=== PATIENT | female | born 1965 | race Caucasian/White ===

== ENCOUNTER 2016-07-21 23:57 | Inpatient (IN) | payer OTHER ==
[2016-07-22 00:14] VITALS: BMI 25.6
--- NOTE | 2016-07-22 00:15 | PDOC ---
History of Present Illness - General History Source: Patient, EMS, Old Records, Primary Care Provider (Dr. Brown Jin) Exam Limitations: No Limitations - History of Present Illness Initial Comments: 07/22/16 00:27 The patient is a 51 year old female with significant past medical history of hypertension, multiple episodes of SBO, and multiple abdominal surgeries who presents to the ED BIBA for admission requested by surgeon. Patient was seen here on 07/11 for abdominal pain, nausea, and vomiting, where she was admitted for small bowel obstruction. On 07/14/16 she had a lap converted to open extensive lysis of adhesions, small bowel resection x 2, completion appendectomy , ventral hernia repair. She was treated and discharged. Today, patient was seen at an outside hospital where she was requested to be transferred here by surgeon, Dr. Brown Jin, for admission. As per ems, patient had a low grade fever at the outside hospital and was given tylenol with improvement. Patient has complaints of suprapubic pain upon urination. She denies dysuria, hematuria , urgency, or frequency. She states she has not pass gas over the past week and her last bowel movement was yesterday. She denies nausea, vomiting, or diarrhea. The patient denies chills, cough, diaphoresis, SOB, chest pain, and palpitations. Allergies: NKDA Social History: No alcohol, tobacco, or drug use reported. Past Surgical History: hernia repair, appendectomy, oophorectomy, on 07/14/16 ( lap converted to open extensive lysis of adhesions, small bowel resection x 2, completion appendectomy, ventral hernia repair) PCP: None reported <Halley Ocasio - Last Filed: 07/22/16 00:26> <Damon Greenberg - Last Filed: 07/22/16 01:56> - General Stated Complaint: ABDOMINAL PAIN Time Seen by Provider: 07/22/16 00:07 Past History <Halley Ocasio - Last Filed: 07/22/16 00:26> - Past Medical History GI Disorders: Yes (SBO) HTN: Yes - Surgical History Abdominal Surgery: Yes (HERNIA REPAIR) Appendectomy: Yes - Immunization History Immunization Up to Date: Yes - Psycho/Social/Smoking Cessation Hx Anxiety: No Suicidal Ideation: No Smoking Status: No Smoking History: Never smoked Have you smoked in the past 12 months: No Number of Cigarettes Smoked Daily: 0 Hx Alcohol Use: No Drug/Substance Use Hx: No Substance Use Type: None Hx Substance Use Treatment: No <Damon Greenberg - Last Filed: 07/22/16 01:56> - Past Medical History Allergies/Adverse Reactions: Allergies Allergy/AdvReac Type Severity Reaction Status Date / Time No Known Allergies Allergy Verified 07/22/16 00:33 Home Medications: Ambulatory Orders Aspirin [ASA -] 81 mg PO DAILY 07/27/13 Hydrochlorothiazide [Hctz -] 25 mg PO DAILY 12/14/15 Cholecalciferol (Vitamin D3) [Vitamin D3] 50,000 unit PO SA 07/11/16 Docusate Sodium [Colace -] 100 mg PO BID PRN #14 capsule 07/18/16 Oxycodone HCl/Acetaminophen [Percocet 10-325 mg Tablet] 1 each PO Q6H #20 tablet MDD 4 07/18/16 Review of Systems - Review of Systems Able to Perform ROS?: Yes Comments:: 07/22/16 00:27 +suprapubic pain, low grade fever Absent: chills, cough, diaphoresis, SOB, chest pain, nausea, vomiting, diarrhea , dysuria, hematuria, urgency, or frequency <Halley Ocasio - Last Filed: 07/22/16 00:26> *Physical Exam - Vital Signs Last Vital Signs Temp Pulse Resp BP Pulse Ox 99.3 F 107 H 20 98/59 96 07/22/16 00:12 07/22/16 00:12 07/22/16 00:12 07/22/16 00:12 07/22/16 00:12 <Halley Ocasio - Last Filed: 07/22/16 00:26> - Physical Exam General Appearance: Yes: Nourished, Appropriately Dressed HEENT: positive: Normal ENT Inspection Neck: negative: Tender Respiratory/Chest: positive: Lungs Clear, Normal Breath Sounds. negative: Respiratory Distress Cardiovascular: positive: Regular Rhythm, Regular Rate Gastrointestinal/Abdominal: positive: Normal Bowel Sounds, Other (SURGICAL STAPPLES IN PLACE NO CELLULITIS. ). negative: Tender Musculoskeletal: positive: Normal Inspection. negative: CVA Tenderness Integumentary: positive: Normal Color, Rash Neurologic: positive: Fully Oriented, Alert, Normal Mood/Affect, Normal Response , Motor Strength 5/5 <Damon Greenberg - Last Filed: 07/22/16 01:56> ED Treatment Course - LABORATORY CBC & Chemistry Diagram: 07/22/16 00:45 07/22/16 00:45 <Damon Greenberg - Last Filed: 07/22/16 01:56> Progress Note - Progress Note Progress Note: D/W DR. JIN WILL ADMIT. NPO START ABX (FEBRILE EARLIER) <Damon Greenberg - Last Filed: 07/22/16 01:56> *DC/Admit/Observation/Transfer - Attestations Scribe Attestion: 07/22/16 00:27 Documentation prepared by Halley Ocasio, acting as medical records field technician for Damon Greenberg MD <Halley Ocasio - Last Filed: 07/22/16 00:26> - Discharge Dispostion Admit: Yes <Damon Greenberg - Last Filed: 07/22/16 01:56> Diagnosis at time of Disposition: Abdominal pain Qualifiers: Abdominal location: generalized Qualified Code(s): R10.84 - Generalized abdominal pain
[2016-07-22] MEDS: SODIUM CHLORIDE 1,000 ML IV SCH ×3 (00:33→18:48)
[2016-07-22 00:56] LABS: BASOPHIL 0.3 % (0-2.0); EOSINOPHIL 0.1 % (0-4.5); MCH 26.5 pg (25.7-33.7); MCHC 33.2 g/dl (32.0-36.0); MEAN CELL VOLUME 79.8 fl (80-96); NEUTROPHILS 93.2 % (42.8-82.8); PLATELET COUNT 260 K/MM3 (134-434); WHITE BLOOD COUNT 14.7 K/mm3 (4.0-10.0)
[2016-07-22] MEDS ORDERED: PIPERACILLIN/TAZOB 4.5 GM 100 ML IVPB ONE (00:58)
[2016-07-22] MEDS ORDERED: PIPERACILLIN/TAZOB 4.5 GM/100 ML PRE-DOCKED IVPB ONE (01:04)
[2016-07-22 01:19] LABS: ALBUMIN 2.6 g/dl (3.4-5.0); ANION GAP 12 (8-16); BILIRUBIN,TOTAL 1.1 mg/dL (0.2-1.0); CALCIUM 7.7 mg/dL (8.5-10.1); CO2 27 mmol/L (21-32); CREATININE 0.5 mg/dL (0.55-1.02); GLUCOSE,RANDOM 118 mg/dL (74-106); SGOT/AST 32 U/L (15-37); SGPT/ALT 32 U/L (12-78); TOT PROT 5.3 g/dl (6.4-8.2)
[2016-07-22 01:20] LABS: ALK PHOS 88 U/L (45-117)
[2016-07-22] MEDS ORDERED: morphine CARPU-JECT 2 MG/1 ML DISP.SYRIN IVPUSH ONE (02:11)
[2016-07-22] MEDS ORDERED: morphine CARPU-JECT 2 MG/1 ML DISP.SYRIN ONE (02:11)
--- NOTE | 2016-07-22 02:32 | HP ---
CHIEF COMPLAINT: Abdominal pain, fever, chills PCP: Margaux Jenkins Surgeon: Dr. Jin HISTORY OF PRESENT ILLNESS: This is a 51 year old female with a past medical history of HTN and multiple abdominal surgeries, most recent 07/14/16, presented to [facility] this afternoon s/p episode of shaking chills. She was noted to be febrile, Tmax 102.5, tx with tylenol. CT abdomen/pelvis was done and after discussion with Dr. Jin, decision was made to transfer her here for further treatment. She is s/ p lap converted to open extensive lysis of adhesions, small bowel resection x 2 , completion appendectomy, ventral hernia repair on 07/14/16. Upon exam she complains of abdominal pain which is slowly improving since her surgery. She reports passing small amounts of gas and her last BM was yesterday. She reports no fever or chills prior to today. Denies nausea, vomiting. ER course was notable for: (1) given morphine 2mg for pain (2) given zosyn 4.5g (3) [facility] ED: 2L NS given, morphine 4mg @1710, tylenol 975mg po @ 2019 Recent Travel: pt denies PAST MEDICAL HISTORY: HTN PAST SURGICAL HISTORY: R oopherectomy, (ovarian cyst) salpingectomy, appendectomy 1985 hernia repair 2003 (after which SBOs began) lap converted to open extensive lysis of adhesions, small bowel resection x 2, completion appendectomy, ventral hernia repair 07/14/16 Social History: Smoking: pt denies Alcohol: pt denies Drugs: pt denies Allergies No Known Allergies Allergy (Verified 07/22/16 00:33) HOME MEDICATIONS: 3 Medication Instructions Recorded Aspirin [ASA -] 81 mg PO DAILY 07/27/13 Hydrochlorothiazide [Hctz -] 25 mg PO DAILY 12/14/15 Cholecalciferol (Vitamin D3) 50,000 unit PO SA 07/11/16 [Vitamin D3] Docusate Sodium [Colace -] 100 mg PO BID PRN #14 capsule 07/18/16 Oxycodone HCl/Acetaminophen 1 each PO Q6H #20 tablet MDD 4 07/18/16 [Percocet 10-325 mg Tablet] REVIEW OF SYSTEMS CONSTITUTIONAL: Present: fever, chills Absent: diaphoresis, generalized weakness, malaise, loss of appetite, weight change HEENT: Absent: rhinorrhea, nasal congestion, throat pain, throat swelling, difficulty swallowing, mouth swelling, ear pain, eye pain, visual changes CARDIOVASCULAR: Absent: chest pain, syncope, palpitations, irregular heart rate, lightheadedness , peripheral edema RESPIRATORY: Absent: cough, shortness of breath, dyspnea with exertion, orthopnea, wheezing, stridor, hemoptysis GASTROINTESTINAL: Present: abdominal pain Absent: abdominal distension, nausea, vomiting, diarrhea, constipation, melena, hematochezia GENITOURINARY: Absent: dysuria, frequency, urgency, hesitancy, hematuria, flank pain, genital pain MUSCULOSKELETAL: Absent: myalgia, arthralgia, joint swelling, back pain, neck pain SKIN: Absent: rash, itching, pallor HEMATOLOGIC/IMMUNOLOGIC: Absent: easy bleeding, easy bruising, lymphadenopathy, frequent infections ENDOCRINE: Absent: unexplained weight gain, unexplained weight loss, heat intolerance, cold intolerance NEUROLOGIC: Absent: headache, focal weakness or paresthesias, dizziness, unsteady gait, seizure, mental status changes, bladder or bowel incontinence PSYCHIATRIC: Absent: anxiety, depression, suicidal or homicidal ideation, hallucinations. PHYSICAL EXAMINATION Vital Signs - 24 hr 3 07/22/ 00:12 Temperature 99.3 F Pulse Rate 107 H Respiratory 20 Rate Blood Pressure 98/59 O2 Sat by Pulse 96 Oximetry (%) GENERAL: Awake, alert, and fully oriented, in no acute distress. HEAD: Normal with no signs of trauma. EYES: Pupils equal, round and reactive to light, extraocular movements intact, sclera anicteric, conjunctiva clear. No lid lag. EARS, NOSE, THROAT: Ears normal, nares patent, oropharynx clear without exudates. Moist mucous membranes. NECK: Normal range of motion, supple without lymphadenopathy, JVD, or masses. LUNGS: Breath sounds equal, clear to auscultation bilaterally. No wheezes, and no crackles. No accessory muscle use. HEART: Regular rate and rhythm, normal S1 and S2 without murmur, rub or gallop. ABDOMEN: Soft, not distended, normoactive bowel sounds, no guarding, no rebound , no masses. No hepatomegaly or splenomegaly. generalized tenderness to palpation, gregg LLQ MUSCULOSKELETAL: Normal range of motion at all joints. No bony deformities or tenderness. No CVA tenderness. UPPER EXTREMITIES: 2+ pulses, warm, well-perfused. No cyanosis. No clubbing. No peripheral edema. LOWER EXTREMITIES: 2+ pulses, warm, well-perfused. No calf tenderness. No peripheral edema. NEUROLOGICAL: Cranial nerves II-XII intact. Normal speech. Normal gait. PSYCHIATRIC: Cooperative. Good eye contact. Appropriate mood and affect. SKIN: Warm, dry, normal turgor, no rashes or lesions noted, normal capillary refill. Laboratory Results - last 24 hr 3 07/22/16 07/22/16 00:45 00:45 WBC 14.7 H D RBC 3.53 L Hgb 9.4 L Hct 28.2 L MCV 79.8 L MCHC 33.2 RDW 14.0 Plt Count 260 D MPV 9.0 D Neutrophils % 93.2 H D Lymphocytes % 3.9 L D Monocytes % 2.5 L Eosinophils % 0.1 D Basophils % 0.3 Sodium 140 Potassium 3.5 Chloride 101 Carbon Dioxide 27 Anion Gap 12 BUN 4 L D Creatinine 0.5 L D Creat Clearance w eGFR > 60 Random Glucose 118 H Calcium 7.7 L Total Bilirubin 1.1 H D AST 32 D ALT 32 D Alkaline Phosphatase 88 Total Protein 5.3 L D Albumin 2.6 L D ECG: ([place]) Sinus tachycardia, rate 116, QTC 419, No ST/T wave changes CT abd / pelvis ([place]): Impression: Extensive mesenteric edema with enteritis in the lower abdomen suspicious for anastomotic leak. There is small amount of ascites and free air in the right lower quadrant. There is no definite evidence of contraast extravasation, though only a small amount of contrast reached the site of anastomosis and the colon. Proximal small bowel distention could be reactive or represent partial small bowel obstruction. There is no organized abscess. There is reactive urinary bladder wall thickening. Other findings as above. ASSESSMENT/PLAN: 51yF with PMH HTN, mutiple abdominal surgeries, most recent 07/14, presented to an outside ED with fever and chills. Pt is being admitted for further evaluation and treatment. Fever - s/p laparotomy 07/14/16 - IV acetaminophen PRN - Zosyn given in ED - ID consult - surgical consult, ED discussed case with Dr. Jin, will repeat CT tomorrow. Possible SBO - NPO - surgical consult - NGT if vomiting HTN - hold po med for now. DVT PPX - heparin 5000 units SC TID FEN - NS @ 125cc/hr Dispo: Pt currently requires inpatient care for management of her emergent condition. Visit type - Emergency Visit Emergency Visit: Yes ED Registration Date: 07/22/16 Care time: The patient presented to the Emergency Department on the above date and was hospitalized for further evaluation of their emergent condition. - New Patient This patient is new to me today: Yes Date on this admission: 07/22/16 - Critical Care Critical Care patient: No
[2016-07-22] MEDS ORDERED: ONDANSETRON 4 MG/2 ML VIAL IVPB PRN (02:39)
[2016-07-22] MEDS ORDERED: ACETAMINOPHEN 1000 MG/100 ML VIAL (NON FORMULARY) IVPB ONE (03:29)
[2016-07-22] MEDS ORDERED: ACETAMINOPHEN 1000 MG/100 ML VIAL (NON FORMULARY) IVPB PRN (03:30)
[2016-07-22] MEDS ORDERED: SODIUM CHLORIDE 500 ML IV STA ×2 (04:36→12:50)
[2016-07-22] MEDS ORDERED: IBUPROFEN 800 MG/8 ML IJ IVPB PRN (05:29)
[2016-07-22] MEDS: HEPARIN NA (PORCINE) 5,000 UNITS/ML 1ML VIAL SQ SCH ×3 (06:58→22:14)
[2016-07-22 09:39] LABS: C-REACTIVE PROTEIN 17.3 MG/DL (0.00-0.3)
--- NOTE | 2016-07-22 09:57 | CONSULT ---
Consult Consult Specialty:: surgery Reason for Consultation:: fever/abd pain - History of Present Illness Chief Complaint: fever History of Present Illness: pt is a 51F 1 week s/p exlap and 2 small bowel resections for chronic recurrent small bowel obstruction. she was discharged once she tolerated diet, and had bowel function. at home she developed fever and mental status changes and was brought by ambulance to [place] [facility] where she had leukocytosis, fever. CT abd with oral and IV contrastthere showed mesenteric edema/inflammation, thickening of some small bowel and 4x6 cm RLQ fluid collection. There was no extravasation of oral contrast, not alot of ascites, no air around anastamosis. Currently patient feels better than last night. Tm overnight 103. HR 100-140. SBP 90-100 - History Source History Provided By: Patient, Family Member Limitations to Obtaining History: Language Barrier - Past Medical History ...LMP: 03/08/12 - Past Surgical History Past Surgical History: Yes: Appendectomy - Alcohol/Substance Use Hx Alcohol Use: No - Smoking History Smoking history: Never smoked Have you smoked in the past 12 months: No Aproximately how many cigarettes per day: 0 Home Medications - Allergies Allergies/Adverse Reactions: Allergies Allergy/AdvReac Type Severity Reaction Status Date / Time No Known Allergies Allergy Verified 07/22/16 00:33 - Home Medications Home Medications: Ambulatory Orders Aspirin [ASA -] 81 mg PO DAILY 07/27/13 Hydrochlorothiazide [Hctz -] 25 mg PO DAILY 12/14/15 Cholecalciferol (Vitamin D3) [Vitamin D3] 50,000 unit PO SA 07/11/16 Docusate Sodium [Colace -] 100 mg PO BID PRN #14 capsule 07/18/16 Oxycodone HCl/Acetaminophen [Percocet 10-325 mg Tablet] 1 each PO Q6H #20 tablet MDD 4 07/18/16 Review of Systems - Review of Systems Constitutional: reports: Chills, Fever, Malaise Eyes: denies: Blind Spots, Blurred Vision HENT: denies: Difficult Swallowing, Ear Discharge Neck: denies: Decreased ROM, Lumps Cardiovascular: denies: Chest Pain, Edema Respiratory: denies: Cough, SOB Gastrointestinal: reports: Abdominal Pain, Constipation Genitourinary: denies: Discharge, Incontinence Breasts: denies: Lumps, Pain Musculoskeletal: denies: Back Pain, Crepitus Integumentary: denies: Blister, Bruising Neurological: denies: Change in LOC, Change in Speech Endocrine: denies: Excessive Sweating, Flushing Hematology/Lymphatic: denies: Easily Bruised, Excessive Bleeding Psychiatric: denies: Altered Sleep Pattern, Anxiety Physical Exam Vital Signs: Vital Signs Temperature 99 F 07/22/16 09:00 Pulse Rate 105 H 07/22/16 09:00 Respiratory Rate 18 07/22/16 09:00 Blood Pressure 90/52 07/22/16 09:00 O2 Sat by Pulse Oximetry (%) 98 07/22/16 06:00 Constitutional: Yes: No Distress, Calm Eyes: Yes: Conjunctiva Clear, EOM Intact HENT: Yes: Atraumatic, Normocephalic Neck: Yes: Supple, Trachea Midline Cardiovascular: Yes: Regular Rate and Rhythm Respiratory: Yes: Regular, CTA Bilaterally Gastrointestinal: Yes: Soft, Other (incision c/d/i.). No: Distention, Tenderness ...Rectal Exam: Yes: Deferred Renal/: No: CVA Tenderness - Left, CVA Tenderness - Right Breast(s): No: Mass, Nipple Inversion Extremities: No: Calf Tenderness, Erythema Integumentary: No: Erythema, Rash Wound/Incision: Yes: Clean/Dry, Well Approximated Neurological: Yes: Alert, Oriented Psychiatric: Yes: Alert, Oriented Imaging - Results Cat Scan: Report Reviewed, Image Reviewed Problem List - Problems (1) Abdominal pain Code(s): R10.9 - UNSPECIFIED ABDOMINAL PAIN Qualifiers: Abdominal location: generalized Qualified Code(s): R10.84 - Generalized abdominal pain (2) Leukocytosis Code(s): D72.829 - ELEVATED WHITE BLOOD CELL COUNT, UNSPECIFIED (3) SIRS (systemic inflammatory response syndrome) Assessment/Plan: will transfer patient to ICU for closer monitoring case d/w IR. they will drain RLQ fluid collection cont empiric abx can start clear liquid diet after RLQ fluid is drained. will monitor closely if she cont to deteriorate will need exploratory laparotomy case d/w patient and her daughter at length. Code(s): R65.10 - SIRS OF NON-INFECTIOUS ORIGIN W/O ACUTE ORGAN DYSFUNCTION
[2016-07-22] MEDS ORDERED: LACTATED RINGERS SOLUTION 1,000 ML IV SCH (10:00)
[2016-07-22] MEDS: HYDROCHLOROTHIAZIDE 25 MG TABLET (FP) PO SCH (11:12)
[2016-07-22] MEDS: PIPERACILLIN/TAZOB 4.5 GM 100 ML IVPB SCH ×2 (11:12→17:15)
[2016-07-22] MEDS: METRONIDAZOLE 500 MG PREMIXED 100 ML IVPB SCH ×2 (11:12→17:46)
[2016-07-22] MEDS: DOCUSATE SODIUM 100 MG CAPSULE (FP) PO SCH ×2 (11:13→22:14)
--- NOTE | 2016-07-22 11:46 | CONS ---
INFECTIOUS DISEASE CONSULT DATE OF CONSULTATION: 07/22/2016 HISTORY OF PRESENT ILLNESS: This is a 51-year-old [place] female status post recent laparotomy on July 14 at [facility], discharged July 18. She was apparently seen at [facility] and recommended that she be re-admitted to [facility] for evaluation of suprapubic pain with dysuria. She states she has not passed gas in over a week, and her last bowel movement was yesterday. She denied any nausea, vomiting or diarrhea. The history is significant for surgery on July 14 at [facility]. A laparotomy converted to an open surgery with extensive lysis of adhesions, small bowel resections x 2, appendectomy and repair of a ventral hernia. She apparently did well and was discharged on the July 18. PAST MEDICAL HISTORY: Recent laparotomy with lysis of adhesions and small bowel resection, appendectomy, prior oophorectomy, recent ventral hernia repair. MEDICATIONS: Aspirin, hydrochlorothiazide. ALLERGIES: None known. SOCIAL HISTORY: Never smoked. No history of alcohol use. [place] immigrant, but living in the [place] many years with no recent travel. FAMILY HISTORY: Family history reviewed and noncontributory. REVIEW OF SYSTEMS: Respiratory: No cough or shortness of breath. Cardiac: No chest pain/palpitations. GASTROINTESTINAL: Denies abdominal pain, vomiting, diarrhea. GENITOURINARY: Positive dysuria. No hematuria. PHYSICAL EXAMINATION: Vital signs: The temperature was 103. T-max 103. Pulse 143. Blood pressure 100/56. Respirations 18. General: Alert, in no acute distress. Neck: Supple, no adenopathy. Lungs: Clear to percussion and auscultation. Heart: S1, S2. Regular rhythm, tachycardic. Abdomen: The abdomen with jocelynn and surgical incisions. No cellulitis of the abdominal wall noted. The abdomen was distended, soft with some tenderness noted left lower quadrant. White count of 14.7, hemoglobin 9.4, platelets of 260 with 93% polycytes. INR 1.04. BUN of 4. Creatinine 0.5. Lactic acid 3.9. Urinalysis with trace leukocyte esterase, 5 RBCs, 4 WBCs and many yeast noted. Blood and urine culture pending. I do not see a urine culture currently. Influenza screening performed: Negative. Abdominal CT scan performed July 21: Extensive associated mesenteric edema with enteritis in the lower abdomen suspicious for an anastomotic leak. Small amount of ascites and free air in the right lower quadrant. No definite evidence of contrast extravasation. Proximal small bowel distention ASSESSMENT: A 51-year-old female status post extensive abdominal surgery with small bowel resections, lysis of adhesions July 14, presents now with sepsis with 103 fever, abdominal tenderness and CAT scan suggesting possibility of an anastomotic leak. PLAN: 1. Blood cultures. 2. Urine culture. 3. Empiric therapy with piperacillin, tazobactam and metronidazole. 4. Surgical consultation pending. LEXII LUCAS M.D. [place]/[id number]
[2016-07-22] MEDS: morphine CARPU-JECT 2 MG/1 ML DISP.SYRIN IVPUSH PRN (12:10)
[2016-07-22] MEDS ORDERED: SODIUM CHLORIDE 1,000 ML IV SCH (13:00)
[2016-07-22 13:33] LABS: BASOPHIL 0.4 % (0-2.0); EOSINOPHIL 0.1 % (0-4.5); MCH 26.2 pg (25.7-33.7); MCHC 32.6 g/dl (32.0-36.0); MEAN CELL VOLUME 80.2 fl (80-96); MEAN PLT VOLUME 8.8 fl (7.5-11.1); NEUTROPHILS 93.2 % (42.8-82.8); PLATELET COUNT 211 K/MM3 (134-434); RDW 14.1 % (11.6-15.6); WHITE BLOOD COUNT 13.5 K/mm3 (4.0-10.0)
[2016-07-22 13:58] LABS: ALBUMIN 2.3 g/dl (3.4-5.0); ANION GAP 11 (8-16); BILIRUBIN,TOTAL 1.2 mg/dL (0.2-1.0); CALCIUM 7.3 mg/dL (8.5-10.1); CO2 27 mmol/L (21-32); CREATININE 0.4 mg/dL (0.55-1.02); GLUCOSE,RANDOM 136 mg/dL (74-106); MAGNESIUM 1.5 mg/dL (1.8-2.4); PHOSPHOROUS 2.8 mg/dL (2.5-4.9); SGOT/AST 35 U/L (15-37); SGPT/ALT 36 U/L (12-78); TOT PROT 4.9 g/dl (6.4-8.2)
[2016-07-22 13:59] LABS: ALK PHOS 87 U/L (45-117)
--- NOTE | 2016-07-22 15:37 | CONSULT ---
Consultation: REQUESTING PROVIDER: CONSULT REQUEST: We have been asked to medically evaluate this patient for (ICU) . HISTORY OF PRESENT ILLNESS: 51 year old female with a past medical history of HTN and multiple abdominal surgeries, 1 week s/p exlap and 2 small bowel resections for chronic recurrent small bowel obstruction (07/14/16), discharged home after walked, voided, tolerated diet, +BM on 07/18/16. presented to [facility] this afternoon s/p episode of shaking chills and one episode of melena. patient reports having poor appetite and had two BM at home, first regular second melena s/p taking 3 pills of ibuprofen x 3times for pain control three days ago. two days ago patient started having abdominal pain, riggers, continues burping and bilious vomitus x1. patient reports no having a appetite. patient reports dysurea and urinary frequency. She denies chest pain, shortness of breath, cough. REVIEW OF SYSTEMS: CONSTITUTIONAL: chills, diaphoresis, generalized weakness, malaise, loss of appetite, Absent: fever, weight change HEENT: Absent: rhinorrhea, nasal congestion, throat pain, throat swelling, difficulty swallowing, mouth swelling, ear pain, eye pain, visual changes CARDIOVASCULAR: Absent: chest pain, syncope, palpitations, irregular heart rate, lightheadedness , peripheral edema RESPIRATORY: shortness of breath, dyspnea with exertion, Absent: cough, orthopnea, wheezing, stridor, hemoptysis GASTROINTESTINAL: abdominal pain, melena, Absent:abdominal distension, nausea, vomiting, diarrhea, constipation, hematochezia GENITOURINARY: + dysuria, frequency, genital pain Absent: urgency, hesitancy, hematuria, flank pain, MUSCULOSKELETAL: Absent: myalgia, arthralgia, joint swelling, back pain, neck pain SKIN: Absent: rash, itching, pallor ENDOCRINE: Absent: unexplained weight gain, unexplained weight loss, heat intolerance, cold intolerance NEUROLOGIC: Absent: headache, focal weakness or paresthesias, dizziness, unsteady gait, seizure, mental status changes, bladder or bowel incontinence PSYCHIATRIC: Absent: anxiety, depression, suicidal or homicidal ideation, hallucinations. PHYSICAL EXAMINATION Vital Signs - 24 hr 07/22/16 07/22/16 07/22/16 03:03 06:00 09:00 Temperature 103 F H 99 F Pulse Rate 143 H 105 H Pulse Rate [ 99 H Left Apical] Pulse Rate [ Left Upper Arm] Respiratory 18 18 18 Rate Respiratory Rate [Left Upper Arm] Blood Pressure 101/56 90/52 Blood Pressure 119/58 [Left Arm] Blood Pressure [Left Upper Arm ] O2 Sat by Pulse 98 98 98 Oximetry (%) O2 Sat by Pulse Oximetry (%) [ Left Upper Arm] 07/22/16 07/22/16 07/22/16 11:40 12:00 12:40 Temperature 98.3 F Pulse Rate 83 83 Pulse Rate [ Left Apical] Pulse Rate [ Left Upper Arm] Respiratory 20 20 Rate Respiratory Rate [Left Upper Arm] Blood Pressure 86/65 93/61 Blood Pressure [Left Arm] Blood Pressure [Left Upper Arm ] O2 Sat by Pulse 98 Oximetry (%) O2 Sat by Pulse Oximetry (%) [ Left Upper Arm] 07/22/16 07/22/16 07/22/16 12:45 13:00 13:50 Temperature Pulse Rate 81 86 Pulse Rate [ Left Apical] Pulse Rate [ Left Upper Arm] Respiratory 20 24 Rate Respiratory Rate [Left Upper Arm] Blood Pressure 95/60 104/63 Blood Pressure [Left Arm] Blood Pressure [Left Upper Arm ] O2 Sat by Pulse 98 100 Oximetry (%) O2 Sat by Pulse Oximetry (%) [ Left Upper Arm] 07/22/16 07/22/16 07/22/16 14:05 14:15 14:27 Temperature Pulse Rate 73 Pulse Rate [ Left Apical] Pulse Rate [ 86 73 Left Upper Arm] Respiratory 22 Rate Respiratory 22 22 Rate [Left Upper Arm] Blood Pressure 121/75 Blood Pressure [Left Arm] Blood Pressure 103/68 115/73 [Left Upper Arm ] O2 Sat by Pulse 100 Oximetry (%) O2 Sat by Pulse 100 100 Oximetry (%) [ Left Upper Arm] 07/22/16 14:30 Temperature Pulse Rate 92 H Pulse Rate [ Left Apical] Pulse Rate [ Left Upper Arm] Respiratory 22 Rate Respiratory Rate [Left Upper Arm] Blood Pressure 110/75 Blood Pressure [Left Arm] Blood Pressure [Left Upper Arm ] O2 Sat by Pulse 100 Oximetry (%) O2 Sat by Pulse Oximetry (%) [ Left Upper Arm] GENERAL: Awake, alert, and fully oriented, in mild acute distress. diaphoretic, techppnic, burping, bilious vomitus x2. HEAD: Normal with no signs of trauma. EYES: extraocular movements intact, sclera anicteric, conjunctiva clear. EARS, NOSE, THROAT: Ears normal, nares patent, oropharynx clear without exudates. Moist mucous membranes. NG tube inplace. NECK: Normal range of motion, supple without lymphadenopathy, JVD, or masses. LUNGS: tachypnic, Breath sounds equal, bibaseler crackles, No wheezes, No accessory muscle use. HEART: Regular rate and rhythm, normal S1 and S2 without murmur, rub or gallop. ABDOMEN: Soft, tenderness on lower abdomin R>L and suprapubic, REbound tenderness on LLQ, mild distended, incission intact with jocelynn and o sign of erythema, tenderness on incision or drainage. normoactive bowel sounds, no guarding. MUSCULOSKELETAL: Normal range of motion at all joints. No bony deformities or tenderness. No CVA tenderness. LOWER EXTREMITIES: 2+ pulses, warm, well-perfused. No calf tenderness. No peripheral edema. NEUROLOGICAL: Normal speech. gait not observed. PSYCHIATRIC: Cooperative. Good eye contact. Appropriate mood and affect. SKIN: Warm, dry, normal turgor, no rashes or lesions noted. Laboratory Results - last 24 hr 07/22/16 07/22/16 07/22/16 04:25 07:30 08:55 WBC RBC Hgb Hct MCV MCHC RDW Plt Count MPV Neutrophils % Lymphocytes % Monocytes % Eosinophils % Basophils % Sodium Potassium Chloride Carbon Dioxide Anion Gap BUN Creatinine Creat Clearance w eGFR Random Glucose Lactic Acid 3.972 H* 1.161 Calcium Phosphorus Magnesium Total Bilirubin AST ALT Alkaline Phosphatase C-Reactive Protein Cancelled Total Protein Albumin 07/22/16 07/22/16 07/22/16 13:18 13:18 13:18 WBC 13.5 H RBC 3.19 L Hgb 8.3 L D Hct 25.6 L MCV 80.2 MCHC 32.6 RDW 14.1 Plt Count 211 MPV 8.8 Neutrophils % 93.2 H Lymphocytes % 3.9 L Monocytes % 2.4 L Eosinophils % 0.1 Basophils % 0.4 Sodium 144 Potassium 3.2 L Chloride 106 Carbon Dioxide 27 Anion Gap 11 BUN 8 D Creatinine 0.4 L Creat Clearance w eGFR > 60 Random Glucose 136 H Lactic Acid 1.320 Calcium 7.3 L Phosphorus 2.8 D Magnesium 1.5 L D Total Bilirubin 1.2 H AST 35 ALT 36 Alkaline Phosphatase 87 C-Reactive Protein Total Protein 4.9 L Albumin 2.3 L Active Medications Generic Name Dose Route Start Last Admin Trade Name Keila PRN Reason Stop Dose Admin Acetaminophen 1,000 mg 07/22/16 03:30 Ofirmev Injection - IVPB 07/22/16 21:31 Q6H PRN FEVER OR PAIN Docusate Sodium 100 mg 07/22/16 10:00 07/22/16 11:13 Colace - PO 100 mg BID RIKA Administration Heparin Sodium (Porcine) 5,000 unit 07/22/16 06:00 07/22/16 14:08 Heparin - SQ Not Given TID RIKA Hydrochlorothiazide 25 mg 07/22/16 10:00 07/22/16 11:12 Hctz - PO Not Given DAILY RIKA Piperacillin Sod/Tazobactam Sod 100 mls @ 200 mls/hr 07/22/16 10:00 07/22/16 11 :12 Zosyn 4.5gm Ivpb (Pre-Docked) IVPB 200 mls/hr Q8H-IV RIKA Administration Protocol Metronidazole 100 mls @ 100 mls/hr 07/22/16 10:00 07/22/16 11:12 Flagyl 500mg Premixed Ivpb - IVPB 100 mls/hr Q8H-IV RIKA Administration Lactated Ringer's 1,000 mls @ 150 mls/hr 07/22/16 10:00 07/22/16 11:11 Lactated Ringers Solution IV 150 mls/hr ASDIR RIKA Administration Pantoprazole Sodium 40 mg/ 100 mls @ 200 mls/hr 07/22/16 22:00 Sodium Chloride IVPB BID RIKA Ibuprofen 600 mg 07/22/16 05:29 07/22/16 05:42 Caldolor Injection - IVPB 600 mg Q6H PRN Administration FEVER Morphine Sulfate 2 mg 07/22/16 02:39 07/22/16 12:10 Morphine Injection - IVPUSH 2 mg Q4H PRN Administration PAIN Ondansetron HCl 4 mg 07/22/16 02:39 Zofran Injection IVPB Q6H PRN NAUSEA CT abd with oral and IV contrastthere showed mesenteric edema/inflammation, thickening of some small bowel and 4x6 cm RLQ fluid collection. There was no extravasation of oral contrast, not alot of ascites, no air around anastamosis. Acute sever Sepsis: secondary to Intra-abdominal Abscess 2/2 Recent SBO/ex-lap/ SB resection x 2, s/p IR drainage of intra-abdominal abscess (send fluid for cultures) -CXR No acute pathology -UA negative -IVF -Antibiotics -f/u cultures -Pain control - Id consulted -Surgery consulted -monitor urine output, creatinine -if patient cont to deteriorate will need exploratory laparotomy per surgery attending Acute Nausea and vomiting -NG tube inplace -protonix IV Melena- possible secondary retained old blood post surgery, or upper GI bleed secondary to ibuprofen ingestion. -Ocult blood -monitor CBC Anemia- possible acute blood loss anemia -cross an screen -monitor H/H Acute Lactic acidemia- Trended down -IV fluids Leukocytosis secondary sepsis secondary to abscess -on antibiotics Dysurea -UA negative -on antiobiotics Hypotension; secondary to sepsis: corrected with IVF hypomagnesmia -repleted -bmp am hypokalemia -repleted -bmp am FEN monitor electrolytes and repelt as needed - IV NS 125cc/hr - Incentive spirometry - O2 as needed - Diet clear liquids as tolerated - PO per surgery - DVT prophylaxis - GIprophylaxis IV protonix Dispo: continue ICU, if she cont to deteriorate will need exploratory laparotomy Visit type - Emergency Visit Emergency Visit: Yes ED Registration Date: 07/22/16 Care time: The patient presented to the Emergency Department on the above date and was hospitalized for further evaluation of their emergent condition. - New Patient This patient is new to me today: Yes Date on this admission: 07/22/16 - Critical Care Critical Care patient: Yes Total Critical Care Time (in minutes): 45 Critical Care Statement: The care of this patient involved high complexity decision making to prevent further life threatening deterioration of the patient 's condition and/or to evalute & treat vital organ system(s) failure or risk of failure.
[2016-07-22] MEDS ORDERED: POTASSIUM CHLORIDE 20 MEQ PREMIX IVPB 100 ML IVPB ONE (16:25)
[2016-07-22] MEDS ORDERED: MAGNESIUM SULF 50% (8.12 MEQ/2 ML-1 GM VIAL) IVPB ONE (16:25)
[2016-07-22 16:51] LABS: URINE APPEARANCE CLEAR; URINE BILIRUBIN NEGATIVE (NEGATIVE); URINE BLOOD NEGATIVE (NEGATIVE); URINE GLUCOSE (UA) NEGATIVE (NEGATIVE); URINE KETONE 1+ (NEGATIVE); URINE LEUK ESTERASE NEGATIVE (NEGATIVE); URINE NITRITE NEGATIVE (NEGATIVE); URINE UROBILINOGEN 4.0 E.U/dl E.U./dl (0.2-1.0)
--- NOTE | 2016-07-22 16:51 | PN ---
Teaching Attending Note Name of Resident: Chapito Che ATTENDING PHYSICIAN STATEMENT I saw and evaluated the patient. I reviewed the resident's note and discussed the case with the resident. I agree with the resident's findings and plan as documented. SUBJECTIVE: Briefly, 51yo female with h/o HTN, recent ex-lap on 07/14 for SBO with SB resection x 2 without complications who was admitted with melena and shaking chills. Febrile to 103, CT A/P done at [facility] showing RLQ intra-abdominal fluid collection. Initially admitted to floor but pt hypotensive, febrile, tachycardic with abdominal pain, transferred to ICU for further monitoring. OBJECTIVE: Last Vital Signs Temp Pulse Resp BP Pulse Ox 98.5 F 98 H 20 121/66 100 07/22/16 15:00 07/22/16 16:00 07/22/16 16:00 07/22/16 16:00 07/22/16 16:16 Intake & Output 07/19/16 07/20/16 07/21/16 07/22/16 23:59 23:59 23:59 23:59 Intake Total 1350 Output Total 550 Balance 800 Weight 140 lb Gen: mildly tachypneic at rest Heart: RRR Lung: few basilar rales Abd: soft, mild TTP lower quadrants, +rebound, incision clean Ext: no edema CBC, BMP 07/22/16 13:18 07/22/16 13:18 Active Medications Acetaminophen (Ofirmev Injection -) 1,000 mg IVPB Q6H PRN PRN Reason: FEVER OR PAIN Stop: 07/22/16 21:31 Docusate Sodium (Colace -) 100 mg PO BID [facility] Last Admin: 07/22/16 11:13 Dose: 100 mg Heparin Sodium (Porcine) (Heparin -) 5,000 unit SQ TID RIKA Last Admin: 07/22/16 14:08 Dose: Not Given Hydrochlorothiazide (Hctz -) 25 mg PO DAILY [facility] Last Admin: 07/22/16 11:12 Dose: Not Given Piperacillin Sod/Tazobactam Sod (Zosyn 4.5gm Ivpb (Pre-Docked)) 100 mls @ 200 mls/hr IVPB Q8H-IV RIKA PRN Reason: Protocol Last Admin: 07/22/16 11:12 Dose: 200 mls/hr Metronidazole (Flagyl 500mg Premixed Ivpb -) 100 mls @ 100 mls/hr IVPB Q8H-IV RIKA Last Admin: 07/22/16 11:12 Dose: 100 mls/hr Lactated Ringer's (Lactated Ringers Solution) 1,000 mls @ 150 mls/hr IV ASDIR RIKA Last Admin: 07/22/16 11:11 Dose: 150 mls/hr Pantoprazole Sodium (Protonix 40mg Ivpb (Pre-Docked)) 100 mls @ 200 mls/hr IVPB BID RIKA Ibuprofen (Caldolor Injection -) 600 mg IVPB Q6H PRN PRN Reason: FEVER Last Admin: 07/22/16 05:42 Dose: 600 mg Morphine Sulfate (Morphine Injection -) 2 mg IVPUSH Q4H PRN PRN Reason: PAIN Last Admin: 07/22/16 12:10 Dose: 2 mg Ondansetron HCl (Zofran Injection) 4 mg IVPB Q6H PRN PRN Reason: NAUSEA ASSESSMENT AND PLAN: Recent SBO/ex-lap/SB resection x 2 Intra-abdominal Abscess Sepsis Lactic Acidosis HTN - for IR drainage of intra-abdominal abscess - send fluid for cultures - IVF - monitor urine output, creatinine - antibiotics - f/u cultures - pain control - incentive spirometry - O2 as needed - PO per surgery - DVT prophylaxis
[2016-07-22 16:57] LABS: URINE COLOR YELLOW; URINE PROTEIN 1+ (NEGATIVE)
[2016-07-22 16:59] LABS: URINE MUCUS RARE; URINE RBC 3 /hpf (0-3); URINE WBC 4 /hpf (3-5)
[2016-07-22] MEDS ORDERED: SODIUM CHLORIDE 0.9%/KCL 1,000 ML IV SCH (17:15)
[2016-07-22] MEDS ORDERED: PANTOPRAZOLE SODIUM 40 MG in SODIUM CHLORIDE 100 ML IVPB SCH (22:00)
[2016-07-22] MEDS: PANTOPRAZOLE SODIUM 100 ML IVPB SCH (22:14)
[2016-07-23] MEDS: METRONIDAZOLE 500 MG PREMIXED 100 ML IVPB SCH ×3 (02:00→17:51)
[2016-07-23] MEDS: PIPERACILLIN/TAZOB 4.5 GM 100 ML IVPB SCH ×3 (02:00→19:30)
[2016-07-23 05:58] LABS: BASOPHIL 0.1 % (0-2.0); EOSINOPHIL 0.1 % (0-4.5); MCH 26.7 pg (25.7-33.7); MCHC 33.1 g/dl (32.0-36.0); MEAN CELL VOLUME 80.6 fl (80-96); MEAN PLT VOLUME 9.3 fl (7.5-11.1); NEUTROPHILS 92.5 % (42.8-82.8); PLATELET COUNT 232 K/MM3 (134-434); RDW 14.1 % (11.6-15.6); WHITE BLOOD COUNT 10.7 K/mm3 (4.0-10.0)
[2016-07-23] MEDS: HEPARIN NA (PORCINE) 5,000 UNITS/ML 1ML VIAL SQ SCH ×3 (06:06→21:10)
--- NOTE | 2016-07-23 08:27 | PN ---
Progress Note, Physician Chief Complaint: ID ICU follow up for this 51 year old female seen yesterday for feveer 103 and intrabdominal sepsis. Subsequently brought to ICU for closer monitoring. Presently states she is feeling much better no rigors and minimla abd pain. Since I saw her yesterday a drain has been placed in the right abd by IR. She was given Pip Tazo yesterday along with metronidazole day 1. Report of positive blood cultures Gram negative rods ! - Current Medication List Current Medications: Active Medications Docusate Sodium (Colace -) 100 mg PO BID [facility] Last Admin: 07/22/16 22:14 Dose: Not Given Heparin Sodium (Porcine) (Heparin -) 5,000 unit SQ TID [facility] Last Admin: 07/23/16 06:06 Dose: 5,000 unit Hydrochlorothiazide (Hctz -) 25 mg PO DAILY [facility] Last Admin: 07/22/16 11:12 Dose: Not Given Piperacillin Sod/Tazobactam Sod (Zosyn 4.5gm Ivpb (Pre-Docked)) 100 mls @ 200 mls/hr IVPB Q8H-IV RIKA PRN Reason: Protocol Last Admin: 07/23/16 02:00 Dose: 200 mls/hr Metronidazole (Flagyl 500mg Premixed Ivpb -) 100 mls @ 100 mls/hr IVPB Q8H-IV [facility] Last Admin: 07/23/16 02:00 Dose: 100 mls/hr Pantoprazole Sodium (Protonix 40mg Ivpb (Pre-Docked)) 100 mls @ 200 mls/hr IVPB BID [facility] Last Admin: 07/22/16 22:14 Dose: 200 mls/hr Sodium Chloride (Normal Saline -) 1,000 mls @ 100 mls/hr IV ASDIR [facility] Last Admin: 07/22/16 18:48 Dose: Not Given Morphine Sulfate (Morphine Injection -) 2 mg IVPUSH Q4H PRN PRN Reason: PAIN Last Admin: 07/22/16 12:10 Dose: 2 mg Ondansetron HCl (Zofran Injection) 4 mg IVPB Q6H PRN PRN Reason: NAUSEA - Objective Vital Signs: Vital Signs Temperature 98.8 F 07/23/16 06:00 Pulse Rate 100 H 07/23/16 06:00 Respiratory Rate 20 07/23/16 06:00 Blood Pressure 109/64 07/23/16 06:00 O2 Sat by Pulse Oximetry (%) 100 07/22/16 20:00 Constitutional: Yes: Well Nourished, No Distress Eyes: Yes: WNL, Conjunctiva Clear HENT: Yes: WNL, Atraumatic, Normocephalic Neck: Yes: WNL, Supple, Trachea Midline Cardiovascular: Yes: Regular Rate and Rhythm, Tachycardia, S1, S2. No: Gallop, Murmur Respiratory: Yes: WNL, Regular, CTA Bilaterally. No: Rales, Rhonchi, SOB Gastrointestinal: Yes: Soft, Other (jocelynn drain right side). No: Ascites, Distention, Tenderness, Tenderness, Rebound Extremities: No: Calf Tenderness, Cold, Cool Edema: No Labs: CBC, BMP 07/23/16 05:00 Problem List - Problems (1) Gram-negative bacteremia Code(s): R78.81 - BACTEREMIA (2) Sepsis Code(s): A41.9 - SEPSIS, UNSPECIFIED ORGANISM (3) Intra-abdominal abscess Code(s): K65.1 - PERITONEAL ABSCESS Assessment/Plan Microbiology 07/22/16 05:16 Blood - Peripheral Venous Blood Culture - Preliminary Pending Organism 07/22/16 04:25 Blood - Peripheral Venous Blood Culture - Preliminary Pending Organism Laboratory Tests 07/22/16 07/22/16 07/23/16 13:18 15:00 05:00 WBC 10.7 H Hgb 8.0 L Hct 24.1 L Plt Count 232 BUN 8 D Creatinine 0.4 L Total Bilirubin 1.2 H AST 35 ALT 36 Alkaline Phosphatase 87 Urine RBC 3 Urine WBC 4 Assessment S/P bowel resection lysis of adhesions previously July 14 Sepsis syndrome Gram negative breonna bacteremia Intrabdominal collection now with drainage catheter Plan Overall appears to be doing much better then yesterday Fells better Temp and WBC down Continue current antibiotics as ordered pending C/S Critical care time 35 minutes spent/ Discussed finding with pt and daughter Bharath STEVEN
[2016-07-23 08:56] LABS: CALCIUM 7.3 mg/dL (8.5-10.1); CREATININE 0.3 mg/dL (0.55-1.02); PHOSPHOROUS 1.9 mg/dL (2.5-4.9)
[2016-07-23] MEDS: SODIUM CHLORIDE 1,000 ML IV SCH (09:00)
--- NOTE | 2016-07-23 09:05 | PN ---
Progress Note, Physician Chief Complaint: feels better History of Present Illness: got IR drainage of fluid collection yesterday. no more pelvic pain. on admission was had blood cx + for GNR x 2. NGT put out 400. +large BM. wbc improved. - Current Medication List Current Medications: Active Medications Docusate Sodium (Colace -) 100 mg PO BID [facility] Last Admin: 07/22/16 22:14 Dose: Not Given Heparin Sodium (Porcine) (Heparin -) 5,000 unit SQ TID [facility] Last Admin: 07/23/16 06:06 Dose: 5,000 unit Hydrochlorothiazide (Hctz -) 25 mg PO DAILY [facility] Last Admin: 07/22/16 11:12 Dose: Not Given Piperacillin Sod/Tazobactam Sod (Zosyn 4.5gm Ivpb (Pre-Docked)) 100 mls @ 200 mls/hr IVPB Q8H-IV RIKA PRN Reason: Protocol Last Admin: 07/23/16 02:00 Dose: 200 mls/hr Metronidazole (Flagyl 500mg Premixed Ivpb -) 100 mls @ 100 mls/hr IVPB Q8H-IV [facility] Last Admin: 07/23/16 02:00 Dose: 100 mls/hr Pantoprazole Sodium (Protonix 40mg Ivpb (Pre-Docked)) 100 mls @ 200 mls/hr IVPB BID [facility] Last Admin: 07/22/16 22:14 Dose: 200 mls/hr Sodium Chloride (Normal Saline -) 1,000 mls @ 100 mls/hr IV ASDIR [facility] Last Admin: 07/22/16 18:48 Dose: Not Given Morphine Sulfate (Morphine Injection -) 2 mg IVPUSH Q4H PRN PRN Reason: PAIN Last Admin: 07/22/16 12:10 Dose: 2 mg Ondansetron HCl (Zofran Injection) 4 mg IVPB Q6H PRN PRN Reason: NAUSEA - Objective Vital Signs: Vital Signs Temperature 98.8 F 07/23/16 06:00 Pulse Rate 100 H 07/23/16 06:00 Respiratory Rate 20 07/23/16 06:00 Blood Pressure 109/64 07/23/16 06:00 O2 Sat by Pulse Oximetry (%) 100 07/22/16 20:00 Constitutional: Yes: No Distress, Calm Eyes: Yes: Conjunctiva Clear, EOM Intact HENT: Yes: Atraumatic, Normocephalic Neck: Yes: Supple, Trachea Midline Respiratory: Yes: Regular Gastrointestinal: Yes: Soft, Tenderness (near incision. inc c/d/i). No: Distention ...Rectal Exam: Yes: Deferred Genitourinary: Yes: Shea Present. No: CVA Tenderness - Left, CVA Tenderness - Right Breast(s): No: Gynecomastia, Mass Musculoskeletal: No: Joint Stiffness, Joint Swelling Extremities: No: Calf Tenderness, Erythema Integumentary: No: Erythema, Rash Wound/Incision: Yes: Clean/Dry, Well Approximated Neurological: Yes: Alert, Oriented Psychiatric: Yes: Alert, Oriented Labs: CBC, BMP 07/23/16 05:00 Problem List - Problems (1) Abdominal pain Assessment/Plan: GNR bacteremia. await cx for IR drainage to see if that was source clamp ngt and start clears. if arielle diet can d/c ngt cont IV abx as per ID \cont shea for now Code(s): R10.9 - UNSPECIFIED ABDOMINAL PAIN Qualifiers: Abdominal location: generalized Qualified Code(s): R10.84 - Generalized abdominal pain (2) Leukocytosis Code(s): D72.829 - ELEVATED WHITE BLOOD CELL COUNT, UNSPECIFIED (3) SIRS (systemic inflammatory response syndrome) Code(s): R65.10 - SIRS OF NON-INFECTIOUS ORIGIN W/O ACUTE ORGAN DYSFUNCTION
--- NOTE | 2016-07-23 10:05 | PN ---
Progress Note (short form) - Note Progress Note: PULMONARY/CCM Pt seen and examined in the ICU. s/p IR drainage of intra-abdominal fluid collection. Blood cultures growing gram negative rods. No further fevers. Last Vital Signs Temp Pulse Resp BP Pulse Ox 98.8 F 100 H 20 109/64 100 07/23/16 06:00 07/23/16 06:00 07/23/16 06:00 07/23/16 06:00 07/22/16 20:00 Intake & Output 07/20/16 07/21/16 07/22/16 07/23/16 23:59 23:59 23:59 23:59 Intake Total 1750 1400 Output Total 1080 920 Balance 670 480 Weight 140 lb Gen: more comfortable Heart: RRR Lung: right base rales Abd: soft, nontender, incision clean, +HECTOR with slightly cloudy serosanguinous drainage Ext: no edema CBC, BMP 07/23/16 05:00 07/23/16 05:00 Active Medications Docusate Sodium (Colace -) 100 mg PO BID [facility] Last Admin: 07/22/16 22:14 Dose: Not Given Heparin Sodium (Porcine) (Heparin -) 5,000 unit SQ TID [facility] Last Admin: 07/23/16 06:06 Dose: 5,000 unit Hydrochlorothiazide (Hctz -) 25 mg PO DAILY [facility] Last Admin: 07/22/16 11:12 Dose: Not Given Piperacillin Sod/Tazobactam Sod (Zosyn 4.5gm Ivpb (Pre-Docked)) 100 mls @ 200 mls/hr IVPB Q8H-IV [facility] PRN Reason: Protocol Last Admin: 07/23/16 02:00 Dose: 200 mls/hr Metronidazole (Flagyl 500mg Premixed Ivpb -) 100 mls @ 100 mls/hr IVPB Q8H-IV [facility] Last Admin: 07/23/16 02:00 Dose: 100 mls/hr Pantoprazole Sodium (Protonix 40mg Ivpb (Pre-Docked)) 100 mls @ 200 mls/hr IVPB BID [facility] Last Admin: 07/22/16 22:14 Dose: 200 mls/hr Sodium Chloride (Normal Saline -) 1,000 mls @ 100 mls/hr IV ASDIR [facility] Last Admin: 07/22/16 18:48 Dose: Not Given Morphine Sulfate (Morphine Injection -) 2 mg IVPUSH Q4H PRN PRN Reason: PAIN Last Admin: 07/22/16 12:10 Dose: 2 mg Ondansetron HCl (Zofran Injection) 4 mg IVPB Q6H PRN PRN Reason: NAUSEA A/P Recent SBO/ex-lap/SB resection x 2 Intra-abdominal Abscess s/p IR drainage Gram Negative Bacteremia Sepsis Lactic Acidosis HTN - continue antibiotics - f/u drainage cultures - IVF - replete lytes - monitor urine output, creatinine - pain control - incentive spirometry - O2 as needed - PO per surgery - DVT prophylaxis
[2016-07-23] MEDS: HYDROCHLOROTHIAZIDE 25 MG TABLET (FP) PO SCH (10:07)
[2016-07-23] MEDS: DOCUSATE SODIUM 100 MG CAPSULE (FP) PO SCH ×2 (10:07→21:10)
[2016-07-23] MEDS: KCL 10 MEQ IVPB 100 ML IVPB SCH ×3 (10:35→14:25)
[2016-07-23] MEDS: PANTOPRAZOLE SODIUM 100 ML IVPB SCH ×2 (12:22→21:10)
--- NOTE | 2016-07-23 14:04 | PN ---
Physical Exam: SUBJECTIVE: Patient seen and examined Reports improvement in abdominal pain . Had BM last night OBJECTIVE: Vital Signs Period Temp Pulse Resp BP Sys/Golden Pulse Ox Last 24 Hr 98.5 F-99 F 73-108 18-22 95-121/54-75 98-100 GENERAL: The patient is awake, alert, and fully oriented, in no acute distress. HEAD: Normal with no signs of trauma. EYES: PERRL, extraocular movements intact, sclera anicteric, conjunctiva clear. No ptosis. ENT: Ears normal, nares patent. NG tube in place NECK: Trachea midline, full range of motion, supple. LUNGS: Breath sounds equal, clear to auscultation bilaterally, no wheezes, no crackles, no accessory muscle use. HEART: Regular rate and rhythm, S1, S2 without murmur, rub or gallop. ABDOMEN: DRain is in place, has 2-3 cc of hemorrhagic fluid EXTREMITIES: 2+ pulses, warm, well-perfused, no edema. NEUROLOGICAL: Cranial nerves II through XII grossly intact. Normal speech, gait not observed. PSYCH: Normal mood, normal affect. SKIN: Warm, dry, normal turgor, no rashes or lesions noted Laboratory Results - last 24 hr 07/22/16 07/22/16 07/22/16 13:18 15:00 17:00 WBC RBC Hgb Hct MCV MCHC RDW Plt Count MPV Neutrophils % Lymphocytes % Monocytes % Eosinophils % Basophils % Sodium 144 Potassium 3.2 L Chloride 106 Carbon Dioxide 27 Anion Gap 11 BUN 8 D Creatinine 0.4 L Creat Clearance w eGFR > 60 Random Glucose 136 H Calcium 7.3 L Phosphorus 2.8 D Magnesium 1.5 L D Total Bilirubin 1.2 H AST 35 ALT 36 Alkaline Phosphatase 87 Total Protein 4.9 L Albumin 2.3 L Urine Color Yellow Urine Appearance Clear Urine pH 5.0 D Ur Specific [place] 1.035 Urine Protein 1+ H Urine Glucose (UA) Negative Urine Ketones 1+ H Urine Blood Negative Urine Nitrite Negative Urine Bilirubin Negative Urine Urobilinogen 4.0 e.u/dl H Ur Leukocyte Esterase Negative Urine RBC 3 Urine WBC 4 Ur Epithelial Cells Rare Urine Mucus Rare Blood Type O POSITIVE Antibody Screen Negative 07/23/16 07/23/16 05:00 05:00 WBC 10.7 H RBC 2.99 L Hgb 8.0 L Hct 24.1 L MCV 80.6 MCHC 33.1 RDW 14.1 Plt Count 232 MPV 9.3 Neutrophils % 92.5 H Lymphocytes % 4.7 L D Monocytes % 2.6 L Eosinophils % 0.1 Basophils % 0.1 Sodium 144 Potassium 3.1 L Chloride 111 H Carbon Dioxide 23 Anion Gap 10 BUN 7 Creatinine 0.3 L D Creat Clearance w eGFR Random Glucose 91 D Calcium 7.3 L Phosphorus 1.9 L D Magnesium 2.0 D Total Bilirubin AST ALT Alkaline Phosphatase Total Protein Albumin Urine Color Urine Appearance Urine pH Ur Specific [place] Urine Protein Urine Glucose (UA) Urine Ketones Urine Blood Urine Nitrite Urine Bilirubin Urine Urobilinogen Ur Leukocyte Esterase Urine RBC Urine WBC Ur Epithelial Cells Urine Mucus Blood Type Antibody Screen Active Medications Generic Name Dose Route Start Last Admin Trade Name Freq PRN Reason Stop Dose Admin Docusate Sodium 100 mg 07/22/16 10:00 07/23/16 10:07 Colace - PO Not Given BID RIKA Heparin Sodium (Porcine) 5,000 unit 07/22/16 06:00 07/23/16 06:06 Heparin - SQ 5,000 unit TID RIKA Administration Hydrochlorothiazide 25 mg 07/22/16 10:00 07/23/16 10:07 Hctz - PO Not Given DAILY RIKA Piperacillin Sod/Tazobactam Sod 100 mls @ 200 mls/hr 07/22/16 10:00 07/23/16 11 :14 Zosyn 4.5gm Ivpb (Pre-Docked) IVPB 200 mls/hr Q8H-IV RIKA Administration Protocol Metronidazole 100 mls @ 100 mls/hr 07/22/16 10:00 07/23/16 10:06 Flagyl 500mg Premixed Ivpb - IVPB 100 mls/hr Q8H-IV RIKA Administration Pantoprazole Sodium 100 mls @ 200 mls/hr 07/22/16 22:00 07/23/16 12:22 Protonix 40mg Ivpb (Pre-Docked) IVPB 200 mls/hr BID RIKA Administration Sodium Chloride 1,000 mls @ 100 mls/hr 07/22/16 17:15 07/22/16 18:48 Normal Saline - IV Not Given ASDIR RIKA Morphine Sulfate 2 mg 07/22/16 02:39 07/22/16 12:10 Morphine Injection - IVPUSH 2 mg Q4H PRN Administration PAIN Ondansetron HCl 4 mg 07/22/16 02:39 Zofran Injection IVPB Q6H PRN NAUSEA ASSESSMENT/PLAN: 51 year old female s/p ex lap secondary to chronic recurrent bowel obstruction that presented with increasing abdominal pain secondary to RLQ intraabdominal abscess. 1. RLQ abdominal abscess - s/p IR drainage yesterday - c/w pain control - c/w IV antibiotics ( zosyn /flagyl ) - surgical follow up appreciated - drain mgt per surgery 2. SEpsis 2/2 # 1 , lactic acidosis, Gr - bacteremia - improving after elimination of underlying cause a and treatment with IVAB 3. Anemia - acute blood loss ( with history of melena) - monitor HB - Transfuse if HB less then 8 - occult blood pending 4. Hypokalemia - - supplement and monitor K Visit type - Emergency Visit Emergency Visit: Yes ED Registration Date: 07/22/16 Care time: The patient presented to the Emergency Department on the above date and was hospitalized for further evaluation of their emergent condition. - New Patient This patient is new to me today: Yes Date on this admission: 07/23/16 - Critical Care Critical Care patient: Yes Total Critical Care Time (in minutes): 35 Critical Care Statement: The care of this patient involved high complexity decision making to prevent further life threatening deterioration of the patient 's condition and/or to evalute & treat vital organ system(s) failure or risk of failure. - Discharge Referral Referred to [facility] Med P.C.: No
[2016-07-23] MEDS ORDERED: ACETAMINOPHEN 325 MG TABLET (FP) ONE (16:16)
[2016-07-23] MEDS: ACETAMINOPHEN 325 MG TABLET (FP) PO PRN ×2 (16:27→22:39)
[2016-07-23] MEDS: morphine CARPU-JECT 2 MG/1 ML DISP.SYRIN IVPUSH PRN (21:31)
[2016-07-24] MEDS: METRONIDAZOLE 500 MG PREMIXED 100 ML IVPB SCH ×3 (02:00→18:03)
[2016-07-24] MEDS: PIPERACILLIN/TAZOB 4.5 GM 100 ML IVPB SCH ×2 (02:30→09:34)
[2016-07-24] MEDS: HEPARIN NA (PORCINE) 5,000 UNITS/ML 1ML VIAL SQ SCH ×3 (05:28→22:00)
[2016-07-24 05:46] LABS: BASOPHIL 0.3 % (0-2.0); EOSINOPHIL 0.1 % (0-4.5); MCH 26.5 pg (25.7-33.7); MCHC 33.2 g/dl (32.0-36.0); MEAN CELL VOLUME 79.6 fl (80-96); MEAN PLT VOLUME 9.2 fl (7.5-11.1); NEUTROPHILS 92.7 % (42.8-82.8); PLATELET COUNT 244 K/MM3 (134-434); WHITE BLOOD COUNT 12.9 K/mm3 (4.0-10.0)
[2016-07-24 09:02] LABS: ALBUMIN 2.1 g/dl (3.4-5.0); ANION GAP 10 (8-16); CALCIUM 7.2 mg/dL (8.5-10.1); CO2 26 mmol/L (21-32); GLUCOSE,RANDOM 135 mg/dL (74-106); MAGNESIUM 1.8 mg/dL (1.8-2.4)
[2016-07-24 09:09] LABS: ALK PHOS 67 U/L (45-117); BILIRUBIN,TOTAL 0.4 mg/dL (0.2-1.0); CREATININE 0.4 mg/dL (0.55-1.02); PHOSPHOROUS 1.2 mg/dL (2.5-4.9); SGOT/AST 10 U/L (15-37); SGPT/ALT 18 U/L (12-78); TOT PROT 4.5 g/dl (6.4-8.2)
[2016-07-24] MEDS: HYDROCHLOROTHIAZIDE 25 MG TABLET (FP) PO SCH (09:33)
[2016-07-24] MEDS: DOCUSATE SODIUM 100 MG CAPSULE (FP) PO SCH (09:34)
[2016-07-24] MEDS: PANTOPRAZOLE SODIUM 100 ML IVPB SCH ×2 (09:34→22:00)
[2016-07-24] MEDS ORDERED: POTASSIUM CHLORIDE TABS 20 MEQ TABLET.ER (FP) PO ONE (10:14)
--- NOTE | 2016-07-24 10:14 | PN ---
Progress Note (short form) - Note Progress Note: PULMONARY/CCM Pt seen and examined in the ICU. Febrile last night. Reports steady diarrhea. Abdominal discomfort better. Last Vital Signs Temp Pulse Resp BP Pulse Ox 99.5 F 98 H 18 108/71 98 07/24/16 08:00 07/24/16 08:00 07/24/16 09:00 07/24/16 08:00 07/24/16 09:00 Intake & Output 07/21/16 07/22/16 07/23/16 07/24/16 23:59 23:59 23:59 23:59 Intake Total 1750 3525 750 Output Total 1080 1990 440 Balance 670 1535 310 Weight 140 lb 148 lb 2 oz Gen: more comfortable Heart: RRR Lung: right base rales Abd: soft, nontender, incision clean, +HECTOR with slightly cloudy serosanguinous drainage Ext: no edema CBC, BMP 07/24/16 05:00 07/24/16 05:00 Active Medications Acetaminophen (Tylenol -) 650 mg PO Q6H PRN PRN Reason: FEVER OR PAIN Last Admin: 07/23/16 22:39 Dose: 650 mg Docusate Sodium (Colace -) 100 mg PO BID [facility] Last Admin: 07/24/16 09:34 Dose: Not Given Heparin Sodium (Porcine) (Heparin -) 5,000 unit SQ TID [facility] Last Admin: 07/24/16 05:28 Dose: 5,000 unit Hydrochlorothiazide (Hctz -) 25 mg PO DAILY [facility] Last Admin: 07/24/16 09:33 Dose: 25 mg Piperacillin Sod/Tazobactam Sod (Zosyn 4.5gm Ivpb (Pre-Docked)) 100 mls @ 200 mls/hr IVPB Q8H-IV [facility] PRN Reason: Protocol Last Admin: 07/24/16 09:34 Dose: 200 mls/hr Metronidazole (Flagyl 500mg Premixed Ivpb -) 100 mls @ 100 mls/hr IVPB Q8H-IV [facility] Last Admin: 07/24/16 09:34 Dose: 100 mls/hr Pantoprazole Sodium (Protonix 40mg Ivpb (Pre-Docked)) 100 mls @ 200 mls/hr IVPB BID [facility] Last Admin: 07/24/16 09:34 Dose: 200 mls/hr Sodium Chloride (Normal Saline -) 1,000 mls @ 100 mls/hr IV ASDIR RIKA Last Admin: 07/23/16 09:00 Dose: 100 mls/hr Morphine Sulfate (Morphine Injection -) 2 mg IVPUSH Q4H PRN PRN Reason: PAIN Last Admin: 07/23/16 21:31 Dose: 2 mg Ondansetron HCl (Zofran Injection) 4 mg IVPB Q6H PRN PRN Reason: NAUSEA A/P Recent SBO/ex-lap/SB resection x 2 Intra-abdominal Abscess s/p IR drainage Gram Negative Bacteremia Sepsis Lactic Acidosis HTN - continue antibiotics - discuss with ID as E coli intermediate to zosyn - decrease IVF - replete lytes - monitor urine output, creatinine - pain control - incentive spirometry - O2 as needed - PO per surgery - OOB to chair - DVT prophylaxis - can monitor on surgical floor
[2016-07-24] MEDS ORDERED: SODIUM CHLORIDE 0.45%/POT 1,000 ML IV SCH (10:15)
[2016-07-24] MEDS: NAPH,MB-DB/K PH,MBDB POWDER PACKET PO SCH ×2 (10:27→13:28)
--- NOTE | 2016-07-24 11:08 | PN ---
Progress Note, Physician History of Present Illness: OOB in chair C/O loose BMs No c/o abdominal pain at present Temps down Afebrile WBC mildly elevated - Current Medication List Current Medications: Active Medications Acetaminophen (Tylenol -) 650 mg PO Q6H PRN PRN Reason: FEVER OR PAIN Last Admin: 07/23/16 22:39 Dose: 650 mg Heparin Sodium (Porcine) (Heparin -) 5,000 unit SQ TID [facility] Last Admin: 07/24/16 05:28 Dose: 5,000 unit Hydrochlorothiazide (Hctz -) 25 mg PO DAILY [facility] Last Admin: 07/24/16 09:33 Dose: 25 mg Piperacillin Sod/Tazobactam Sod (Zosyn 4.5gm Ivpb (Pre-Docked)) 100 mls @ 200 mls/hr IVPB Q8H-IV [facility]IKA PRN Reason: Protocol Last Admin: 07/24/16 09:34 Dose: 200 mls/hr Metronidazole (Flagyl 500mg Premixed Ivpb -) 100 mls @ 100 mls/hr IVPB Q8H-IV [facility] Last Admin: 07/24/16 09:34 Dose: 100 mls/hr Pantoprazole Sodium (Protonix 40mg Ivpb (Pre-Docked)) 100 mls @ 200 mls/hr IVPB BID [facility] Last Admin: 07/24/16 09:34 Dose: 200 mls/hr Potassium Chloride/Sodium Chloride (1/2ns+20meq Kcl) 1,000 mls @ 75 mls/hr IV ASDIR [facility] Last Admin: 07/24/16 10:26 Dose: 75 mls/hr Morphine Sulfate (Morphine Injection -) 2 mg IVPUSH Q4H PRN PRN Reason: PAIN Last Admin: 07/23/16 21:31 Dose: 2 mg Ondansetron HCl (Zofran Injection) 4 mg IVPB Q6H PRN PRN Reason: NAUSEA Potassium Phos/Sodium Phos (Phos-Nak Packet -) 1 packet PO TID [facility] Stop: 07/24/16 22:01 Last Admin: 07/24/16 10:27 Dose: 1 packet - Objective Vital Signs: Vital Signs Temperature 99.5 F 07/24/16 08:00 Pulse Rate 98 H 07/24/16 08:00 Respiratory Rate 18 07/24/16 09:00 Blood Pressure 108/71 07/24/16 08:00 O2 Sat by Pulse Oximetry (%) 98 07/24/16 09:00 Constitutional: Yes: No Distress Eyes: Yes: Conjunctiva Clear Cardiovascular: Yes: Regular Rate and Rhythm, Tachycardia, S1, S2 Respiratory: Yes: CTA Bilaterally Gastrointestinal: Yes: Normal Bowel Sounds, Soft, Tenderness, Other (mild diffuse tenderness midline surgical wound with jocelynn in place + serosanguinous fluid in HECTOR drain) Edema: No Labs: CBC, BMP 07/24/16 05:00 07/24/16 05:00 Assessment/Plan S/P drainage intra-abdominal abscess Gram Negative bacteremia/ sepsis Wound c/s + Ecoli S/P SB resection, CARMEN Leukocytosis Substitute ceftriaxone 2gm IVPB q24h Continue flagyl
[2016-07-24] MEDS: CEFTRIAXONE 100 ML IVPB SCH (11:23)
[2016-07-24] MEDS: morphine CARPU-JECT 2 MG/1 ML DISP.SYRIN IVPUSH PRN (13:27)
--- NOTE | 2016-07-24 14:20 | PN ---
Progress Note, Physician Chief Complaint: diarrhea History of Present Illness: pt arielle some clears. not hungry. no fever, alot of diarrhea (9+ times/24 hrs) . doreen-incisional pain. Patient's blood cx grew Ecoli x 2 bottles. RLQ fluid drain no bacteria yet. - Current Medication List Current Medications: Active Medications Acetaminophen (Tylenol -) 650 mg PO Q6H PRN PRN Reason: FEVER OR PAIN Last Admin: 07/23/16 22:39 Dose: 650 mg Heparin Sodium (Porcine) (Heparin -) 5,000 unit SQ TID [facility] Last Admin: 07/24/16 13:28 Dose: 5,000 unit Hydrochlorothiazide (Hctz -) 25 mg PO DAILY [facility] Last Admin: 07/24/16 09:33 Dose: 25 mg Metronidazole (Flagyl 500mg Premixed Ivpb -) 100 mls @ 100 mls/hr IVPB Q8H-IV [facility] Last Admin: 07/24/16 09:34 Dose: 100 mls/hr Pantoprazole Sodium (Protonix 40mg Ivpb (Pre-Docked)) 100 mls @ 200 mls/hr IVPB BID [facility] Last Admin: 07/24/16 09:34 Dose: 200 mls/hr Potassium Chloride/Sodium Chloride (1/2ns+20meq Kcl) 1,000 mls @ 75 mls/hr IV ASDIR [facility] Last Admin: 07/24/16 10:26 Dose: 75 mls/hr Ceftriaxone Sodium (Rocephin 2gm Ivpb (Pre-Docked)) 100 mls @ 200 mls/hr IVPB DAILY [facility] Last Admin: 07/24/16 11:23 Dose: 200 mls/hr Morphine Sulfate (Morphine Injection -) 2 mg IVPUSH Q4H PRN PRN Reason: PAIN Last Admin: 07/24/16 13:27 Dose: 2 mg Ondansetron HCl (Zofran Injection) 4 mg IVPB Q6H PRN PRN Reason: NAUSEA Potassium Phos/Sodium Phos (Phos-Nak Packet -) 1 packet PO TID [facility] Stop: 07/24/16 22:01 Last Admin: 07/24/16 13:28 Dose: 1 packet - Objective Vital Signs: Vital Signs Temperature 99 F 07/24/16 14:00 Pulse Rate 100 H 07/24/16 14:00 Respiratory Rate 18 07/24/16 14:00 Blood Pressure 111/69 07/24/16 14:00 O2 Sat by Pulse Oximetry (%) 98 07/24/16 09:00 Constitutional: Yes: No Distress, Calm Gastrointestinal: Yes: Soft, Other (incision c/d/i). No: Distention, Tenderness Labs: CBC, BMP 07/24/16 05:00 07/24/16 05:00 Problem List - Problems (1) Abdominal pain Assessment/Plan: ecoli bacteremia enteritis on CT diarrhea cont abx as per ID adv to reg diet to see if that helps diarrhea. await Cdiff testing. Code(s): R10.9 - UNSPECIFIED ABDOMINAL PAIN Qualifiers: Abdominal location: generalized Qualified Code(s): R10.84 - Generalized abdominal pain (2) Leukocytosis Code(s): D72.829 - ELEVATED WHITE BLOOD CELL COUNT, UNSPECIFIED (3) SIRS (systemic inflammatory response syndrome) Code(s): R65.10 - SIRS OF NON-INFECTIOUS ORIGIN W/O ACUTE ORGAN DYSFUNCTION
[2016-07-24] MEDS ORDERED: ONDANSETRON 4 MG/2 ML VIAL IVPB PRN (15:13)
[2016-07-24] MEDS: ACETAMINOPHEN 325 MG TABLET (FP) PO PRN ×2 (15:37→22:00)
[2016-07-24] MEDS: SODIUM CHLORIDE 0.45%/POT 1,000 ML IV SCH (15:37)
--- NOTE | 2016-07-24 17:48 | PN ---
Physical Exam: SUBJECTIVE: Patient seen and examined. Copious watery diarrhea. OBJECTIVE: Vital Signs Period Temp Pulse Resp BP Sys/Golden Pulse Ox Last 24 Hr 99 F-101.3 F 93-107 16-22 106-128/67-76 98-98 GENERAL: The patient is awake, alert, and fully oriented, in no acute distress. HEAD: Normal with no signs of trauma. EYES: PERRL, extraocular movements intact, sclera anicteric, conjunctiva clear. No ptosis. LUNGS: Breath sounds equal, clear to auscultation bilaterally, no wheezes, no crackles, no accessory muscle use. HEART: Regular rate and rhythm, S1, S2 without murmur, rub or gallop. ABDOMEN: Vertical incision secured by surgical jocelynn from mid sternal area to below umbilicus; area of mild erythema LLQ inferior to the most distal jocelynn; abdomen is diffusely tender; no drainage EXTREMITIES: 2+ pulses, warm, well-perfused, no edema. NEUROLOGICAL: Cranial nerves II through XII grossly intact. Normal speech, gait not observed. Laboratory Results - last 24 hr 07/24/16 07/24/16 05:00 05:00 WBC 12.9 H RBC 2.95 L Hgb 7.8 L Hct 23.5 L MCV 79.6 L MCHC 33.2 RDW 14.0 Plt Count 244 MPV 9.2 Neutrophils % 92.7 H Lymphocytes % 3.4 L D Monocytes % 3.5 L Eosinophils % 0.1 Basophils % 0.3 Sodium 143 Potassium 3.1 L Chloride 107 Carbon Dioxide 26 Anion Gap 10 BUN 6 L Creatinine 0.4 L D Creat Clearance w eGFR > 60 Random Glucose 135 H D Calcium 7.2 L Phosphorus 1.2 L D Magnesium 1.8 Total Bilirubin 0.4 D AST 10 L D ALT 18 D Alkaline Phosphatase 67 D Total Protein 4.5 L Albumin 2.1 L Active Medications Generic Name Dose Route Start Last Admin Trade Name Freq PRN Reason Stop Dose Admin Acetaminophen 650 mg 07/24/16 15:13 07/24/16 15:37 Tylenol - PO 650 mg Q6H PRN Administration FEVER OR PAIN Heparin Sodium (Porcine) 5,000 unit 07/24/16 22:00 Heparin - SQ TID [facility] Hydrochlorothiazide 25 mg 07/25/16 10:00 Hctz - PO DAILY RIKA Ceftriaxone Sodium 100 mls @ 200 mls/hr 07/24/16 11:15 07/24/16 11:23 Rocephin 2gm Ivpb (Pre-Docked) IVPB 200 mls/hr DAILY RIKA Administration Metronidazole 100 mls @ 100 mls/hr 07/24/16 18:00 Flagyl 500mg Premixed Ivpb - IVPB Q8H-IV RIKA Pantoprazole Sodium 100 mls @ 200 mls/hr 07/24/16 22:00 Protonix 40mg Ivpb (Pre-Docked) IVPB BID RIKA Potassium Chloride/Sodium Chloride 1,000 mls @ 75 mls/hr 07/24/16 15:13 15:37 1/2ns+20meq Kcl IV 75 mls/hr ASDIR RIKA Administration Morphine Sulfate 2 mg 07/24/16 15:13 Morphine Injection - IVPUSH Q4H PRN PAIN Ondansetron HCl 4 mg 07/24/16 15:13 Zofran Injection IVPB Q6H PRN NAUSEA Potassium Phos/Sodium Phos 1 packet 07/24/16 22:00 Phos-Nak Packet - PO 07/24/16 22:01 TID RIKA Imaging 07/22/16 CT[facility] ([facility]): extensive mesenteric edema with enteritis in the lower abdomen suspicious for anastomotic leak; small amount of ascites and free air in RLQ; proximal small bowel distention could be reactive or represent partial small bowel obstruction ASSESSMENT/PLAN: 51 year old female with PMH of HTN, recurrent SBO, s/p abdominal surgery on , admitted for sepsis secondary to intraabdominal abscess Recurrent small bowel obstructions s/p open lysis of adhesions, small bowel resection x 2, completion appendectomy , ventral hernia repair 07/14/16 s/p placement of RLQ abscess drainage catheter 07/22 --~30cc's serosanguinous drainage daily Sepsis secondary to intraabdominal abscess/collection Gram negative bacteremia --febrile to 101.3, leukocytosis --start ceftriaxone, continue metronidazole Diarrhea --c.diff, stool studies ordered DVT prophylaxis: subq heparin Dispo: continues to require inpatient care. Full code. Visit type - Emergency Visit Emergency Visit: Yes ED Registration Date: 07/22/16 Care time: The patient presented to the Emergency Department on the above date and was hospitalized for further evaluation of their emergent condition. - New Patient This patient is new to me today: Yes Date on this admission: 07/27/16 - Critical Care Critical Care patient: No
[2016-07-24] MEDS ORDERED: NAPH,MB-DB/K PH,MBDB POWDER PACKET PO SCH (22:00)
[2016-07-25] MEDS: METRONIDAZOLE 500 MG PREMIXED 100 ML IVPB SCH ×3 (01:38→17:06)
[2016-07-25] MEDS: HEPARIN NA (PORCINE) 5,000 UNITS/ML 1ML VIAL SQ SCH ×3 (05:49→21:57)
[2016-07-25] MEDS: SODIUM CHLORIDE 0.45%/POT 1,000 ML IV SCH (05:53)
[2016-07-25 07:26] LABS: BASOPHIL 0.1 % (0-2.0); EOSINOPHIL 0.3 % (0-4.5); MCH 26.5 pg (25.7-33.7); MCHC 33.5 g/dl (32.0-36.0); MEAN PLT VOLUME 8.9 fl (7.5-11.1); NEUTROPHILS 90.4 % (42.8-82.8); PLATELET COUNT 271 K/MM3 (134-434); RDW 14.3 % (11.6-15.6); WHITE BLOOD COUNT 13.1 K/mm3 (4.0-10.0)
[2016-07-25 07:54] LABS: ALBUMIN 2.1 g/dl (3.4-5.0); ANION GAP 11 (8-16); CALCIUM 7.5 mg/dL (8.5-10.1); CO2 28 mmol/L (21-32); GLUCOSE,RANDOM 105 mg/dL (74-106); MAGNESIUM 1.6 mg/dL (1.8-2.4)
[2016-07-25 08:00] LABS: ALK PHOS 71 U/L (45-117); BILIRUBIN,TOTAL 0.6 mg/dL (0.2-1.0); CREATININE 0.3 mg/dL (0.55-1.02); PHOSPHOROUS 2.2 mg/dL (2.5-4.9); SGOT/AST 12 U/L (15-37); SGPT/ALT 16 U/L (12-78); TOT PROT 4.9 g/dl (6.4-8.2)
[2016-07-25] MEDS: PANTOPRAZOLE SODIUM 100 ML IVPB SCH ×2 (09:59→21:57)
[2016-07-25] MEDS: CEFTRIAXONE 100 ML IVPB SCH (09:59)
[2016-07-25] MEDS ORDERED: HYDROCHLOROTHIAZIDE 25 MG TABLET (FP) PO SCH (10:00)
[2016-07-25] MEDS: morphine CARPU-JECT 2 MG/1 ML DISP.SYRIN IVPUSH PRN ×2 (11:15→15:53)
[2016-07-25] MEDS: D5-1/2NS+20 MEQ KCL - 1,000 ML IV SCH (11:50)
--- NOTE | 2016-07-25 13:05 | PN ---
Progress Note, Physician Chief Complaint: diarrhea History of Present Illness: doreen-incisional pain. wbc about the same at 13.1. no fever. still alot of diarrhea. Cdiff negative. await stool cultures. - Current Medication List Current Medications: Active Medications Acetaminophen (Tylenol -) 650 mg PO Q6H PRN PRN Reason: FEVER OR PAIN Last Admin: 07/24/16 22:00 Dose: 650 mg Heparin Sodium (Porcine) (Heparin -) 5,000 unit SQ TID [facility] Last Admin: 07/25/16 05:49 Dose: 5,000 unit Hydrochlorothiazide (Hctz -) 25 mg PO DAILY [facility] Last Admin: 07/25/16 09:59 Dose: 25 mg Ceftriaxone Sodium (Rocephin 2gm Ivpb (Pre-Docked)) 100 mls @ 200 mls/hr IVPB DAILY [facility] Last Admin: 07/25/16 09:59 Dose: 200 mls/hr Metronidazole (Flagyl 500mg Premixed Ivpb -) 100 mls @ 100 mls/hr IVPB Q8H-IV [facility] Last Admin: 07/25/16 09:59 Dose: 100 mls/hr Pantoprazole Sodium (Protonix 40mg Ivpb (Pre-Docked)) 100 mls @ 200 mls/hr IVPB BID [facility] Last Admin: 07/25/16 09:59 Dose: 200 mls/hr Potassium Chloride/Dextrose/Sod Cl (D5-1/2ns+20 Meq Kcl -) 1,000 mls @ 125 mls/ hr IV ASDIR [facility] Last Admin: 07/25/16 11:50 Dose: 125 mls/hr Morphine Sulfate (Morphine Injection -) 2 mg IVPUSH Q4H PRN PRN Reason: PAIN Last Admin: 07/25/16 11:15 Dose: 2 mg Ondansetron HCl (Zofran Injection) 4 mg IVPB Q6H PRN PRN Reason: NAUSEA Last Admin: 07/25/16 11:39 Dose: 4 mg - Objective Vital Signs: Vital Signs Temperature 98.3 F 07/25/16 05:30 Pulse Rate 97 H 07/25/16 05:30 Respiratory Rate 20 07/24/16 21:56 Blood Pressure 116/69 07/25/16 05:30 O2 Sat by Pulse Oximetry (%) 98 07/24/16 09:00 Constitutional: Yes: No Distress, Calm Eyes: Yes: Conjunctiva Clear, EOM Intact HENT: Yes: Atraumatic, Normocephalic Neck: Yes: Supple, Trachea Midline Cardiovascular: Yes: Regular Rate and Rhythm Respiratory: Yes: Regular Gastrointestinal: Yes: Soft. No: Distention, Tenderness ...Rectal Exam: Yes: Deferred Genitourinary: No: CVA Tenderness - Left, CVA Tenderness - Right Musculoskeletal: No: Joint Stiffness, Joint Swelling Extremities: No: Calf Tenderness, Erythema Integumentary: No: Erythema, Rash Wound/Incision: Yes: Clean/Dry, Well Approximated Neurological: Yes: Alert, Oriented Psychiatric: Yes: Alert, Oriented Labs: CBC, BMP 07/25/16 06:20 07/25/16 06:20 Problem List - Problems (1) Abdominal pain Assessment/Plan: patient with diarrhea from enteritis? cont abx await stool cx Bacteremia from unclear etiology. will cont to monitor if cont to not improve may need re-imaging in a couple of days. last ct was at [facility]. Code(s): R10.9 - UNSPECIFIED ABDOMINAL PAIN Qualifiers: Abdominal location: generalized Qualified Code(s): R10.84 - Generalized abdominal pain (2) Leukocytosis Code(s): D72.829 - ELEVATED WHITE BLOOD CELL COUNT, UNSPECIFIED (3) SIRS (systemic inflammatory response syndrome) Code(s): R65.10 - SIRS OF NON-INFECTIOUS ORIGIN W/O ACUTE ORGAN DYSFUNCTION
--- NOTE | 2016-07-25 14:27 | PN ---
Progress Note, Physician Chief Complaint: ID Ceftriaxone and metronidazole In good spirits - Current Medication List Current Medications: Active Medications Acetaminophen (Tylenol -) 650 mg PO Q6H PRN PRN Reason: FEVER OR PAIN Last Admin: 07/24/16 22:00 Dose: 650 mg Heparin Sodium (Porcine) (Heparin -) 5,000 unit SQ TID [facility] Last Admin: 07/25/16 05:49 Dose: 5,000 unit Ceftriaxone Sodium (Rocephin 2gm Ivpb (Pre-Docked)) 100 mls @ 200 mls/hr IVPB DAILY [facility] Last Admin: 07/25/16 09:59 Dose: 200 mls/hr Metronidazole (Flagyl 500mg Premixed Ivpb -) 100 mls @ 100 mls/hr IVPB Q8H-IV [facility]IK[facility] Last Admin: 07/25/16 09:59 Dose: 100 mls/hr Pantoprazole Sodium (Protonix 40mg Ivpb (Pre-Docked)) 100 mls @ 200 mls/hr IVPB BID [facility] Last Admin: 07/25/16 09:59 Dose: 200 mls/hr Potassium Chloride/Dextrose/Sod Cl (D5-1/2ns+20 Meq Kcl -) 1,000 mls @ 125 mls/ hr IV ASDIR [facility] Last Admin: 07/25/16 11:50 Dose: 125 mls/hr Potassium Chloride (Potassium Chloride 10 Meq Premix Ivpb -) 100 mls @ 100 mls/ hr IVPB Q60M [facility] Stop: 07/25/16 16:44 Lactobacillus Acidophilus (Bacid -) 1 tab PO BID [facility] Morphine Sulfate (Morphine Injection -) 2 mg IVPUSH Q4H PRN PRN Reason: PAIN Last Admin: 07/25/16 11:15 Dose: 2 mg Ondansetron HCl (Zofran Injection) 4 mg IVPB Q6H PRN PRN Reason: NAUSEA Last Admin: 07/25/16 11:39 Dose: 4 mg - Objective Vital Signs: Vital Signs Temperature 98.3 F 07/25/16 05:30 Pulse Rate 97 H 07/25/16 05:30 Respiratory Rate 20 07/24/16 21:56 Blood Pressure 116/69 07/25/16 05:30 O2 Sat by Pulse Oximetry (%) 98 07/24/16 09:00 Constitutional: Yes: Well Nourished, No Distress Neck: Yes: WNL, Supple Cardiovascular: Yes: Regular Rate and Rhythm, S1, S2 Respiratory: Yes: WNL, Regular, CTA Bilaterally Gastrointestinal: Yes: Soft. No: Tenderness, Tenderness, Rebound, Other Edema: No Labs: CBC, BMP 07/25/16 06:20 07/25/16 06:20 Problem List - Problems (1) Gram-negative bacteremia Code(s): R78.81 - BACTEREMIA (2) Sepsis Code(s): A41.9 - SEPSIS, UNSPECIFIED ORGANISM (3) Intra-abdominal abscess Code(s): K65.1 - PERITONEAL ABSCESS Assessment/Plan Microbiology 07/22/16 14:20 Abscess Gram Stain - Final 07/22/16 14:20 Abscess Anaerobic Culture - Final NO GROWTH OF AEROBIC ORGANISMS AFTER 48 HOURS INCUBATION NO ANAEROBES WERE ISOLATED 07/22/16 05:16 Blood - Peripheral Venous Blood Culture - Final Escherichia Coli 07/22/16 04:25 Blood - Peripheral Venous Blood Culture - Final Escherichia Coli Laboratory Tests 07/25/16 07/25/16 06:20 06:20 WBC 13.1 H Hgb 8.3 L Hct 24.8 L Plt Count 271 Creatinine 0.3 L D Creat Clearance w eGFR > 60 Random Glucose 105 D Assessment Sepsis E Coli bacteremia Intraabd collection Plan Agree with continuing current antibiotic as ordered Bharath STEVEN
[2016-07-25] MEDS: KCL 10 MEQ IVPB 100 ML IVPB SCH ×3 (14:48→20:00)
[2016-07-25 15:33] LABS: C-REACTIVE PROTEIN 14.6 MG/DL (0.00-0.3)
[2016-07-25] MEDS: ACETAMINOPHEN 325 MG TABLET (FP) PO PRN (18:25)
[2016-07-25] MEDS ORDERED: KCL 10 MEQ IVPB 100 ML IVPB SCH (20:00)
[2016-07-25] MEDS: LACTOBACILLUS ACIDOPHILUS 1 EACH TAB (FP) PO SCH (21:57)
--- NOTE | 2016-07-25 23:48 | PN ---
Physical Exam: SUBJECTIVE: Patient seen and examined. Diarrhea persists. OBJECTIVE: Vital Signs Period Temp Pulse Resp BP Sys/Golden Pulse Ox Last 24 Hr 98.1 F-100.5 F 95-113 16-20 110-120/67-72 GENERAL: The patient is awake, alert, and fully oriented, in no acute distress. HEAD: Normal with no signs of trauma. EYES: PERRL, extraocular movements intact, sclera anicteric, conjunctiva clear. No ptosis. LUNGS: Breath sounds equal, clear to auscultation bilaterally, no wheezes, no crackles, no accessory muscle use. HEART: Regular rate and rhythm, S1, S2 without murmur, rub or gallop. ABDOMEN: Vertical incision secured by surgical jocelynn from mid sternal area to below umbilicus; area of mild erythema LLQ improved; abdomen is diffusely tender ; no drainage EXTREMITIES: 2+ pulses, warm, well-perfused, no edema. NEUROLOGICAL: Cranial nerves II through XII grossly intact. Normal speech, gait not observed. Laboratory Results - last 24 hr 07/25/16 07/25/16 07/25/16 02:30 06:20 06:20 WBC 13.1 H RBC 3.14 L Hgb 8.3 L Hct 24.8 L MCV 79.0 L MCHC 33.5 RDW 14.3 Plt Count 271 MPV 8.9 Neutrophils % 90.4 H Lymphocytes % 4.5 L D Monocytes % 4.7 Eosinophils % 0.3 D Basophils % 0.1 Sodium 139 Potassium 3.3 L Chloride 100 Carbon Dioxide 28 Anion Gap 11 BUN 5 L Creatinine 0.3 L D Creat Clearance w eGFR > 60 Random Glucose 105 D Calcium 7.5 L Phosphorus 2.2 L D Magnesium 1.6 L Total Bilirubin 0.6 D AST 12 L ALT 16 Alkaline Phosphatase 71 C-Reactive Protein 14.6 H D Total Protein 4.9 L Albumin 2.1 L Stool Occult Blood Trace 07/25/16 14:36 WBC RBC Hgb Hct MCV MCHC RDW Plt Count MPV Neutrophils % Lymphocytes % Monocytes % Eosinophils % Basophils % Sodium Potassium Chloride Carbon Dioxide Anion Gap BUN Creatinine Creat Clearance w eGFR Random Glucose Calcium Phosphorus Magnesium Total Bilirubin AST ALT Alkaline Phosphatase C-Reactive Protein Cancelled Total Protein Albumin Stool Occult Blood Active Medications Generic Name Dose Route Start Last Admin Trade Name Freq PRN Reason Stop Dose Admin Acetaminophen 650 mg 07/24/16 15:13 07/25/16 18:25 Tylenol - PO 650 mg Q6H PRN Administration FEVER OR PAIN Heparin Sodium (Porcine) 5,000 unit 07/24/16 22:00 07/25/16 21:57 Heparin - SQ 5,000 unit TID RIKA Administration Ceftriaxone Sodium 100 mls @ 200 mls/hr 07/24/16 11:15 07/25/16 09:59 Rocephin 2gm Ivpb (Pre-Docked) IVPB 200 mls/hr DAILY RIKA Administration Metronidazole 100 mls @ 100 mls/hr 07/24/16 18:00 07/25/16 17:06 Flagyl 500mg Premixed Ivpb - IVPB 100 mls/hr Q8H-IV RIKA Administration Pantoprazole Sodium 100 mls @ 200 mls/hr 07/24/16 22:00 07/25/16 21:57 Protonix 40mg Ivpb (Pre-Docked) IVPB 200 mls/hr BID RIKA Administration Potassium Chloride/Dextrose/Sod Cl 1,000 mls @ 125 mls/hr 07/25/16 11:15 11:50 D5-1/2ns+20 Meq Kcl - IV 125 mls/hr ASDIR RIKA Administration Lactobacillus Acidophilus 1 tab 07/25/16 22:00 07/25/16 21:57 Bacid - PO 1 tab BID RIKA Administration Morphine Sulfate 2 mg 07/24/16 15:13 07/25/16 15:53 Morphine Injection - IVPUSH 2 mg Q4H PRN Administration PAIN Ondansetron HCl 4 mg 07/24/16 15:13 07/25/16 11:39 Zofran Injection IVPB 4 mg Q6H PRN Administration NAUSEA Imaging 07/22/16 CTAP ([facility]): extensive mesenteric edema with enteritis in the lower abdomen suspicious for anastomotic leak; small amount of ascites and free air in RLQ; proximal small bowel distention could be reactive or represent partial small bowel obstruction 07/25/16 CTAP: 7.5cm focus of air/gas right mid pelvis ventrally, abscess v. surgical site disruption; mesenteric soft tissue straning; two contiguous 2.7cm fluid collection/abscesses between urinary bladder and uterine body; 3cm fluid accumulation root of mesentery; 7 1.4cm fluid collection pelvic cul-de-sac; several proximal jejunal bowel loops dilatated, residual obstruction and/or ileus; small pericardial effusion ASSESSMENT/PLAN: 51 year old female with PMH of HTN, recurrent SBO, s/p abdominal surgery on , admitted for sepsis secondary to intraabdominal abscess Recurrent small bowel obstructions s/p open lysis of adhesions, small bowel resection x 2, completion appendectomy , ventral hernia repair 07/14/16 s/p placement of RLQ abscess drainage catheter 07/22 --~30cc's serosanguinous drainage daily Sepsis secondary to intraabdominal abscess/collection Gram negative bacteremia --febrile to 100.5, leukocytosis --continue ceftriaxone, continue metronidazole Diarrhea --c.diff, stool studies pending DVT prophylaxis: subq heparin Dispo: continues to require inpatient care. Full code. Visit type - Emergency Visit Emergency Visit: Yes ED Registration Date: 07/22/16 Care time: The patient presented to the Emergency Department on the above date and was hospitalized for further evaluation of their emergent condition. - New Patient This patient is new to me today: No - Critical Care Critical Care patient: No
[2016-07-26] MEDS: METRONIDAZOLE 500 MG PREMIXED 100 ML IVPB SCH ×3 (02:41→18:44)
[2016-07-26] MEDS: HEPARIN NA (PORCINE) 5,000 UNITS/ML 1ML VIAL SQ SCH (05:38)
[2016-07-26] MEDS: morphine CARPU-JECT 2 MG/1 ML DISP.SYRIN IVPUSH PRN ×2 (07:24→22:52)
[2016-07-26 08:33] LABS: BASOPHIL 0.5 % (0-2.0); MCH 25.8 pg (25.7-33.7); MCHC 33.1 g/dl (32.0-36.0); MEAN PLT VOLUME 9.3 fl (7.5-11.1); PLATELET COUNT 367 K/MM3 (134-434); RDW 14.2 % (11.6-15.6); WHITE BLOOD COUNT 15.6 K/mm3 (4.0-10.0)
[2016-07-26 08:35] LABS: ALBUMIN 2.2 g/dl (3.4-5.0); ALK PHOS 80 U/L (45-117); ANION GAP 10 (8-16); BILIRUBIN,TOTAL 0.4 mg/dL (0.2-1.0); CALCIUM 7.7 mg/dL (8.5-10.1); CO2 29 mmol/L (21-32); CREATININE 0.4 mg/dL (0.55-1.02); GLUCOSE,RANDOM 128 mg/dL (74-106); MAGNESIUM 1.6 mg/dL (1.8-2.4); PHOSPHOROUS 2.2 mg/dL (2.5-4.9); SGOT/AST 16 U/L (15-37); SGPT/ALT 18 U/L (12-78); TOT PROT 5.2 g/dl (6.4-8.2)
--- NOTE | 2016-07-26 09:34 | PN ---
Physical Exam: SUBJECTIVE: Patient seen and examined. OBJECTIVE: Vital Signs Period Temp Pulse Resp BP Sys/Golden Pulse Ox Last 24 Hr 98.1 F-100.5 F 95-112 16-20 110-115/64-72 GENERAL: The patient is awake, alert, and fully oriented, in no acute distress. HEAD: Normal with no signs of trauma. EYES: PERRL, extraocular movements intact, sclera anicteric, conjunctiva clear. No ptosis. LUNGS: Breath sounds equal, clear to auscultation bilaterally, no wheezes, no crackles, no accessory muscle use. HEART: Regular rate and rhythm, S1, S2 without murmur, rub or gallop. ABDOMEN: Vertical incision secured by surgical jocelynn from mid sternal area to below umbilicus; area of mild erythema LLQ improved; abdomen is diffusely tender ; no drainage EXTREMITIES: 2+ pulses, warm, well-perfused, no edema. NEUROLOGICAL: Cranial nerves II through XII grossly intact. Normal speech, gait not observed. Laboratory Results - last 24 hr 07/25/16 07/25/16 07/26/16 06:20 14:36 06:50 WBC 15.6 H RBC 3.31 L Hgb 8.5 L Hct 25.8 L MCV 78.0 L MCHC 33.1 RDW 14.2 Plt Count 367 D MPV 9.3 Neutrophils % 90.0 H Lymphocytes % 5.6 L D Monocytes % 3.9 Eosinophils % 0.0 D Basophils % 0.5 D Sodium Potassium Chloride Carbon Dioxide Anion Gap BUN Creatinine Creat Clearance w eGFR Random Glucose Lactic Acid Calcium Phosphorus Magnesium Total Bilirubin AST ALT Alkaline Phosphatase C-Reactive Protein 14.6 H D Cancelled Total Protein Albumin 07/26/16 07/26/16 06:50 06:50 WBC RBC Hgb Hct MCV MCHC RDW Plt Count MPV Neutrophils % Lymphocytes % Monocytes % Eosinophils % Basophils % Sodium 138 Potassium 3.5 Chloride 99 Carbon Dioxide 29 Anion Gap 10 BUN 3 L D Creatinine 0.4 L D Creat Clearance w eGFR > 60 Random Glucose 128 H D Lactic Acid 0.966 Calcium 7.7 L Phosphorus 2.2 L Magnesium 1.6 L Total Bilirubin 0.4 D AST 16 D ALT 18 Alkaline Phosphatase 80 C-Reactive Protein Total Protein 5.2 L Albumin 2.2 L Active Medications Generic Name Dose Route Start Last Admin Trade Name Freq PRN Reason Stop Dose Admin Acetaminophen 650 mg 07/24/16 15:13 07/25/16 18:25 Tylenol - PO 650 mg Q6H PRN Administration FEVER OR PAIN Heparin Sodium (Porcine) 5,000 unit 07/24/16 22:00 07/26/16 05:38 Heparin - SQ 5,000 unit TID RIKA Administration Ceftriaxone Sodium 100 mls @ 200 mls/hr 07/24/16 11:15 07/25/16 09:59 Rocephin 2gm Ivpb (Pre-Docked) IVPB 200 mls/hr DAILY RIKA Administration Metronidazole 100 mls @ 100 mls/hr 07/24/16 18:00 07/26/16 02:41 Flagyl 500mg Premixed Ivpb - IVPB 100 mls/hr Q8H-IV RIKA Administration Pantoprazole Sodium 100 mls @ 200 mls/hr 07/24/16 22:00 07/25/16 21:57 Protonix 40mg Ivpb (Pre-Docked) IVPB 200 mls/hr BID RIKA Administration Potassium Chloride/Dextrose/Sod Cl 1,000 mls @ 125 mls/hr 07/25/16 11:15 11:50 D5-1/2ns+20 Meq Kcl - IV 125 mls/hr ASDIR RIKA Administration Lactobacillus Acidophilus 1 tab 07/25/16 22:00 07/25/16 21:57 Bacid - PO 1 tab BID RIKA Administration Morphine Sulfate 2 mg 07/24/16 15:13 07/26/16 07:24 Morphine Injection - IVPUSH 2 mg Q4H PRN Administration PAIN Ondansetron HCl 4 mg 07/24/16 15:13 07/25/16 11:39 Zofran Injection IVPB 4 mg Q6H PRN Administration NAUSEA ASSESSMENT/PLAN: Imaging 07/22/16 CTAP ([facility]): extensive mesenteric edema with enteritis in the lower abdomen suspicious for anastomotic leak; small amount of ascites and free air in RLQ; proximal small bowel distention could be reactive or represent partial small bowel obstruction 07/25/16 CTAP: 7.5cm focus of air/gas right mid pelvis ventrally, abscess v. surgical site disruption; mesenteric soft tissue straning; two contiguous 2.7cm fluid collection/abscesses between urinary bladder and uterine body; 3cm fluid accumulation root of mesentery; 7 1.4cm fluid collection pelvic cul-de-sac; several proximal jejunal bowel loops dilatated, residual obstruction and/or ileus; small pericardial effusion ASSESSMENT/PLAN: 51 year old female with PMH of HTN, recurrent SBO, s/p abdominal surgery on , admitted for sepsis secondary to intraabdominal abscess Recurrent small bowel obstructions s/p open lysis of adhesions, small bowel resection x 2, completion appendectomy , ventral hernia repair 07/14/16 s/p placement of RLQ abscess drainage catheter 07/22 --~30cc's serosanguinous drainage daily Sepsis secondary to intraabdominal abscess/collection E.coli bacteremia --febrile to 100.5, leukocytosis worsening --continue ceftriaxone, continue metronidazole --surgery planned for tomorrow; NPO after midnight Diarrhea --c.diff negative; stool studies pending --diarrhea persists, will send c.diff PCR DVT prophylaxis: subq heparin Dispo: continues to require inpatient care. Full code. Visit type - Emergency Visit Emergency Visit: Yes ED Registration Date: 07/22/16 Care time: The patient presented to the Emergency Department on the above date and was hospitalized for further evaluation of their emergent condition. - New Patient This patient is new to me today: No - Critical Care Critical Care patient: No
--- NOTE | 2016-07-26 09:43 | PN ---
Progress Note, Physician Chief Complaint: pain History of Present Illness: pt with improved diarrhea. says she feels better than yesterday but persistent abd pain. CT results noted. case reviewed with radiologist. overall WBC increasing (yesterday 15). low grade temp to 100.5 CT appears worse as there is now airfluid collection. - Current Medication List Current Medications: Active Medications Acetaminophen (Tylenol -) 650 mg PO Q6H PRN PRN Reason: FEVER OR PAIN Last Admin: 07/25/16 18:25 Dose: 650 mg Heparin Sodium (Porcine) (Heparin -) 5,000 unit SQ TID [facility] Last Admin: 07/26/16 05:38 Dose: 5,000 unit Ceftriaxone Sodium (Rocephin 2gm Ivpb (Pre-Docked)) 100 mls @ 200 mls/hr IVPB DAILY [facility] Last Admin: 07/25/16 09:59 Dose: 200 mls/hr Metronidazole (Flagyl 500mg Premixed Ivpb -) 100 mls @ 100 mls/hr IVPB Q8H-IV RIKA Last Admin: 07/26/16 02:41 Dose: 100 mls/hr Pantoprazole Sodium (Protonix 40mg Ivpb (Pre-Docked)) 100 mls @ 200 mls/hr IVPB BID [facility] Last Admin: 07/25/16 21:57 Dose: 200 mls/hr Potassium Chloride/Dextrose/Sod Cl (D5-1/2ns+20 Meq Kcl -) 1,000 mls @ 125 mls/ hr IV ASDIR [facility] Last Admin: 07/25/16 11:50 Dose: 125 mls/hr Lactobacillus Acidophilus (Bacid -) 1 tab PO BID [facility] Last Admin: 07/25/16 21:57 Dose: 1 tab Morphine Sulfate (Morphine Injection -) 2 mg IVPUSH Q4H PRN PRN Reason: PAIN Last Admin: 07/26/16 07:24 Dose: 2 mg Ondansetron HCl (Zofran Injection) 4 mg IVPB Q6H PRN PRN Reason: NAUSEA Last Admin: 07/25/16 11:39 Dose: 4 mg - Objective Vital Signs: Vital Signs Temperature 99.8 F H 07/26/16 06:00 Pulse Rate 107 H 07/26/16 06:00 Respiratory Rate 20 07/26/16 06:00 Blood Pressure 115/64 07/26/16 06:00 O2 Sat by Pulse Oximetry (%) 98 07/24/16 09:00 Constitutional: Yes: No Distress, Calm Eyes: Yes: Conjunctiva Clear, EOM Intact HENT: Yes: Atraumatic, Normocephalic Neck: Yes: Supple, Trachea Midline Cardiovascular: Yes: Regular Rate and Rhythm Respiratory: Yes: Regular, CTA Bilaterally Gastrointestinal: Yes: Soft, Tenderness (no guarding. near incision). No: Distention ...Rectal Exam: Yes: Deferred Genitourinary: No: CVA Tenderness - Left, CVA Tenderness - Right Breast(s): No: Nipple Inversion, Skin Changes Musculoskeletal: No: Joint Stiffness, Joint Swelling Extremities: No: Calf Tenderness, Erythema Integumentary: No: Erythema, Rash Wound/Incision: Yes: Clean/Dry, Well Approximated Neurological: Yes: Alert, Oriented Psychiatric: Yes: Alert, Oriented Labs: CBC, BMP 07/26/16 06:50 07/26/16 06:50 Problem List - Problems (1) Abdominal pain Code(s): R10.9 - UNSPECIFIED ABDOMINAL PAIN Qualifiers: Abdominal location: generalized Qualified Code(s): R10.84 - Generalized abdominal pain (2) Leukocytosis Assessment/Plan: CT and labs worsening. while patient is clinically improving, given bacteremia history I feel that it would be better to explore patient operatively and r/o leak . not a candidate for IR drainage given collection is really wrapped by intestine. would plan on operating tomorrow reg diet npo after midnight. case d/w pt's daughter Gisele @ length who will convey my concerns to pt and father and they will finalize decision later. Code(s): D72.829 - ELEVATED WHITE BLOOD CELL COUNT, UNSPECIFIED (3) SIRS (systemic inflammatory response syndrome) Code(s): R65.10 - SIRS OF NON-INFECTIOUS ORIGIN W/O ACUTE ORGAN DYSFUNCTION
[2016-07-26] MEDS: PANTOPRAZOLE SODIUM 100 ML IVPB SCH ×2 (10:59→22:38)
[2016-07-26] MEDS: CEFTRIAXONE 100 ML IVPB SCH (11:01)
[2016-07-26] MEDS ORDERED: MAGNESIUM SULF 50% (8.12 MEQ/2 ML-1 GM VIAL) IVPB ONE (11:01)
[2016-07-26] MEDS: LACTOBACILLUS ACIDOPHILUS 1 EACH TAB (FP) PO SCH ×2 (11:33→21:55)
[2016-07-26] MEDS: D5-1/2NS+20 MEQ KCL - 1,000 ML IV SCH ×2 (11:36→21:57)
--- NOTE | 2016-07-26 14:03 | CON.GI ---
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: Alzheimer's, CVA, Dementia, Migraine, Multiple Sclerosis, Peripheral Neuropathy, Parkinson's, Seizure, Syncope, TIA, Vertigo, Other Cardio/Vascular: No: AFIB, Aneurysm, Aortic Insufficiency, Aortic Stenosis, CAD , CHF, Deep Vein Thrombosis, HTN, Hyperlipdemia, PR, Mitral Insufficiency, Mitral Stenosis, Murmur, Pulmonary Hypertension, Other Pulmonary: No: Asthma, Bronchitis, Cancer, COPD, O2 Dependent, Pneumonia, Previously Intubated, Pulmonary Embolus, Pulmonary Fibrosis, Sleep Apnea, Other Gastrointestinal: Yes: Other (SBO, LYSIS OF ADHESION AND SMALL BOWEL RESECTION VENTRAL HERNIA REPAIR, APPENDECTOMY) Hepatobiliary: No: Cirrhosis, Cholelithiasis, Cholecystitis, Choledocholithiasis , Hepatitis A, Hepatitis B, Hepatitis C, Other Renal/: No: Renal Failure, Renal Inusuff, BPH, Cancer, Hematuria, Hemodialysis , Neurogenic Bladder, Renal Calculi, UTI, Other Reproductive: Yes: Other (OVARIAN CYSTS) ...LMP: 03/08/12 Heme/Onc: No: Anemia, B12 Deficiency, Bleeding Disorder, Cancer, Current Chemotherapy, Current Radiation Therapy, Hemochromatosis, Hypercoaguable State, Myeloproliferative Synd, Sickle Cell Disease, Sickle Cell Trait, Thrombocytopenia, Other Psych: No: Addictions, Anxiety, Bipolar, Depression, Panic, Psychosis, Schizophrenia, Other Musculoskeletal: No: Bursitis, Chronic low back pain, Hemiparesis, Hemiplegia, Osteoarthritis, Paraplegia, Other Rheumatology: No: Fibromyalgia, Gout, Lupus, Rheumatoid Arthritis, Sarcoidosis, Vasculitis, Other ENT: No: Allergic Rhinitis, Sinusitis, Other - Past Surgical History Past Surgical History: Yes: Appendectomy - Alcohol/Substance Use Hx Alcohol Use: No - Smoking History Smoking history: Never smoked Have you smoked in the past 12 months: No Aproximately how many cigarettes per day: 0 Home Medications - Allergies Allergies/Adverse Reactions: Allergies Allergy/AdvReac Type Severity Reaction Status Date / Time No Known Allergies Allergy Verified 07/22/16 00:33 - Home Medications Home Medications: Ambulatory Orders Aspirin [ASA -] 81 mg PO DAILY 07/27/13 Hydrochlorothiazide [Hctz -] 25 mg PO DAILY 12/14/15 Cholecalciferol (Vitamin D3) [Vitamin D3] 50,000 unit PO SA 07/11/16 Docusate Sodium [Colace -] 100 mg PO BID PRN #14 capsule 07/18/16 Oxycodone HCl/Acetaminophen [Percocet 10-325 mg Tablet] 1 each PO Q6H #20 tablet MDD 4 07/18/16 Review of Systems - Review of Systems Constitutional: reports: Chills, Loss of Appetite Eyes: reports: No Symptoms HENT: reports: No Symptoms Neck: reports: No Symptoms Cardiovascular: reports: No Symptoms Respiratory: reports: No Symptoms Gastrointestinal: reports: Abdominal Pain, Diarrhea Integumentary: reports: No Symptoms Neurological: reports: No Symptoms Endocrine: reports: No Symptoms Hematology/Lymphatic: reports: No Symptoms Psychiatric: reports: No Symptoms Physical Exam-GI Vital Signs: Vital Signs Temperature 99.8 F H 07/26/16 06:00 Pulse Rate 107 H 07/26/16 06:00 Respiratory Rate 20 07/26/16 06:00 Blood Pressure 115/64 07/26/16 06:00 O2 Sat by Pulse Oximetry (%) 98 07/24/16 09:00 Constitutional: Yes: No Distress Eyes: Yes: Conjunctiva Clear HENT: Yes: Atraumatic Neck: Yes: Supple Cardiovascular: Yes: Regular Rate and Rhythm Respiratory: Yes: Regular Gastrointestinal Inspection: Yes: Distention ...Auscultate: Yes: Normoactive Bowel Sounds ...Palpate: Yes: Tenderness (NO GUARDING OR REBOUND) ...Rectal Exam: Yes: Deferred Musculoskeletal: Yes: WNL Extremities: Yes: WNL Neurological: Yes: WNL Labs: CBC, BMP 07/26/16 06:50 07/26/16 06:50 Laboratory Tests 07/24/16 07/25/16 07/25/16 05:00 02:30 06:20 WBC 12.9 H 13.1 H Sodium Potassium Chloride Carbon Dioxide Anion Gap BUN Creatinine Creat Clearance w eGFR Random Glucose Calcium Phosphorus Magnesium Total Bilirubin AST ALT Alkaline Phosphatase C-Reactive Protein Stool Occult Blood Trace 07/25/16 07/26/16 07/26/16 06:20 06:50 06:50 WBC 15.6 H Sodium 138 Potassium 3.5 Chloride 99 Carbon Dioxide 29 Anion Gap 10 BUN 3 L D Creatinine 0.4 L D Creat Clearance w eGFR > 60 Random Glucose 128 H D Calcium 7.7 L Phosphorus 2.2 L Magnesium 1.6 L Total Bilirubin 0.4 D AST 16 D ALT 18 Alkaline Phosphatase 80 C-Reactive Protein 14.6 H D Stool Occult Blood Imaging - Results Cat Scan: Image Reviewed Problem List - Problems (1) Intra-abdominal abscess Assessment/Plan: WITH WORSENING WBC AND NOW FLUID COLLECTION NOT AMENABLE TO ANOTHER DRAIN, DR CHE HASDECIDED TO REEXPLORE HER ABDOMEN. WILL FOLLOW WITH YOU AFTER THE SURGERY. Code(s): K65.1 - PERITONEAL ABSCESS (2) Abdominal pain Code(s): R10.9 - UNSPECIFIED ABDOMINAL PAIN Qualifiers: Abdominal location: generalized Qualified Code(s): R10.84 - Generalized abdominal pain (3) Gram-negative bacteremia Code(s): R78.81 - BACTEREMIA (4) Leukocytosis Code(s): D72.829 - ELEVATED WHITE BLOOD CELL COUNT, UNSPECIFIED (5) Small bowel obstruction Code(s): K56.69 - OTHER INTESTINAL OBSTRUCTION
--- NOTE | 2016-07-26 16:32 | PN ---
Progress Note, Physician History of Present Illness: No c/o abdominal pain No fever/ chills For repeat laparotomy tomorrow - Current Medication List Current Medications: Active Medications Acetaminophen (Tylenol -) 650 mg PO Q6H PRN PRN Reason: FEVER OR PAIN Last Admin: 07/25/16 18:25 Dose: 650 mg Ceftriaxone Sodium (Rocephin 2gm Ivpb (Pre-Docked)) 100 mls @ 200 mls/hr IVPB DAILY [facility] Last Admin: 07/26/16 11:01 Dose: 200 mls/hr Metronidazole (Flagyl 500mg Premixed Ivpb -) 100 mls @ 100 mls/hr IVPB Q8H-IV RIKA Last Admin: 07/26/16 11:04 Dose: 100 mls/hr Pantoprazole Sodium (Protonix 40mg Ivpb (Pre-Docked)) 100 mls @ 200 mls/hr IVPB BID [facility] Last Admin: 07/26/16 10:59 Dose: 200 mls/hr Potassium Chloride/Dextrose/Sod Cl (D5-1/2ns+20 Meq Kcl -) 1,000 mls @ 125 mls/ hr IV ASDIR [facility] Last Admin: 07/26/16 11:36 Dose: 125 mls/hr Lactobacillus Acidophilus (Bacid -) 1 tab PO BID [facility] Last Admin: 07/26/16 11:33 Dose: 1 tab Morphine Sulfate (Morphine Injection -) 2 mg IVPUSH Q4H PRN PRN Reason: PAIN Last Admin: 07/26/16 07:24 Dose: 2 mg Ondansetron HCl (Zofran Injection) 4 mg IVPB Q6H PRN PRN Reason: NAUSEA Last Admin: 07/25/16 11:39 Dose: 4 mg - Objective Vital Signs: Vital Signs Temperature 98.1 F 07/26/16 14:00 Pulse Rate 109 H 07/26/16 14:00 Respiratory Rate 22 07/26/16 14:00 Blood Pressure 112/66 07/26/16 09:00 O2 Sat by Pulse Oximetry (%) 95 07/26/16 09:00 Constitutional: Yes: No Distress Eyes: Yes: Conjunctiva Clear Cardiovascular: Yes: Regular Rate and Rhythm, S1, S2 Respiratory: Yes: CTA Bilaterally Gastrointestinal: Yes: Normal Bowel Sounds, Soft, Other (surgical jocelynn in place). No: Tenderness Labs: CBC, BMP 07/26/16 06:50 07/26/16 06:50 Assessment/Plan S/P drainage intra-abdominal abscess Gram Negative bacteremia/ sepsis Wound c/s + Ecoli S/P SB resection, CARMEN Leukocytosis Continue ceftriaxone / flagyl
[2016-07-27] MEDS: METRONIDAZOLE 500 MG PREMIXED 100 ML IVPB SCH ×3 (01:01→18:13)
[2016-07-27] MEDS: LACTOBACILLUS ACIDOPHILUS 1 EACH TAB (FP) PO SCH ×2 (09:23→21:11)
[2016-07-27] MEDS: CEFTRIAXONE 100 ML IVPB SCH (09:27)
[2016-07-27] MEDS: PANTOPRAZOLE SODIUM 100 ML IVPB SCH ×2 (10:31→21:45)
[2016-07-27] MEDS ORDERED: MAGNESIUM SULF 50% (8.12 MEQ/2 ML-1 GM VIAL) IVPB ONE (11:39)
[2016-07-27] MEDS: D5-1/2NS+20 MEQ KCL - 1,000 ML IV SCH (11:55)
[2016-07-27] MEDS ORDERED: PROPOFOL 20 ML ONE (12:46)
[2016-07-27] MEDS ORDERED: LIDOCAINE HCL/PF 2% SDV 5ML VIAL ONE (12:46)
[2016-07-27] MEDS ORDERED: ROCURONIUM BROMIDE 50 MG/5 ML VIAL ONE (12:47)
[2016-07-27 12:50] LABS: BASOPHIL 0.6 % (0-2.0); EOSINOPHIL 0.4 % (0-4.5); MCH 25.5 pg (25.7-33.7); MCHC 32.5 g/dl (32.0-36.0); MEAN CELL VOLUME 78.4 fl (80-96); MEAN PLT VOLUME 8.4 fl (7.5-11.1); NEUTROPHILS 83.6 % (42.8-82.8); PLATELET COUNT 380 K/MM3 (134-434); RDW 14.7 % (11.6-15.6); WHITE BLOOD COUNT 16.1 K/mm3 (4.0-10.0)
[2016-07-27] MEDS ORDERED: GLYCOPYRROLATE 0.2 MG/1 ML VIAL ONE (14:34)
[2016-07-27] MEDS ORDERED: NEOSTIGMINE METHYLSULFATE 0.5 MG/ML - 10 ML MDV ONE (14:34)
--- NOTE | 2016-07-27 15:04 | OP ---
Operative Note - Note: Operative Date: 07/27/16 Pre-Operative Diagnosis: intra-abdominal abscess Operation: exploratory laparotomy, drainage of intra-abdominal abscess Findings: frozen abdomen, approx 40cc purulent fluid. no succus enteroccus Post-Operative Diagnosis: Same as Pre-op Surgeon: Brown Jin Flowers Salesperson: Sofia Lubin Anesthesia: General Estimated Blood Loss (mls): 5 Drains & Tubes with Location: size 10 flat drain placed in abscess cavity into pelvis. Operative Report Dictated: Yes
[2016-07-27] MEDS ORDERED: OXYCODONE/APAP 5/325MG COMBO TABLET PO PRN ×2 (15:05→15:06)
[2016-07-27] MEDS ORDERED: HYDROmorphone HCL CARPU-JECT 1 MG/1 ML DISP.SYRIN IVPUSH PRN (15:05)
[2016-07-27] MEDS ORDERED: HYDROmorphone HCL CARPU-JECT 2 MG/1 ML DISP.SYRIN ONE (15:13)
[2016-07-27] MEDS ORDERED: ACETAMINOPHEN 325 MG TABLET (FP) PO PRN ×3 (15:19→15:25)
[2016-07-27] MEDS ORDERED: oxyCODONE HCL 5 MG TABLET PO PRN ×2 (15:19→15:20)
[2016-07-27] MEDS ORDERED: ONDANSETRON 4 MG/2 ML VIAL IVPB PRN (15:25)
[2016-07-27] MEDS: LACTATED RINGERS SOLUTION 1,000 ML IV SCH (17:00)
--- NOTE | 2016-07-27 19:26 | PN ---
Physical Exam: SUBJECTIVE: Patient seen and examined. Surgery scheduled for today. OBJECTIVE: Vital Signs Period Temp Pulse Resp BP Sys/Golden Pulse Ox Last 24 Hr 13 F-100.5 F 82-105 13-94 101-112/60-72 96-98 GENERAL: The patient is awake, alert, and fully oriented, in no acute distress. HEAD: Normal with no signs of trauma. EYES: PERRL, extraocular movements intact, sclera anicteric, conjunctiva clear. No ptosis. LUNGS: Breath sounds equal, clear to auscultation bilaterally, no wheezes, no crackles, no accessory muscle use. HEART: Regular rate and rhythm, S1, S2 without murmur, rub or gallop. ABDOMEN: Vertical incision secured by surgical jocelynn from mid sternal area to below umbilicus; area of mild erythema LLQ improved; abdomen is diffusely tender ; no drainage EXTREMITIES: 2+ pulses, warm, well-perfused, no edema. NEUROLOGICAL: Cranial nerves II through XII grossly intact. Normal speech, gait not observed. Laboratory Results - last 24 hr 07/27/16 07/27/16 11:30 12:40 WBC 16.1 H RBC 3.32 L Hgb 8.5 L Hct 26.0 L MCV 78.4 L MCHC 32.5 RDW 14.7 Plt Count 380 MPV 8.4 Neutrophils % 83.6 H Lymphocytes % 7.1 L D Monocytes % 8.3 D Eosinophils % 0.4 D Basophils % 0.6 Blood Type O POSITIVE Antibody Screen Negative Crossmatch IS Only See Detail Active Medications Generic Name Dose Route Start Last Admin Trade Name Freq PRN Reason Stop Dose Admin Acetaminophen 325 mg 07/27/16 15:19 Tylenol - PO 07/30/16 15:18 Q4H PRN PAIN Acetaminophen 650 mg 07/27/16 15:20 Tylenol - PO 07/30/16 15:19 Q4H PRN PAIN Acetaminophen 650 mg 07/27/16 15:25 Tylenol - PO Q6H PRN FEVER OR PAIN Hydromorphone HCl 1 mg 07/27/16 15:05 07/27/16 15:15 Dilaudid Injection - IVPUSH 07/30/16 15:06 1 mg [id number] PRN Administration PAIN Hydromorphone HCl 1 mg 07/27/16 15:07 Dilaudid Injection - IVPB Q4H PRN PAIN Lactated Ringer's 1,000 mls @ 125 mls/hr 07/27/16 15:15 07/27/16 17:00 Lactated Ringers Solution IV 0 mls ASDIR RIKA Administration Ceftriaxone Sodium 100 mls @ 200 mls/hr 07/28/16 10:00 Rocephin 2gm Ivpb (Pre-Docked) IVPB DAILY RIKA Metronidazole 100 mls @ 100 mls/hr 07/27/16 18:00 07/27/16 18:13 Flagyl 500mg Premixed Ivpb - IVPB 100 mls/hr Q8H-IV RIKA Administration Pantoprazole Sodium 100 mls @ 200 mls/hr 07/27/16 22:00 Protonix 40mg Ivpb (Pre-Docked) IVPB BID RIKA Lactobacillus Acidophilus 1 tab 07/27/16 22:00 Bacid - PO BID RIKA Ondansetron HCl 4 mg 07/27/16 15:25 Zofran Injection IVPB Q6H PRN NAUSEA Oxycodone HCl 5 mg 07/27/16 15:19 Roxicodone - PO Q4H PRN PAIN Oxycodone HCl 10 mg 07/27/16 15:20 Roxicodone - PO Q4H PRN PAIN Imaging 07/22/16 CTAP ([facility]): extensive mesenteric edema with enteritis in the lower abdomen suspicious for anastomotic leak; small amount of ascites and free air in RLQ; proximal small bowel distention could be reactive or represent partial small bowel obstruction 07/25/16 CTAP: 7.5cm focus of air/gas right mid pelvis ventrally, abscess v. surgical site disruption; mesenteric soft tissue straning; two contiguous 2.7cm fluid collection/abscesses between urinary bladder and uterine body; 3cm fluid accumulation root of mesentery; 7 1.4cm fluid collection pelvic cul-de-sac; several proximal jejunal bowel loops dilatated, residual obstruction and/or ileus; small pericardial effusion ASSESSMENT/PLAN: 51 year old female with PMH of HTN, recurrent SBO, s/p abdominal surgery on , admitted for sepsis secondary to intraabdominal abscess Recurrent small bowel obstructions s/p open lysis of adhesions, small bowel resection x 2, completion appendectomy , ventral hernia repair 07/14/16 s/p placement of RLQ abscess drainage catheter 07/22 --~30cc's serosanguinous drainage daily Sepsis secondary to intraabdominal abscess/collection E.coli bacteremia --febrile to 100.5, leukocytosis continues to worsen, WBC 16k --continue ceftriaxone, continue metronidazole per ID --surgery planned for later today Diarrhea --c.diff negative; stool culture negative --diarrhea has subsided; if recurs, send c.diff PCR DVT prophylaxis: subq heparin Dispo: continues to require inpatient care. Full code. Visit type - Emergency Visit Emergency Visit: Yes ED Registration Date: 07/22/16 Care time: The patient presented to the Emergency Department on the above date and was hospitalized for further evaluation of their emergent condition. - New Patient This patient is new to me today: No - Critical Care Critical Care patient: No
[2016-07-27] MEDS: HYDROmorphone HCL CARPU-JECT 1 MG/1 ML DISP.SYRIN IVPB PRN (21:11)
[2016-07-28] MEDS: METRONIDAZOLE 500 MG PREMIXED 100 ML IVPB SCH ×3 (01:13→17:26)
[2016-07-28] MEDS: LACTATED RINGERS SOLUTION 1,000 ML IV SCH (05:00)
[2016-07-28] MEDS: HYDROmorphone HCL CARPU-JECT 1 MG/1 ML DISP.SYRIN IVPB PRN ×3 (05:46→21:07)
[2016-07-28 07:58] LABS: BASOPHIL 0.2 % (0-2.0); EOSINOPHIL 0.5 % (0-4.5); MCH 26.4 pg (25.7-33.7); MCHC 33.2 g/dl (32.0-36.0); MEAN CELL VOLUME 79.4 fl (80-96); MEAN PLT VOLUME 8.9 fl (7.5-11.1); NEUTROPHILS 84.2 % (42.8-82.8); PLATELET COUNT 343 K/MM3 (134-434); RDW 14.7 % (11.6-15.6)
[2016-07-28 08:40] LABS: ALBUMIN 1.9 g/dl (3.4-5.0); ANION GAP 9 (8-16); CALCIUM 7.2 mg/dL (8.5-10.1); CO2 29 mmol/L (21-32); CREATININE 0.3 mg/dL (0.55-1.02); GLUCOSE,RANDOM 88 mg/dL (74-106); PHOSPHOROUS 2.6 mg/dL (2.5-4.9); SGOT/AST 8 U/L (15-37); SGPT/ALT 12 U/L (12-78)
[2016-07-28 08:42] LABS: ALK PHOS 63 U/L (45-117); BILIRUBIN,TOTAL 0.4 mg/dL (0.2-1.0); TOT PROT 4.5 g/dl (6.4-8.2)
--- NOTE | 2016-07-28 08:59 | PN ---
Progress Note (short form) - Note Progress Note: Anesthesia postop note 51y/o F s/p GA for Exploratory laparotomy, drainage of abscess POD#1, vss, aaox3, pain well controlled, feeling better than yesterday No anesthesia complications.
[2016-07-28] MEDS: LACTOBACILLUS ACIDOPHILUS 1 EACH TAB (FP) PO SCH ×2 (09:25→21:08)
[2016-07-28] MEDS: PANTOPRAZOLE SODIUM 100 ML IVPB SCH ×2 (09:25→21:08)
[2016-07-28] MEDS: CEFTRIAXONE 100 ML IVPB SCH (10:07)
--- NOTE | 2016-07-28 10:34 | PN ---
Progress Note (short form) - Note Progress Note: Feels better today. Slight abdominal tenderness, but overall improving. No CP or SOB. No acute events overnight. Intake & Output 07/25/16 07/26/16 07/27/16 07/28/16 23:59 23:59 23:59 23:59 Intake Total 2050 2850 4350 1650 Output Total 4893 40 1840 890 Balance -2843 2810 2510 760 Weight 147 lb 4.8 oz 144 lb 9 oz 146 lb 149 lb 8 oz Last Vital Signs Temp Pulse Resp BP Pulse Ox 99.1 F 96 H 20 116/74 98 07/28/16 07:58 07/28/16 07:58 07/28/16 07:58 07/28/16 07:58 07/27/16 21:00 Active Medications Acetaminophen (Tylenol -) 325 mg PO Q4H PRN PRN Reason: PAIN Stop: 07/30/16 15:18 Acetaminophen (Tylenol -) 650 mg PO Q4H PRN PRN Reason: PAIN Stop: 07/30/16 15:19 Acetaminophen (Tylenol -) 650 mg PO Q6H PRN PRN Reason: FEVER OR PAIN Last Admin: 07/27/16 22:34 Dose: 650 mg Hydromorphone HCl (Dilaudid Injection -) 1 mg IVPUSH [id number] PRN PRN Reason: PAIN Stop: 07/30/16 15:06 Last Admin: 07/27/16 15:15 Dose: 1 mg Hydromorphone HCl (Dilaudid Injection -) 1 mg IVPB Q4H PRN PRN Reason: PAIN Last Admin: 07/28/16 05:46 Dose: 1 mg Lactated Ringer's (Lactated Ringers Solution) 1,000 mls @ 125 mls/hr IV ASDIR RIKA Last Admin: 07/28/16 05:00 Dose: 125 mls/hr Ceftriaxone Sodium (Rocephin 2gm Ivpb (Pre-Docked)) 100 mls @ 200 mls/hr IVPB DAILY RIKA Last Admin: 07/28/16 10:07 Dose: 200 mls/hr Metronidazole (Flagyl 500mg Premixed Ivpb -) 100 mls @ 100 mls/hr IVPB Q8H-IV RIKA Last Admin: 07/28/16 01:13 Dose: 100 mls/hr Pantoprazole Sodium (Protonix 40mg Ivpb (Pre-Docked)) 100 mls @ 200 mls/hr IVPB BID [facility] Last Admin: 07/28/16 09:25 Dose: 200 mls/hr Lactobacillus Acidophilus (Bacid -) 1 tab PO BID [facility] Last Admin: 07/28/16 09:25 Dose: 1 tab Ondansetron HCl (Zofran Injection) 4 mg IVPB Q6H PRN PRN Reason: NAUSEA Oxycodone HCl (Roxicodone -) 5 mg PO Q4H PRN PRN Reason: PAIN Oxycodone HCl (Roxicodone -) 10 mg PO Q4H PRN PRN Reason: PAIN Gen: NAD Heart: RRR Lung: few basilar rhonchi Abd: soft, NT, (+) BS, intact dressing Ext: no edema Laboratory Results - last 24 hr 07/27/16 07/27/16 07/28/16 11:30 12:40 06:00 WBC 16.1 H 13.0 H RBC 3.32 L 3.33 L Hgb 8.5 L 8.8 L Hct 26.0 L 26.4 L MCV 78.4 L 79.4 L MCHC 32.5 33.2 RDW 14.7 14.7 Plt Count 380 343 MPV 8.4 8.9 Neutrophils % 83.6 H 84.2 H Lymphocytes % 7.1 L D 7.5 L Monocytes % 8.3 D 7.6 Eosinophils % 0.4 D 0.5 Basophils % 0.6 0.2 Sodium Potassium Chloride Carbon Dioxide Anion Gap BUN Creatinine Creat Clearance w eGFR Random Glucose Calcium Phosphorus Magnesium Total Bilirubin AST ALT Alkaline Phosphatase Total Protein Albumin Blood Type O POSITIVE Antibody Screen Negative Crossmatch IS Only See Detail 07/28/16 06:00 WBC RBC Hgb Hct MCV MCHC RDW Plt Count MPV Neutrophils % Lymphocytes % Monocytes % Eosinophils % Basophils % Sodium 141 Potassium 3.8 Chloride 103 Carbon Dioxide 29 Anion Gap 9 BUN 3 L Creatinine 0.3 L D Creat Clearance w eGFR > 60 Random Glucose 88 D Calcium 7.2 L Phosphorus 2.6 Magnesium 2.0 D Total Bilirubin 0.4 AST 8 L D ALT 12 D Alkaline Phosphatase 63 D Total Protein 4.5 L Albumin 1.9 L Blood Type Antibody Screen Crossmatch IS Only A/P Recent SBO/ex-lap/SB resection x 2 Intra-abdominal Abscess s/p IR drainage Gram Negative Bacteremia Sepsis Lactic Acidosis HTN - ABX per ID - pain control - incentive spirometry - O2 as needed - PO per surgery - OOB to chair - DVT prophylaxis - D/C TLC if peripheral IV access can be obtained Dr Cruz
--- NOTE | 2016-07-28 11:18 | PN ---
Progress Note, Physician Chief Complaint: feels alot better. History of Present Illness: alot less abd pain. wbc 13 (was 16). cultures pending. drain put out 80cc. Tm was 100.7. +flatus. hungry for food. tolerated clears. no N/V - Current Medication List Current Medications: Active Medications Acetaminophen (Tylenol -) 325 mg PO Q4H PRN PRN Reason: PAIN Stop: 07/30/16 15:18 Acetaminophen (Tylenol -) 650 mg PO Q4H PRN PRN Reason: PAIN Stop: 07/30/16 15:19 Acetaminophen (Tylenol -) 650 mg PO Q6H PRN PRN Reason: FEVER OR PAIN Last Admin: 07/27/16 22:34 Dose: 650 mg Hydromorphone HCl (Dilaudid Injection -) 1 mg IVPUSH [id number] PRN PRN Reason: PAIN Stop: 07/30/16 15:06 Last Admin: 07/27/16 15:15 Dose: 1 mg Hydromorphone HCl (Dilaudid Injection -) 1 mg IVPB Q4H PRN PRN Reason: PAIN Last Admin: 07/28/16 05:46 Dose: 1 mg Ceftriaxone Sodium (Rocephin 2gm Ivpb (Pre-Docked)) 100 mls @ 200 mls/hr IVPB DAILY [facility] Last Admin: 07/28/16 10:07 Dose: 200 mls/hr Metronidazole (Flagyl 500mg Premixed Ivpb -) 100 mls @ 100 mls/hr IVPB Q8H-IV RIKA Last Admin: 07/28/16 10:49 Dose: 100 mls/hr Pantoprazole Sodium (Protonix 40mg Ivpb (Pre-Docked)) 100 mls @ 200 mls/hr IVPB BID [facility] Last Admin: 07/28/16 09:25 Dose: 200 mls/hr Lactobacillus Acidophilus (Bacid -) 1 tab PO BID [facility] Last Admin: 07/28/16 09:25 Dose: 1 tab Ondansetron HCl (Zofran Injection) 4 mg IVPB Q6H PRN PRN Reason: NAUSEA Oxycodone HCl (Roxicodone -) 5 mg PO Q4H PRN PRN Reason: PAIN Oxycodone HCl (Roxicodone -) 10 mg PO Q4H PRN PRN Reason: PAIN - Objective Vital Signs: Vital Signs Temperature 99.1 F 07/28/16 07:58 Pulse Rate 96 H 07/28/16 07:58 Respiratory Rate 20 07/28/16 07:58 Blood Pressure 116/74 07/28/16 07:58 O2 Sat by Pulse Oximetry (%) 98 07/27/16 21:00 Constitutional: Yes: No Distress, Calm Gastrointestinal: Yes: Soft, Tenderness, Other (new drain with red in tube, dark red/black in HECTOR. stripped drain and more red fluid came out.). No: Distention Wound/Incision: Yes: Dressing Removed (dry dressing replaced. lower aspect of wound kept partially open.) Labs: CBC, BMP 07/28/16 06:00 07/28/16 06:00 Problem List - Problems (1) Abdominal pain Assessment/Plan: s/p abbreviated (because of frozen abd) exlap with just drainage of intra- abdominal abscess. cont abx adv to reg diet monitor HECTOR output. i suspect it could be all liquified hematoma but if it becomes suspicious for bile, will consider npo status. Code(s): R10.9 - UNSPECIFIED ABDOMINAL PAIN Qualifiers: Abdominal location: generalized Qualified Code(s): R10.84 - Generalized abdominal pain (2) Leukocytosis Code(s): D72.829 - ELEVATED WHITE BLOOD CELL COUNT, UNSPECIFIED (3) SIRS (systemic inflammatory response syndrome) Code(s): R65.10 - SIRS OF NON-INFECTIOUS ORIGIN W/O ACUTE ORGAN DYSFUNCTION
--- NOTE | 2016-07-28 12:00 | OP ---
DATE OF OPERATION: 07/27/2016 SURGEON: Lexii Jin MD [employer] OPERATOR: JANELLE Baron PREOPERATIVE DIAGNOSIS: Intra-abdominal abscess. POSTOPERATIVE DIAGNOSES: Intra-abdominal abscess with a frozen abdomen. PROCEDURES: Exploratory laparotomy. Drainage of an intra-abdominal abscess. ESTIMATED BLOOD LOSS: Minimal. FINDINGS: Purulent material of 40 to 50 mL. OPERATIVE NOTE: The patient was brought to the operating room, after confirming name, date of , medical record number. She was placed in supine position and had SCDs for DVT prophylaxis. She was then induced and intubated by the anesthesiologist. She received appropriate perioperative antibiotics. A Le catheter was then placed under sterile conditions. She was then prepped and draped in the usual sterile fashion. A timeout was then performed. The jocelynn were then removed. I then used a clamp to spread apart her old incision and then I placed my finger through the wound and fractured the incision open. Once I got down to the fascia, I could visualize the PDS. At this point, I grabbed the PDS near the umbilicus, I cut it with Reis scissors, and then I continued to lift the PDS off through the abdominal wall and out to get into the abdomen. As I came caudad and as this fascia opened, there was a gush of air and immediately there was drainage of a copious amount of foul-smelling drainage. This was purulent material and this was cultured. After it was cultured, it was aspirated and irrigated. Then, I placed my finger inside the abdomen and I could feel the anterior abdominal wall caudad. However, I could not proceed superiorly. It was very limited how far I could proceed and again I tried to finger-fracture the intestine off the anterior abdominal wall. However, I was unable to, given that she was 2 weeks postop and this was what I clinically considered a frozen abdomen at this point. Given that the patient was not septic, was tolerating diet, and the indication for surgery was just worsening white count with low-grade temps, the decision was made not to risk multiple enterotomies. Therefore, the decision was made to just place a drain on this large abscess cavity and not completely explore the patient. At this point, I then reapproximated the fascia with number 1 Vicryl in a [id number] fashion in an interrupted fashion. Once the abdomen was closed, I then reapproximated Baljit fascia with interrupted 2-0 Vicryl sutures. Please note that I placed a size 10 flat drain through the midline of the incision for best access, and then I brought it out on top of the fascia through the skin, so that the drain does go through the fascial incision. At this point, I then secured the drain with a 3-0 silk suture and then the skin was reapproximated toward the upper-half of the incision with skin jocelynn and the lower-half was left open for drainage. All counts were correct. LEXII JIN M.D. RANDAL/[id number]
--- NOTE | 2016-07-28 15:27 | PN ---
Progress Note (short form) - Note Progress Note: day #7 antibiotics feels much better less pain s/p sxp lap 3 with drainage of intraabdominal abscess Vital Signs Period Temp Pulse Resp BP Sys/Golden Pulse Ox Last 24 Hr 13 F-100.7 F 79-102 13-94 95-122/59-74 96-98 cor-rrr lungs clear abd soft, dressing intact drains intact ext no edema CBC, BMP 07/28/16 06:00 07/28/16 06:00 Microbiology 07/24/16 06:30 Stool Salmonella/Shigella Culture - Final NO GROWTH OF SALMONELLA OR SHIGELLA SPECIES OBTAINED 07/24/16 06:30 Stool Campylobacter Culture - Final NO GROWTH OF CAMPYLOBACTER SPECIES OBTAINED 07/24/16 06:30 Stool Yersinia Culture - Final NO GROWTH OF YERSINIA SPECIES OBTAINED 07/24/16 06:30 Stool Vibrio Culture - Final NO GROWTH OF VIBRIO SPECIES OBTAINED 07/24/16 06:30 Stool Escherichia coli 0157 Culture - Final NO GROWTH OF E COLI 0157 OBTAINED 07/25/16 20:30 Stool Gram Stain - Final 07/22/16 04:25 Nasopharyngeal Swab Respiratory Virus Panel - Preliminary 07/22/16 04:25 Blood - Peripheral Venous Blood Culture - Final Escherichia Coli 07/22/16 05:16 Blood - Peripheral Venous Blood Culture - Final Escherichia Coli 07/23/16 17:00 Stool Clostridium difficile Antigen (MILEY) - Final 07/23/16 17:00 Stool Clostridium difficile Toxin Assay - Final 07/22/16 14:20 Abscess Gram Stain - Final 07/22/16 14:20 Abscess Body Fluid Culture - Final NO GROWTH OF AEROBIC ORGANISMS AFTER 48 HOURS INCUBATION 07/22/16 14:20 Abscess Anaerobic Culture - Final NO ANAEROBES WERE ISOLATED 07/22/16 15:00 Urine - Urine Le Urine Culture - Final NO GROWTH OBTAINED 07/22/16 04:25 Nasopharyngeal Swab Influenza Types A,B Antigen (MILEY) - Final 07/22/16 04:25 Nasopharyngeal Swab - Final a/p s/p drainage intraabdominal abscess pod #1 ecoli bacteremia continue rocephin/flagyl operative cultures pending
--- NOTE | 2016-07-28 15:41 | PN ---
Physical Exam: SUBJECTIVE: Patient seen and examined. OBJECTIVE: Vital Signs Period Temp Pulse Resp BP Sys/Golden Pulse Ox Last 24 Hr 13 F-100.7 F 79-102 13-94 95-122/59-74 96-98 GENERAL: The patient is awake, alert, and fully oriented, in no acute distress. HEAD: Normal with no signs of trauma. EYES: PERRL, extraocular movements intact, sclera anicteric, conjunctiva clear. No ptosis. LUNGS: Breath sounds equal, clear to auscultation bilaterally, no wheezes, no crackles, no accessory muscle use. HEART: Regular rate and rhythm, S1, S2 without murmur, rub or gallop. ABDOMEN: Vertical incision secured by surgical jocelynn from mid sternal area to below umbilicus; area of mild erythema LLQ improved; abdomen is diffusely tender ; two drains EXTREMITIES: 2+ pulses, warm, well-perfused, no edema. NEUROLOGICAL: Cranial nerves II through XII grossly intact. Normal speech, gait not observed. Laboratory Results - last 24 hr 07/28/16 07/28/16 06:00 06:00 WBC 13.0 H RBC 3.33 L Hgb 8.8 L Hct 26.4 L MCV 79.4 L MCHC 33.2 RDW 14.7 Plt Count 343 MPV 8.9 Neutrophils % 84.2 H Lymphocytes % 7.5 L Monocytes % 7.6 Eosinophils % 0.5 Basophils % 0.2 Sodium 141 Potassium 3.8 Chloride 103 Carbon Dioxide 29 Anion Gap 9 BUN 3 L Creatinine 0.3 L D Creat Clearance w eGFR > 60 Random Glucose 88 D Calcium 7.2 L Phosphorus 2.6 Magnesium 2.0 D Total Bilirubin 0.4 AST 8 L D ALT 12 D Alkaline Phosphatase 63 D Total Protein 4.5 L Albumin 1.9 L Active Medications Generic Name Dose Route Start Last Admin Trade Name Freq PRN Reason Stop Dose Admin Acetaminophen 325 mg 07/27/16 15:19 Tylenol - PO 07/30/16 15:18 Q4H PRN PAIN Acetaminophen 650 mg 07/27/16 15:20 Tylenol - PO 07/30/16 15:19 Q4H PRN PAIN Acetaminophen 650 mg 07/27/16 15:25 07/27/16 22:34 Tylenol - PO 650 mg Q6H PRN Administration FEVER OR PAIN Hydromorphone HCl 1 mg 03/22/17 15:05 07/27/16 15:15 Dilaudid Injection - IVPUSH 07/30/16 15:06 1 mg [id number] PRN Administration PAIN Hydromorphone HCl 1 mg 07/27/16 15:07 07/28/16 12:44 Dilaudid Injection - IVPB 1 mg Q4H PRN Administration PAIN Ceftriaxone Sodium 100 mls @ 200 mls/hr 07/28/16 10:00 07/28/16 10:07 Rocephin 2gm Ivpb (Pre-Docked) IVPB 200 mls/hr DAILY RIKA Administration Metronidazole 100 mls @ 100 mls/hr 07/27/16 18:00 07/28/16 10:49 Flagyl 500mg Premixed Ivpb - IVPB 100 mls/hr Q8H-IV RIKA Administration Pantoprazole Sodium 100 mls @ 200 mls/hr 07/27/16 22:00 07/28/16 09:25 Protonix 40mg Ivpb (Pre-Docked) IVPB 200 mls/hr BID RIKA Administration Lactobacillus Acidophilus 1 tab 07/27/16 22:00 07/28/16 09:25 Bacid - PO 1 tab BID RIKA Administration Ondansetron HCl 4 mg 07/27/16 15:25 Zofran Injection IVPB Q6H PRN NAUSEA Oxycodone HCl 5 mg 07/27/16 15:19 Roxicodone - PO Q4H PRN PAIN Oxycodone HCl 10 mg 07/27/16 15:20 Roxicodone - PO Q4H PRN PAIN Imaging 07/22/16 CTAP ([facility]): extensive mesenteric edema with enteritis in the lower abdomen suspicious for anastomotic leak; small amount of ascites and free air in RLQ; proximal small bowel distention could be reactive or represent partial small bowel obstruction 07/25/16 CTAP: 7.5cm focus of air/gas right mid pelvis ventrally, abscess v. surgical site disruption; mesenteric soft tissue straning; two contiguous 2.7cm fluid collection/abscesses between urinary bladder and uterine body; 3cm fluid accumulation root of mesentery; 7 1.4cm fluid collection pelvic cul-de-sac; several proximal jejunal bowel loops dilatated, residual obstruction and/or ileus; small pericardial effusion ASSESSMENT/PLAN: 51 year old female with PMH of HTN, recurrent SBO, s/p abdominal surgery on , admitted for sepsis secondary to intraabdominal abscess Recurrent small bowel obstructions s/p open lysis of adhesions, small bowel resection x 2, completion appendectomy , ventral hernia repair 07/14/16 s/p placement of RLQ abscess drainage catheter 07/22 s/p ex lap drainage of intraabdominal abscess --~30cc's serosanguinous drainage HECTOR drain --5-10ccs drainage flat drain Sepsis secondary to intraabdominal abscess/collection E.coli bacteremia --afebrile for 24 hours; WBC trending down 16.1k-->13.0k --continue ceftriaxone and metronidazole per ID Diarrhea --c.diff negative; stool culture negative --diarrhea has subsided; if recurs, send c.diff PCR F/E/N Fluids: PO intake adequate Electrolytes: replete as indicated Nutrition: regular diet DVT prophylaxis: lovenox, oob, ambulation Rehab PT eval Daily PT Dispo: continues to require inpatient care. Full code. Visit type - Emergency Visit Emergency Visit: Yes ED Registration Date: 07/22/16 Care time: The patient presented to the Emergency Department on the above date and was hospitalized for further evaluation of their emergent condition. - New Patient This patient is new to me today: No - Critical Care Critical Care patient: No
[2016-07-28] MEDS: ENOXAPARIN NA (PORCINE) 40 MG/0.4 ML DISP.SYRIN SQ SCH (16:31)
--- NOTE | 2016-07-28 20:24 | PN ---
GI Progress Note Subjective: GASTROENTEROLOGY FEELS MUCH BETTER MUCH LESS PAIN NO FEVER NO DIARRHEA - Objective Vital Signs: Vital Signs Temperature 98.6 F 07/28/16 17:39 Pulse Rate 94 H 07/28/16 17:39 Respiratory Rate 20 07/28/16 19:47 Blood Pressure 102/65 07/28/16 17:39 O2 Sat by Pulse Oximetry (%) 98 07/28/16 19:47 Constitutional: No Distress Eyes: Yes: Conjunctiva Clear Neck: Yes: Supple Cardiovascular: Yes: Regular Rate and Rhythm Respiratory: Yes: Regular Gastrointestinal Inspection: Yes: Distention ...Auscultate: Yes: Hypoactive Bowel Sounds ...Palpate: Yes: Soft, Tenderness (MILD TENDERNESS AND INCISIONS) Extremities: Yes: WNL Labs: CBC, BMP 07/28/16 06:00 07/28/16 06:00 Problem List - Problems (1) Intra-abdominal abscess Assessment/Plan: IMPROVED SINCE REEXPLORATION CONTINUE ABX CONTINUE DRAINAGE POST SURGICAL MANAGEMENT PER DR CHE\OOB TO CHAIR Code(s): K65.1 - PERITONEAL ABSCESS (2) Abdominal pain Code(s): R10.9 - UNSPECIFIED ABDOMINAL PAIN Qualifiers: Abdominal location: generalized Qualified Code(s): R10.84 - Generalized abdominal pain (3) Gram-negative bacteremia Code(s): R78.81 - BACTEREMIA (4) Leukocytosis Code(s): D72.829 - ELEVATED WHITE BLOOD CELL COUNT, UNSPECIFIED (5) Small bowel obstruction Code(s): K56.69 - OTHER INTESTINAL OBSTRUCTION
[2016-07-29] MEDS: METRONIDAZOLE 500 MG PREMIXED 100 ML IVPB SCH ×3 (01:18→18:23)
[2016-07-29 07:43] LABS: MCH 26.4 pg (25.7-33.7); MCHC 33.5 g/dl (32.0-36.0); MEAN CELL VOLUME 78.8 fl (80-96); MEAN PLT VOLUME 8.3 fl (7.5-11.1); PLATELET COUNT 317 K/MM3 (134-434); RDW 14.4 % (11.6-15.6)
[2016-07-29 08:20] LABS: ANION GAP 10 (8-16); BILIRUBIN,TOTAL 0.2 mg/dL (0.2-1.0); CALCIUM 7.5 mg/dL (8.5-10.1); CO2 29 mmol/L (21-32); CREATININE 0.3 mg/dL (0.55-1.02); GLUCOSE,RANDOM 100 mg/dL (74-106); MAGNESIUM 1.8 mg/dL (1.8-2.4); PHOSPHOROUS 2.6 mg/dL (2.5-4.9); SGOT/AST 5 U/L (15-37); SGPT/ALT 10 U/L (12-78); TOT PROT 4.9 g/dl (6.4-8.2)
[2016-07-29 08:21] LABS: ALK PHOS 61 U/L (45-117)
[2016-07-29 10:07] LABS: HYPOCHROMIA FEW; METAMYELOCYTE 1 % (0-2); PLATELET ESTIMATE ADEQUATE (NORMAL); POLYCHROMASIA FEW
[2016-07-29] MEDS: CEFTRIAXONE 100 ML IVPB SCH (10:12)
[2016-07-29] MEDS: PANTOPRAZOLE SODIUM 100 ML IVPB SCH ×2 (10:12→21:03)
[2016-07-29] MEDS: LACTOBACILLUS ACIDOPHILUS 1 EACH TAB (FP) PO SCH ×2 (10:12→21:02)
[2016-07-29] MEDS: ENOXAPARIN NA (PORCINE) 40 MG/0.4 ML DISP.SYRIN SQ SCH (10:12)
--- NOTE | 2016-07-29 10:36 | PN ---
Progress Note, Physician Chief Complaint: some RLQ pain History of Present Illness: wbc 12. eating somewhat. +small BM. some more pain in RLQ. drain putting out reddish brown proteinaceous output. brown in bulb, red in tube. - Current Medication List Current Medications: Active Medications Acetaminophen (Tylenol -) 325 mg PO Q4H PRN PRN Reason: PAIN Stop: 07/30/16 15:18 Acetaminophen (Tylenol -) 650 mg PO Q4H PRN PRN Reason: PAIN Stop: 07/30/16 15:19 Acetaminophen (Tylenol -) 650 mg PO Q6H PRN PRN Reason: FEVER OR PAIN Last Admin: 07/27/16 22:34 Dose: 650 mg Enoxaparin Sodium (Lovenox -) 40 mg SQ DAILY [facility] Last Admin: 07/29/16 10:12 Dose: 40 mg Hydromorphone HCl (Dilaudid Injection -) 1 mg IVPUSH [id number] PRN PRN Reason: PAIN Stop: 07/30/16 15:06 Last Admin: 07/27/16 15:15 Dose: 1 mg Hydromorphone HCl (Dilaudid Injection -) 1 mg IVPB Q4H PRN PRN Reason: PAIN Last Admin: 07/28/16 21:07 Dose: 1 mg Ceftriaxone Sodium (Rocephin 2gm Ivpb (Pre-Docked)) 100 mls @ 200 mls/hr IVPB DAILY [facility] Last Admin: 07/29/16 10:12 Dose: 200 mls/hr Metronidazole (Flagyl 500mg Premixed Ivpb -) 100 mls @ 100 mls/hr IVPB Q8H-IV [facility] Last Admin: 07/29/16 10:12 Dose: 100 mls/hr Pantoprazole Sodium (Protonix 40mg Ivpb (Pre-Docked)) 100 mls @ 200 mls/hr IVPB BID [facility] Last Admin: 07/29/16 10:12 Dose: 200 mls/hr Lactobacillus Acidophilus (Bacid -) 1 tab PO BID [facility] Last Admin: 07/29/16 10:12 Dose: 1 tab Ondansetron HCl (Zofran Injection) 4 mg IVPB Q6H PRN PRN Reason: NAUSEA Oxycodone HCl (Roxicodone -) 5 mg PO Q4H PRN PRN Reason: PAIN Oxycodone HCl (Roxicodone -) 10 mg PO Q4H PRN PRN Reason: PAIN - Objective Vital Signs: Vital Signs Temperature 98.3 F 07/29/16 05:30 Pulse Rate 92 H 07/29/16 05:30 Respiratory Rate 16 07/29/16 05:30 Blood Pressure 116/68 07/29/16 05:30 O2 Sat by Pulse Oximetry (%) 98 07/28/16 19:47 Constitutional: Yes: No Distress, Calm Eyes: Yes: Conjunctiva Clear, EOM Intact HENT: Yes: Atraumatic, Pharyngeal Erythema Neck: Yes: Supple, Trachea Midline Cardiovascular: Yes: Regular Rate and Rhythm Respiratory: Yes: Regular, CTA Bilaterally Gastrointestinal: Yes: Soft, Tenderness (rlq.). No: Distention ...Rectal Exam: Yes: Deferred Genitourinary: No: CVA Tenderness - Left, CVA Tenderness - Right Musculoskeletal: No: Joint Stiffness, Joint Swelling Extremities: No: Calf Tenderness, External Rotation Integumentary: No: Erythema, Rash Wound/Incision: Yes: Draining, Other (wound without erythema. lower aspect draining serous drainage. some seropurulent drainge coming out around HECTOR drain exit site.) Neurological: Yes: Alert, Oriented Psychiatric: Yes: Alert, Oriented Labs: CBC, BMP 07/29/16 06:10 07/29/16 06:10 Problem List - Problems (1) Abdominal pain Assessment/Plan: cont drain cont IV Abx cont reg diet will likely need to be re-scanned early next week. operative intervention really not option any more given frozen abd unless patient septic. Code(s): R10.9 - UNSPECIFIED ABDOMINAL PAIN Qualifiers: Abdominal location: generalized Qualified Code(s): R10.84 - Generalized abdominal pain (2) Leukocytosis Code(s): D72.829 - ELEVATED WHITE BLOOD CELL COUNT, UNSPECIFIED (3) SIRS (systemic inflammatory response syndrome) Code(s): R65.10 - SIRS OF NON-INFECTIOUS ORIGIN W/O ACUTE ORGAN DYSFUNCTION
--- NOTE | 2016-07-29 10:57 | PN ---
Physical Exam: SUBJECTIVE: Patient seen and examined. Pain is improving. OBJECTIVE: WBC 12 today. Had small BM yesterday. Afebrile since 07/27. Vital Signs Period Temp Pulse Resp BP Sys/Golden Pulse Ox Last 24 Hr 98.1 F-99.9 F 92-102 16- 102-119/65-73 98 GENERAL: The patient is awake, alert, and fully oriented, in no acute distress. HEAD: Normal with no signs of trauma. EYES: PERRL, extraocular movements intact, sclera anicteric, conjunctiva clear. No ptosis. ENT: Ears normal, nares patent, oropharynx clear without exudates, moist mucous membranes. NECK: Trachea midline, full range of motion, supple. LUNGS: Breath sounds equal, clear to auscultation bilaterally, no wheezes, no crackles, no accessory muscle use. HEART: Regular rate and rhythm, S1, S2 without murmur, rub or gallop. ABDOMEN: Soft, mild RLQ tenderness. RLQ drain with serous output, HECTOR with dark brown output. rebound, no hepatosplenomegaly, no masses. EXTREMITIES: 2+ pulses, warm, well-perfused, trace edema. No calf tenderness. NEUROLOGICAL: Cranial nerves II through XII grossly intact. Normal speech, gait not observed. PSYCH: Normal mood, normal affect. SKIN: Warm, dry, normal turgor, no rashes or lesions noted Laboratory Results - last 24 hr 07/27/16 07/29/16 07/29/16 11:30 06:10 06:10 WBC 12.0 H RBC 3.46 L Hgb 9.1 L Hct 27.3 L MCV 78.8 L MCHC 33.5 RDW 14.4 Plt Count 317 MPV 8.3 Neutrophils % 75.0 Lymphocytes % 11.0 D Monocytes % 9.0 Eosinophils % 1.0 D Band Neutrophils 2.0 Metamyelocytes 1 Myelocytes 1 Platelet Estimate Adequate Platelet Comment No clumping noted Polychromasia Few Hypochromic-Microcytic Few Sodium 140 Potassium 3.6 Chloride 101 Carbon Dioxide 29 Anion Gap 10 BUN 2 L* D Creatinine 0.3 L Creat Clearance w eGFR > 60 Random Glucose 100 Calcium 7.5 L Phosphorus 2.6 Magnesium 1.8 Total Bilirubin 0.2 D AST 5 L D ALT 10 L Alkaline Phosphatase 61 Total Protein 4.9 L Albumin 2.0 L Blood Type O POSITIVE Antibody Screen Negative Crossmatch IS Only See Detail Active Medications Generic Name Dose Route Start Last Admin Trade Name Freq PRN Reason Stop Dose Admin Acetaminophen 325 mg 07/27/16 15:19 Tylenol - PO 07/30/16 15:18 Q4H PRN PAIN Acetaminophen 650 mg 07/27/16 15:20 Tylenol - PO 07/30/16 15:19 Q4H PRN PAIN Acetaminophen 650 mg 07/27/16 15:25 07/27/16 22:34 Tylenol - PO 650 mg Q6H PRN Administration FEVER OR PAIN Enoxaparin Sodium 40 mg 07/28/16 16:15 07/29/16 10:12 Lovenox - SQ 40 mg DAILY [facility] Administration Hydromorphone HCl 1 mg 07/27/16 15:05 07/27/16 15:15 Dilaudid Injection - IVPUSH 07/30/16 15:06 1 mg [id number] PRN Administration PAIN Hydromorphone HCl 1 mg 07/27/16 15:07 07/28/16 21:07 Dilaudid Injection - IVPB 1 mg Q4H PRN Administration PAIN Ceftriaxone Sodium 100 mls @ 200 mls/hr 07/28/16 10:00 07/29/16 10:12 Rocephin 2gm Ivpb (Pre-Docked) IVPB 200 mls/hr DAILY [facility] Administration Metronidazole 100 mls @ 100 mls/hr 07/27/16 18:00 07/29/16 10:12 Flagyl 500mg Premixed Ivpb - IVPB 100 mls/hr Q8H-IV [facility] Administration Pantoprazole Sodium 100 mls @ 200 mls/hr 07/27/16 22:00 07/29/16 10:12 Protonix 40mg Ivpb (Pre-Docked) IVPB 200 mls/hr BID [facility] Administration Lactobacillus Acidophilus 1 tab 07/27/16 22:00 07/29/16 10:12 Bacid - PO 1 tab BID [facility] Administration Ondansetron HCl 4 mg 07/27/16 15:25 Zofran Injection IVPB Q6H PRN NAUSEA Oxycodone HCl 5 mg 07/27/16 15:19 Roxicodone - PO Q4H PRN PAIN Oxycodone HCl 10 mg 07/27/16 15:20 Roxicodone - PO Q4H PRN PAIN Imaging 07/22/16 CTAP ([facility]): extensive mesenteric edema with enteritis in the lower abdomen suspicious for anastomotic leak; small amount of ascites and free air in RLQ; proximal small bowel distention could be reactive or represent partial small bowel obstruction 07/25/16 CTAP: 7.5cm focus of air/gas right mid pelvis ventrally, abscess v. surgical site disruption; mesenteric soft tissue straning; two contiguous 2.7cm fluid collection/abscesses between urinary bladder and uterine body; 3cm fluid accumulation root of mesentery; 7 1.4cm fluid collection pelvic cul-de-sac; several proximal jejunal bowel loops dilatated, residual obstruction and/or ileus; small pericardial effusion ASSESSMENT/PLAN: 51 year old female with history of HTN, recurrent SBO, s/p abdominal surgery on 07/14/16, admitted for sepsis secondary to multiple intra- abdominal abscesses. 1. Recurrent small bowel obstructions complicated by multiple intra-abdominal abscesses -S/p open lysis of adhesions, small bowel resection x 2, completion appendectomy , ventral hernia repair 07/14/16 -S/p placement of RLQ abscess drainage catheter 07/22 -S/p ex lap drainage of intraabdominal abscess 2. Sepsis secondary to intraabdominal abscess/collection -E.coli bacteremia -Wound culture growing non lactose-fermenting GNB -Afebrile, WBC trending down -Continue ceftriaxone and metronidazole per ID (day #8) 3. Diarrhea -Cdiff neg, stool culture no growth -Diarrhea has subsided; if recurs, send c.diff PCR 4. F/E/N -Fluids: PO intake adequate -Electrolytes: replete as indicated -Nutrition: regular diet 5. Ppx -Lovenox, OOB, ambulation -Daily PT Dispo: Continues to require inpatient care; likely dc to [facility]. FULL CODE. Visit type - Emergency Visit Emergency Visit: Yes ED Registration Date: 07/22/16 Care time: The patient presented to the Emergency Department on the above date and was hospitalized for further evaluation of their emergent condition. - New Patient This patient is new to me today: No - Critical Care Critical Care patient: No
--- NOTE | 2016-07-29 14:07 | PN ---
Progress Note (short form) - Note Progress Note: day #8 antibiotics feels much better less pain s/p sxp lap 07/27 with drainage of intraabdominal abscess Vital Signs Period Temp Pulse Resp BP Sys/Golden Pulse Ox Last 24 Hr 98.1 F-99.9 F 92-98 16-22 102-119/65-74 98-98 cor-rrr lungs decreased bs at bases abd soft, +HECTOR with brown drainage, +HECTOR with clear drainage wound dressing intact ext -edema CBC, BMP 07/29/16 06:10 07/29/16 06:10 Microbiology 07/27/16 15:00 Gram Stain - Final Body Fluid - Other Body Fluid Culture - Preliminary Non Lactose Fermenting Gnb Current Medications Acetaminophen (Tylenol -) 325 mg PO Q4H PRN PRN Reason: PAIN Stop: 07/30/16 15:18 Acetaminophen (Tylenol -) 650 mg PO Q4H PRN PRN Reason: PAIN Stop: 07/30/16 15:19 Acetaminophen (Tylenol -) 650 mg PO Q6H PRN PRN Reason: FEVER OR PAIN Last Admin: 07/27/16 22:34 Dose: 650 mg Enoxaparin Sodium (Lovenox -) 40 mg SQ DAILY [facility] Last Admin: 07/29/16 10:12 Dose: 40 mg Hydromorphone HCl (Dilaudid Injection -) 1 mg IVPUSH [id number] PRN PRN Reason: PAIN Stop: 07/30/16 15:06 Last Admin: 07/27/16 15:15 Dose: 1 mg Hydromorphone HCl (Dilaudid Injection -) 1 mg IVPB Q4H PRN PRN Reason: PAIN Last Admin: 07/28/16 21:07 Dose: 1 mg Ceftriaxone Sodium (Rocephin 2gm Ivpb (Pre-Docked)) 100 mls @ 200 mls/hr IVPB DAILY [facility] Last Admin: 07/29/16 10:12 Dose: 200 mls/hr Metronidazole (Flagyl 500mg Premixed Ivpb -) 100 mls @ 100 mls/hr IVPB Q8H-IV [facility] Last Admin: 07/29/16 10:12 Dose: 100 mls/hr Pantoprazole Sodium (Protonix 40mg Ivpb (Pre-Docked)) 100 mls @ 200 mls/hr IVPB BID [facility] Last Admin: 07/29/16 10:12 Dose: 200 mls/hr Lactobacillus Acidophilus (Bacid -) 1 tab PO BID [facility] Last Admin: 07/29/16 10:12 Dose: 1 tab Ondansetron HCl (Zofran Injection) 4 mg IVPB Q6H PRN PRN Reason: NAUSEA Oxycodone HCl (Roxicodone -) 5 mg PO Q4H PRN PRN Reason: PAIN Oxycodone HCl (Roxicodone -) 10 mg PO Q4H PRN PRN Reason: PAIN a/p s/p drainage intraabdominal abscess pod #2 ecoli bacteremia continue rocephin/flagyl operative cultures NLF ID pending
[2016-07-29] MEDS: HYDROmorphone HCL CARPU-JECT 1 MG/1 ML DISP.SYRIN IVPB PRN (19:07)
[2016-07-30] MEDS: METRONIDAZOLE 500 MG PREMIXED 100 ML IVPB SCH ×2 (01:33→09:28)
[2016-07-30] MEDS: HYDROmorphone HCL CARPU-JECT 1 MG/1 ML DISP.SYRIN IVPB PRN ×3 (02:06→21:11)
[2016-07-30 08:08] LABS: BASOPHIL 0.2 % (0-2.0); EOSINOPHIL 0.5 % (0-4.5); MCH 26.2 pg (25.7-33.7); MCHC 32.9 g/dl (32.0-36.0); MEAN CELL VOLUME 79.8 fl (80-96); MEAN PLT VOLUME 8.4 fl (7.5-11.1); NEUTROPHILS 84.6 % (42.8-82.8); PLATELET COUNT 312 K/MM3 (134-434); RDW 14.5 % (11.6-15.6); WHITE BLOOD COUNT 13.5 K/mm3 (4.0-10.0)
[2016-07-30 08:14] LABS: ALBUMIN 2.1 g/dl (3.4-5.0); ALK PHOS 65 U/L (45-117); ANION GAP 11 (8-16); BILIRUBIN,TOTAL 0.3 mg/dL (0.2-1.0); CALCIUM 7.4 mg/dL (8.5-10.1); CO2 26 mmol/L (21-32); CREATININE 0.3 mg/dL (0.55-1.02); GLUCOSE,RANDOM 95 mg/dL (74-106); SGOT/AST 9 U/L (15-37); SGPT/ALT 10 U/L (12-78); TOT PROT 5.3 g/dl (6.4-8.2)
--- NOTE | 2016-07-30 09:04 | PN ---
Physical Exam: SUBJECTIVE: Patient seen and examined. She is oob to chair. She is pre occupied with last nights drainage, she said it looked like the contents of her dinner. Had BM yesterday, passing gas, pain tolerable. Events: - Tmax 101.3 - WBC 13.5 - Per RN: overnight drainage looked like carrots, surgical site cleaned OBJECTIVE: Vital Signs Period Temp Pulse Resp BP Sys/Golden Pulse Ox Last 24 Hr 98.1 F-101.3 F 92-102 16-18 108-124/70-83 98-98 PE Neuro: alert, awake, cn 2-12intact Pulm: CTAB CV: s1 s2 rrr no mrg Abd: RLQ jameel catheter drain with brown output, lower mid abd open wound with serosanguinous drainage, epigastric incision w/ jocelynn Ext: bilateral +1 LE edema, warm CBCD WBC 13.5 K/mm3 (4.0-10.0) H 07/30/16 06:06 RBC 3.54 M/mm3 (3.60-5.2) L 07/30/16 06:06 Hgb 9.3 GM/dL (10.7-15.3) L 07/30/16 06:06 Hct 28.2 % (32.4-45.2) L 07/30/16 06:06 MCV 79.8 fl (80-96) L 07/30/16 06:06 MCHC 32.9 g/dl (32.0-36.0) 07/30/16 06:06 RDW 14.5 % (11.6-15.6) 07/30/16 06:06 Plt Count 312 K/MM3 (134-434) 07/30/16 06:06 MPV 8.4 fl (7.5-11.1) 07/30/16 06:06 CMP Sodium 141 mmol/L (136-145) 07/30/16 06:06 Potassium 3.5 mmol/L (3.5-5.1) 07/30/16 06:06 Chloride 104 mmol/L (98-107) 07/30/16 06:06 Carbon Dioxide 26 mmol/L (21-32) 07/30/16 06:06 Anion Gap 11 (8-16) 07/30/16 06:06 BUN 2 mg/dL (7-18) L* 07/30/16 06:06 Creatinine 0.3 mg/dL (0.55-1.02) L 07/30/16 06:06 Creat Clearance w eGFR > 60 (>60) 07/30/16 06:06 Calcium 7.4 mg/dL (8.5-10.1) L 07/30/16 06:06 Total Bilirubin 0.3 mg/dL (0.2-1.0) D 07/30/16 06:06 AST 9 U/L (15-37) L D 07/30/16 06:06 ALT 10 U/L (12-78) L 07/30/16 06:06 Alkaline Phosphatase 65 U/L (45-117) 07/30/16 06:06 Total Protein 5.3 g/dl (6.4-8.2) L 07/30/16 06:06 Albumin 2.1 g/dl (3.4-5.0) L 07/30/16 06:06 Active Medications Generic Name Dose Route Start Last Admin Trade Name Freq PRN Reason Stop Dose Admin Acetaminophen 325 mg 07/27/16 15:19 Tylenol - PO 07/30/16 15:18 Q4H PRN PAIN Acetaminophen 650 mg 07/27/16 15:20 07/29/16 22:41 Tylenol - PO 07/30/16 15:19 650 mg Q4H PRN Administration PAIN Acetaminophen 650 mg 07/27/16 15:25 07/27/16 22:34 Tylenol - PO 650 mg Q6H PRN Administration FEVER OR PAIN Enoxaparin Sodium 40 mg 07/28/16 16:15 07/29/16 10:12 Lovenox - SQ 40 mg DAILY [facility] Administration Hydromorphone HCl 1 mg 07/27/16 15:05 07/27/16 15:15 Dilaudid Injection - IVPUSH 07/30/16 15:06 1 mg [id number] PRN Administration PAIN Hydromorphone HCl 1 mg 07/27/16 15:07 07/30/16 02:06 Dilaudid Injection - IVPB 1 mg Q4H PRN Administration PAIN Ceftriaxone Sodium 100 mls @ 200 mls/hr 07/28/16 10:00 07/29/16 10:12 Rocephin 2gm Ivpb (Pre-Docked) IVPB 200 mls/hr DAILY [facility] Administration Metronidazole 100 mls @ 100 mls/hr 07/27/16 18:00 07/30/16 01:33 Flagyl 500mg Premixed Ivpb - IVPB 100 mls/hr Q8H-IV [facility] Administration Pantoprazole Sodium 100 mls @ 200 mls/hr 07/27/16 22:00 07/29/16 21:03 Protonix 40mg Ivpb (Pre-Docked) IVPB 200 mls/hr BID [facility] Administration Lactobacillus Acidophilus 1 tab 07/27/16 22:00 07/29/16 21:02 Bacid - PO 1 tab BID [facility] Administration Ondansetron HCl 4 mg 07/27/16 15:25 Zofran Injection IVPB Q6H PRN NAUSEA Oxycodone HCl 5 mg 07/27/16 15:19 Roxicodone - PO Q4H PRN PAIN Oxycodone HCl 10 mg 07/27/16 15:20 Roxicodone - PO Q4H PRN PAIN Microbiology 07/27/16 15:00 Gram Stain - Final Body Fluid - Other Body Fluid Culture - Preliminary Non Lactose Fermenting Gnb Imaging: - CTAP 07/22/16 ([facility]): extensive mesenteric edema with enteritis in the lower abdomen suspicious for anastomotic leak; small amount of ascites and free air in RLQ; proximal small bowel distention could be reactive or represent partial small bowel obstruction - CTAP 07/25/16: 7.5cm focus of air/gas right mid pelvis ventrally, abscess v. surgical site disruption; mesenteric soft tissue straning; two contiguous 2.7cm fluid collection/abscesses between urinary bladder and uterine body; 3cm fluid accumulation root of mesentery; 7 1.4cm fluid collection pelvic cul-de-sac; several proximal jejunal bowel loops dilatated, residual obstruction and/or ileus; small pericardial effusion Assessment: 51 year old female with history of HTN, recurrent SBO, s/p abdominal surgery on 07/14/16, admitted for sepsis secondary to multiple intra- abdominal abscesses. Plan: 1. Recurrent small bowel obstructions complicated by multiple intra-abdominal abscesses - S/p open lysis of adhesions, small bowel resection x 2, completion appendectomy, ventral hernia repair 07/14/16 - S/p placement of RLQ abscess drainage catheter 07/22 - S/p ex lap drainage of intraabdominal abscess - Surgery following; will need to evaluate today re change in drainage 2. Sepsis secondary to intraabdominal abscess/collection d/t E. Coli - Monitor fever, leukocytosis - Wound culture with NLF GNB - Continue ceftriaxone (day 6), metronidazole (day 8) - ID seeing 3. Diarrhea - Resolved - If recurs, send c.diff PCR 4. PPx -Lovenox, OOB, ambulation -Daily PT Visit type - Emergency Visit Emergency Visit: Yes ED Registration Date: 07/22/16 Care time: The patient presented to the Emergency Department on the above date and was hospitalized for further evaluation of their emergent condition. - New Patient This patient is new to me today: Yes Date on this admission: 07/30/16 - Critical Care Critical Care patient: No
[2016-07-30] MEDS: CEFTRIAXONE 100 ML IVPB SCH (09:28)
[2016-07-30] MEDS: PANTOPRAZOLE SODIUM 100 ML IVPB SCH ×2 (09:28→21:16)
[2016-07-30] MEDS: ENOXAPARIN NA (PORCINE) 40 MG/0.4 ML DISP.SYRIN SQ SCH (09:29)
[2016-07-30] MEDS: LACTOBACILLUS ACIDOPHILUS 1 EACH TAB (FP) PO SCH ×2 (09:31→21:12)
--- NOTE | 2016-07-30 11:33 | PN ---
Progress Note, Physician Chief Complaint: ID Ceftriaxone and metronidazole 101.3 overnight Looks well - Current Medication List Current Medications: Active Medications Acetaminophen (Tylenol -) 325 mg PO Q4H PRN PRN Reason: PAIN Stop: 07/30/16 15:18 Acetaminophen (Tylenol -) 650 mg PO Q4H PRN PRN Reason: PAIN Stop: 07/30/16 15:19 Last Admin: 07/29/16 22:41 Dose: 650 mg Acetaminophen (Tylenol -) 650 mg PO Q6H PRN PRN Reason: FEVER OR PAIN Last Admin: 07/27/16 22:34 Dose: 650 mg Enoxaparin Sodium (Lovenox -) 40 mg SQ DAILY [facility] Last Admin: 07/30/16 09:29 Dose: 40 mg Hydromorphone HCl (Dilaudid Injection -) 1 mg IVPUSH [id number] PRN PRN Reason: PAIN Stop: 07/30/16 15:06 Last Admin: 07/27/16 15:15 Dose: 1 mg Hydromorphone HCl (Dilaudid Injection -) 1 mg IVPB Q4H PRN PRN Reason: PAIN Last Admin: 07/30/16 02:06 Dose: 1 mg Ceftriaxone Sodium (Rocephin 2gm Ivpb (Pre-Docked)) 100 mls @ 200 mls/hr IVPB DAILY [facility] Last Admin: 07/30/16 09:28 Dose: 200 mls/hr Metronidazole (Flagyl 500mg Premixed Ivpb -) 100 mls @ 100 mls/hr IVPB Q8H-IV [facility] Last Admin: 07/30/16 09:28 Dose: 100 mls/hr Pantoprazole Sodium (Protonix 40mg Ivpb (Pre-Docked)) 100 mls @ 200 mls/hr IVPB BID [facility] Last Admin: 07/30/16 09:28 Dose: 200 mls/hr Lactobacillus Acidophilus (Bacid -) 1 tab PO BID [facility] Last Admin: 07/30/16 09:31 Dose: 1 tab Ondansetron HCl (Zofran Injection) 4 mg IVPB Q6H PRN PRN Reason: NAUSEA Oxycodone HCl (Roxicodone -) 5 mg PO Q4H PRN PRN Reason: PAIN Oxycodone HCl (Roxicodone -) 10 mg PO Q4H PRN PRN Reason: PAIN - Objective Vital Signs: Vital Signs Temperature 98 F 07/30/16 09:00 Pulse Rate 103 H 07/30/16 09:00 Respiratory Rate 18 07/30/16 09:00 Blood Pressure 113/72 07/30/16 09:00 O2 Sat by Pulse Oximetry (%) 98 07/30/16 09:00 Constitutional: Yes: Well Nourished, No Distress Neck: Yes: WNL, Supple Cardiovascular: Yes: S1, S2 Respiratory: Yes: WNL, Regular, CTA Bilaterally Gastrointestinal: Yes: Soft, Other (Drain cloudy drainage). No: Tenderness Labs: CBC, BMP 07/30/16 06:06 07/30/16 06:06 Problem List - Problems (1) Gram-negative bacteremia Code(s): R78.81 - BACTEREMIA (2) Sepsis Code(s): A41.9 - SEPSIS, UNSPECIFIED ORGANISM (3) Intra-abdominal abscess Code(s): K65.1 - PERITONEAL ABSCESS Assessment/Plan Microbiology 07/22/16 15:00 Urine - Urine Le Urine Culture - Final NO GROWTH OBTAINED 07/22/16 05:16 Blood - Peripheral Venous Blood Culture - Final Escherichia Coli Laboratory Tests 07/30/16 07/30/16 06:06 06:06 WBC 13.5 H Hgb 9.3 L Hct 28.2 L Plt Count 312 BUN 2 L* Creat Clearance w eGFR > 60 Total Bilirubin 0.3 D AST 9 L D ALT 10 L Alkaline Phosphatase 65 Assessment Intrabd collection Enterobacter Fever on Ceftriaxone metronidazole Need to "switch" Plan Blood culture urine c/s for fever Stop current antibiotic Ertepenem CRP ESR Bharath STEVEN
--- NOTE | 2016-07-30 11:44 | PN ---
Progress Note (short form) - Note Progress Note: Surgery- Dr. Jin/Dr. Saxena Patient seen and examined. Patient feeling well, no pain. Tolerating diet without nausea/vomiting. Had BM. Has been OOB. Denies fever, chills. Last Vital Signs Temp Pulse Resp BP Pulse Ox 98 F 103 H 18 113/72 98 07/30/16 09:00 07/30/16 09:00 07/30/16 09:00 07/30/16 09:00 07/30/16 09:00 CBC, BMP 07/30/16 06:06 07/30/16 06:06 Drain output: 20 and 25 ml overnight Exam: Gen: NAD Abd: soft, minimal tenderness, midline incision draining serosanguineous fluid, drains x2, thick light brown drainage Problem List - Problems (1) Intra-abdominal abscess Assessment/Plan: s/p exploratory laparotomy, drainage of intra-abdominal abscess 07/27, s/p exlap CARMEN sbrx2 07/[address] Saxena, continue drains, monitor output COntinue reg diet COntinue abx per Id POsisble repeat CT mon/tues Code(s): K65.1 - PERITONEAL ABSCESS
[2016-07-30] MEDS: ERTAPENEM SODIUM 1 GM in SODIUM CHLORIDE 50 ML IVPB SCH (13:56)
[2016-07-30] MEDS ORDERED: oxyCODONE HCL 5 MG TABLET PO PRN (16:38)
--- NOTE | 2016-07-31 05:20 | HOSP ---
Subjective - Review of Symptoms Subjective: asked to see pt for abnormal drainage from abd wound Per RN, concerned stool may be coming from wound. She reports patient had fecal appearing material coming out of wound Pt alert in nad. Denies any discomfort. Reports passing gas and had a BM. Denies N/V RN spoke to Surgery who recommended irrigation and wet to dry dressing changes Physical General- in nad alert Gi- Kevin drain w small amount of brownish drainage, midline abdominal dressing w/ mild yellowish saturation. mild erythema to abdomen surgical area. BS normoactive, TTP over surgical site. Resp- no cyanosis, no accessory muscle use, lungs ctab, no wheeze Neuro- alert, oriented x 3, speech clear, no seizures a/p-51 year old female with history of HTN, recurrent SBO, s/p abdominal surgery on 07/14/16, admitted for sepsis secondary to multiple intra-abdominal abscesses 1.s/p abdominal surgery on 07/14/16, drainage of intra-abdominal abscess 07/27 Continue wound care, FU with surgery Physical Examination Vital Signs: Vital Signs Temperature 98.2 F 07/31/16 02:00 Pulse Rate 91 H 07/31/16 02:00 Respiratory Rate 20 07/30/16 22:00 Blood Pressure 120/80 07/30/16 22:00 O2 Sat by Pulse Oximetry (%) 98 07/30/16 21:00 Labs: CBC, BMP 07/30/16 06:06 07/30/16 06:06
[2016-07-31 08:16] LABS: BASOPHIL 0.4 % (0-2.0); EOSINOPHIL 1.4 % (0-4.5); MCH 26.9 pg (25.7-33.7); MCHC 33.8 g/dl (32.0-36.0); MEAN CELL VOLUME 79.5 fl (80-96); MEAN PLT VOLUME 8.2 fl (7.5-11.1); NEUTROPHILS 77.8 % (42.8-82.8); PLATELET COUNT 351 K/MM3 (134-434); RDW 14.6 % (11.6-15.6); WHITE BLOOD COUNT 9.4 K/mm3 (4.0-10.0)
[2016-07-31 08:38] LABS: ALBUMIN 2.3 g/dl (3.4-5.0); ANION GAP 10 (8-16); BILIRUBIN,TOTAL 0.3 mg/dL (0.2-1.0); CALCIUM 7.6 mg/dL (8.5-10.1); CO2 29 mmol/L (21-32); CREATININE 0.3 mg/dL (0.55-1.02); GLUCOSE,RANDOM 99 mg/dL (74-106); MAGNESIUM 1.9 mg/dL (1.8-2.4); PHOSPHOROUS 3.3 mg/dL (2.5-4.9); SGOT/AST 11 U/L (15-37); SGPT/ALT 11 U/L (12-78)
[2016-07-31 08:40] LABS: ALK PHOS 62 U/L (45-117); TOT PROT 5.7 g/dl (6.4-8.2)
[2016-07-31] MEDS ORDERED: PT OWN MED DRAWER 7, Y5N ONE (09:39)
[2016-07-31] MEDS: LACTOBACILLUS ACIDOPHILUS 1 EACH TAB (FP) PO SCH ×2 (09:41→21:40)
[2016-07-31] MEDS: ENOXAPARIN NA (PORCINE) 40 MG/0.4 ML DISP.SYRIN SQ SCH (09:41)
[2016-07-31] MEDS: PANTOPRAZOLE SODIUM 100 ML IVPB SCH ×2 (09:41→21:40)
[2016-07-31] MEDS: ERTAPENEM SODIUM 1 GM in SODIUM CHLORIDE 50 ML IVPB SCH (10:15)
[2016-07-31] MEDS: HYDROmorphone HCL CARPU-JECT 1 MG/1 ML DISP.SYRIN IVPB PRN ×2 (10:24→21:49)
--- NOTE | 2016-07-31 11:44 | PN ---
Progress Note (short form) - Note Progress Note: Surgery-Dr. Jin/Dr. Saxena Patient seen and examined. Patient states she is feeling better, tolerating diet, OOB, urinating without issue, passing flatus and having BMs. HOwever, patient has increased drainage from midline wound. Denies fever, chills, nausea , vomiting. Last Vital Signs Temp Pulse Resp BP Pulse Ox 98.3 F 88 20 110/74 98 07/31/16 06:00 07/31/16 06:00 07/31/16 06:00 07/31/16 06:00 07/30/16 21:00 CBC, BMP 07/31/16 06:00 07/31/16 06:00 Exam: Gen: NAD, alert, oriented, pleasant and cooperative Abd: soft, tender to palp around wound, drains with minimal drainage (light brown), superior aspect midline incision with jocelynn intact, inferioir aspect, midline wound leaking bilious liquid stool, skin with some surrounding erythema Problem List - Problems (1) Intra-abdominal abscess Assessment/Plan: s/p exploratory laparotomy, drainage of intra-abdominal abscess 07/27, s/p exlap CARMEN [id number] 07/14 now with bilious stool from midline wound wafer, flange, colostomy bag placed around wound to control wound output Patient discussed with Dr. Saxena, Dr. Saxena to speak to Dr. 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
--- NOTE | 2016-07-31 15:17 | PN ---
Physical Exam: SUBJECTIVE: Patient seen and examined. She has fecal matter coming from open abd wound site. She is passing gas and having bowel movements. No fevers today. She is still having BM's. OBJECTIVE: Vital Signs Period Temp Pulse Resp BP Sys/Golden Pulse Ox Last 24 Hr 98 F-98.9 F 69-97 20-20 110-120/70-80 97-98 PE Neuro: alert, awake, cn 2-12intact Pulm: CTAB CV: s1 s2 rrr no mrg Abd: RLQ jameel catheter drain with milky green output, lower mid abd open with make shift colostomy, + fecal material output (light brown) Ext: bilateral +1 LE edema, warm Laboratory Results - last 24 hr 07/31/16 07/31/16 07/31/16 06:00 06:00 06:45 WBC 9.4 D RBC 3.67 Hgb 9.9 L Hct 29.2 L MCV 79.5 L MCHC 33.8 RDW 14.6 Plt Count 351 MPV 8.2 Neutrophils % 77.8 Lymphocytes % 13.1 D Monocytes % 7.3 Eosinophils % 1.4 D Basophils % 0.4 ESR 58 H Sodium 141 Potassium 4.0 Chloride 102 Carbon Dioxide 29 Anion Gap 10 BUN 3 L D Creatinine 0.3 L Creat Clearance w eGFR > 60 Random Glucose 99 Calcium 7.6 L Phosphorus 3.3 D Magnesium 1.9 Total Bilirubin 0.3 AST 11 L D ALT 11 L Alkaline Phosphatase 62 Total Protein 5.7 L Albumin 2.3 L Active Medications Generic Name Dose Route Start Last Admin Trade Name Freq PRN Reason Stop Dose Admin Acetaminophen 650 mg 07/27/16 15:25 07/27/16 22:34 Tylenol - PO 650 mg Q6H PRN Administration FEVER OR PAIN Enoxaparin Sodium 40 mg 07/28/16 16:15 07/31/16 09:41 Lovenox - SQ 40 mg DAILY RIKA Administration Hydromorphone HCl 1 mg 07/30/16 16:38 07/31/16 10:24 Dilaudid Injection - IVPB 1 mg Q4H PRN Administration PAIN Pantoprazole Sodium 100 mls @ 200 mls/hr 07/27/16 22:00 07/31/16 09:41 Protonix 40mg Ivpb (Pre-Docked) IVPB 200 mls/hr BID RIKA Administration Ertapenem 1 gm/ Sodium 50 mls @ 100 mls/hr 07/30/16 12:00 07/31/16 10:15 Chloride IVPB 100 mls/hr DAILY RIKA Administration Protocol Lactobacillus Acidophilus 1 tab 07/27/16 22:00 07/31/16 09:41 Bacid - PO 1 tab BID RIKA Administration Ondansetron HCl 4 mg 07/27/16 15:25 Zofran Injection IVPB Q6H PRN NAUSEA Oxycodone HCl 5 mg 07/30/16 16:38 Roxicodone - PO Q4H PRN PAIN Microbiology 07/27/16 15:00 Gram Stain - Final Body Fluid - Other Body Fluid Culture - Final Enterobacter Cloacae Anaerobic Culture - Final NO ANAEROBES WERE ISOLATED Abx: - Ceftriaxone 6 days - Flagyl 8 days Imaging: - CTAP 07/22/16 ([facility]): extensive mesenteric edema with enteritis in the lower abdomen suspicious for anastomotic leak; small amount of ascites and free air in RLQ; proximal small bowel distention could be reactive or represent partial small bowel obstruction - CTAP 07/25/16: 7.5cm focus of air/gas right mid pelvis ventrally, abscess v. surgical site disruption; mesenteric soft tissue straning; two contiguous 2.7cm fluid collection/abscesses between urinary bladder and uterine body; 3cm fluid accumulation root of mesentery; 7 1.4cm fluid collection pelvic cul-de-sac; several proximal jejunal bowel loops dilatated, residual obstruction and/or ileus; small pericardial effusion Assessment: 51 year old female with history of HTN, recurrent SBO, s/p abdominal surgery on 07/14/16, admitted for sepsis secondary to multiple intra- abdominal abscesses. Plan: 1. Recurrent small bowel obstructions complicated by multiple intra-abdominal abscesses - S/p open lysis of adhesions, small bowel resection x 2, completion appendectomy, ventral hernia repair 07/14/16 - S/p placement of RLQ abscess drainage catheter 07/22 - S/p ex lap drainage of intraabdominal abscess 07/27 2. 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 Sepsis secondary to intraabdominal abscess/collection d/t Enterobacter Cloacae - WBC wnl - Continue Ertapenem (day 2) - ID following 4. Diarrhea - Resolved - If recurs, send c.diff PCR 5. PPx -Lovenox, OOB, ambulation -Daily PT Visit type - Emergency Visit Emergency Visit: Yes ED Registration Date: 07/22/16 Care time: The patient presented to the Emergency Department on the above date and was hospitalized for further evaluation of their emergent condition. - New Patient This patient is new to me today: No - Critical Care Critical Care patient: No
[2016-07-31] MEDS: DEXTROSE 5%-0.45% SALINE 1,000 ML IV SCH (16:21)
[2016-08-01 08:27] LABS: CREATININE 0.3 mg/dL (0.55-1.02)
[2016-08-01 08:35] LABS: BASOPHIL 0.5 % (0-2.0); EOSINOPHIL 2.4 % (0-4.5); MCH 26.3 pg (25.7-33.7); MEAN CELL VOLUME 79.5 fl (80-96); MEAN PLT VOLUME 8.1 fl (7.5-11.1); NEUTROPHILS 74.2 % (42.8-82.8); PLATELET COUNT 349 K/MM3 (134-434); RDW 15.2 % (11.6-15.6); WHITE BLOOD COUNT 7.1 K/mm3 (4.0-10.0)
[2016-08-01] MEDS: ERTAPENEM SODIUM 1 GM in SODIUM CHLORIDE 50 ML IVPB SCH (09:12)
[2016-08-01] MEDS: PANTOPRAZOLE SODIUM 100 ML IVPB SCH ×2 (09:12→21:38)
[2016-08-01] MEDS: LACTOBACILLUS ACIDOPHILUS 1 EACH TAB (FP) PO SCH ×2 (09:12→21:38)
--- NOTE | 2016-08-01 09:12 | PN ---
Physical Exam: SUBJECTIVE: Patient seen and examined, she has itching near the drain site. Denies fever, chills. OBJECTIVE: Colostomy output decreased, light brown Vital Signs Period Temp Pulse Resp BP Sys/Golden Pulse Ox Last 24 Hr 97.8 F-98.2 F 88-91 18-20 118-123/72-78 97 PE Neuro: alert, awake, cn 2-12intact Pulm: CTAB CV: s1 s2 rrr no mrg Abd: RLQ jameel catheter drain with milky dawson output, insertion site w/ erythema, sutures lower mid abd colostomy in place, + output, Ext: no le edema, warm Laboratory Results - last 24 hr 07/31/16 08/01/16 06:45 06:00 ESR 58 H Sodium 141 Potassium 3.9 Chloride 103 Carbon Dioxide 29 Anion Gap 9 BUN 2 L* D Creatinine 0.3 L Random Glucose 96 Calcium 8.0 L Active Medications Generic Name Dose Route Start Last Admin Trade Name Freq PRN Reason Stop Dose Admin Acetaminophen 650 mg 07/27/16 15:25 07/27/16 22:34 Tylenol - PO 650 mg Q6H PRN Administration FEVER OR PAIN Enoxaparin Sodium 40 mg 07/28/16 16:15 07/31/16 09:41 Lovenox - SQ 40 mg DAILY RIKA Administration Hydromorphone HCl 1 mg 07/30/16 16:38 07/31/16 21:49 Dilaudid Injection - IVPB 1 mg Q4H PRN Administration PAIN IV Flush 8 ml 07/31/16 16:39 Picc Line Flush IVPUSH PRN PRN Protocol Pantoprazole Sodium 100 mls @ 200 mls/hr 07/27/16 22:00 07/31/16 21:40 Protonix 40mg Ivpb (Pre-Docked) IVPB 200 mls/hr BID RIKA Administration Ertapenem 1 gm/ Sodium 50 mls @ 100 mls/hr 07/30/16 12:00 07/31/16 10:15 Chloride IVPB 100 mls/hr DAILY RIKA Administration Protocol Dextrose/Sodium Chloride 1,000 mls @ 50 mls/hr 07/31/16 15:30 07/31/16 16:21 D5-1/2ns - IV 50 mls/hr ASDIR RIKA Administration Lactobacillus Acidophilus 1 tab 07/27/16 22:00 07/31/16 21:40 Bacid - PO 1 tab BID RIKA Administration Ondansetron HCl 4 mg 07/27/16 15:25 Zofran Injection IVPB Q6H PRN NAUSEA Oxycodone HCl 5 mg 07/30/16 16:38 Roxicodone - PO Q4H PRN PAIN Assessment: 51 year old female with history of HTN, recurrent SBO, s/p abdominal surgery on 07/14/16, admitted for sepsis secondary to multiple intra- abdominal abscesses. Plan: 1. 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 Recurrent small bowel obstructions complicated by multiple intra-abdominal abscesses - S/p open lysis of adhesions, small bowel resection x 2, completion appendectomy, ventral hernia repair 07/14/16 - S/p placement of RLQ abscess drainage catheter 07/22 - S/p ex lap drainage of intraabdominal abscess 07/27 3. Sepsis secondary to intraabdominal abscess/collection d/t Enterobacter Cloacae - Resolving - Continue Ertapenem (day 3) - ID following 4. Diarrhea - Resolved - If recurs, send c.diff PCR 5. PPx - Lovenox, OOB, ambulation - Daily PT Visit type - Emergency Visit Emergency Visit: Yes ED Registration Date: 07/22/16 Care time: The patient presented to the Emergency Department on the above date and was hospitalized for further evaluation of their emergent condition. - New Patient This patient is new to me today: No - Critical Care Critical Care patient: No
--- NOTE | 2016-08-01 10:30 | PN ---
Progress Note, Physician Chief Complaint: some abd pain History of Present Illness: pt with rlq and midline pain. no fever. patient is npo. midline wound with liquid brown output. over weekend supposedly had undigested food come out of incision. patient now npo. wound grew enterobacter (she came in with ecoli bacteremia.). she is currently on invanz. she is about to go down for PICC - Current Medication List Current Medications: Active Medications Acetaminophen (Tylenol -) 650 mg PO Q6H PRN PRN Reason: FEVER OR PAIN Last Admin: 07/27/16 22:34 Dose: 650 mg Enoxaparin Sodium (Lovenox -) 40 mg SQ DAILY [facility] Last Admin: 07/31/16 09:41 Dose: 40 mg Hydromorphone HCl (Dilaudid Injection -) 1 mg IVPB Q4H PRN PRN Reason: PAIN Last Admin: 07/31/16 21:49 Dose: 1 mg IV Flush (Picc Line Flush) 8 ml IVPUSH PRN PRN PRN Reason: Protocol Pantoprazole Sodium (Protonix 40mg Ivpb (Pre-Docked)) 100 mls @ 200 mls/hr IVPB BID [facility] Last Admin: 08/01/16 09:12 Dose: 200 mls/hr Ertapenem 1 gm/ Sodium (Chloride) 50 mls @ 100 mls/hr IVPB DAILY RIKA PRN Reason: Protocol Last Admin: 08/01/16 09:12 Dose: 100 mls/hr Dextrose/Sodium Chloride (D5-1/2ns -) 1,000 mls @ 50 mls/hr IV ASDIR [facility] Last Admin: 07/31/16 16:21 Dose: 50 mls/hr Lactobacillus Acidophilus (Bacid -) 1 tab PO BID [facility] Last Admin: 08/01/16 09:12 Dose: 1 tab Ondansetron HCl (Zofran Injection) 4 mg IVPB Q6H PRN PRN Reason: NAUSEA Oxycodone HCl (Roxicodone -) 5 mg PO Q4H PRN PRN Reason: PAIN - Objective Vital Signs: Vital Signs Temperature 98.2 F 08/01/16 07:42 Pulse Rate 88 08/01/16 07:42 Respiratory Rate 18 08/01/16 07:42 Blood Pressure 119/78 08/01/16 07:42 O2 Sat by Pulse Oximetry (%) 97 07/31/16 21:00 Constitutional: Yes: No Distress, Calm Eyes: Yes: Conjunctiva Clear, EOM Intact HENT: Yes: Atraumatic, Normocephalic Neck: Yes: Supple, Trachea Midline Cardiovascular: Yes: Regular Rate and Rhythm Respiratory: Yes: Regular Gastrointestinal: Yes: Soft, Tenderness (in rlq and midline incision. lower part of incision is open and draining light brown material. some erythema of RLQ and tenderness there as well.). No: Distention Genitourinary: No: CVA Tenderness - Left, CVA Tenderness - Right Musculoskeletal: No: Joint Stiffness, Joint Swelling Extremities: No: Calf Tenderness, Erythema Integumentary: No: Erythema, Rash Neurological: Yes: Alert, Oriented Psychiatric: Yes: Alert, Oriented Labs: CBC, BMP 08/01/16 06:00 08/01/16 06:00 Problem List - Problems (1) Abdominal pain Code(s): R10.9 - UNSPECIFIED ABDOMINAL PAIN Qualifiers: Abdominal location: generalized Qualified Code(s): R10.84 - Generalized abdominal pain (2) Leukocytosis Code(s): D72.829 - ELEVATED WHITE BLOOD CELL COUNT, UNSPECIFIED (3) SIRS (systemic inflammatory response syndrome) Code(s): R65.10 - SIRS OF NON-INFECTIOUS ORIGIN W/O ACUTE ORGAN DYSFUNCTION (4) Enterocutaneous fistula Assessment/Plan: cont npo ct scan to r/o undrained infection cont IV abx cont to pouch fistula will need parenteral nutrition for now plan discussed with daughter at length. Code(s): K63.2 - FISTULA OF INTESTINE
--- NOTE | 2016-08-01 11:53 | PN ---
Progress Note, Physician Chief Complaint: ID Ertepenem Afebrile Surgical note reviewed - Current Medication List Current Medications: Active Medications Acetaminophen (Tylenol -) 650 mg PO Q6H PRN PRN Reason: FEVER OR PAIN Last Admin: 07/27/16 22:34 Dose: 650 mg Enoxaparin Sodium (Lovenox -) 40 mg SQ DAILY [facility] Last Admin: 07/31/16 09:41 Dose: 40 mg Hydromorphone HCl (Dilaudid Injection -) 1 mg IVPB Q4H PRN PRN Reason: PAIN Last Admin: 07/31/16 21:49 Dose: 1 mg IV Flush (Picc Line Flush) 8 ml IVPUSH PRN PRN PRN Reason: Protocol Pantoprazole Sodium (Protonix 40mg Ivpb (Pre-Docked)) 100 mls @ 200 mls/hr IVPB BID [facility] Last Admin: 08/01/16 09:12 Dose: 200 mls/hr Ertapenem 1 gm/ Sodium (Chloride) 50 mls @ 100 mls/hr IVPB DAILY RIKA PRN Reason: Protocol Last Admin: 08/01/16 09:12 Dose: 100 mls/hr Dextrose/Sodium Chloride (D5-1/2ns -) 1,000 mls @ 50 mls/hr IV ASDIR [facility] Last Admin: 07/31/16 16:21 Dose: 50 mls/hr Lactobacillus Acidophilus (Bacid -) 1 tab PO BID [facility] Last Admin: 08/01/16 09:12 Dose: 1 tab Ondansetron HCl (Zofran Injection) 4 mg IVPB Q6H PRN PRN Reason: NAUSEA Oxycodone HCl (Roxicodone -) 5 mg PO Q4H PRN PRN Reason: PAIN - Objective Vital Signs: Vital Signs Temperature 98.2 F 08/01/16 07:42 Pulse Rate 88 08/01/16 07:42 Respiratory Rate 18 08/01/16 07:42 Blood Pressure 119/78 08/01/16 07:42 O2 Sat by Pulse Oximetry (%) 98 08/01/16 09:00 Gastrointestinal: Yes: Soft, Other (drainage incision tenderness/ erythema noted ) Labs: CBC, BMP 08/01/16 06:00 08/01/16 06:00 Problem List - Problems (1) Gram-negative bacteremia Code(s): R78.81 - BACTEREMIA (2) Sepsis Code(s): A41.9 - SEPSIS, UNSPECIFIED ORGANISM (3) Intra-abdominal abscess Code(s): K65.1 - PERITONEAL ABSCESS Assessment/Plan Laboratory Tests 07/31/16 08/01/16 08/01/16 06:45 06:00 06:00 WBC 7.1 Hgb 9.6 L Hct 29.0 L Plt Count 349 ESR 58 H BUN 2 L* D Creatinine 0.3 L Assessment Exploratory lap 07/27 intrabdominal abscess enterobacter Now with undigensted food through incision ? fistula Afebrile normal WBC count Plan NPO Continue current antibiotic Bharath STEVEN
[2016-08-01] MEDS: DEXTROSE 5%-0.45% SALINE 1,000 ML IV SCH (13:29)
[2016-08-01] MEDS: ENOXAPARIN NA (PORCINE) 40 MG/0.4 ML DISP.SYRIN SQ SCH (13:30)
--- NOTE | 2016-08-01 16:28 | CONSULT ---
Consult Consult Specialty:: Nephrology Reason for Consultation:: TPN - History of Present Illness Chief Complaint: chills and rigors History of Present Illness: Pt is a 51 year old female with pmhx of HTN and SBO who was admitted with SBO and abdominal abscess. It was drained in IR. She went back to the OR for subsequent drainage. She now has a fistula between her intestine and her skin. She is NPO and I was called for TPN. She denies shortness of breath. She says that she is hungry and has appetite. - History Source History Provided By: Patient, Medical Record - Past Medical History Cardio/Vascular: Yes: HTN Gastrointestinal: Yes: Other (SBO, LYSIS OF ADHESION AND SMALL BOWEL RESECTION VENTRAL HERNIA REPAIR, APPENDECTOMY) ...LMP: 03/08/12 - Past Surgical History Past Surgical History: Yes: Appendectomy - Alcohol/Substance Use Hx Alcohol Use: No - Smoking History Smoking history: Never smoked Have you smoked in the past 12 months: No Aproximately how many cigarettes per day: 0 Home Medications - Allergies Allergies/Adverse Reactions: Allergies Allergy/AdvReac Type Severity Reaction Status Date / Time No Known Allergies Allergy Verified 07/22/16 00:33 - Home Medications Home Medications: Ambulatory Orders Aspirin [ASA -] 81 mg PO DAILY 07/27/13 Hydrochlorothiazide [Hctz -] 25 mg PO DAILY 12/14/15 Cholecalciferol (Vitamin D3) [Vitamin D3] 50,000 unit PO SA 07/11/16 Docusate Sodium [Colace -] 100 mg PO BID PRN #14 capsule 07/18/16 Oxycodone HCl/Acetaminophen [Percocet 10-325 mg Tablet] 1 each PO Q6H #20 tablet MDD 4 07/18/16 Family Disease History - Family Disease History Family History: Denies Review of Systems - Review of Systems Constitutional: reports: No Symptoms Eyes: reports: No Symptoms HENT: reports: No Symptoms Neck: reports: No Symptoms Cardiovascular: reports: No Symptoms Respiratory: reports: No Symptoms Gastrointestinal: reports: Abdominal Pain Genitourinary: reports: No Symptoms Musculoskeletal: reports: No Symptoms Neurological: reports: No Symptoms Endocrine: reports: No Symptoms Physical Exam Vital Signs: Vital Signs Temperature 97.9 F 08/01/16 13:53 Pulse Rate 82 08/01/16 13:53 Respiratory Rate 18 08/01/16 12:47 Blood Pressure 128/79 08/01/16 13:53 O2 Sat by Pulse Oximetry (%) 98 08/01/16 09:00 Constitutional: Yes: Calm Eyes: Yes: Conjunctiva Clear HENT: Yes: Atraumatic Cardiovascular: Yes: S1, S2 Respiratory: Yes: CTA Bilaterally Gastrointestinal: Yes: Other (surgical wounds, abdominal drain, abdominal wall fistula) Musculoskeletal: Yes: WNL Edema: No Wound/Incision: Yes: Sutures Intact, Ronna Intact, Reddened Neurological: Yes: Oriented Psychiatric: Yes: Oriented Labs: CBC, BMP 08/01/16 06:00 08/01/16 06:00 Laboratory Tests 07/29/16 07/30/16 07/30/16 06:10 06:06 06:06 WBC 12.0 H 13.5 H Hgb 9.3 L Sodium Potassium Chloride Carbon Dioxide Anion Gap BUN 2 L* Creatinine 0.3 L Calcium Total Bilirubin AST ALT C-Reactive Protein Total Protein Albumin 07/30/16 07/31/16 07/31/16 12:00 06:00 06:00 WBC Hgb 9.9 L Sodium Potassium Chloride Carbon Dioxide Anion Gap BUN 3 L D Creatinine 0.3 L Calcium Total Bilirubin 0.3 AST 11 L D ALT 11 L C-Reactive Protein 4.8 H D Total Protein 5.7 L Albumin 2.3 L 08/01/16 08/01/16 06:00 06:00 WBC 7.1 Hgb 9.6 L Sodium 141 Potassium 3.9 Chloride 103 Carbon Dioxide 29 Anion Gap 9 BUN 2 L* D Creatinine 0.3 L Calcium 8.0 L Total Bilirubin AST ALT C-Reactive Protein Total Protein Albumin Imaging - Results Chest X-ray: Report Reviewed Problem List - Problems (1) Abdominal pain Code(s): R10.9 - UNSPECIFIED ABDOMINAL PAIN Qualifiers: Abdominal location: generalized Qualified Code(s): R10.84 - Generalized abdominal pain (2) Small bowel obstruction Code(s): K56.69 - OTHER INTESTINAL OBSTRUCTION (3) Hypertension Code(s): I10 - ESSENTIAL (PRIMARY) HYPERTENSION Assessment/Plan Current Medications Generic Name Dose Route Start Last Admin Trade Name Freq PRN Reason Stop Dose Admin Acetaminophen 650 mg 07/27/16 15:25 07/27/16 22:34 Tylenol - PO 650 mg Q6H PRN Administration FEVER OR PAIN Enoxaparin Sodium 40 mg 07/28/16 16:15 08/01/16 13:30 Lovenox - SQ 40 mg DAILY RIKA Administration Hydromorphone HCl 1 mg 07/30/16 16:38 07/31/16 21:49 Dilaudid Injection - IVPB 1 mg Q4H PRN Administration PAIN IV Flush 8 ml 07/31/16 16:39 Picc Line Flush IVPUSH PRN PRN Protocol Pantoprazole Sodium 100 mls @ 200 mls/hr 07/27/16 22:00 08/01/16 09:12 Protonix 40mg Ivpb (Pre-Docked) IVPB 200 mls/hr BID RIKA Administration Ertapenem 1 gm/ Sodium 50 mls @ 100 mls/hr 07/30/16 12:00 08/01/16 09:12 Chloride IVPB 100 mls/hr DAILY RIKA Administration Protocol Dextrose/Sodium Chloride 1,000 mls @ 50 mls/hr 07/31/16 15:30 08/01/16 13:29 D5-1/2ns - IV 50 mls/hr ASDIR RIKA Administration Lactobacillus Acidophilus 1 tab 07/27/16 22:00 08/01/16 09:12 Bacid - PO 1 tab BID RIKA Administration Ondansetron HCl 4 mg 07/27/16 15:25 Zofran Injection IVPB Q6H PRN NAUSEA Oxycodone HCl 5 mg 07/30/16 16:38 Roxicodone - PO Q4H PRN PAIN Impression 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 HTN 3. SBO - recurrent 4. adhesions 5. abdominal abscess Plan - change fluids to clinimix for now - nutrition eval - will likely start TPN tomorrow - will discuss with surgery - case discussed with medical team - check cmp, mag, phos, lipid panel for tomorrow Dr Hauser
[2016-08-01] MEDS ORDERED: AMINO ACIDS 4.25%/D5W 1,000 ML IV SCH (16:45)
--- NOTE | 2016-08-01 18:04 | PN ---
GI Progress Note Subjective: GASTROENTEROLOGY PATIENT NOW NPO EVENTS OF WEEKEND: POSSIBLE UNDIGESTED FOOD FROM MIDLINE INCISION AND NOW WITH BROWN LIQUID DISCHARGE - Objective Vital Signs: Vital Signs Temperature 97.9 F 08/01/16 13:53 Pulse Rate 82 08/01/16 13:53 Respiratory Rate 18 08/01/16 12:47 Blood Pressure 128/79 08/01/16 13:53 O2 Sat by Pulse Oximetry (%) 98 08/01/16 09:00 Constitutional: No Distress Eyes: Yes: Conjunctiva Clear HENT: Yes: Normocephalic Cardiovascular: Yes: Regular Rate and Rhythm Respiratory: Yes: Regular Gastrointestinal Inspection: Yes: Distention ...Auscultate: Yes: Normoactive Bowel Sounds ...Palpate: Yes: Tenderness, Other (MIDLINE INCISION WITH ERYTHEMA AND LIGHT BROWN FLUID) Extremities: Yes: WNL Labs: CBC, BMP 08/01/16 06:00 08/01/16 06:00 Laboratory Tests 07/26/16 07/27/16 07/28/16 06:50 12:40 06:00 WBC 15.6 H 16.1 H 13.0 H RBC 3.33 L Hgb 8.8 L Hct 26.4 L MCV 79.4 L MCHC 33.2 RDW 14.7 Plt Count 343 MPV Neutrophils % Lymphocytes % Monocytes % Eosinophils % Basophils % ESR Sodium Potassium Chloride Carbon Dioxide Anion Gap BUN Creatinine 07/28/16 07/31/16 08/01/16 06:00 06:45 06:00 WBC 7.1 RBC 3.65 Hgb 9.6 L Hct 29.0 L MCV 79.5 L MCHC 33.0 RDW 15.2 Plt Count 349 MPV 8.1 Neutrophils % 74.2 Lymphocytes % 15.4 Monocytes % 7.5 Eosinophils % 2.4 Basophils % 0.5 ESR 58 H Sodium 141 Potassium 3.8 Chloride 103 Carbon Dioxide 29 Anion Gap 9 BUN 3 L Creatinine 0.3 L D 08/01/16 06:00 WBC RBC Hgb Hct MCV MCHC RDW Plt Count MPV Neutrophils % Lymphocytes % Monocytes % Eosinophils % Basophils % ESR Sodium 141 Potassium 3.9 Chloride 103 Carbon Dioxide 29 Anion Gap 9 BUN 2 L* D Creatinine 0.3 L Problem List - Problems (1) Enterocutaneous fistula Assessment/Plan: TPN CT SCAN PLAN PER SURGERY NPO FOR NOW, LOOK AT CT SCAN ?FURTHER UNDRAINED INFECTION Code(s): K63.2 - FISTULA OF INTESTINE (2) Intra-abdominal abscess Code(s): K65.1 - PERITONEAL ABSCESS (3) Abdominal pain Code(s): R10.9 - UNSPECIFIED ABDOMINAL PAIN Qualifiers: Abdominal location: generalized Qualified Code(s): R10.84 - Generalized abdominal pain (4) Gram-negative bacteremia Code(s): R78.81 - BACTEREMIA (5) Leukocytosis Code(s): D72.829 - ELEVATED WHITE BLOOD CELL COUNT, UNSPECIFIED (6) Small bowel obstruction Code(s): K56.69 - OTHER INTESTINAL OBSTRUCTION
[2016-08-01] MEDS: HYDROmorphone HCL CARPU-JECT 1 MG/1 ML DISP.SYRIN IVPB PRN (18:32)
[2016-08-02 07:51] LABS: BASOPHIL 0.7 % (0-2.0); EOSINOPHIL 1.9 % (0-4.5); MCH 26.1 pg (25.7-33.7); MCHC 32.4 g/dl (32.0-36.0); MEAN CELL VOLUME 80.4 fl (80-96); MEAN PLT VOLUME 8.2 fl (7.5-11.1); NEUTROPHILS 76.1 % (42.8-82.8); PLATELET COUNT 406 K/MM3 (134-434); RDW 15.1 % (11.6-15.6); WHITE BLOOD COUNT 7.2 K/mm3 (4.0-10.0)
[2016-08-02 08:36] LABS: ALBUMIN 2.7 g/dl (3.4-5.0); ANION GAP 10 (8-16); BILIRUBIN,TOTAL 0.4 mg/dL (0.2-1.0); CALCIUM 8.4 mg/dL (8.5-10.1); CO2 29 mmol/L (21-32); GLUCOSE,RANDOM 112 mg/dL (74-106); MAGNESIUM 2.1 mg/dL (1.8-2.4); PHOSPHOROUS 3.8 mg/dL (2.5-4.9); SGOT/AST 14 U/L (15-37); SGPT/ALT 15 U/L (12-78)
[2016-08-02 08:39] LABS: ALK PHOS 66 U/L (45-117); CREATININE 0.4 mg/dL (0.55-1.02); TOT PROT 6.5 g/dl (6.4-8.2)
[2016-08-02 09:51] LABS: CHOLESTEROL 132 mg/dL (50-200); LDL CHOLESTEROL (ONLY SJRH) 74 mg/dL (5-100)
--- NOTE | 2016-08-02 10:26 | PN ---
Progress Note, Physician Chief Complaint: some pain History of Present Illness: drained out 70cc? CT results noted. still inflammation in RLQ. no extravasation of contrast. tubular abscess collection anterior abd wall. patient hungry. - Current Medication List Current Medications: Active Medications Acetaminophen (Tylenol -) 650 mg PO Q6H PRN PRN Reason: FEVER OR PAIN Last Admin: 07/27/16 22:34 Dose: 650 mg Enoxaparin Sodium (Lovenox -) 40 mg SQ DAILY [facility] Last Admin: 08/01/16 13:30 Dose: 40 mg Hydromorphone HCl (Dilaudid Injection -) 1 mg IVPB Q4H PRN PRN Reason: PAIN Last Admin: 08/01/16 18:32 Dose: 1 mg IV Flush (Picc Line Flush) 8 ml IVPUSH PRN PRN PRN Reason: Protocol Pantoprazole Sodium (Protonix 40mg Ivpb (Pre-Docked)) 100 mls @ 200 mls/hr IVPB BID [facility] Last Admin: 08/01/16 21:38 Dose: 200 mls/hr Ertapenem 1 gm/ Sodium (Chloride) 50 mls @ 100 mls/hr IVPB DAILY RIKA PRN Reason: Protocol Last Admin: 08/01/16 09:12 Dose: 100 mls/hr Amino Acids (Clinimix -) 1,000 mls @ 42 mls/hr IV Q24H [facility] Last Admin: 08/01/16 17:24 Dose: 42 mls/hr Lactobacillus Acidophilus (Bacid -) 1 tab PO BID [facility] Last Admin: 08/01/16 21:38 Dose: 1 tab Ondansetron HCl (Zofran Injection) 4 mg IVPB Q6H PRN PRN Reason: NAUSEA - Objective Vital Signs: Vital Signs Temperature 98 F 08/02/16 06:54 Pulse Rate 94 H 08/02/16 06:54 Respiratory Rate 18 08/02/16 06:54 Blood Pressure 123/78 08/02/16 06:54 O2 Sat by Pulse Oximetry (%) 97 08/01/16 21:00 Constitutional: Yes: No Distress, Calm Gastrointestinal: Yes: Soft, Tenderness (rlq and lower midline), Other (drain x 2 removed. opened up scarpas stitches in lower abd and packed wound lightly.). No: Distention Labs: CBC, BMP 08/02/16 06:10 08/02/16 06:10 Problem List - Problems (1) Abdominal pain Code(s): R10.9 - UNSPECIFIED ABDOMINAL PAIN Qualifiers: Abdominal location: generalized Qualified Code(s): R10.84 - Generalized abdominal pain (2) Leukocytosis Code(s): D72.829 - ELEVATED WHITE BLOOD CELL COUNT, UNSPECIFIED (3) SIRS (systemic inflammatory response syndrome) Code(s): R65.10 - SIRS OF NON-INFECTIOUS ORIGIN W/O ACUTE ORGAN DYSFUNCTION (4) Enterocutaneous fistula Assessment/Plan: will try clear liquid diet to see if wound output increases removed drain because it won't hold suction anymore now that I have opened up wound. if wound drain output is overwhelming will pouch again please cont TPN for nutritional support as we try to determine whether or not this is truly fistula. if it is a fistula may be low output? cotn IV abx Code(s): K63.2 - FISTULA OF INTESTINE
[2016-08-02] MEDS: LACTOBACILLUS ACIDOPHILUS 1 EACH TAB (FP) PO SCH ×2 (11:15→21:11)
[2016-08-02] MEDS: ENOXAPARIN NA (PORCINE) 40 MG/0.4 ML DISP.SYRIN SQ SCH (11:16)
[2016-08-02] MEDS ORDERED: PT OWN MED DRAWER 7, Y5N ONE (11:23)
[2016-08-02] MEDS: PANTOPRAZOLE SODIUM 100 ML IVPB SCH ×2 (11:48→21:11)
[2016-08-02] MEDS: ERTAPENEM SODIUM 1 GM in SODIUM CHLORIDE 50 ML IVPB SCH (11:49)
--- NOTE | 2016-08-02 12:56 | PN ---
Progress Note, Physician History of Present Illness: Pt seen and examined at bedside. She is on a trial of clears. The fistula in her abdomen is still producing fluid. - Current Medication List Current Medications: Active Medications Acetaminophen (Tylenol -) 650 mg PO Q6H PRN PRN Reason: FEVER OR PAIN Last Admin: 07/27/16 22:34 Dose: 650 mg Enoxaparin Sodium (Lovenox -) 40 mg SQ DAILY [facility] Last Admin: 08/02/16 11:16 Dose: 40 mg Hydromorphone HCl (Dilaudid Injection -) 1 mg IVPB Q4H PRN PRN Reason: PAIN Last Admin: 08/01/16 18:32 Dose: 1 mg IV Flush (Picc Line Flush) 8 ml IVPUSH PRN PRN PRN Reason: Protocol Pantoprazole Sodium (Protonix 40mg Ivpb (Pre-Docked)) 100 mls @ 200 mls/hr IVPB BID [facility] Last Admin: 08/02/16 11:48 Dose: 200 mls/hr Ertapenem 1 gm/ Sodium (Chloride) 50 mls @ 100 mls/hr IVPB DAILY [facility] PRN Reason: Protocol Last Admin: 08/02/16 11:49 Dose: 100 mls/hr Amino Acids (Clinimix -) 1,000 mls @ 42 mls/hr IV Q24H [facility]A Last Admin: 08/01/16 17:24 Dose: 42 mls/hr Lactobacillus Acidophilus (Bacid -) 1 tab PO BID [facility] Last Admin: 08/02/16 11:15 Dose: 1 tab Ondansetron HCl (Zofran Injection) 4 mg IVPB Q6H PRN PRN Reason: NAUSEA - Objective Vital Signs: Vital Signs Temperature 98 F 08/02/16 06:54 Pulse Rate 94 H 08/02/16 06:54 Respiratory Rate 18 08/02/16 06:54 Blood Pressure 123/78 08/02/16 06:54 O2 Sat by Pulse Oximetry (%) 97 08/01/16 21:00 Constitutional: Yes: Calm Eyes: Yes: Conjunctiva Clear HENT: Yes: Atraumatic Cardiovascular: Yes: S1, S2 Respiratory: Yes: CTA Bilaterally Gastrointestinal: Yes: Soft, Other (jocelynn in palce, fistula) Genitourinary: Yes: WNL Musculoskeletal: Yes: WNL Edema: No Wound/Incision: Yes: [place] Intact Neurological: Yes: Oriented Psychiatric: Yes: Oriented Labs: CBC, BMP 08/02/16 06:10 08/02/16 06:10 Problem List - Problems (1) Abdominal pain Code(s): R10.9 - UNSPECIFIED ABDOMINAL PAIN Qualifiers: Abdominal location: generalized Qualified Code(s): R10.84 - Generalized abdominal pain (2) Small bowel obstruction Code(s): K56.69 - OTHER INTESTINAL OBSTRUCTION (3) Hypertension Code(s): I10 - ESSENTIAL (PRIMARY) HYPERTENSION Assessment/Plan Current Medications Generic Name Dose Route Start Last Admin Trade Name Freq PRN Reason Stop Dose Admin Acetaminophen 650 mg 07/27/16 15:25 07/27/16 22:34 Tylenol - PO 650 mg Q6H PRN Administration FEVER OR PAIN Enoxaparin Sodium 40 mg 07/28/16 16:15 08/02/16 11:16 Lovenox - SQ 40 mg DAILY RIKA Administration Hydromorphone HCl 1 mg 07/30/16 16:38 08/01/16 18:32 Dilaudid Injection - IVPB 1 mg Q4H PRN Administration PAIN IV Flush 8 ml 07/31/16 16:39 Picc Line Flush IVPUSH PRN PRN Protocol Pantoprazole Sodium 100 mls @ 200 mls/hr 07/27/16 22:00 08/02/16 11:48 Protonix 40mg Ivpb (Pre-Docked) IVPB 200 mls/hr BID RIKA Administration Ertapenem 1 gm/ Sodium 50 mls @ 100 mls/hr 07/30/16 12:00 08/02/16 11:49 Chloride IVPB 100 mls/hr DAILY [facility]IKA Administration Protocol Amino Acids 1,000 mls @ 42 mls/hr 08/01/16 16:45 08/01/16 17:24 Clinimix - IV 42 mls/hr Q24H RIKA Administration Lactobacillus Acidophilus 1 tab 07/27/16 22:00 08/02/16 11:15 Bacid - PO 1 tab BID RIKA Administration Ondansetron HCl 4 mg 07/27/16 15:25 Zofran Injection IVPB Q6H PRN NAUSEA Impression 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 HTN 3. SBO - recurrent 4. adhesions 5. abdominal abscess Plan - called and discussed plan with surgery, they want TPN for pt as she is not able to take in sufficient calories - will start tpn today - will stop clinimix - discussed dosing with dietary - monitor labs - will re-asses tomorrow - case discussed with medical team - check cmp, mag, phos, lipid panel for tomorrow Dr Hauser
--- NOTE | 2016-08-02 13:05 | PN ---
Physical Exam: SUBJECTIVE: Patient seen and examined. She denies fever, chills. She feels well. She is eating clears and tolerating. Events: - Drain pulled, pouch removed, still w/ drainage, d/w RN will replace pouch to avoid further skin irritation OBJECTIVE: Vital Signs Period Temp Pulse Resp BP Sys/Golden Pulse Ox Last 24 Hr 97.9 F-98.5 F 82-94 18-20 119-128/76-80 97 PE Neuro: alert, awake, cn 2-12 intact HEENT: R triple lumen Pulm: CTAB CV: s1 s2 rrr no mrg Abd: Lower abd brown output on dressing, jocelynn in tact, no tenderness Ext: RUE PICC, no le edema Laboratory Results - last 24 hr 08/02/16 08/02/16 08/02/16 06:10 06:10 06:10 WBC 7.2 RBC 4.17 Hgb 10.9 D Hct 33.5 D MCV 80.4 MCHC 32.4 RDW 15.1 Plt Count 406 MPV 8.2 Neutrophils % 76.1 Lymphocytes % 15.1 Monocytes % 6.2 Eosinophils % 1.9 Basophils % 0.7 Sodium 140 Potassium 4.1 Chloride 101 Carbon Dioxide 29 Anion Gap 10 BUN 5 L D Creatinine 0.4 L D Creat Clearance w eGFR > 60 Random Glucose 112 H Calcium 8.4 L Phosphorus 3.8 Magnesium 2.1 Total Bilirubin 0.4 D AST 14 L D ALT 15 D Alkaline Phosphatase 66 Total Protein 6.5 Albumin 2.7 L Triglycerides 165 H Cancelled Cholesterol 132 Cancelled Total LDL Cholesterol 74 Cancelled HDL Cholesterol 47 Cancelled Active Medications Generic Name Dose Route Start Last Admin Trade Name Freq PRN Reason Stop Dose Admin Acetaminophen 650 mg 07/27/16 15:25 07/27/16 22:34 Tylenol - PO 650 mg Q6H PRN Administration FEVER OR PAIN Enoxaparin Sodium 40 mg 07/28/16 16:15 08/02/16 11:16 Lovenox - SQ 40 mg DAILY RIKA Administration Hydromorphone HCl 1 mg 07/30/16 16:38 08/01/16 18:32 Dilaudid Injection - IVPB 1 mg Q4H PRN Administration PAIN IV Flush 8 ml 07/31/16 16:39 Picc Line Flush IVPUSH PRN PRN Protocol Pantoprazole Sodium 100 mls @ 200 mls/hr 07/27/16 22:00 08/02/16 11:48 Protonix 40mg Ivpb (Pre-Docked) IVPB 200 mls/hr BID RIKA Administration Ertapenem 1 gm/ Sodium 50 mls @ 100 mls/hr 07/30/16 12:00 08/02/16 11:49 Chloride IVPB 100 mls/hr DAILY RIKA Administration Protocol Amino Acids 1,000 mls @ 42 mls/hr 08/01/16 16:45 08/01/16 17:24 Clinimix - IV 42 mls/hr Q24H RIKA Administration Lactobacillus Acidophilus 1 tab 07/27/16 22:00 08/02/16 11:15 Bacid - PO 1 tab BID RIKA Administration Ondansetron HCl 4 mg 07/27/16 15:25 Zofran Injection IVPB Q6H PRN NAUSEA Assessment: 51 year old female with history of HTN, recurrent SBO, s/p abdominal surgery on 07/14/16, admitted for sepsis secondary to multiple intra- abdominal abscesses. Plan: 1. 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 Recurrent small bowel obstructions complicated by multiple intra-abdominal abscesses - S/p open lysis of adhesions, small bowel resection x 2, completion appendectomy, ventral hernia repair 07/14/16 - S/p placement of RLQ abscess drainage catheter 07/22 - S/p ex lap drainage of intraabdominal abscess 07/27 3. Sepsis secondary to intraabdominal abscess/collection d/t Enterobacter Cloacae - Continue Ertapenem (day 4) - ID following 4. PPx - Lovenox, OOB, ambulation - Daily PT Visit type - Emergency Visit Emergency Visit: Yes ED Registration Date: 07/22/16 Care time: The patient presented to the Emergency Department on the above date and was hospitalized for further evaluation of their emergent condition. - New Patient This patient is new to me today: No - Critical Care Critical Care patient: No
[2016-08-02] MEDS ORDERED: WATER FOR INJ STERILE IV SCH (16:00)
[2016-08-02] MEDS ORDERED: MULTIVIT IV SCH (16:00)
[2016-08-02] MEDS ORDERED: [UNRECOGNIZED DRUG - OTHER] IV SCH (16:00)
--- NOTE | 2016-08-02 16:22 | PN ---
Progress Note (short form) - Note Progress Note: day #12 antibiotics day #4 ertapenem feels much better no pain, now on tpn s/p exp lap 07/27 with drainage of intraabdominal abscess Vital Signs Period Temp Pulse Resp BP Sys/Golden Pulse Ox Last 24 Hr 97.9 F-98.5 F 88-106 18-20 107-123/67-80 97-97 cor-rrr lungs clear abd soft,nt +wound open on lower aspect with ostomy ext no edema +picc CBC, BMP 08/02/16 06:10 08/02/16 06:10 Microbiology 07/22/16 04:25 Respiratory Virus Panel - Final Nasopharyngeal Swab a/p enterocutaneous fistula s/p drainage intraabdominal abscess ecoli bacteremia continue ertapenem most recent ct still with collection and inflammation
[2016-08-02] MEDS ORDERED: FAT EMULSIONS 250 ML IV SCH (22:00)
[2016-08-02] MEDS: PICC LINE 8 ML FLUSH PROTOCOL IVPUSH PRN (22:34)
[2016-08-03 07:28] LABS: BASOPHIL 1.9 % (0-2.0); EOSINOPHIL 2.5 % (0-4.5); MCH 28.3 pg (25.7-33.7); MCHC 34.2 g/dl (32.0-36.0); MEAN CELL VOLUME 82.8 fl (80-96); MEAN PLT VOLUME 8.5 fl (7.5-11.1); NEUTROPHILS 73.5 % (42.8-82.8); PLATELET COUNT 357 K/MM3 (134-434); RDW 15.2 % (11.6-15.6); WHITE BLOOD COUNT 6.8 K/mm3 (4.0-10.0)
[2016-08-03 08:30] LABS: ALBUMIN 2.3 g/dl (3.4-5.0); ALK PHOS 56 U/L (45-117); ANION GAP 12 (8-16); BILIRUBIN,TOTAL 0.3 mg/dL (0.2-1.0); CALCIUM 7.3 mg/dL (8.5-10.1); CO2 25 mmol/L (21-32); CREATININE 0.6 mg/dL (0.55-1.02); MAGNESIUM 1.9 mg/dL (1.8-2.4); PHOSPHOROUS 2.8 mg/dL (2.5-4.9); SGOT/AST 23 U/L (15-37); SGPT/ALT 22 U/L (12-78)
[2016-08-03 08:47] LABS: BILIRUBIN,DIRECT < 0.1 mg/dL (0.0-0.2)
[2016-08-03 08:53] LABS: GLUCOSE,RANDOM 582 mg/dL (74-106)
--- NOTE | 2016-08-03 10:20 | PN ---
Progress Note, Physician History of Present Illness: Pt seen and examined at bedside. She is awake and alert. She denies abdominal pain. - Current Medication List Current Medications: Active Medications Acetaminophen (Tylenol -) 650 mg PO Q6H PRN PRN Reason: FEVER OR PAIN Last Admin: 07/27/16 22:34 Dose: 650 mg Enoxaparin Sodium (Lovenox -) 40 mg SQ DAILY [facility] Last Admin: 08/02/16 11:16 Dose: 40 mg Hydromorphone HCl (Dilaudid Injection -) 1 mg IVPB Q4H PRN PRN Reason: PAIN Last Admin: 08/01/16 18:32 Dose: 1 mg IV Flush (Picc Line Flush) 8 ml IVPUSH PRN PRN PRN Reason: Protocol Last Admin: 08/02/16 22:34 Dose: 8 ml Pantoprazole Sodium (Protonix 40mg Ivpb (Pre-Docked)) 100 mls @ 200 mls/hr IVPB BID [facility] Last Admin: 08/02/16 21:11 Dose: 200 mls/hr Ertapenem 1 gm/ Sodium (Chloride) 50 mls @ 100 mls/hr IVPB DAILY RIKA PRN Reason: Protocol Last Admin: 08/02/16 11:49 Dose: 100 mls/hr Multivitamins/Minerals 10 ml/Sterile Water/ Amino Acids/Dextrose 1,000 mls @ 41.667 mls/hr IV DAILY@1600 [facility] Last Admin: 08/02/16 17:19 Dose: 41.667 mls/hr Fat Emulsion Intravenous (Intralipid -) 250 mls @ 20.833 mls/hr IV DAILY@2200 [facility] Last Admin: 08/02/16 21:11 Dose: 20.833 mls/hr Lactobacillus Acidophilus (Bacid -) 1 tab PO BID [facility] Last Admin: 08/02/16 21:11 Dose: 1 tab Ondansetron HCl (Zofran Injection) 4 mg IVPB Q6H PRN PRN Reason: NAUSEA - Objective Vital Signs: Vital Signs Temperature 98.0 F 08/03/16 06:00 Pulse Rate 88 08/03/16 06:00 Respiratory Rate 16 08/03/16 06:00 Blood Pressure 124/67 08/03/16 06:00 O2 Sat by Pulse Oximetry (%) 97 08/02/16 21:00 Constitutional: Yes: Calm Eyes: Yes: Conjunctiva Clear HENT: Yes: Atraumatic Neck: Yes: Supple Cardiovascular: Yes: S1, S2 Respiratory: Yes: CTA Bilaterally Gastrointestinal: Yes: Soft, Other (fistula is leaking) Genitourinary: Yes: WNL Musculoskeletal: Yes: WNL Extremities: Yes: WNL Edema: No Wound/Incision: Yes: [place] Intact Neurological: Yes: Oriented Psychiatric: Yes: Oriented Labs: CBC, BMP 08/03/16 06:00 08/03/16 06:35 Problem List - Problems (1) Abdominal pain Code(s): R10.9 - UNSPECIFIED ABDOMINAL PAIN Qualifiers: Abdominal location: generalized Qualified Code(s): R10.84 - Generalized abdominal pain (2) Small bowel obstruction Code(s): K56.69 - OTHER INTESTINAL OBSTRUCTION (3) Hypertension Code(s): I10 - ESSENTIAL (PRIMARY) HYPERTENSION Assessment/Plan Current Medications Generic Name Dose Route Start Last Admin Trade Name Freq PRN Reason Stop Dose Admin Acetaminophen 650 mg 07/27/16 15:25 07/27/16 22:34 Tylenol - PO 650 mg Q6H PRN Administration FEVER OR PAIN Enoxaparin Sodium 40 mg 07/28/16 16:15 08/02/16 11:16 Lovenox - SQ 40 mg DAILY RIKA Administration Hydromorphone HCl 1 mg 07/30/16 16:38 08/01/16 18:32 Dilaudid Injection - IVPB 1 mg Q4H PRN Administration PAIN IV Flush 8 ml 07/31/16 16:39 08/02/16 22:34 Picc Line Flush IVPUSH 8 ml PRN PRN Administration Protocol Pantoprazole Sodium 100 mls @ 200 mls/hr 07/27/16 22:00 08/02/16 21:11 Protonix 40mg Ivpb (Pre-Docked) IVPB 200 mls/hr BID RIKA Administration Ertapenem 1 gm/ Sodium 50 mls @ 100 mls/hr 07/30/16 12:00 08/02/16 11:49 Chloride IVPB 100 mls/hr DAILY RIKA Administration Protocol Multivitamins/Minerals 10 ml/ 1,000 mls @ 41.667 mls/hr 08/02/16 16:00 17:19 Sterile Water/ Amino Acids/ IV 41.667 mls/hr Dextrose DAILY@1600 [facility] Administration Fat Emulsion Intravenous 250 mls @ 20.833 mls/hr 08/02/16 22:00 08/02/16 21:11 Intralipid - IV 20.833 mls/hr DAILY@2200 [facility] Administration Lactobacillus Acidophilus 1 tab 07/27/16 22:00 08/02/16 21:11 Bacid - PO 1 tab BID RIKA Administration Ondansetron HCl 4 mg 07/27/16 15:25 Zofran Injection IVPB Q6H PRN NAUSEA Impression 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 HTN 3. SBO - recurrent 4. adhesions 5. abdominal abscess Plan - labs were drawn for pic line, repeat bloodwork - will cont TPN - hold lipids today - will increase volume - surgery follow up - discussed with medical team - wound care - check cmp, mag, phos, lipid panel for tomorrow Dr Hauser
[2016-08-03] MEDS: LACTOBACILLUS ACIDOPHILUS 1 EACH TAB (FP) PO SCH ×2 (10:40→21:49)
[2016-08-03] MEDS: ENOXAPARIN NA (PORCINE) 40 MG/0.4 ML DISP.SYRIN SQ SCH (10:41)
[2016-08-03] MEDS: ERTAPENEM SODIUM 1 GM in SODIUM CHLORIDE 50 ML IVPB SCH (10:41)
[2016-08-03] MEDS: PANTOPRAZOLE SODIUM 100 ML IVPB SCH ×2 (10:41→21:50)
[2016-08-03 11:47] LABS: ALBUMIN 2.5 g/dl (3.4-5.0); ALK PHOS 60 U/L (45-117); ANION GAP 10 (8-16); BILIRUBIN,TOTAL 0.2 mg/dL (0.2-1.0); CO2 28 mmol/L (21-32); CREATININE 0.5 mg/dL (0.55-1.02); GLUCOSE,RANDOM 161 mg/dL (74-106); SGOT/AST 17 U/L (15-37); SGPT/ALT 18 U/L (12-78); TOT PROT 6.2 g/dl (6.4-8.2)
[2016-08-03 12:28] LABS: CHOLESTEROL 118 mg/dL (50-200); LDL CHOLESTEROL (ONLY SJRH) 61 mg/dL (5-100)
--- NOTE | 2016-08-03 14:06 | PN ---
Progress Note, Physician Chief Complaint: feels better History of Present Illness: patient got ostomy pouch because of increased output. appears to be light thin brown fluid. ascites mixed with liquified hematoma vs ascites mixed with bilious fluid. - Current Medication List Current Medications: Active Medications Acetaminophen (Tylenol -) 650 mg PO Q6H PRN PRN Reason: FEVER OR PAIN Last Admin: 07/27/16 22:34 Dose: 650 mg Enoxaparin Sodium (Lovenox -) 40 mg SQ DAILY [facility] Last Admin: 08/03/16 10:41 Dose: 40 mg Hydromorphone HCl (Dilaudid Injection -) 1 mg IVPB Q4H PRN PRN Reason: PAIN Last Admin: 08/01/16 18:32 Dose: 1 mg IV Flush (Picc Line Flush) 8 ml IVPUSH PRN PRN PRN Reason: Protocol Last Admin: 08/02/16 22:34 Dose: 8 ml Pantoprazole Sodium (Protonix 40mg Ivpb (Pre-Docked)) 100 mls @ 200 mls/hr IVPB BID [facility] Last Admin: 08/03/16 10:41 Dose: 200 mls/hr Ertapenem 1 gm/ Sodium (Chloride) 50 mls @ 100 mls/hr IVPB DAILY [facility]IKA PRN Reason: Protocol Last Admin: 08/03/16 10:41 Dose: 100 mls/hr Multivitamins/Minerals 10 ml/Sterile Water/ Amino Acids/Dextrose 1,000 mls @ 41.667 mls/hr IV DAILY@1600 [facility] Last Admin: 08/02/16 17:19 Dose: 41.667 mls/hr Fat Emulsion Intravenous (Intralipid -) 250 mls @ 20.833 mls/hr IV DAILY@2200 [facility] Last Admin: 08/02/16 21:11 Dose: 20.833 mls/hr Lactobacillus Acidophilus (Bacid -) 1 tab PO BID [facility] Last Admin: 08/03/16 10:40 Dose: 1 tab Ondansetron HCl (Zofran Injection) 4 mg IVPB Q6H PRN PRN Reason: NAUSEA - Objective Vital Signs: Vital Signs Temperature 97.4 F L 08/03/16 13:56 Pulse Rate 100 H 08/03/16 13:56 Respiratory Rate 18 08/03/16 10:15 Blood Pressure 109/69 08/03/16 13:56 O2 Sat by Pulse Oximetry (%) 97 08/02/16 21:00 Constitutional: Yes: No Distress, Calm Eyes: Yes: Conjunctiva Clear, EOM Intact HENT: Yes: Atraumatic, Normocephalic Neck: Yes: Supple, Trachea Midline Cardiovascular: Yes: Regular Rate and Rhythm Respiratory: Yes: Regular Gastrointestinal: Yes: Soft, Other (low midline draining thin brown liquid in ostomy bag. approx 50cc.). No: Distention, Tenderness (no more RLQ tender.) ...Rectal Exam: Yes: Deferred Genitourinary: No: CVA Tenderness - Left, CVA Tenderness - Right Musculoskeletal: No: Joint Stiffness, Joint Swelling Extremities: No: Calf Tenderness, Erythema Integumentary: No: Erythema, Rash Neurological: Yes: Alert, Oriented Psychiatric: Yes: Alert, Oriented Labs: CBC, BMP 08/03/16 06:00 08/03/16 10:45 Problem List - Problems (1) Abdominal pain Code(s): R10.9 - UNSPECIFIED ABDOMINAL PAIN Qualifiers: Abdominal location: generalized Qualified Code(s): R10.84 - Generalized abdominal pain (2) Leukocytosis Code(s): D72.829 - ELEVATED WHITE BLOOD CELL COUNT, UNSPECIFIED (3) SIRS (systemic inflammatory response syndrome) Code(s): R65.10 - SIRS OF NON-INFECTIOUS ORIGIN W/O ACUTE ORGAN DYSFUNCTION (4) Enterocutaneous fistula Assessment/Plan: adv to regular diet if output remains low and patient meets oral caloric needs can stop/wean off TPN cont abx cont pouch for now to protect skin Code(s): K63.2 - FISTULA OF INTESTINE
--- NOTE | 2016-08-03 15:01 | PN ---
Physical Exam: SUBJECTIVE: Patient seen and examined. She is tolerating clear liquids, she denies n/v, fever chills. Do not draw blood from PICC line arm. OBJECTIVE: Vital Signs Period Temp Pulse Resp BP Sys/Golden Pulse Ox Last 24 Hr 97.4 F-98.6 F 86-100 16-20 99-124/62-79 97 PE Neuro: alert, awake, cn 2-12 intact HEENT: RIJ triple lumen Pulm: CTAB CV: s1 s2 rrr no mrg Abd: Lower abd brown output, pouch in place, membranes pink moist, jocelynn in tact, no tenderness Ext: RUE PICC, no le edema CBCD WBC 6.8 K/mm3 (4.0-10.0) 08/03/16 06:00 RBC 3.72 M/mm3 (3.60-5.2) 08/03/16 06:00 Hgb 10.5 GM/dL (10.7-15.3) L 08/03/16 06:00 Hct 30.8 % (32.4-45.2) L 08/03/16 06:00 MCV 82.8 fl (80-96) 08/03/16 06:00 MCHC 34.2 g/dl (32.0-36.0) 08/03/16 06:00 RDW 15.2 % (11.6-15.6) 08/03/16 06:00 Plt Count 357 K/MM3 (134-434) 08/03/16 06:00 MPV 8.5 fl (7.5-11.1) 08/03/16 06:00 CMP Sodium 142 mmol/L (136-145) 08/03/16 10:45 Potassium 3.5 mmol/L (3.5-5.1) 08/03/16 10:45 Chloride 104 mmol/L (98-107) D 08/03/16 10:45 Carbon Dioxide 28 mmol/L (21-32) 08/03/16 10:45 Anion Gap 10 (8-16) 08/03/16 10:45 BUN 8 mg/dL (7-18) D 08/03/16 10:45 Creatinine 0.5 mg/dL (0.55-1.02) L 08/03/16 10:45 Creat Clearance w eGFR > 60 (>60) 08/03/16 10:45 Calcium 8.0 mg/dL (8.5-10.1) L 08/03/16 10:45 Total Bilirubin 0.2 mg/dL (0.2-1.0) D 08/03/16 10:45 AST 17 U/L (15-37) D 08/03/16 10:45 ALT 18 U/L (12-78) 08/03/16 10:45 Alkaline Phosphatase 60 U/L (45-117) 08/03/16 10:45 Total Protein 6.2 g/dl (6.4-8.2) L 08/03/16 10:45 Albumin 2.5 g/dl (3.4-5.0) L 08/03/16 10:45 08/03/16 08/03/16 06:35 10:45 Phosphorus 2.8 D Magnesium 1.9 Total Protein 6.2 L Albumin 2.5 L Triglycerides 118 D Cholesterol 118 Total LDL Cholesterol 61 HDL Cholesterol 46 Active Medications Generic Name Dose Route Start Last Admin Trade Name Freq PRN Reason Stop Dose Admin Acetaminophen 650 mg 07/27/16 15:25 07/27/16 22:34 Tylenol - PO 650 mg Q6H PRN Administration FEVER OR PAIN Enoxaparin Sodium 40 mg 07/28/16 16:15 08/03/16 10:41 Lovenox - SQ 40 mg DAILY [facility]IKA Administration Hydromorphone HCl 1 mg 07/30/16 16:38 08/01/16 18:32 Dilaudid Injection - IVPB 1 mg Q4H PRN Administration PAIN IV Flush 8 ml 07/31/16 16:39 08/02/16 22:34 Picc Line Flush IVPUSH 8 ml PRN PRN Administration Protocol Pantoprazole Sodium 100 mls @ 200 mls/hr 07/27/16 22:00 08/03/16 10:41 Protonix 40mg Ivpb (Pre-Docked) IVPB 200 mls/hr BID RIKA Administration Ertapenem 1 gm/ Sodium 50 mls @ 100 mls/hr 07/30/16 12:00 08/03/16 10:41 Chloride IVPB 100 mls/hr DAILY RIKA Administration Protocol Multivitamins/Minerals 10 ml/ 1,000 mls @ 41.667 mls/hr 08/02/16 16:00 17:19 Sterile Water/ Amino Acids/ IV 08/03/16 15:59 41.667 mls/hr Dextrose DAILY@1600 [facility]IKA Administration Multivitamins/Minerals 10 ml/ 1,200 mls @ 50 mls/hr 08/03/16 16:00 Potassium Chloride 20 meq/ IV Sterile Water/ Amino Acids/ DAILY@1600 RIKA Dextrose Lactobacillus Acidophilus 1 tab 07/27/16 22:00 08/03/16 10:40 Bacid - PO 1 tab BID RIKA Administration Ondansetron HCl 4 mg 07/27/16 15:25 Zofran Injection IVPB Q6H PRN NAUSEA Assessment: 51 year old female with history of HTN, recurrent SBO, s/p abdominal surgery on 07/14/16, admitted for sepsis secondary to multiple intra- abdominal abscesses. Plan: 1. 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 Recurrent small bowel obstructions complicated by multiple intra-abdominal abscesses - S/p open lysis of adhesions, small bowel resection x 2, completion appendectomy, ventral hernia repair 07/14/16 - S/p placement of RLQ abscess drainage catheter 07/22 - S/p ex lap drainage of intraabdominal abscess 07/27 3. Sepsis secondary to intraabdominal abscess/collection d/t Enterobacter Cloacae - Continue Ertapenem (day 5) - ID following 4. PPx - Lovenox, OOB, ambulation - Daily PT Visit type - Emergency Visit Emergency Visit: Yes ED Registration Date: 07/22/16 Care time: The patient presented to the Emergency Department on the above date and was hospitalized for further evaluation of their emergent condition. - New Patient This patient is new to me today: No - Critical Care Critical Care patient: No
[2016-08-03] MEDS: MULTIVIT IV SCH (16:26)
[2016-08-03] MEDS: POTASSIUM CHLORIDE IV SCH (16:26)
[2016-08-03] MEDS: [UNRECOGNIZED DRUG - OTHER] IV SCH (16:26)
--- NOTE | 2016-08-03 18:37 | PN ---
GI Progress Note Subjective: GASTROENTEROLOGY TOLERATES CLEAR NO INCREASED OUTPUT FROM SURGICAL SITE , STILL YELLOWISH BROWN FLUID. NO PAIN NO FEVER - Objective Vital Signs: Vital Signs Temperature 97.4 F L 08/03/16 13:56 Pulse Rate 100 H 08/03/16 13:56 Respiratory Rate 18 08/03/16 10:15 Blood Pressure 109/69 08/03/16 13:56 O2 Sat by Pulse Oximetry (%) 97 08/02/16 21:00 Eyes: Yes: Conjunctiva Clear HENT: Yes: Normocephalic Cardiovascular: Yes: WNL Respiratory: Yes: WNL Gastrointestinal Inspection: Yes: WNL ...Auscultate: Yes: Normoactive Bowel Sounds ...Palpate: Yes: Soft, Other (WOUND WITH ERYTHEMA AND DRAINAGE DESCRIBED ABOVE) Extremities: Yes: WNL Labs: CBC, BMP 08/03/16 06:00 08/03/16 10:45 Laboratory Tests 07/31/16 08/03/16 08/03/16 06:45 06:00 10:45 WBC 6.8 RBC 3.72 Hgb 10.5 L Hct 30.8 L MCV 82.8 MCHC 34.2 RDW 15.2 Plt Count 357 MPV 8.5 Neutrophils % 73.5 Lymphocytes % 15.6 Monocytes % 6.5 Eosinophils % 2.5 Basophils % 1.9 ESR 58 H Sodium 142 Potassium 3.5 Chloride 104 D Carbon Dioxide 28 Anion Gap 10 BUN 8 D Creatinine 0.5 L Creat Clearance w eGFR > 60 Random Glucose 161 H D Calcium 8.0 L Total Bilirubin 0.2 D AST 17 D ALT 18 Alkaline Phosphatase 60 Total Protein 6.2 L Albumin 2.5 L Triglycerides 118 D Cholesterol 118 Total LDL Cholesterol 61 HDL Cholesterol 46 Problem List - Problems (1) Enterocutaneous fistula Assessment/Plan: CONTINUE TPN AND LIQUIDS MONITOR FISTULA OUTPUT CONTINUE ABX Code(s): K63.2 - FISTULA OF INTESTINE (2) Intra-abdominal abscess Code(s): K65.1 - PERITONEAL ABSCESS (3) Abdominal pain Code(s): R10.9 - UNSPECIFIED ABDOMINAL PAIN Qualifiers: Abdominal location: generalized Qualified Code(s): R10.84 - Generalized abdominal pain (4) Gram-negative bacteremia Code(s): R78.81 - BACTEREMIA (5) Leukocytosis Code(s): D72.829 - ELEVATED WHITE BLOOD CELL COUNT, UNSPECIFIED (6) Small bowel obstruction Code(s): K56.69 - OTHER INTESTINAL OBSTRUCTION
[2016-08-04 08:10] LABS: ALBUMIN 2.6 g/dl (3.4-5.0); ANION GAP 9 (8-16); CALCIUM 8.1 mg/dL (8.5-10.1); CO2 28 mmol/L (21-32); CREATININE 0.3 mg/dL (0.55-1.02); GLUCOSE,RANDOM 116 mg/dL (74-106); MAGNESIUM 1.9 mg/dL (1.8-2.4); SGOT/AST 43 U/L (15-37); SGPT/ALT 34 U/L (12-78)
[2016-08-04 08:14] LABS: ALK PHOS 66 U/L (45-117); BILIRUBIN,TOTAL 0.2 mg/dL (0.2-1.0); CHOLESTEROL 124 mg/dL (50-200); LDL CHOLESTEROL (ONLY SJRH) 62 mg/dL (5-100); PHOSPHOROUS 2.5 mg/dL (2.5-4.9); TOT PROT 6.3 g/dl (6.4-8.2)
[2016-08-04] MEDS ORDERED: PT OWN MED DRAWER 7, Y5N ONE (09:24)
[2016-08-04] MEDS: PANTOPRAZOLE SODIUM 100 ML IVPB SCH ×2 (09:29→23:17)
[2016-08-04] MEDS: LACTOBACILLUS ACIDOPHILUS 1 EACH TAB (FP) PO SCH ×2 (09:30→23:16)
[2016-08-04] MEDS: ENOXAPARIN NA (PORCINE) 40 MG/0.4 ML DISP.SYRIN SQ SCH (09:30)
[2016-08-04] MEDS: ERTAPENEM SODIUM 1 GM in SODIUM CHLORIDE 50 ML IVPB SCH (10:37)
--- NOTE | 2016-08-04 11:42 | PN ---
Progress Note, Physician Chief Complaint: none History of Present Illness: ostomy pouch/wound drainage not measured. since 7am appears to be approx 30cc in pouch. no pain. tolerated reg diet. no wbc. no fever. pt feels okay. both ecoli and enterobacter sens to levaquin - Current Medication List Current Medications: Active Medications Acetaminophen (Tylenol -) 650 mg PO Q6H PRN PRN Reason: FEVER OR PAIN Last Admin: 07/27/16 22:34 Dose: 650 mg Enoxaparin Sodium (Lovenox -) 40 mg SQ DAILY [facility] Last Admin: 08/04/16 09:30 Dose: 40 mg Hydromorphone HCl (Dilaudid Injection -) 1 mg IVPB Q4H PRN PRN Reason: PAIN Last Admin: 08/01/16 18:32 Dose: 1 mg IV Flush (Picc Line Flush) 8 ml IVPUSH PRN PRN PRN Reason: Protocol Last Admin: 08/02/16 22:34 Dose: 8 ml Pantoprazole Sodium (Protonix 40mg Ivpb (Pre-Docked)) 100 mls @ 200 mls/hr IVPB BID [facility] Last Admin: 08/04/16 09:29 Dose: 200 mls/hr Ertapenem 1 gm/ Sodium (Chloride) 50 mls @ 100 mls/hr IVPB DAILY [facility] PRN Reason: Protocol Last Admin: 08/04/16 10:37 Dose: 100 mls/hr Multivitamins/Minerals 10 ml/Potassium Chloride 20 meq/Sterile Water/ Amino Acids/Dextrose 1,200 mls @ 50 mls/hr IV DAILY@1600 [facility] Last Admin: 08/03/16 16:26 Dose: 50 mls/hr Insulin Aspart (Novolog Vial Sliding Scale -) 1 vial SQ ACHS [facility] PRN Reason: Protocol Lactobacillus Acidophilus (Bacid -) 1 tab PO BID [facility] Last Admin: 08/04/16 09:30 Dose: 1 tab Ondansetron HCl (Zofran Injection) 4 mg IVPB Q6H PRN PRN Reason: NAUSEA - Objective Vital Signs: Vital Signs Temperature 98.5 F 08/04/16 02:00 Pulse Rate 95 H 08/04/16 02:00 Respiratory Rate 19 08/04/16 02:00 Blood Pressure 108/72 08/04/16 02:00 O2 Sat by Pulse Oximetry (%) 97 08/03/16 22:00 Constitutional: Yes: No Distress, Calm Eyes: Yes: Conjunctiva Clear, EOM Intact HENT: Yes: Atraumatic, Normocephalic Neck: Yes: Supple, Trachea Midline Cardiovascular: Yes: Regular Rate and Rhythm Respiratory: Yes: Regular, CTA Bilaterally Gastrointestinal: Yes: Soft. No: Distention, Tenderness ...Rectal Exam: Yes: Deferred Genitourinary: No: CVA Tenderness - Left, CVA Tenderness - Right Musculoskeletal: No: Joint Stiffness, Joint Swelling Extremities: No: Calf Tenderness, Erythema Integumentary: No: Erythema, Rash Wound/Incision: Yes: Other (lower part of wound open and draining thicker light brown fluid. more enteric in appearance today.) Neurological: Yes: Alert, Oriented Psychiatric: Yes: Alert, Oriented Labs: CBC, BMP 08/03/16 06:00 08/04/16 06:00 Problem List - Problems (1) Abdominal pain Code(s): R10.9 - UNSPECIFIED ABDOMINAL PAIN Qualifiers: Abdominal location: generalized Qualified Code(s): R10.84 - Generalized abdominal pain (2) Leukocytosis Code(s): D72.829 - ELEVATED WHITE BLOOD CELL COUNT, UNSPECIFIED (3) SIRS (systemic inflammatory response syndrome) Code(s): R65.10 - SIRS OF NON-INFECTIOUS ORIGIN W/O ACUTE ORGAN DYSFUNCTION (4) Enterocutaneous fistula Assessment/Plan: low output ECF vs draining intra-abd abscess no sepsis frozen abd tolerating reg diet without marked increase in ostomy pouch output given improvement I feel we can stop TPN and pull PICC/CVC and consider D/C home tomorrow she will need VNS to help patient at home. patient needs ostomy pouch over lower part of incision and it should be treated like an ostomy. patient can eat any kind of diet and will likely need 7 more days abx unless ID feels otherwise plan communicated to daughter [phone] to anticipate DC tomorrow Code(s): K63.2 - FISTULA OF INTESTINE
--- NOTE | 2016-08-04 15:28 | PN ---
Progress Note (short form) - Note Progress Note: day #14 antibiotics day #6 ertapenem feels much better no pain, now on tpn s/p exp lap 07/27 with drainage of intraabdominal abscess Vital Signs Period Temp Pulse Resp BP Sys/Golden Pulse Ox Last 24 Hr 97.7 F-99.0 F 95-97 17-19 102-108/63-72 97 cor-rrr lungs clear abd soft, +pouch lower aspect of incision, has some induration at the left side of the pouch, tender to touch ext no edema CBC, BMP 08/03/16 06:00 08/04/16 06:00 a/p enterocutaneous fistula s/p drainage intraabdominal abscess ecoli bacteremia continue ertapenem day #[address] still with collection and inflammation will d/w surgery repeat esr/crp
--- NOTE | 2016-08-04 15:59 | PN ---
Physical Exam: SUBJECTIVE: Patient seen and examined. She denies pain or abdominal discomfort. She is concerned over going home and getting worse after presenting with a 102F. Wants to assure she is better before being discharged. OBJECTIVE: Appears well, in no acute distress Abdomen slightly distended, colostomy pouch mid abdomen with brown purulent drainage Vital Signs Period Temp Pulse Resp BP Sys/Golden Pulse Ox Last 24 Hr 97.7 F-99.0 F 95-97 17-19 102-108/63-72 97 GENERAL: The patient is awake, alert, and fully oriented, in no acute distress. HEAD: Normal with no signs of trauma. EYES: PERRL, extraocular movements intact, sclera anicteric, conjunctiva clear. No ptosis. ENT: Ears normal, nares patent, oropharynx clear without exudates, moist mucous membranes. NECK: Trachea midline, full range of motion, supple. LUNGS: Breath sounds equal, clear to auscultation bilaterally, no wheezes, no crackles, no accessory muscle use. HEART: Regular rate and rhythm ABDOMEN: slightly distended abdomen, with colostomy pouch draining brown purulent drainage. EXTREMITIES: 2+ pulses, warm, well-perfused, no edema. NEUROLOGICAL: Normal speech, gait not observed. PSYCH: Normal mood, normal affect. Laboratory Results - last 24 hr 08/04/16 08/04/16 06:00 07:29 Sodium 141 Potassium 4.1 Chloride 104 Carbon Dioxide 28 Anion Gap 9 BUN 11 D Creatinine 0.3 L D Creat Clearance w eGFR > 60 POC Glucometer 124 Random Glucose 116 H D Calcium 8.1 L Phosphorus 2.5 Magnesium 1.9 Total Bilirubin 0.2 AST 43 H D ALT 34 D Alkaline Phosphatase 66 Total Protein 6.3 L Albumin 2.6 L Triglycerides 151 D Cholesterol 124 Total LDL Cholesterol 62 HDL Cholesterol 46 Active Medications Generic Name Dose Route Start Last Admin Trade Name Freq PRN Reason Stop Dose Admin Acetaminophen 650 mg 07/27/16 15:25 07/27/16 22:34 Tylenol - PO 650 mg Q6H PRN Administration FEVER OR PAIN Enoxaparin Sodium 40 mg 07/28/16 16:15 08/04/16 09:30 Lovenox - SQ 40 mg DAILY [facility] Administration Hydromorphone HCl 1 mg 07/30/16 16:38 08/01/16 18:32 Dilaudid Injection - IVPB 1 mg Q4H PRN Administration PAIN IV Flush 8 ml 07/31/16 16:39 08/02/16 22:34 Picc Line Flush IVPUSH 8 ml PRN PRN Administration Protocol Pantoprazole Sodium 100 mls @ 200 mls/hr 07/27/16 22:00 08/04/16 09:29 Protonix 40mg Ivpb (Pre-Docked) IVPB 200 mls/hr BID [facility] Administration Ertapenem 1 gm/ Sodium 50 mls @ 100 mls/hr 07/30/16 12:00 08/04/16 10:37 Chloride IVPB 100 mls/hr DAILY [facility] Administration Protocol Multivitamins/Minerals 10 ml/ 1,200 mls @ 50 mls/hr 08/03/16 16:00 08/03/16 16: 26 Potassium Chloride 20 meq/ IV 50 mls/hr Sterile Water/ Amino Acids/ DAILY@1600 [facility] Administration Dextrose Insulin Aspart 1 vial 08/04/16 16:30 Novolog Vial Sliding Scale - SQ ACHS [facility] Protocol Lactobacillus Acidophilus 1 tab 07/27/16 22:00 08/04/16 09:30 Bacid - PO 1 tab BID [facility] Administration Ondansetron HCl 4 mg 07/27/16 15:25 Zofran Injection IVPB Q6H PRN NAUSEA ASSESSMENT/PLAN: his is a 51 year old female with a past medical history of hypertension and multiple abdominal surgeries with the most recent one done on 07/14/16. She had shaking chills at home and family called EMS and patient was brought into [facility]. At [facility] she had a fever of 102.5F. Since she is a patient of Dr. Jin, she was transferred from [facility] to [facility] on 07/22/2016 for further treatment under Dr. Jin. She has a significant pat medical history of extensive lysis of adhesions , small bowel resection x 2, appendectomy, hernia repair on 07/14/2016. On 07/27/2016 she had an exploratory lap with Dr. Jin with drainage of intra abdominal abscess. Apx 400 cc of purulent fluid was obtained from abdomen. GI: Entercutaneous fistula/intra abd wound secondary multiple intra abdominal abscesses Recurrent small bowel obstructions Assessment/Plan: S/p lap on 07/27/2016 for intra abdominal abscess and multiple abdominal surgeries On TPN currently through PICC line TPN as per renal/RD, as per surgery, can advance diet as tolerated If tolerates, can d/c TPN Follow chemistry while on TPN ID: Sepsis secondary to intra abdominal abscess Assessment/Plan: + enterobacter cloacae On Ertapenem 1 gm started on 07/30/2016 ID following F.E.N. Fluids: tpn as per renal Electrolytes: within normal limits Nutrition: advance as per surgery Prophylaxis: DVT: on Lovenox, ambulates GI: Protonix Visit type - Emergency Visit Emergency Visit: Yes ED Registration Date: 07/22/16 Care time: The patient presented to the Emergency Department on the above date and was hospitalized for further evaluation of their emergent condition. - New Patient This patient is new to me today: Yes Date on this admission: 08/04/16 - Critical Care Critical Care patient: No - Discharge Referral Referred to [facility] Med P.C.: No
--- NOTE | 2016-08-04 16:09 | PN ---
Progress Note, Physician History of Present Illness: Pt seen and examined at bedside. She is awake and alert. She says she is tolerating diet. - Current Medication List Current Medications: Active Medications Acetaminophen (Tylenol -) 650 mg PO Q6H PRN PRN Reason: FEVER OR PAIN Last Admin: 07/27/16 22:34 Dose: 650 mg Enoxaparin Sodium (Lovenox -) 40 mg SQ DAILY [facility] Last Admin: 08/04/16 09:30 Dose: 40 mg Hydromorphone HCl (Dilaudid Injection -) 1 mg IVPB Q4H PRN PRN Reason: PAIN Last Admin: 08/01/16 18:32 Dose: 1 mg IV Flush (Picc Line Flush) 8 ml IVPUSH PRN PRN PRN Reason: Protocol Last Admin: 08/02/16 22:34 Dose: 8 ml Pantoprazole Sodium (Protonix 40mg Ivpb (Pre-Docked)) 100 mls @ 200 mls/hr IVPB BID [facility] Last Admin: 08/04/16 09:29 Dose: 200 mls/hr Ertapenem 1 gm/ Sodium (Chloride) 50 mls @ 100 mls/hr IVPB DAILY [facility] PRN Reason: Protocol Last Admin: 08/04/16 10:37 Dose: 100 mls/hr Multivitamins/Minerals 10 ml/Potassium Chloride 20 meq/Sterile Water/ Amino Acids/Dextrose 1,200 mls @ 50 mls/hr IV DAILY@1600 [facility] Last Admin: 08/03/16 16:26 Dose: 50 mls/hr Insulin Aspart (Novolog Vial Sliding Scale -) 1 vial SQ ACHS [facility] PRN Reason: Protocol Lactobacillus Acidophilus (Bacid -) 1 tab PO BID [facility] Last Admin: 08/04/16 09:30 Dose: 1 tab Ondansetron HCl (Zofran Injection) 4 mg IVPB Q6H PRN PRN Reason: NAUSEA - Objective Vital Signs: Vital Signs Temperature 99.0 F 08/04/16 14:00 Pulse Rate 97 H 08/04/16 14:00 Respiratory Rate 19 08/04/16 02:00 Blood Pressure 102/69 08/04/16 14:00 O2 Sat by Pulse Oximetry (%) 97 08/03/16 22:00 Constitutional: Yes: Calm Eyes: Yes: Conjunctiva Clear HENT: Yes: Atraumatic Neck: Yes: Supple Cardiovascular: Yes: S1, S2 Respiratory: Yes: CTA Bilaterally Gastrointestinal: Yes: Soft, Other (dressing in place) Musculoskeletal: Yes: WNL Edema: No Neurological: Yes: Oriented Psychiatric: Yes: Oriented Labs: CBC, BMP 08/03/16 06:00 08/04/16 06:00 Problem List - Problems (1) Abdominal pain Code(s): R10.9 - UNSPECIFIED ABDOMINAL PAIN Qualifiers: Abdominal location: generalized Qualified Code(s): R10.84 - Generalized abdominal pain (2) Small bowel obstruction Code(s): K56.69 - OTHER INTESTINAL OBSTRUCTION (3) Hypertension Code(s): I10 - ESSENTIAL (PRIMARY) HYPERTENSION Assessment/Plan Current Medications Generic Name Dose Route Start Last Admin Trade Name Freq PRN Reason Stop Dose Admin Acetaminophen 650 mg 07/27/16 15:25 07/27/16 22:34 Tylenol - PO 650 mg Q6H PRN Administration FEVER OR PAIN Enoxaparin Sodium 40 mg 07/28/16 16:15 08/04/16 09:30 Lovenox - SQ 40 mg DAILY [facility] Administration Hydromorphone HCl 1 mg 07/30/16 16:38 08/01/16 18:32 Dilaudid Injection - IVPB 1 mg Q4H PRN Administration PAIN IV Flush 8 ml 07/31/16 16:39 08/02/16 22:34 Picc Line Flush IVPUSH 8 ml PRN PRN Administration Protocol Pantoprazole Sodium 100 mls @ 200 mls/hr 07/27/16 22:00 08/04/16 09:29 Protonix 40mg Ivpb (Pre-Docked) IVPB 200 mls/hr BID [facility] Administration Ertapenem 1 gm/ Sodium 50 mls @ 100 mls/hr 07/30/16 12:00 08/04/16 10:37 Chloride IVPB 100 mls/hr DAILY [facility] Administration Protocol Multivitamins/Minerals 10 ml/ 1,200 mls @ 50 mls/hr 08/03/16 16:00 08/03/16 16: 26 Potassium Chloride 20 meq/ IV 50 mls/hr Sterile Water/ Amino Acids/ DAILY@1600 [facility] Administration Dextrose Insulin Aspart 1 vial 08/04/16 16:30 Novolog Vial Sliding Scale - SQ ACHS [facility] Protocol Lactobacillus Acidophilus 1 tab 07/27/16 22:00 03/30/17 09:30 Bacid - PO 1 tab BID [facility] Administration Ondansetron HCl 4 mg 07/27/16 15:25 Zofran Injection IVPB Q6H PRN NAUSEA Impression 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 HTN 3. SBO - recurrent 4. adhesions 5. abdominal abscess Plan - surgery input appreciated - will stop TPN - pt is tolerating diet - discussed with nursing staff - surgery follow up - discussed with medical team - wound care Dr Hauser
[2016-08-04] MEDS: INSULIN SLIDING SCALE (NOVOLOG) 1 VIAL SQ SCH ×2 (17:34→23:23)
[2016-08-04] MEDS: POTASSIUM CHLORIDE IV SCH (19:35)
[2016-08-04] MEDS: [UNRECOGNIZED DRUG - OTHER] IV SCH (19:35)
[2016-08-04] MEDS: MULTIVIT IV SCH (19:35)
[2016-08-04] MEDS ORDERED: INSULIN (NOVOLOG) ASPART 100 UNITS/ML 10ML VIAL ONE (22:50)
[2016-08-05] MEDS: INSULIN SLIDING SCALE (NOVOLOG) 1 VIAL SQ SCH ×5 (06:52→21:53)
[2016-08-05 08:20] LABS: BASOPHIL 0.5 % (0-2.0); EOSINOPHIL 2.1 % (0-4.5); MCH 26.6 pg (25.7-33.7); MCHC 32.9 g/dl (32.0-36.0); MEAN CELL VOLUME 80.8 fl (80-96); MEAN PLT VOLUME 8.2 fl (7.5-11.1); NEUTROPHILS 74.4 % (42.8-82.8); PLATELET COUNT 322 K/MM3 (134-434); RDW 15.5 % (11.6-15.6); WHITE BLOOD COUNT 7.8 K/mm3 (4.0-10.0)
[2016-08-05 08:34] LABS: ALBUMIN 2.8 g/dl (3.4-5.0); ALK PHOS 78 U/L (45-117); ANION GAP 7 (8-16); BILIRUBIN,TOTAL 0.4 mg/dL (0.2-1.0); C-REACTIVE PROTEIN 0.6 MG/DL (0.00-0.3); CALCIUM 8.6 mg/dL (8.5-10.1); CO2 31 mmol/L (21-32); CREATININE 0.4 mg/dL (0.55-1.02); GLUCOSE,RANDOM 93 mg/dL (74-106); SGOT/AST 25 U/L (15-37); SGPT/ALT 36 U/L (12-78); TOT PROT 6.5 g/dl (6.4-8.2)
[2016-08-05] MEDS ORDERED: PT OWN MED DRAWER 7, Y5N ONE (10:29)
[2016-08-05] MEDS: ERTAPENEM SODIUM 1 GM in SODIUM CHLORIDE 50 ML IVPB SCH (10:31)
[2016-08-05] MEDS: PANTOPRAZOLE SODIUM 100 ML IVPB SCH ×2 (10:31→21:09)
[2016-08-05] MEDS: LACTOBACILLUS ACIDOPHILUS 1 EACH TAB (FP) PO SCH ×2 (10:31→21:09)
--- NOTE | 2016-08-05 10:32 | PN ---
Progress Note, Physician Chief Complaint: none History of Present Illness: pt doing well. output 130cc. some pain near incision. - Current Medication List Current Medications: Active Medications Acetaminophen (Tylenol -) 650 mg PO Q6H PRN PRN Reason: FEVER OR PAIN Last Admin: 07/27/16 22:34 Dose: 650 mg IV Flush (Picc Line Flush) 8 ml IVPUSH PRN PRN PRN Reason: Protocol Last Admin: 08/02/16 22:34 Dose: 8 ml Pantoprazole Sodium (Protonix 40mg Ivpb (Pre-Docked)) 100 mls @ 200 mls/hr IVPB BID [facility] Last Admin: 08/04/16 23:17 Dose: 200 mls/hr Ertapenem 1 gm/ Sodium (Chloride) 50 mls @ 100 mls/hr IVPB DAILY [facility] PRN Reason: Protocol Last Admin: 08/04/16 10:37 Dose: 100 mls/hr Insulin Aspart (Novolog Vial Sliding Scale -) 1 vial SQ ACHS [facility] PRN Reason: Protocol Last Admin: 08/05/16 06:52 Dose: Not Given Lactobacillus Acidophilus (Bacid -) 1 tab PO BID [facility] Last Admin: 08/04/16 23:16 Dose: 1 tab Ondansetron HCl (Zofran Injection) 4 mg IVPB Q6H PRN PRN Reason: NAUSEA - Objective Vital Signs: Vital Signs Temperature 97.7 F 08/05/16 06:00 Pulse Rate 89 08/05/16 06:00 Respiratory Rate 16 08/05/16 06:00 Blood Pressure 96/67 08/05/16 06:00 O2 Sat by Pulse Oximetry (%) 97 08/04/16 21:00 Constitutional: Yes: No Distress, Calm Eyes: Yes: Conjunctiva Clear, EOM Intact HENT: Yes: Atraumatic, Normocephalic Neck: Yes: Supple, Trachea Midline Cardiovascular: Yes: Regular Rate and Rhythm Respiratory: Yes: Regular Gastrointestinal: Yes: Soft, Tenderness, Other (min induration at upper aspect of open wound. when I push there is more drainage from incision. it is thicken brown liquid most likely enteric. ?? colonic?? nonetheless I removed 1 staple and probed wound to try to open it more. pt did not tolerate well.). No: Distention Genitourinary: No: CVA Tenderness - Left, CVA Tenderness - Right Breast(s): No: Dimpling, Skin Changes Musculoskeletal: No: Joint Stiffness, Joint Swelling Extremities: No: Calf Tenderness, Erythema Integumentary: No: Erythema, Rash Wound/Incision: Yes: Other (see above) Neurological: Yes: Alert, Oriented Psychiatric: Yes: Alert, Oriented Labs: CBC, BMP 08/05/16 06:50 08/05/16 06:50 Problem List - Problems (1) Abdominal pain Code(s): R10.9 - UNSPECIFIED ABDOMINAL PAIN Qualifiers: Abdominal location: generalized Qualified Code(s): R10.84 - Generalized abdominal pain (2) Leukocytosis Code(s): D72.829 - ELEVATED WHITE BLOOD CELL COUNT, UNSPECIFIED (3) SIRS (systemic inflammatory response syndrome) Code(s): R65.10 - SIRS OF NON-INFECTIOUS ORIGIN W/O ACUTE ORGAN DYSFUNCTION (4) Enterocutaneous fistula Assessment/Plan: cont reg diet monitor wound it appears area above open wound is indurated but it is draining easily. if induration or pain worsen will consider local exploration under sedation in operating room on monday. cont abx re-eval discharge on monday or monday. Code(s): K63.2 - FISTULA OF INTESTINE
[2016-08-05] MEDS ORDERED: oxyCODONE HCL 5 MG TABLET PO PRN ×2 (10:37→10:47)
[2016-08-05] MEDS ORDERED: ACETAMINOPHEN 325 MG TABLET (FP) PO PRN (10:47)
--- NOTE | 2016-08-05 11:47 | PN ---
Progress Note (short form) - Note Progress Note: day #15 antibiotics day #7 ertapenem some pain- wound explored at bedsider earlier by surgeon s/p exp lap 07/27 with drainage of intraabdominal abscess Vital Signs Period Temp Pulse Resp BP Sys/Golden Pulse Ox Last 24 Hr 97.7 F-99.0 F 89-97 16-20 96-104/67-69 97 cor-rrr lungs clear abd soft, no distention, +pouch with drainage ext no edema +Central line CBC, BMP 08/05/16 06:50 08/05/16 06:50 Laboratory Tests 08/05/16 08/05/16 06:50 06:50 ESR 76 H C-Reactive Protein 0.6 H D a/p enterocutaneous fistula s/p drainage intraabdominal abscess ecoli bacteremia continue ertapenem day #[address] still with collection and inflammation surgical note reviewed, upper aspect of open wound explored at bedside with more drainage to continue antibiotics over the weekend
[2016-08-05] MEDS: morphine CARPU-JECT 2 MG/1 ML DISP.SYRIN IVPUSH PRN (11:48)
[2016-08-05] MEDS ORDERED: INSULIN (NOVOLOG) ASPART 100 UNITS/ML 10ML VIAL ONE (12:28)
--- NOTE | 2016-08-05 15:26 | PN ---
Physical Exam: SUBJECTIVE: Patient seen and examined. She was sitting up in the chair, states she had a small formed BM this morning. Denies any discomfort, states current pain med regimen relieves her abdominal discomfort. OBJECTIVE: Abdomen slightly distended, jocelynn intact, colostomy pouch mid abdomen with brown purulent drainage dehiscence of abdominal wound on site of ostomy pouch as per surgery, may have local exploration under sedation in OR on Monday Vital Signs Period Temp Pulse Resp BP Sys/Golden Pulse Ox Last 24 Hr 97.7 F-98.2 F 89-102 16-20 96-104/65-70 97-97 GENERAL: The patient is awake, alert, and fully oriented, in no acute distress. HEAD: Normal with no signs of trauma. EYES: PERRL, extraocular movements intact, sclera anicteric, conjunctiva clear. No ptosis. ENT: Ears normal, nares patent, oropharynx clear without exudates, moist mucous membranes. NECK: Trachea midline, full range of motion, supple. LUNGS: Breath sounds equal, clear to auscultation bilaterally, no wheezes, no crackles, no accessory muscle use. HEART: Regular rate and rhythm ABDOMEN: abdomen with multiple jocelynn of wound, lower portion of abdomen with dehiscense of wound, pt reports pain/discomfort above abdominal wound EXTREMITIES: no edema. NEUROLOGICAL: Normal speech, gait not observed. PSYCH: Normal mood, normal affect. SKIN: Warm, dry, normal turgor, no rashes or lesions noted Laboratory Results - last 24 hr 08/04/16 08/05/16 08/05/16 23:22 06:50 06:50 WBC RBC Hgb Hct MCV MCHC RDW Plt Count MPV Neutrophils % Lymphocytes % Monocytes % Eosinophils % Basophils % ESR 76 H Sodium 142 Potassium 4.0 Chloride 104 Carbon Dioxide 31 Anion Gap 7 L BUN 10 Creatinine 0.4 L D Creat Clearance w eGFR > 60 POC Glucometer 115 Random Glucose 93 Calcium 8.6 Total Bilirubin 0.4 D AST 25 D ALT 36 Alkaline Phosphatase 78 C-Reactive Protein 0.6 H D Total Protein 6.5 Albumin 2.8 L 08/05/16 08/05/16 06:50 06:51 WBC 7.8 RBC 4.15 Hgb 11.0 Hct 33.5 MCV 80.8 MCHC 32.9 RDW 15.5 Plt Count 322 MPV 8.2 Neutrophils % 74.4 Lymphocytes % 16.8 Monocytes % 6.2 Eosinophils % 2.1 Basophils % 0.5 ESR Sodium Potassium Chloride Carbon Dioxide Anion Gap BUN Creatinine Creat Clearance w eGFR POC Glucometer 102 Random Glucose Calcium Total Bilirubin AST ALT Alkaline Phosphatase C-Reactive Protein Total Protein Albumin Active Medications Generic Name Dose Route Start Last Admin Trade Name Freq PRN Reason Stop Dose Admin Acetaminophen 650 mg 07/27/16 15:25 07/27/16 22:34 Tylenol - PO 650 mg Q6H PRN Administration FEVER OR PAIN Acetaminophen 325 mg 08/05/16 10:47 Tylenol - PO Q4H PRN PAIN LEVEL 1-5 IV Flush 8 ml 07/31/16 16:39 08/02/16 22:34 Picc Line Flush IVPUSH 8 ml PRN PRN Administration Protocol Pantoprazole Sodium 100 mls @ 200 mls/hr 07/27/16 22:00 08/05/16 10:31 Protonix 40mg Ivpb (Pre-Docked) IVPB 200 mls/hr BID [facility] Administration Ertapenem 1 gm/ Sodium 50 mls @ 100 mls/hr 07/30/16 12:00 08/05/16 10:31 Chloride IVPB 100 mls/hr DAILY [facility] Administration Protocol Insulin Aspart 1 vial 08/04/16 16:30 08/05/16 13:45 Novolog Vial Sliding Scale - SQ Not Given ACHS [facility] Protocol Lactobacillus Acidophilus 1 tab 07/27/16 22:00 08/05/16 10:31 Bacid - PO 1 tab BID [facility] Administration Morphine Sulfate 2 mg 08/05/16 10:37 08/05/16 11:48 Morphine Injection - IVPUSH 2 mg Q3H PRN Administration PAIN LEVEL 6-10 Ondansetron HCl 4 mg 07/27/16 15:25 Zofran Injection IVPB Q6H PRN NAUSEA Oxycodone HCl 5 mg 08/05/16 10:47 Roxicodone - PO Q4H PRN PAIN LEVEL 1-5 ASSESSMENT/PLAN: This is a 51 year old female with a past medical history of hypertension and multiple abdominal surgeries with the most recent one done on 07/14/16. She had shaking chills at home and family called EMS and patient was brought into [facility]. At [facility] she had a fever of 102.5F. Since she is a patient of Dr. Jin, she was transferred from [facility] to [facility] on 07/22/2016 for further treatment under Dr. Jin. She has a significant pat medical history of extensive lysis of adhesions, small bowel resection x 2, appendectomy, and hernia repair on 07/14/2016. On 07/27/2016 she had an exploratory lap with Dr. Jin with drainage of intra abdominal abscess. Apx 400 cc of purulent fluid was obtained from abdomen. She now has an ostomy bag with drainage of brown purulent drainage. She will likely have local exploration under sedation in the OR on Monday with Dr. Jin. Imaging: Abd CT/Pelvis 08/01/2016: edema in right lower abd pelvis with thickening of the adj small bowel loops - tubular shaped collection present in lower ant abdomen/ pelvis wall. GI: Entercutaneous fistula/intra abd wound secondary multiple intra abdominal abscesses with recurrent SBO Assessment/Plan: S/p lap on 07/27/2016 for intra abdominal abscess and multiple abdominal surgeries ostomy bag with brown purulent dressing, s/p TPN which was stopped yesterday, tolerating regular diet local exploration under sedation in the OR on Monday with Dr. Jin. Strict intake and output of ostomy pouch drainage Monitor vitals surgical note reviewed, upper aspect of open wound with more drainage On Enterpenem since 07/30/2016 per ID to continue antibiotics over the weekend NPO @ monday midnight for exp. lap ID: Sepsis secondary to intra abdominal abscess - improving Assessment/Plan: + enterobacter cloacae of abd. fluids On Ertapenem 1 gm started on 07/30/2016 hemodynamically stable monitor F.E.N. Fluids: no IVF, tolerating PO Electrolytes: within normal limits Nutrition: regular Prophylaxis: DVT: on Lovenox 40mg daily, ambulates GI: Protonix 40mg BID Disposition: Requires inpatient hospitalization. Full Code. Visit type - Emergency Visit Emergency Visit: Yes ED Registration Date: 07/22/16 Care time: The patient presented to the Emergency Department on the above date and was hospitalized for further evaluation of their emergent condition. - New Patient This patient is new to me today: No - Critical Care Critical Care patient: No - Discharge Referral Referred to [facility] Med P.C.: No
--- NOTE | 2016-08-05 16:38 | PN ---
Progress Note, Physician History of Present Illness: Pt seen and examined at bedside. She is awake and alert. She is tolerating diet so far. She denies shortness of breath. - Current Medication List Current Medications: Active Medications Acetaminophen (Tylenol -) 650 mg PO Q6H PRN PRN Reason: FEVER OR PAIN Last Admin: 07/27/16 22:34 Dose: 650 mg Acetaminophen (Tylenol -) 325 mg PO Q4H PRN PRN Reason: PAIN LEVEL 1-5 Enoxaparin Sodium (Lovenox -) 40 mg SQ DAILY [facility] IV Flush (Picc Line Flush) 8 ml IVPUSH PRN PRN PRN Reason: Protocol Last Admin: 08/02/16 22:34 Dose: 8 ml Pantoprazole Sodium (Protonix 40mg Ivpb (Pre-Docked)) 100 mls @ 200 mls/hr IVPB BID [facility] Last Admin: 08/05/16 10:31 Dose: 200 mls/hr Ertapenem 1 gm/ Sodium (Chloride) 50 mls @ 100 mls/hr IVPB DAILY RIKA PRN Reason: Protocol Last Admin: 08/05/16 10:31 Dose: 100 mls/hr Insulin Aspart (Novolog Vial Sliding Scale -) 1 vial SQ ACHS RIKA PRN Reason: Protocol Last Admin: 08/05/16 13:45 Dose: Not Given Lactobacillus Acidophilus (Bacid -) 1 tab PO BID [facility] Last Admin: 08/05/16 10:31 Dose: 1 tab Morphine Sulfate (Morphine Injection -) 2 mg IVPUSH Q3H PRN PRN Reason: PAIN LEVEL 6-10 Last Admin: 08/05/16 11:48 Dose: 2 mg Ondansetron HCl (Zofran Injection) 4 mg IVPB Q6H PRN PRN Reason: NAUSEA Oxycodone HCl (Roxicodone -) 5 mg PO Q4H PRN PRN Reason: PAIN LEVEL 1-5 - Objective Vital Signs: Vital Signs Temperature 97.9 F 08/05/16 14:51 Pulse Rate 102 H 08/05/16 14:51 Respiratory Rate 18 08/05/16 09:00 Blood Pressure 96/70 08/05/16 14:51 O2 Sat by Pulse Oximetry (%) 97 08/05/16 09:00 Constitutional: Yes: Calm Eyes: Yes: Conjunctiva Clear HENT: Yes: Atraumatic Neck: Yes: Supple Cardiovascular: Yes: S1, S2 Respiratory: Yes: CTA Bilaterally Gastrointestinal: Yes: Other (dressing in place) Edema: No Neurological: Yes: Oriented Psychiatric: Yes: Oriented Labs: CBC, BMP 08/05/16 06:50 08/05/16 06:50 Problem List - Problems (1) Abdominal pain Code(s): R10.9 - UNSPECIFIED ABDOMINAL PAIN Qualifiers: Abdominal location: generalized Qualified Code(s): R10.84 - Generalized abdominal pain (2) Small bowel obstruction Code(s): K56.69 - OTHER INTESTINAL OBSTRUCTION (3) Hypertension Code(s): I10 - ESSENTIAL (PRIMARY) HYPERTENSION Assessment/Plan Current Medications Generic Name Dose Route Start Last Admin Trade Name Freq PRN Reason Stop Dose Admin Acetaminophen 650 mg 07/27/16 15:25 07/27/16 22:34 Tylenol - PO 650 mg Q6H PRN Administration FEVER OR PAIN Acetaminophen 325 mg 08/05/16 10:47 Tylenol - PO Q4H PRN PAIN LEVEL 1-5 Enoxaparin Sodium 40 mg 08/05/16 16:00 Lovenox - SQ DAILY RIKA IV Flush 8 ml 07/31/16 16:39 08/02/16 22:34 Picc Line Flush IVPUSH 8 ml PRN PRN Administration Protocol Pantoprazole Sodium 100 mls @ 200 mls/hr 07/27/16 22:00 08/05/16 10:31 Protonix 40mg Ivpb (Pre-Docked) IVPB 200 mls/hr BID RIKA Administration Ertapenem 1 gm/ Sodium 50 mls @ 100 mls/hr 07/30/16 12:00 08/05/16 10:31 Chloride IVPB 100 mls/hr DAILY RIKA Administration Protocol Insulin Aspart 1 vial 08/04/16 16:30 08/05/16 13:45 Novolog Vial Sliding Scale - SQ Not Given ACHS RIKA Protocol Lactobacillus Acidophilus 1 tab 07/27/16 22:00 08/05/16 10:31 Bacid - PO 1 tab BID RIKA Administration Morphine Sulfate 2 mg 08/05/16 10:37 08/05/16 11:48 Morphine Injection - IVPUSH 2 mg Q3H PRN Administration PAIN LEVEL 6-10 Ondansetron HCl 4 mg 07/27/16 15:25 Zofran Injection IVPB Q6H PRN NAUSEA Oxycodone HCl 5 mg 08/05/16 10:47 Roxicodone - PO Q4H PRN PAIN LEVEL 1-5 Impression 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 HTN 3. SBO - recurrent 4. adhesions 5. abdominal abscess Plan - pt is tolerating diet - she has been off or TPN since yesterday afternoon - labs reviewed - surgery follow up - will sign off please recall as needed Dr Hauser
[2016-08-05] MEDS: ENOXAPARIN NA (PORCINE) 40 MG/0.4 ML DISP.SYRIN SQ SCH (17:47)
[2016-08-06] MEDS: INSULIN SLIDING SCALE (NOVOLOG) 1 VIAL SQ SCH ×4 (06:08→22:12)
[2016-08-06 08:24] LABS: BASOPHIL 0.6 % (0-2.0); EOSINOPHIL 2.7 % (0-4.5); MCH 26.5 pg (25.7-33.7); MCHC 32.8 g/dl (32.0-36.0); MEAN CELL VOLUME 80.9 fl (80-96); MEAN PLT VOLUME 8.3 fl (7.5-11.1); NEUTROPHILS 67.4 % (42.8-82.8); PLATELET COUNT 292 K/MM3 (134-434); RDW 15.6 % (11.6-15.6); WHITE BLOOD COUNT 6.6 K/mm3 (4.0-10.0)
[2016-08-06 09:08] LABS: ALBUMIN 2.8 g/dl (3.4-5.0); ANION GAP 9 (8-16); CALCIUM 8.6 mg/dL (8.5-10.1); CO2 30 mmol/L (21-32); GLUCOSE,RANDOM 90 mg/dL (74-106)
[2016-08-06] MEDS ORDERED: PT OWN MED DRAWER 7, Y5N ONE (09:23)
[2016-08-06 09:24] LABS: ALK PHOS 79 U/L (45-117); BILIRUBIN,TOTAL 0.2 mg/dL (0.2-1.0); CREATININE 0.4 mg/dL (0.55-1.02); SGOT/AST 19 U/L (15-37); SGPT/ALT 32 U/L (12-78); TOT PROT 6.3 g/dl (6.4-8.2)
[2016-08-06] MEDS: ENOXAPARIN NA (PORCINE) 40 MG/0.4 ML DISP.SYRIN SQ SCH (09:26)
[2016-08-06] MEDS: LACTOBACILLUS ACIDOPHILUS 1 EACH TAB (FP) PO SCH ×2 (09:27→22:12)
[2016-08-06] MEDS: PANTOPRAZOLE SODIUM 100 ML IVPB SCH ×2 (09:28→22:12)
[2016-08-06] MEDS: ERTAPENEM SODIUM 1 GM in SODIUM CHLORIDE 50 ML IVPB SCH (10:16)
[2016-08-06] MEDS: morphine CARPU-JECT 2 MG/1 ML DISP.SYRIN IVPUSH PRN ×2 (10:40→20:45)
--- NOTE | 2016-08-06 10:55 | PN ---
Progress Note (short form) - Note Progress Note: Pt without complaints, tolerating a regular diet. She is having soft bowel movments. Vital Signs Period Temp Pulse Resp BP Sys/Golden Pulse Ox Last 24 Hr 97.9 F-99.0 F 91-102 19-20 96-107/68-76 97 abd wound drainage: 100 overnight and an additional 30 today PE: ABD: soft, non-distended, non-tender. Midline jocelynn line cleaned and two jocelynn removed inferiorly so ostomy adheres better. Wafer changed today and wound cleaned. Outpt remains light brown into osotomy collection. LE: no calf tenderness or swelling noted b/l CBC, BMP 08/06/16 06:00 A/P: 51 yo female s/p exp lap with CARMEN/SB resection and exp lap with drainage of intra-abd collection. Now with fistula. Wound appears clean and ostomy to collect enteric fluids. Continue regular diet and monitor outpt closely, order placed for strict outpt recordings of ostomy. D/w Dr. Jin
--- NOTE | 2016-08-06 11:45 | PN ---
Progress Note (short form) - Note Progress Note: Subjective: The patient was seen and examined at the bedside eating breakfast. She has no complaints at this time. Current Medications Generic Name Dose Route Start Last Admin Trade Name Freq PRN Reason Stop Dose Admin Acetaminophen 650 mg 07/27/16 15:25 07/27/16 22:34 Tylenol - PO 650 mg Q6H PRN Administration FEVER OR PAIN Acetaminophen 325 mg 08/05/16 10:47 Tylenol - PO Q4H PRN PAIN LEVEL 1-5 Enoxaparin Sodium 40 mg 08/05/16 16:00 08/06/16 09:26 Lovenox - SQ 40 mg DAILY RIKA Administration IV Flush 8 ml 07/31/16 16:39 08/02/16 22:34 Picc Line Flush IVPUSH 8 ml PRN PRN Administration Protocol Pantoprazole Sodium 100 mls @ 200 mls/hr 07/27/16 22:00 08/06/16 09:28 Protonix 40mg Ivpb (Pre-Docked) IVPB 200 mls/hr BID RIKA Administration Ertapenem 1 gm/ Sodium 50 mls @ 100 mls/hr 07/30/16 12:00 08/06/16 10:16 Chloride IVPB 100 mls/hr DAILY RIKA Administration Protocol Insulin Aspart 1 vial 08/04/16 16:30 08/06/16 06:08 Novolog Vial Sliding Scale - SQ Not Given ACHS RIKA Protocol Lactobacillus Acidophilus 1 tab 07/27/16 22:00 08/06/16 09:27 Bacid - PO 1 tab BID RIKA Administration Morphine Sulfate 2 mg 08/05/16 10:37 08/06/16 10:40 Morphine Injection - IVPUSH 2 mg Q3H PRN Administration PAIN LEVEL 6-10 Ondansetron HCl 4 mg 07/27/16 15:25 Zofran Injection IVPB Q6H PRN NAUSEA Oxycodone HCl 5 mg 08/05/16 10:47 Roxicodone - PO Q4H PRN PAIN LEVEL 1-5 Objective: Vital Signs Period Temp Pulse Resp BP Sys/Golden Pulse Ox Last 24 Hr 97.9 F-99.0 F 91-102 19-20 96-107/68-76 97 Physical Exam: General: NAD, A&Ox3 Lungs: CTA bilaterally Heart: RRR, S1S2 Abd: Midline abdominal incision with jocelynn with mild erythema. Midline lower abdominal fistula bag in place, light brown output. Mildly tender, non- distended. Normoactive bowel sounds Ext: Warm, well-perfused. 2+ DP/PT bilaterally Neuro: CN 2-12 intact CBCD WBC 6.6 K/mm3 (4.0-10.0) 08/06/16 06:00 RBC 4.00 M/mm3 (3.60-5.2) 08/06/16 06:00 Hgb 10.6 GM/dL (10.7-15.3) L 08/06/16 06:00 Hct 32.4 % (32.4-45.2) 08/06/16 06:00 MCV 80.9 fl (80-96) 08/06/16 06:00 MCHC 32.8 g/dl (32.0-36.0) 08/06/16 06:00 RDW 15.6 % (11.6-15.6) 08/06/16 06:00 Plt Count 292 K/MM3 (134-434) 08/06/16 06:00 MPV 8.3 fl (7.5-11.1) 08/06/16 06:00 CMP Sodium 140 mmol/L (136-145) 08/06/16 06:00 Potassium 4.1 mmol/L (3.5-5.1) 08/06/16 06:00 Chloride 101 mmol/L (98-107) 08/06/16 06:00 Carbon Dioxide 30 mmol/L (21-32) 08/06/16 06:00 Anion Gap 9 (8-16) 08/06/16 06:00 BUN 10 mg/dL (7-18) 08/06/16 06:00 Creatinine 0.4 mg/dL (0.55-1.02) L 08/06/16 06:00 Creat Clearance w eGFR > 60 (>60) 08/06/16 06:00 Random Glucose 90 mg/dL (74-106) 08/06/16 06:00 Calcium 8.6 mg/dL (8.5-10.1) 08/06/16 06:00 Total Bilirubin 0.2 mg/dL (0.2-1.0) D 08/06/16 06:00 AST 19 U/L (15-37) D 08/06/16 06:00 ALT 32 U/L (12-78) 08/06/16 06:00 Alkaline Phosphatase 79 U/L (45-117) 08/06/16 06:00 Total Protein 6.3 g/dl (6.4-8.2) L 08/06/16 06:00 Albumin 2.8 g/dl (3.4-5.0) L 08/06/16 06:00 Microbiology 07/22/16 04:25 Nasopharyngeal Swab Respiratory Virus Panel - Final 07/27/16 15:00 Body Fluid - Other Gram Stain - Final 07/27/16 15:00 Body Fluid - Other Body Fluid Culture - Final Enterobacter Cloacae 07/27/16 15:00 Body Fluid - Other Anaerobic Culture - Final NO ANAEROBES WERE ISOLATED 07/24/16 06:30 Stool Salmonella/Shigella Culture - Final NO GROWTH OF SALMONELLA OR SHIGELLA SPECIES OBTAINED 07/24/16 06:30 Stool Campylobacter Culture - Final NO GROWTH OF CAMPYLOBACTER SPECIES OBTAINED 07/24/16 06:30 Stool Yersinia Culture - Final NO GROWTH OF YERSINIA SPECIES OBTAINED 07/24/16 06:30 Stool Vibrio Culture - Final NO GROWTH OF VIBRIO SPECIES OBTAINED 07/24/16 06:30 Stool Escherichia coli 0157 Culture - Final NO GROWTH OF E COLI 0157 OBTAINED 07/25/16 20:30 Stool Gram Stain - Final 07/22/16 04:25 Blood - Peripheral Venous Blood Culture - Final Escherichia Coli 07/22/16 05:16 Blood - Peripheral Venous Blood Culture - Final Escherichia Coli 07/23/16 17:00 Stool Clostridium difficile Antigen (MILEY) - Final 07/23/16 17:00 Stool Clostridium difficile Toxin Assay - Final 07/22/16 14:20 Abscess Gram Stain - Final 07/22/16 14:20 Abscess Body Fluid Culture - Final NO GROWTH OF AEROBIC ORGANISMS AFTER 48 HOURS INCUBATION 07/22/16 14:20 Abscess Anaerobic Culture - Final NO ANAEROBES WERE ISOLATED 07/22/16 15:00 Urine - Urine Le Urine Culture - Final NO GROWTH OBTAINED 07/22/16 04:25 Nasopharyngeal Swab Influenza Types A,B Antigen (MILEY) - Final 07/22/16 04:25 Nasopharyngeal Swab - Final Assessment: This is a 51 year old female with PMHx of HTN, recurrent SBO (s/p abdominal surgery on 07/14/16), who presented to the ED with sepsis 2/2 multiple intraabdominal abscesses/ Plan: 1) ID: Sepsis 2/2 multiple enterobacter colacae abdominal abscesses, e.coli bacteremia - Continue Ertapenem (Day 8) - CT 08/01 still with collection - Per surgery, if induation on wound worsens, consider local exploration in OR on Monday - Appreciate ID consult 2) GI: 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 - As above - Tolerating diet - Off TPN - Ostomy pouch for fistula Recurrent small bowel obstructions complicated by multiple intra-abdominal abscesses - S/p open lysis of adhesions, small bowel resection x 2, completion appendectomy, ventral hernia repair 07/14/16 - S/p placement of RLQ abscess drainage catheter 07/22 - S/p ex lap drainage of intraabdominal abscess 07/27 3) F/E/N: - Monitor electrolytes - Regular diet 4) Prophylaxis: - OOB ambulating - Lovenox 40mg sq daily 5) Dispo: - Requires continued inpatient care CODE STATUS: FULL CODE Visit type - Emergency Visit Emergency Visit: Yes ED Registration Date: 07/22/16 Care time: The patient presented to the Emergency Department on the above date and was hospitalized for further evaluation of their emergent condition. - New Patient This patient is new to me today: Yes Date on this admission: 08/22/16 - Critical Care Critical Care patient: No
--- NOTE | 2016-08-06 12:33 | PN ---
Progress Note (short form) - Note Progress Note: Overall feels better today. Tolerating PO intake. No CP or SOB. No acute events overnight. Intake & Output 08/03/16 08/04/16 08/05/16 08/06/16 23:59 23:59 23:59 23:59 Intake Total 2674 2250 1100 750 Output Total 132 130 Balance 2674 2118 1100 620 Weight 128 lb 8 oz 128 lb 4.8 oz 130 lb 1 oz Last Vital Signs Temp Pulse Resp BP Pulse Ox 98.2 F 96 H 18 96/68 97 08/06/16 10:00 08/06/16 10:00 08/06/16 10:00 08/06/16 10:00 08/05/16 21:00 Active Medications Acetaminophen (Tylenol -) 650 mg PO Q6H PRN PRN Reason: FEVER OR PAIN Last Admin: 07/27/16 22:34 Dose: 650 mg Acetaminophen (Tylenol -) 325 mg PO Q4H PRN PRN Reason: PAIN LEVEL 1-5 Enoxaparin Sodium (Lovenox -) 40 mg SQ DAILY [facility] Last Admin: 08/06/16 09:26 Dose: 40 mg IV Flush (Picc Line Flush) 8 ml IVPUSH PRN PRN PRN Reason: Protocol Last Admin: 08/02/16 22:34 Dose: 8 ml Pantoprazole Sodium (Protonix 40mg Ivpb (Pre-Docked)) 100 mls @ 200 mls/hr IVPB BID [facility] Last Admin: 08/06/16 09:28 Dose: 200 mls/hr Ertapenem 1 gm/ Sodium (Chloride) 50 mls @ 100 mls/hr IVPB DAILY [facility] PRN Reason: Protocol Last Admin: 08/06/16 10:16 Dose: 100 mls/hr Insulin Aspart (Novolog Vial Sliding Scale -) 1 vial SQ ACHS RIKA PRN Reason: Protocol Last Admin: 08/06/16 11:31 Dose: Not Given Lactobacillus Acidophilus (Bacid -) 1 tab PO BID [facility] Last Admin: 08/06/16 09:27 Dose: 1 tab Morphine Sulfate (Morphine Injection -) 2 mg IVPUSH Q3H PRN PRN Reason: PAIN LEVEL 6-10 Last Admin: 08/06/16 10:40 Dose: 2 mg Ondansetron HCl (Zofran Injection) 4 mg IVPB Q6H PRN PRN Reason: NAUSEA Oxycodone HCl (Roxicodone -) 5 mg PO Q4H PRN PRN Reason: PAIN LEVEL 1-5 Gen: NAD Heart: RRR Lung: few basilar rhonchi Abd: soft, NT, (+) BS, Ostomy intact Ext: no edema Laboratory Results - last 24 hr 08/05/16 08/06/16 08/06/16 21:14 05:36 06:00 WBC 6.6 RBC 4.00 Hgb 10.6 L Hct 32.4 MCV 80.9 MCHC 32.8 RDW 15.6 Plt Count 292 MPV 8.3 Neutrophils % 67.4 Lymphocytes % 22.7 D Monocytes % 6.6 Eosinophils % 2.7 Basophils % 0.6 Sodium Potassium Chloride Carbon Dioxide Anion Gap BUN Creatinine Creat Clearance w eGFR POC Glucometer 164 99 Random Glucose Calcium Total Bilirubin AST ALT Alkaline Phosphatase Total Protein Albumin 08/06/16 08/06/16 06:00 11:29 WBC RBC Hgb Hct MCV MCHC RDW Plt Count MPV Neutrophils % Lymphocytes % Monocytes % Eosinophils % Basophils % Sodium 140 Potassium 4.1 Chloride 101 Carbon Dioxide 30 Anion Gap 9 BUN 10 Creatinine 0.4 L Creat Clearance w eGFR > 60 POC Glucometer 116 Random Glucose 90 Calcium 8.6 Total Bilirubin 0.2 D AST 19 D ALT 32 Alkaline Phosphatase 79 Total Protein 6.3 L Albumin 2.8 L A/P Recent SBO/ex-lap/SB resection x 2 Intra-abdominal Abscess s/p IR drainage Gram Negative Bacteremia Sepsis Lactic Acidosis HTN - ABX per ID - pain control - incentive spirometry - O2 as needed - PO as tolerated - OOB to chair / Ambulate - DVT prophylaxis Dr Cruz
[2016-08-07] MEDS: INSULIN SLIDING SCALE (NOVOLOG) 1 VIAL SQ SCH ×4 (06:13→21:20)
[2016-08-07 08:38] LABS: MCH 26.3 pg (25.7-33.7); MCHC 32.8 g/dl (32.0-36.0); MEAN CELL VOLUME 80.4 fl (80-96); MEAN PLT VOLUME 8.3 fl (7.5-11.1); PLATELET COUNT 306 K/MM3 (134-434); RDW 15.5 % (11.6-15.6); WHITE BLOOD COUNT 11.3 K/mm3 (4.0-10.0)
[2016-08-07 09:29] LABS: ALK PHOS 83 U/L (45-117); ANION GAP 12 (8-16); BILIRUBIN,TOTAL 0.5 mg/dL (0.2-1.0); CALCIUM 8.7 mg/dL (8.5-10.1); CO2 26 mmol/L (21-32); CREATININE 0.4 mg/dL (0.55-1.02); GLUCOSE,RANDOM 92 mg/dL (74-106); SGOT/AST 21 U/L (15-37); SGPT/ALT 34 U/L (12-78); TOT PROT 6.8 g/dl (6.4-8.2)
[2016-08-07] MEDS ORDERED: PT OWN MED DRAWER 7, Y5N ONE (09:46)
[2016-08-07] MEDS: ERTAPENEM SODIUM 1 GM in SODIUM CHLORIDE 50 ML IVPB SCH (09:51)
[2016-08-07] MEDS: LACTOBACILLUS ACIDOPHILUS 1 EACH TAB (FP) PO SCH ×2 (09:51→21:18)
[2016-08-07] MEDS: PANTOPRAZOLE SODIUM 100 ML IVPB SCH ×2 (09:51→21:18)
[2016-08-07] MEDS: ENOXAPARIN NA (PORCINE) 40 MG/0.4 ML DISP.SYRIN SQ SCH (09:52)
--- NOTE | 2016-08-07 11:11 | PN ---
Progress Note (short form) - Note Progress Note: Overall feels better. Tolerating PO intake. No CP or SOB. No acute events overnight. Intake & Output 08/04/16 08/05/16 08/06/16 08/07/16 23:59 23:59 23:59 23:59 Intake Total 2250 1100 1800 1000 Output Total 132 330 75 Balance 2118 1100 1470 925 Weight 128 lb 4.8 oz 130 lb 1 oz 128 lb Last Vital Signs Temp Pulse Resp BP Pulse Ox 98.4 F 97 H 18 106/64 97 08/07/16 09:50 08/07/16 09:50 08/07/16 09:50 08/07/16 09:50 08/05/16 21:00 Active Medications Acetaminophen (Tylenol -) 650 mg PO Q6H PRN PRN Reason: FEVER OR PAIN Last Admin: 07/27/16 22:34 Dose: 650 mg Acetaminophen (Tylenol -) 325 mg PO Q4H PRN PRN Reason: PAIN LEVEL 1-5 Enoxaparin Sodium (Lovenox -) 40 mg SQ DAILY [facility] Last Admin: 08/07/16 09:52 Dose: 40 mg IV Flush (Picc Line Flush) 8 ml IVPUSH PRN PRN PRN Reason: Protocol Last Admin: 08/02/16 22:34 Dose: 8 ml Pantoprazole Sodium (Protonix 40mg Ivpb (Pre-Docked)) 100 mls @ 200 mls/hr IVPB BID [facility] Last Admin: 08/07/16 09:51 Dose: 200 mls/hr Ertapenem 1 gm/ Sodium (Chloride) 50 mls @ 100 mls/hr IVPB DAILY [facility] PRN Reason: Protocol Last Admin: 08/07/16 09:51 Dose: 100 mls/hr Insulin Aspart (Novolog Vial Sliding Scale -) 1 vial SQ ACHS RIKA PRN Reason: Protocol Last Admin: 08/07/16 06:13 Dose: Not Given Lactobacillus Acidophilus (Bacid -) 1 tab PO BID [facility] Last Admin: 08/07/16 09:51 Dose: 1 tab Morphine Sulfate (Morphine Injection -) 2 mg IVPUSH Q3H PRN PRN Reason: PAIN LEVEL 6-10 Last Admin: 08/06/16 20:45 Dose: 2 mg Ondansetron HCl (Zofran Injection) 4 mg IVPB Q6H PRN PRN Reason: NAUSEA Oxycodone HCl (Roxicodone -) 5 mg PO Q4H PRN PRN Reason: PAIN LEVEL 1-5 Gen: NAD Heart: RRR Lung: few basilar rhonchi Abd: soft, NT, (+) BS, Ostomy intact Ext: no edema Laboratory Results - last 24 hr 08/06/16 08/06/16 08/07/16 11:29 16:54 06:00 WBC 11.3 H D RBC 4.14 Hgb 10.9 Hct 33.3 MCV 80.4 MCHC 32.8 RDW 15.5 Plt Count 306 MPV 8.3 Sodium Potassium Chloride Carbon Dioxide Anion Gap BUN Creatinine Creat Clearance w eGFR POC Glucometer 116 116 Random Glucose Calcium Total Bilirubin AST ALT Alkaline Phosphatase Total Protein Albumin 08/07/16 08/07/16 06:00 06:11 WBC RBC Hgb Hct MCV MCHC RDW Plt Count MPV Sodium 142 Potassium 4.2 Chloride 104 Carbon Dioxide 26 Anion Gap 12 BUN 8 Creatinine 0.4 L Creat Clearance w eGFR > 60 POC Glucometer 96 Random Glucose 92 Calcium 8.7 Total Bilirubin 0.5 D AST 21 ALT 34 Alkaline Phosphatase 83 Total Protein 6.8 Albumin 3.0 L A/P Recent SBO/ex-lap/SB resection x 2 Intra-abdominal Abscess s/p IR drainage Gram Negative Bacteremia Sepsis Lactic Acidosis HTN - ABX per ID - pain control - incentive spirometry - O2 as needed - PO as tolerated - OOB to chair / Ambulate - DVT prophylaxis Dr Cruz
[2016-08-07] MEDS: PICC LINE 8 ML FLUSH PROTOCOL IVPUSH PRN (11:13)
--- NOTE | 2016-08-07 11:43 | PN ---
Progress Note (short form) - Note Progress Note: Pt tolerating a diet and she continue to have normal bowel movements. Vital Signs Period Temp Pulse Resp BP Sys/Golden Pulse Ox Last 24 Hr 98.2 F-99.2 F 88-97 18-20 100-118/60-66 abd drainage: 275 light brown liquid PE: ABD: soft, non-distended, non-tender. Small amount of stool seepage under superior aspect of ostomy wafer onto suture line. No erythema noted to incision line. The wafer was removed, the incision was cleaned with NS. A new appliance was cut and the superior aspect was built up with Karya paste to even out the skin contact with the wafer. An additional two jocelynn were removed to provide for better contact between the skin/ostomy wafer. Her skin incision and edges are healed well. CBC, BMP 08/07/16 06:00 08/07/16 06:00 A/P: 51 yo female s/p exp lap with CARMEN/SB resection and exp lap with drainage of intra-abd collection. Now with fistula. local wound care with osotomy to help monitor/control the fistula outpt outpt 275 from 130ml the previous day Continue to monitor the outpt strictly
[2016-08-07] MEDS: morphine CARPU-JECT 2 MG/1 ML DISP.SYRIN IVPUSH PRN (11:45)
--- NOTE | 2016-08-07 13:41 | PN ---
Progress Note (short form) - Note Progress Note: Subjective: The patient was seen and examined at the bedside. She reports feeling good today. Denies any pain Current Medications Generic Name Dose Route Start Last Admin Trade Name Freq PRN Reason Stop Dose Admin Acetaminophen 650 mg 07/27/16 15:25 07/27/16 22:34 Tylenol - PO 650 mg Q6H PRN Administration FEVER OR PAIN Acetaminophen 325 mg 08/05/16 10:47 Tylenol - PO Q4H PRN PAIN LEVEL 1-5 Enoxaparin Sodium 40 mg 08/05/16 16:00 08/07/16 09:52 Lovenox - SQ 40 mg DAILY RIKA Administration IV Flush 8 ml 07/31/16 16:39 08/07/16 11:13 Picc Line Flush IVPUSH 8 ml PRN PRN Administration Protocol Pantoprazole Sodium 100 mls @ 200 mls/hr 07/27/16 22:00 08/07/16 09:51 Protonix 40mg Ivpb (Pre-Docked) IVPB 200 mls/hr BID RIKA Administration Ertapenem 1 gm/ Sodium 50 mls @ 100 mls/hr 07/30/16 12:00 08/07/16 09:51 Chloride IVPB 100 mls/hr DAILY RIKA Administration Protocol Insulin Aspart 1 vial 08/04/16 16:30 08/07/16 11:15 Novolog Vial Sliding Scale - SQ Not Given ACHS RIKA Protocol Lactobacillus Acidophilus 1 tab 07/27/16 22:00 08/07/16 09:51 Bacid - PO 1 tab BID RIKA Administration Morphine Sulfate 2 mg 08/05/16 10:37 08/07/16 11:45 Morphine Injection - IVPUSH 2 mg Q3H PRN Administration PAIN LEVEL 6-10 Ondansetron HCl 4 mg 07/27/16 15:25 Zofran Injection IVPB Q6H PRN NAUSEA Oxycodone HCl 5 mg 08/05/16 10:47 Roxicodone - PO Q4H PRN PAIN LEVEL 1-5 Objective: Vital Signs Period Temp Pulse Resp BP Sys/Golden Pulse Ox Last 24 Hr 98.2 F-99.2 F 88-97 18-20 100-118/60-66 96 Physical Exam: General: NAD, A&Ox3 Lungs: CTA bilaterally Heart: RRR, S1S2 Abd: Midline abdominal incision with jocelynn with dressing, c/d/i. Midline lower abdominal ostomy in place, light brown output. Mildly tender, non- distended. Normoactive bowel sounds Ext: Warm, well-perfused. 2+ DP/PT bilaterally Neuro: CN 2-12 intact CBCD WBC 11.3 K/mm3 (4.0-10.0) H D 08/07/16 06:00 RBC 4.14 M/mm3 (3.60-5.2) 08/07/16 06:00 Hgb 10.9 GM/dL (10.7-15.3) 08/07/16 06:00 Hct 33.3 % (32.4-45.2) 08/07/16 06:00 MCV 80.4 fl (80-96) 08/07/16 06:00 MCHC 32.8 g/dl (32.0-36.0) 08/07/16 06:00 RDW 15.5 % (11.6-15.6) 08/07/16 06:00 Plt Count 306 K/MM3 (134-434) 08/07/16 06:00 MPV 8.3 fl (7.5-11.1) 08/07/16 06:00 CMP Sodium 142 mmol/L (136-145) 08/07/16 06:00 Potassium 4.2 mmol/L (3.5-5.1) 08/07/16 06:00 Chloride 104 mmol/L (98-107) 08/07/16 06:00 Carbon Dioxide 26 mmol/L (21-32) 08/07/16 06:00 Anion Gap 12 (8-16) 08/07/16 06:00 BUN 8 mg/dL (7-18) 08/07/16 06:00 Creatinine 0.4 mg/dL (0.55-1.02) L 08/07/16 06:00 Creat Clearance w eGFR > 60 (>60) 08/07/16 06:00 Random Glucose 92 mg/dL (74-106) 08/07/16 06:00 Calcium 8.7 mg/dL (8.5-10.1) 08/07/16 06:00 Total Bilirubin 0.5 mg/dL (0.2-1.0) D 08/07/16 06:00 AST 21 U/L (15-37) 08/07/16 06:00 ALT 34 U/L (12-78) 08/07/16 06:00 Alkaline Phosphatase 83 U/L (45-117) 08/07/16 06:00 Total Protein 6.8 g/dl (6.4-8.2) 08/07/16 06:00 Albumin 3.0 g/dl (3.4-5.0) L 08/07/16 06:00 Microbiology 07/22/16 04:25 Nasopharyngeal Swab Respiratory Virus Panel - Final 07/27/16 15:00 Body Fluid - Other Gram Stain - Final 07/27/16 15:00 Body Fluid - Other Body Fluid Culture - Final Enterobacter Cloacae 07/27/16 15:00 Body Fluid - Other Anaerobic Culture - Final NO ANAEROBES WERE ISOLATED 07/24/16 06:30 Stool Salmonella/Shigella Culture - Final NO GROWTH OF SALMONELLA OR SHIGELLA SPECIES OBTAINED 07/24/16 06:30 Stool Campylobacter Culture - Final NO GROWTH OF CAMPYLOBACTER SPECIES OBTAINED 07/24/16 06:30 Stool Yersinia Culture - Final NO GROWTH OF YERSINIA SPECIES OBTAINED 07/24/16 06:30 Stool Vibrio Culture - Final NO GROWTH OF VIBRIO SPECIES OBTAINED 07/24/16 06:30 Stool Escherichia coli 0157 Culture - Final NO GROWTH OF E COLI 0157 OBTAINED 07/25/16 20:30 Stool Gram Stain - Final 07/22/16 04:25 Blood - Peripheral Venous Blood Culture - Final Escherichia Coli 07/22/16 05:16 Blood - Peripheral Venous Blood Culture - Final Escherichia Coli 07/23/16 17:00 Stool Clostridium difficile Antigen (MILEY) - Final 07/23/16 17:00 Stool Clostridium difficile Toxin Assay - Final 07/22/16 14:20 Abscess Gram Stain - Final 07/22/16 14:20 Abscess Body Fluid Culture - Final NO GROWTH OF AEROBIC ORGANISMS AFTER 48 HOURS INCUBATION 07/22/16 14:20 Abscess Anaerobic Culture - Final NO ANAEROBES WERE ISOLATED 07/22/16 15:00 Urine - Urine Le Urine Culture - Final NO GROWTH OBTAINED 07/22/16 04:25 Nasopharyngeal Swab Influenza Types A,B Antigen (MILEY) - Final 07/22/16 04:25 Nasopharyngeal Swab - Final Assessment: This is a 51 year old female with PMHx of HTN, recurrent SBO (s/p abdominal surgery on 07/14/16), who presented to the ED with sepsis 2/2 multiple intraabdominal abscesses/ Plan: 1) ID: Sepsis 2/2 multiple enterobacter colacae abdominal abscesses, e.coli bacteremia - Continue Ertapenem (Day 9) - CT 08/01 still with collection - Per surgery, if induation on wound worsens, consider local exploration in OR on Monday - Appreciate ID consult - Appreciate surgery consult 2) GI: 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 - As above - Tolerating diet - Off TPN Recurrent small bowel obstructions complicated by multiple intra-abdominal abscesses - S/p open lysis of adhesions, small bowel resection x 2, completion appendectomy, ventral hernia repair 07/14/16 - S/p placement of RLQ abscess drainage catheter 07/22 - S/p ex lap drainage of intraabdominal abscess 07/27 3) F/E/N: - Monitor electrolytes - Regular diet 4) Prophylaxis: - OOB ambulating - Lovenox 40mg sq daily (hold AM dose tomorrow for possible OR 5) Dispo: - Requires continued inpatient care CODE STATUS: FULL CODE Visit type - Emergency Visit Emergency Visit: Yes ED Registration Date: 07/22/16 Care time: The patient presented to the Emergency Department on the above date and was hospitalized for further evaluation of their emergent condition. - New Patient This patient is new to me today: No - Critical Care Critical Care patient: No
[2016-08-07] MEDS ORDERED: INSULIN (NOVOLOG) ASPART 100 UNITS/ML 10ML VIAL ONE (21:00)
[2016-08-08] MEDS: INSULIN SLIDING SCALE (NOVOLOG) 1 VIAL SQ SCH ×3 (06:29→16:59)
[2016-08-08 07:30] LABS: BASOPHIL 0.9 % (0-2.0); EOSINOPHIL 2.2 % (0-4.5); MCH 26.7 pg (25.7-33.7); MEAN CELL VOLUME 80.9 fl (80-96); MEAN PLT VOLUME 8.9 fl (7.5-11.1); NEUTROPHILS 73.1 % (42.8-82.8); PLATELET COUNT 271 K/MM3 (134-434); RDW 15.7 % (11.6-15.6); WHITE BLOOD COUNT 7.4 K/mm3 (4.0-10.0)
[2016-08-08] MEDS: PANTOPRAZOLE SODIUM 100 ML IVPB SCH (09:03)
[2016-08-08] MEDS: LACTOBACILLUS ACIDOPHILUS 1 EACH TAB (FP) PO SCH (09:25)
[2016-08-08] MEDS: ERTAPENEM SODIUM 1 GM in SODIUM CHLORIDE 50 ML IVPB SCH (09:54)
--- NOTE | 2016-08-08 09:57 | PN ---
Progress Note, Physician Chief Complaint: some pain History of Present Illness: some pain in abd. tolerating diet. having BM with diet. output 200cc/24 hrs. - Current Medication List Current Medications: Active Medications Acetaminophen (Tylenol -) 650 mg PO Q6H PRN PRN Reason: FEVER OR PAIN Last Admin: 07/27/16 22:34 Dose: 650 mg Acetaminophen (Tylenol -) 325 mg PO Q4H PRN PRN Reason: PAIN LEVEL 1-5 Enoxaparin Sodium (Lovenox -) 40 mg SQ DAILY [facility] Last Admin: 08/07/16 09:52 Dose: 40 mg IV Flush (Picc Line Flush) 8 ml IVPUSH PRN PRN PRN Reason: Protocol Last Admin: 08/07/16 11:13 Dose: 8 ml Pantoprazole Sodium (Protonix 40mg Ivpb (Pre-Docked)) 100 mls @ 200 mls/hr IVPB BID [facility] Last Admin: 08/08/16 09:03 Dose: 200 mls/hr Ertapenem 1 gm/ Sodium (Chloride) 50 mls @ 100 mls/hr IVPB DAILY [facility] PRN Reason: Protocol Last Admin: 08/07/16 09:51 Dose: 100 mls/hr Insulin Aspart (Novolog Vial Sliding Scale -) 1 vial SQ ACHS RIKA PRN Reason: Protocol Last Admin: 08/08/16 06:29 Dose: Not Given Lactobacillus Acidophilus (Bacid -) 1 tab PO BID [facility] Last Admin: 08/08/16 09:25 Dose: Not Given Morphine Sulfate (Morphine Injection -) 2 mg IVPUSH Q3H PRN PRN Reason: PAIN LEVEL 6-10 Last Admin: 08/07/16 11:45 Dose: 2 mg Ondansetron HCl (Zofran Injection) 4 mg IVPB Q6H PRN PRN Reason: NAUSEA Oxycodone HCl (Roxicodone -) 5 mg PO Q4H PRN PRN Reason: PAIN LEVEL 1-5 - Objective Vital Signs: Vital Signs Temperature 98.2 F 08/08/16 09:50 Pulse Rate 89 08/08/16 09:50 Respiratory Rate 18 08/08/16 09:50 Blood Pressure 103/62 08/08/16 09:50 O2 Sat by Pulse Oximetry (%) 96 08/07/16 21:00 Constitutional: Yes: No Distress, Calm Gastrointestinal: Yes: Soft, Tenderness (over upper aspect of where ostomy appliance is but wound draining easily.). No: Distention Labs: CBC, BMP 08/08/16 06:00 08/07/16 06:00 Problem List - Problems (1) Abdominal pain Code(s): R10.9 - UNSPECIFIED ABDOMINAL PAIN Qualifiers: Abdominal location: generalized Qualified Code(s): R10.84 - Generalized abdominal pain (2) Leukocytosis Code(s): D72.829 - ELEVATED WHITE BLOOD CELL COUNT, UNSPECIFIED (3) SIRS (systemic inflammatory response syndrome) Code(s): R65.10 - SIRS OF NON-INFECTIOUS ORIGIN W/O ACUTE ORGAN DYSFUNCTION (4) Enterocutaneous fistula Assessment/Plan: patient with controlled fistula d/c home on 2 weeks levaquin needs VNS to help patient with ostomy pouch f/u with me in 1 week [phone] Code(s): K63.2 - FISTULA OF INTESTINE
--- NOTE | 2016-08-08 11:23 | DS ---
[id number] Rate 18 08/08/16 09:50 Blood Pressure 103/62 08/08/16 09:50 O2 Sat by Pulse Oximetry (%) 96 08/07/16 21:00 Findings/Remarks: Physical Exam: General: NAD, A&Ox3 Lungs: CTA bilaterally Heart: RRR, S1S2 Abd: Midline abdominal incision with jocelynn with dressing, c/d/i. Midline lower abdominal fistula bag in place, light brown output. Mildly tender, non- distended. Normoactive bowel sounds Ext: Warm, well-perfused. 2+ DP/PT bilaterally Neuro: CN 2-12 intact Labs: CBC, BMP 08/08/16 06:00 08/07/16 06:00 Discharge Summary Reason For Visit: ABDOMINAL PAIN Current Active Problems Abdominal pain (Acute) Enterocutaneous fistula (Acute) Gram-negative bacteremia (Acute) Intra-abdominal abscess (Acute) Sepsis (Acute) Hospital Course: This is a 51 year old female with PMHx of HTN, recurrent SBO (s/p abdominal surgery on 07/14/16), who presented to the ED with sepsis 2/2 multiple intraabdominal abscesses/ Plan: 1) ID: Sepsis 2/2 multiple enterobacter colacae abdominal abscesses, e.coli bacteremia - Continue Ertapenem (Day 9) - CT 08/01 still with collection - Per surgery, if induation on wound worsens, consider local exploration in OR on Monday - Appreciate ID consult - Appreciate surgery consult 2) GI: 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 - As above - Tolerating diet - Off TPN Recurrent small bowel obstructions complicated by multiple intra-abdominal abscesses - S/p open lysis of adhesions, small bowel resection x 2, completion appendectomy, ventral hernia repair 07/14/16 - S/p placement of RLQ abscess drainage catheter 07/22 - S/p ex lap drainage of intraabdominal abscess 07/[address] Yarbrough, will add Flagyl to Levaquin (recommended by Dr. Jin) to cover intra abdominal. Condition: Improved - Instructions Diet, Activity, Other Instructions: Please return to the ED with new, persistent, or worsening symptoms. Please follow-up with your providers as indicated. Do not take Aspirin until cleared by Dr. Jin to restart it. You have a follow-up appointment with Dr. Jin on 08/17/16 at 11:45am Referrals: Margaux Mandel MD [Primary Care Provider] - (Please follow-up with your pcp within 1 week. ) Brown Jin MD [Staff Physician] - (Please follow-up with Dr. Jin on August 17, 2016 at 11:45am. Location: [place] [address]) Disposition: VNS/HOME HEALTH CARE - Home Medications Comprehensive Discharge Medication List: Ambulatory Orders Cholecalciferol (Vitamin D3) [Vitamin D3] 50,000 unit PO SA 07/11/16 Oxycodone HCl/Acetaminophen [Percocet 10-325 mg Tablet] 1 each PO Q6H #20 tablet MDD 4 07/18/16 Lactobacillus Acidophilus [Bacid -] 1 tab PO BID #60 tab 08/08/16 Levofloxacin [Levaquin] 500 mg PO DAILY #14 tablet 08/08/16 Metronidazole [Flagyl -] 500 mg PO Q8H #42 tablet 08/08/16 Oxycodone HCl [Roxicodone -] 5 mg PO Q4H PRN #20 tablet MDD 6 tabs 08/08/16 This patient is new to me today: No Emergency Visit: Yes ED Registration Date: 07/22/16 Care time: The patient presented to the Emergency Department on the above date and was hospitalized for further evaluation of their emergent condition. Critical Care patient: No - Discharge Referral Referred to [facility] No
--- NOTE | 2016-08-08 12:53 | PN ---
Progress Note (short form) - Note Progress Note: Overall feels better. Tolerating PO intake. No CP or SOB. No acute events overnight. Dressing removed from right neck. Intake & Output 08/05/16 08/06/16 08/07/16 08/08/16 23:59 23:59 23:59 23:59 Intake Total 1100 1800 1850 100 Output Total 330 215 Balance 1100 1470 1635 100 Weight 128 lb 4.8 oz 130 lb 1 oz 128 lb 126 lb 8 oz Last Vital Signs Temp Pulse Resp BP Pulse Ox 98.2 F 89 18 103/62 96 08/08/16 09:50 08/08/16 09:50 08/08/16 09:50 08/08/16 09:50 08/07/16 21:00 Active Medications Acetaminophen (Tylenol -) 650 mg PO Q6H PRN PRN Reason: FEVER OR PAIN Last Admin: 07/27/16 22:34 Dose: 650 mg Acetaminophen (Tylenol -) 325 mg PO Q4H PRN PRN Reason: PAIN LEVEL 1-5 Enoxaparin Sodium (Lovenox -) 40 mg SQ DAILY [facility] Last Admin: 08/07/16 09:52 Dose: 40 mg IV Flush (Picc Line Flush) 8 ml IVPUSH PRN PRN PRN Reason: Protocol Last Admin: 08/07/16 11:13 Dose: 8 ml Pantoprazole Sodium (Protonix 40mg Ivpb (Pre-Docked)) 100 mls @ 200 mls/hr IVPB BID [facility] Last Admin: 08/08/16 09:03 Dose: 200 mls/hr Ertapenem 1 gm/ Sodium (Chloride) 50 mls @ 100 mls/hr IVPB DAILY [facility] PRN Reason: Protocol Last Admin: 08/08/16 09:54 Dose: 100 mls/hr Insulin Aspart (Novolog Vial Sliding Scale -) 1 vial SQ ACHS RIKA PRN Reason: Protocol Last Admin: 08/08/16 11:54 Dose: Not Given Lactobacillus Acidophilus (Bacid -) 1 tab PO BID [facility] Last Admin: 08/08/16 09:25 Dose: Not Given Ondansetron HCl (Zofran Injection) 4 mg IVPB Q6H PRN PRN Reason: NAUSEA Gen: NAD Heart: RRR Lung: few basilar rhonchi Abd: soft, NT, (+) BS, Ostomy intact Ext: no edema Laboratory Results - last 24 hr 08/07/16 08/07/16 08/08/16 16:55 20:58 05:55 WBC RBC Hgb Hct MCV MCHC RDW Plt Count MPV Neutrophils % Lymphocytes % Monocytes % Eosinophils % Basophils % POC Glucometer 84 174 100 08/08/16 08/08/16 06:00 11:43 WBC 7.4 D RBC 3.95 Hgb 10.5 L Hct 32.0 L MCV 80.9 MCHC 33.0 RDW 15.7 H Plt Count 271 MPV 8.9 Neutrophils % 73.1 Lymphocytes % 16.6 D Monocytes % 7.2 Eosinophils % 2.2 Basophils % 0.9 POC Glucometer 89 A/P Recent SBO/ex-lap/SB resection x 2 Intra-abdominal Abscess s/p IR drainage Gram Negative Bacteremia Sepsis Lactic Acidosis HTN - ABX per ID - pain control - incentive spirometry - O2 as needed - PO as tolerated - OOB to chair / Ambulate - DVT prophylaxis - D/C planning Dr Cruz
[2016-08-08 18:05] VITALS: BP 100/75; PULSE 90; TEMP 97.4
== END 2016-08-08 19:15 | disposition home health service (06) | DRG 710 ==
LOC: JER 23:57 → JERBED 07-22 01:56 → UNDOADMIN 07-22 02:00 → J7W 07-22 03:10 → JICU 07-22 12:03 → J6S 07-24 15:12
PROVIDERS: ADMIT Surgery; ATTEND Registered Nurse
PROC: 0W9G30Z Drainage of Peritoneal Cavity with Drainage Device, Percutaneous Approach (ICD-10-PCS; 2016-07-25)
PROC: 3E0436Z Introduction of Nutritional Substance into Central Vein, Percutaneous Approach (ICD-10-PCS; 2016-07-27)
PROC: 30233N1 Transfusion of Nonautologous Red Blood Cells into Peripheral Vein, Percutaneous Approach (ICD-10-PCS; 2016-07-27)
PROC: 0W9G0ZX Drainage of Peritoneal Cavity, Open Approach, Diagnostic (ICD-10-PCS; principal; 2016-07-27 14:30)
PROC: 02HV33Z Insertion of Infusion Device into Superior Vena Cava, Percutaneous Approach (ICD-10-PCS; 2016-08-01)
PROC: B518YZA Fluoroscopy of Superior Vena Cava using Other Contrast, Guidance (ICD-10-PCS; 2016-08-01)
DX: A41.51 Sepsis due to Escherichia coli [E. coli] (principal); K65.1 Peritoneal abscess; E87.2 Acidosis; K63.2 Fistula of intestine; D62 Acute posthemorrhagic anemia; R65.20 Severe sepsis without septic shock; I10 Essential (primary) hypertension; E83.42 Hypomagnesemia; E87.6 Hypokalemia; R19.7 Diarrhea, unspecified
CPT/HCPCS: 36415; 36430; 36569; 49406; 71010-TC; 74177-TC; 74178-TC; 76098-TC; 77001-TC; 80048; 80053; 80061; 80076; 81003; 81015; 82272; 83605; 83721; 83735; 84100; 84478; 85025; 85027; 85651; 86140; 86850; 86900; 86901; 86922; 87040; 87045; 87046; 87070; 87075; 87086; 87186; 87205; 87254; 87324; 87449; 87804; 87899; 94760; 97116-GP; 97161-GP; 99283-25; C1729; C1751; C1769; J1644; J3480; P9038; P9058

== ENCOUNTER 2016-08-20 19:36 | Inpatient (IN) | payer OTHER ==
--- NOTE | 2016-08-20 20:25 | PDOC ---
History of Present Illness - General Chief Complaint: Pain, Acute Stated Complaint: POST OP PAIN Time Seen by Provider: 08/20/16 19:57 History Source: Patient Exam Limitations: No Limitations - History of Present Illness Initial Comments: 08/20/16 21:05 07/11/2016: Admitted for SBO Surgeon: Dr. Jin [phone] Patient was seen at [facility] ER for abdominal pain, nausea/ vomiting. CAT scan showed a small bowel obstruction anterior mid abdomen. 07/14/2016: Surgery: Laparoscopic converted to open exploratory laparoscopy for extensive lysis of adhesions, partial omentectomy, partial appendectomy. 07/22/2016: Readmission for SBO CT scan of the abdomen and pelvis: Mesenteric edema/inflammation, thickening SBO , 4X6 right lower quadrant fluid collection 07/24/2016: Surgery: Exploratory laparoscopy for drainage of intra-abdominal abscess. 08/08/2016: Discharge on Flagyl and Levaquin Today: 51-year-old female with history of multiple small bowel obstructions, hypertension and multiple abdominal surgery and has lower mid line colostomy presents to the emergency department for lower abd tenderness with increase skin redness/tenderness around colostomy since yesterday with intermitting chills but denies fever, n/v/d, chest pain, shortness of breath, flank pains, urinary symptoms. Patient says she noticed a small area of redness along side the right side of her colostomy bag yesterday and was confirmed by the visiting nurse that she needs to be seen in the hospital. Spoke to Dr. Diamond Saxena/covering for Dr. Jin. Dr. Saxena requested patient be admitted to hospitalists with ID consultation/Dr. Myrick Spoke to Dr. Myrick, he will consult with the patient but is requesting vancomycin 1 g. Will decide on dosage of Zosyn depending on creatinine level. 08/21/16 02:42 Timing/Duration: 24 hours Associated Symptoms: reports: denies symptoms Past History - Past Medical History Allergies/Adverse Reactions: Allergies Allergy/AdvReac Type Severity Reaction Status Date / Time No Known Allergies Allergy Verified 08/20/16 19:43 Home Medications: Ambulatory Orders Lactobacillus Acidophilus [Bacid -] 1 tab PO BID #60 tab 08/08/16 Levofloxacin [Levaquin] 500 mg PO DAILY #14 tablet 08/08/16 Metronidazole [Flagyl -] 500 mg PO Q8H #42 tablet 08/08/16 GI Disorders: Yes (SBO) HTN: Yes - Surgical History Abdominal Surgery: Yes (HERNIA REPAIR) Appendectomy: Yes - Immunization History Immunization Up to Date: Yes - Psycho/Social/Smoking Cessation Hx Anxiety: No Suicidal Ideation: No Smoking Status: No Smoking History: Never smoked Have you smoked in the past 12 months: No Number of Cigarettes Smoked Daily: 0 Hx Alcohol Use: No Drug/Substance Use Hx: No Substance Use Type: None Hx Substance Use Treatment: No Review of Systems - Review of Systems Able to Perform ROS?: Yes Comments:: 08/20/16 22:29 CONSTITUTIONAL: Absent: fever, chills, diaphoresis, generalized weakness, malaise, loss of appetite HEENT: Absent: rhinorrhea, nasal congestion, throat pain, throat swelling, difficulty swallowing, mouth swelling, ear pain, eye pain, visual Changes CARDIOVASCULAR: Absent: chest pain, loss of consciousness, palpitations, irregular heart rate, peripheral edema RESPIRATORY: Absent: cough, shortness of breath, dyspnea with exertion, orthopnea, wheezing, stridor, hemoptysis GASTROINTESTINAL: lower abd pain Absent: abdominal distension, nausea, vomiting, diarrhea, constipation, melena, hematochezia GENITOURINARY: Absent: dysuria, frequency, urgency, hesitancy, hematuria, flank pain, genital pain MUSCULOSKELETAL: Absent: myalgia, arthralgia, joint swelling SKIN: +redness along right side of colostomy Absent: rash, itching, pallor HEMATOLOGIC/IMMUNOLOGIC: Absent: easy bleeding, easy bruising, lymphadenopathy, frequent infections ENDOCRINE: Absent: unexplained weight gain, unexplained weight loss, heat intolerance, cold intolerance NEUROLOGIC: Absent: headache, focal weakness or paresthesias, dizziness, unsteady gait, seizure, mental status changes, bladder or bowel incontinence PSYCHIATRIC: Absent: anxiety, depression, suicidal or homicidal ideation, hallucinations. 08/20/16 22:30 Is the patient limited Arabic proficient: No *Physical Exam - Vital Signs Last Vital Signs Temp Pulse Resp BP Pulse Ox 98.1 F 107 H 18 126/77 99 08/20/16 19:43 08/20/16 19:43 08/20/16 19:43 08/20/16 19:43 08/20/16 19:43 - Physical Exam Comments: 08/20/16 22:30 GENERAL: Well developed, well nourished. Awake and alert. No acute distress. HEENT: Normocephalic, atraumatic. PERRLA, EOMI. No conjunctival pallor. Sclera are non- icteric. Moist mucous membranes. Oropharynx is clear. NECK: Supple. Full ROM. No JVD. Carotid pulses 2+ and symmetric, without bruits. No thyromegaly. No lymphadenopathy. CARDIOVASCULAR: Regular rate and rhythm. No murmurs, rubs, or gallops. Distal pulses are 2+ and symmetric. PULMONARY: No evidence of respiratory distress. Lungs clear to auscultation bilaterally. No wheezing, rales or rhonchi. ABDOMINAL: +redness to lower abd (pen line drawn around redness) Soft. Non-distended. No rebound or guarding. No organomegaly. Normoactive bowel sounds. MUSCULOSKELETAL Normal range of motion at all joints. No bony deformities or tenderness. No CVA tenderness. EXTREMITIES: No cyanosis. No clubbing. No edema. No calf tenderness. SKIN: Warm and dry. Normal capillary refill. No rashes. No jaundice. NEUROLOGICAL: Alert, awake, appropriate. Cranial nerves 2-12 intact. No deficits to light touch and temperature in face, upper extremities and lower extremities. No motor deficits in the in face, upper extremities and lower extremities. Normoreflexic in the upper and lower extremities. Normal speech. Toes are down- going bilaterally. Gait is normal without ataxia. PSYCHIATRIC: Cooperative. Good eye contact. Appropriate mood and affect. Heart Score/ECG Review - History History: Slightly suspicious - Electrocardiogram EKG: Normal - Age Age: >/= 65 - Risk Factors Based on the list above the patient has:: No risk factors known - Troponin Troponin: </= normal limit - Score Heart Score - Total: 2 ED Treatment Course - LABORATORY CBC & Chemistry Diagram: 08/20/16 21:50 08/20/16 20:47 *DC/Admit/Observation/Transfer Diagnosis at time of Disposition: Intra-abdominal abscess Cellulitis Qualifiers: Site of cellulitis: other site Qualified Code(s): L03.818 - Cellulitis of other sites - Discharge Dispostion Admit: Yes - Referrals Progress Note - Progress Note Progress Note: 0302hrs: Spoke to DR. Levine/Hospitalist/ admit to med/surg
[2016-08-20] MEDS ORDERED: VANCOMYCIN 1,000 MG in DEXTROSE 5%-WATER - 250 ML IVPB ONE (20:55)
[2016-08-20 21:17] LABS: ALBUMIN 3.2 g/dl (3.4-5.0); ANION GAP 11 (8-16); BILIRUBIN,TOTAL 0.3 mg/dL (0.2-1.0); CALCIUM 8.2 mg/dL (8.5-10.1); CO2 28 mmol/L (21-32); COCKROFT - GAULT 97.8265; CREATININE 0.6 mg/dL (0.55-1.02); GLUCOSE,RANDOM 145 mg/dL (74-106); SGOT/AST 16 U/L (15-37); SGPT/ALT 18 U/L (12-78); TOT PROT 6.6 g/dl (6.4-8.2)
[2016-08-20 21:18] LABS: ALK PHOS 89 U/L (45-117)
[2016-08-20] MEDS ORDERED: VANCOMYCIN 1 GRAM (PRE-DOCKED) 250 ML IVPB ONE (21:57)
[2016-08-20 22:01] LABS: BASOPHIL 0.4 % (0-2.0); EOSINOPHIL 0.9 % (0-4.5); MCH 26.1 pg (25.7-33.7); MCHC 32.5 g/dl (32.0-36.0); MEAN CELL VOLUME 80.3 fl (80-96); MEAN PLT VOLUME 8.9 fl (7.5-11.1); NEUTROPHILS 76.2 % (42.8-82.8); PLATELET COUNT 279 K/MM3 (134-434); RDW 15.8 % (11.6-15.6); WHITE BLOOD COUNT 9.3 K/mm3 (4.0-10.0)
[2016-08-20] MEDS ORDERED: PIPERACILLIN/TAZOB 3.375 GM 3.375 GM in DEXTROSE 5%-WATER - 50 ML IVPB ONE (22:08)
[2016-08-20] MEDS: SODIUM CHLORIDE 1,000 ML IV SCH (22:15)
[2016-08-21] MEDS ORDERED: PIPERACILLIN/TAZOB 3.375 GM 50 ML IVPB ONE ×2 (00:45→03:30)
[2016-08-21 01:42] LABS: URINE APPEARANCE CLEAR; URINE BILIRUBIN NEGATIVE (NEGATIVE); URINE BLOOD NEGATIVE (NEGATIVE); URINE COLOR COLORLESS; URINE GLUCOSE (UA) NEGATIVE (NEGATIVE); URINE KETONE NEGATIVE (NEGATIVE); URINE LEUK ESTERASE NEGATIVE (NEGATIVE); URINE NITRITE NEGATIVE (NEGATIVE); URINE PROTEIN NEGATIVE (NEGATIVE); URINE UROBILINOGEN NEGATIVE E.U./dl (0.2-1.0)
--- NOTE | 2016-08-21 03:27 | HP ---
[id number] OF PRESENT ILLNESS: This is a 51 y/o female with a significant past medical history of multiple SBOs , multiple abdominal sx, HTN (no meds), Borderline DM (diet controlled). Who presents to the emergency department with mid abdominal pain, redness, induration, and chills since last . Patient is Occitan speaking, her daughter translated per patient's request. Patient reports having her jocelynn/ sutures removed on Monday, still taking Flagyl and Levaquin as directed. Patient then reports noting some redness around her abdomen/colostomy site. She reports on Monday the redness had increased, the visiting nurse saw her abdomen and recommended she be evaluated. Patient denies fever,cough, SOB, CP, N/V/D, constipation, drainage from surgical site. Patient denies recent sick contacts. 07/11/2016: Admitted for SBO Surgeon: Dr. Jin [phone] Patient was seen at [facility] ER for abdominal pain, nausea/ vomiting. CAT scan showed a small bowel obstruction anterior mid abdomen. 07/14/2016: Surgery: Laparoscopic converted to open exploratory laparoscopy for extensive lysis of adhesions, partial omentectomy, partial appendectomy. 07/22/2016: Readmission for SBO CT scan of the abdomen and pelvis: Mesenteric edema/inflammation, thickening SBO , 4X6 right lower quadrant fluid collection 07/24/2016: Surgery: Exploratory laparoscopy for drainage of intra-abdominal abscess. 08/08/2016: Discharge on Flagyl and Levaquin ER course was notable for: (1) CTAP- report pending (2) P 107 (3) No WBC, Afebrile (4) Glucose 145 Recent Travel: None PAST MEDICAL HISTORY: HTN Borderline DM PAST SURGICAL HISTORY: Multiple SBOs Colostomy Hernia Repair Appendectomy 1985 Ovarian Cyst removal Social History: Smoking: Never Alcohol: None Drugs: None Lives with Family- homemaker Family History: Non-contributory Allergies No Known Allergies Allergy (Verified 08/20/16 19:43) HOME MEDICATIONS: Home Medications Medication Instructions Recorded Lactobacillus Acidophilus [Bacid -] 1 tab PO BID #60 tab 08/08/16 Levofloxacin [Levaquin] 500 mg PO DAILY #14 tablet 08/08/16 Metronidazole [Flagyl -] 500 mg PO Q8H #42 tablet 08/08/16 REVIEW OF SYSTEMS CONSTITUTIONAL: chills Absent: fever, diaphoresis, generalized weakness, malaise, loss of appetite, weight change HEENT: Absent: rhinorrhea, nasal congestion, throat pain, throat swelling, difficulty swallowing, mouth swelling, ear pain, eye pain, visual changes CARDIOVASCULAR: Absent: chest pain, syncope, palpitations, irregular heart rate, lightheadedness , peripheral edema RESPIRATORY: Absent: cough, shortness of breath, dyspnea with exertion, orthopnea, wheezing, stridor, hemoptysis GASTROINTESTINAL: abdominal pain Absent: abdominal distension, nausea, vomiting, diarrhea, constipation, melena, hematochezia GENITOURINARY: Absent: dysuria, frequency, urgency, hesitancy, hematuria, flank pain, genital pain MUSCULOSKELETAL: Absent: myalgia, arthralgia, joint swelling, back pain, neck pain SKIN: erythema Absent: rash, itching, pallor HEMATOLOGIC/IMMUNOLOGIC: Absent: easy bleeding, easy bruising, lymphadenopathy, frequent infections ENDOCRINE: Absent: unexplained weight gain, unexplained weight loss, heat intolerance, cold intolerance NEUROLOGIC: Absent: headache, focal weakness or paresthesias, dizziness, unsteady gait, seizure, mental status changes, bladder or bowel incontinence PSYCHIATRIC: Absent: anxiety, depression, suicidal or homicidal ideation, hallucinations. PHYSICAL EXAMINATION Vital Signs - 24 hr 08/20/16 19:43 Temperature 98.1 F Pulse Rate 107 H Respiratory 18 Rate Blood Pressure 126/77 O2 Sat by Pulse 99 Oximetry (%) GENERAL: Awake, alert, and fully oriented, in no acute distress. HEAD: Normal with no signs of trauma. EYES: Pupils equal, round and reactive to light, extraocular movements intact, sclera anicteric, conjunctiva clear. No lid lag. EARS, NOSE, THROAT: Ears normal, nares patent, oropharynx clear without exudates. Moist mucous membranes. NECK: Normal range of motion, supple without lymphadenopathy, JVD, or masses. LUNGS: Breath sounds equal, clear to auscultation bilaterally. No wheezes, and no crackles. No accessory muscle use. HEART: Regular rate and rhythm, normal S1 and S2 without murmur, rub or gallop. ABDOMEN: Mid-abdominal tenderness, induration, erythema, colostomy, no drainage to surgical site. Soft, not distended, normoactive bowel sounds, no guarding, no rebound, no masses. No hepatomegaly or splenomegaly. MUSCULOSKELETAL: Normal range of motion at all joints. No bony deformities or tenderness. No CVA tenderness. UPPER EXTREMITIES: 2+ pulses, warm, well-perfused. No cyanosis. No clubbing. No peripheral edema. LOWER EXTREMITIES: 2+ pulses, warm, well-perfused. No calf tenderness. No peripheral edema. NEUROLOGICAL: Cranial nerves II-XII intact. Normal speech. Normal gait. PSYCHIATRIC: Cooperative. Good eye contact. Appropriate mood and affect. SKIN: Erythema, induration to abdomen, surgical site no drainage noted. Warm, dry, normal turgor, no rashes. normal capillary refill. Laboratory Results - last 24 hr 3 08/20/16 08/20/16 08/21/16 20:47 21:50 01:34 WBC 9.3 RBC 4.70 Hgb 12.3 D Hct 37.7 D MCV 80.3 MCHC 32.5 RDW 15.8 H Plt Count 279 MPV 8.9 Neutrophils % 76.2 Lymphocytes % 14.9 Monocytes % 7.6 Eosinophils % 0.9 Basophils % 0.4 Sodium 142 Potassium 3.7 Chloride 103 Carbon Dioxide 28 Anion Gap 11 BUN 8 Creatinine 0.6 D Creat Clearance w eGFR > 60 Random Glucose 145 H D Calcium 8.2 L Total Bilirubin 0.3 D AST 16 D ALT 18 D Alkaline Phosphatase 89 Total Protein 6.6 Albumin 3.2 L Urine Color Colorless Urine Appearance Clear Urine pH 7.0 D Ur Specific [place] 1.034 Urine Protein Negative Urine Glucose (UA) Negative Urine Ketones Negative Urine Blood Negative Urine Nitrite Negative Urine Bilirubin Negative Urine Urobilinogen Negative Ur Leukocyte Esterase Negative ASSESSMENT/PLAN: This is a 51 y/o female with a PMHx of: multiple SBOs, multiple abdominal sx, HTN, borderline DM (diet controlled only), s/p Colostomy. Admitted for Abdominal Cellulitis, Abdominal Pain for further evaluation of their emergent condition. 1. ID: Cellulitis of Abdomen - Failed Outpatient Therapy - Blood Cultures- pending - No leukocytosis, afebrile - Appreciate ID Consult - Appreciate Surgical Consult - Vanco/Zosyn given in ED - Per ID continue Zosyn - Monitor CBC - Monitor Vitals 2. Card: HTN - Monitor BP - Will treat with interventions accordingly 3. Endo: DM - BGMs - ISS - HgBA1C in am 4. Colostomy - Wound Care 5. FEN - NS@100cc/hr - Replete lytes prn - NPO 6. DVT Prophylaxis - OOB - SCDs - Heparin SQ Code Status: Full Code Dispo: Will require Inpatient Care Problem List - Problem (1) Cellulitis Code(s): L03.90 - CELLULITIS, UNSPECIFIED Qualifiers: Site of cellulitis: other site Qualified Code(s): L03.818 - Cellulitis of other sites (2) Abdominal pain Code(s): R10.9 - UNSPECIFIED ABDOMINAL PAIN Qualifiers: (3) Enterocutaneous fistula Code(s): K63.2 - FISTULA OF INTESTINE (4) Gram-negative bacteremia Code(s): R78.81 - BACTEREMIA (5) Intra-abdominal abscess Code(s): K65.1 - PERITONEAL ABSCESS (6) Hypertension Code(s): I10 - ESSENTIAL (PRIMARY) HYPERTENSION (7) DVT prophylaxis Code(s): DYM7010 - Visit type - Emergency Visit Emergency Visit: Yes ED Registration Date: 08/21/16 Care time: The patient presented to the Emergency Department on the above date and was hospitalized for further evaluation of their emergent condition. - New Patient This patient is new to me today: Yes Date on this admission: 08/21/16 - Critical Care Critical Care patient: No
[2016-08-21] MEDS: PIPERACILLIN/TAZOB 3.375 GM 50 ML IVPB SCH ×3 (03:42→17:42)
[2016-08-21] MEDS ORDERED: morphine CARPU-JECT 2 MG/1 ML DISP.SYRIN IVPUSH ONE (03:44)
[2016-08-21] MEDS ORDERED: morphine CARPU-JECT 2 MG/1 ML DISP.SYRIN ONE (03:57)
[2016-08-21] MEDS ORDERED: morphine CARPU-JECT 4 MG/1 ML DISP.SYRIN IVPUSH PRN (05:42)
[2016-08-21] MEDS ORDERED: ONDANSETRON 4 MG/2 ML VIAL IVPUSH PRN (05:43)
[2016-08-21] MEDS ORDERED: ACETAMINOPHEN 325 MG TABLET (FP) PO PRN (05:50)
[2016-08-21 06:35] LABS: BASOPHIL 0.8 % (0-2.0); EOSINOPHIL 0.2 % (0-4.5); MCH 26.4 pg (25.7-33.7); MEAN CELL VOLUME 79.8 fl (80-96); NEUTROPHILS 80.4 % (42.8-82.8); PLATELET COUNT 299 K/MM3 (134-434); RDW 15.3 % (11.6-15.6); WHITE BLOOD COUNT 11.1 K/mm3 (4.0-10.0)
[2016-08-21 06:52] LABS: CALCIUM 8.4 mg/dL (8.5-10.1); COCKROFT - GAULT 117.3935; CREATININE 0.5 mg/dL (0.55-1.02)
[2016-08-21] MEDS: HEPARIN NA (PORCINE) 5,000 UNITS/ML 1ML VIAL SQ SCH ×2 (10:47→21:13)
[2016-08-21 12:25] VITALS: BMI 23.1
--- NOTE | 2016-08-21 14:16 | EKG ---
Test Reason : Blood Pressure : / mmHG Vent. Rate : 106 BPM Atrial Rate : 106 BPM P-R Int : 124 ms QRS Dur : 080 ms QT Int : 330 ms P-R-T Axes : 021 -02 029 degrees QTc Int : 438 ms SINUS TACHYCARDIA POOR R WAVE PROGRESSION ABNORMAL ECG WHEN COMPARED WITH ECG OF 11-JUL-2016 07:43, VENT. RATE HAS INCREASED BY 39 BPM CLINICAL CORRELATION IS RECOMMENDED Confirmed by NOE STEVEN, ИВАН ([id number]) on 08/21/2016 2:16:27 PM Referred By: Confirmed By:ИВАН LIU MD
--- NOTE | 2016-08-21 14:43 | CONSULT ---
Consult Consult Specialty:: infectious diseases Reason for Consultation:: abd cellulitis - History of Present Illness Chief Complaint: abd pain and redness History of Present Illness: 51 y/o female with a significant past medical history of multiple SBOs, multiple abdominal sx, HTN (no meds), Borderline DM (diet controlled). Who presents to the emergency department with mid abdominal pain, redness, induration, and chills since last . Patient is Setswana speaking, her daughter translated per patient's request. Patient reports having her jocelynn/ sutures removed on Monday, still taking Flagyl and Levaquin as directed. Patient then reports noting some redness around her abdomen/colostomy site. She reports on Monday the redness had increased, the visiting nurse saw her abdomen and recommended she be evaluated. Patient denies fever,cough, SOB, CP, N/V/D, constipation, drainage from surgical site. Patient denies recent sick contacts. patient was evaluated by surgery and admitted to the hospital surgery planning to take to the or for drainage patient has been admitted before currently she is c/o of pain and tenderness over the lower part of the abd specially the rt side patient was given a dose of vanco and i had added zosyn to the regimen - History Source History Provided By: Family Member Limitations to Obtaining History: Language Barrier - Past Medical History Cardio/Vascular: Yes: HTN Gastrointestinal: Yes: Other (SBO, LYSIS OF ADHESION AND SMALL BOWEL RESECTION VENTRAL HERNIA REPAIR, APPENDECTOMY) ...LMP: 03/08/12 - Past Surgical History Past Surgical History: Yes: Appendectomy - Alcohol/Substance Use Hx Alcohol Use: No - Smoking History Smoking history: Never smoked Have you smoked in the past 12 months: No Aproximately how many cigarettes per day: 0 Home Medications - Allergies Allergies/Adverse Reactions: Allergies Allergy/AdvReac Type Severity Reaction Status Date / Time No Known Allergies Allergy Verified 08/20/16 19:43 - Home Medications Home Medications: Ambulatory Orders Lactobacillus Acidophilus [Bacid -] 1 tab PO BID #60 tab 08/08/16 Levofloxacin [Levaquin] 500 mg PO DAILY #14 tablet 08/08/16 Metronidazole [Flagyl -] 500 mg PO Q8H #42 tablet 08/08/16 Review of Systems - Review of Systems Constitutional: reports: No Symptoms Eyes: reports: No Symptoms HENT: reports: No Symptoms Neck: reports: No Symptoms Cardiovascular: reports: No Symptoms Respiratory: reports: No Symptoms Gastrointestinal: reports: Abdominal Pain, Other (cellulitits of the abd around the inscision site) Genitourinary: reports: No Symptoms Musculoskeletal: reports: No Symptoms Integumentary: reports: Erythema Neurological: reports: No Symptoms Endocrine: reports: No Symptoms Hematology/Lymphatic: reports: No Symptoms Psychiatric: reports: No Symptoms Physical Exam Vital Signs: Vital Signs Temperature 98.8 F 08/21/16 08:18 Pulse Rate 103 H 08/21/16 08:18 Respiratory Rate 20 08/21/16 08:18 Blood Pressure 106/66 08/21/16 08:18 O2 Sat by Pulse Oximetry (%) 97 08/21/16 08:18 Constitutional: Yes: Well Nourished Eyes: Yes: Conjunctiva Clear HENT: Yes: Atraumatic Neck: Yes: Supple, Trachea Midline Cardiovascular: Yes: Regular Rate and Rhythm Respiratory: Yes: Regular, CTA Bilaterally Gastrointestinal: Yes: Normal Bowel Sounds, Soft, Other (cellulitits of the abd wall lower side inscision site redness colostomy present) Musculoskeletal: Yes: WNL Extremities: Yes: WNL Wound/Incision: Yes: Other Neurological: Yes: Alert, Oriented Psychiatric: Yes: Alert, Oriented Labs: CBC, BMP 08/21/16 06:00 08/21/16 06:00 Imaging - Results Chest X-ray: Report Reviewed, Image Reviewed Cat Scan: Report Reviewed, Image Reviewed Assessment/Plan Problem List - Problems (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
--- NOTE | 2016-08-21 17:27 | PN ---
Physical Exam: SUBJECTIVE: Patient seen and examined. She says pain is better today. OBJECTIVE: Vital Signs Period Temp Pulse Resp BP Sys/Golden Pulse Ox Last 24 Hr 98.8 F-100 F 98-106 18-20 103-106/60-67 96-97 GENERAL: The patient is awake, alert, and fully oriented, in no acute distress. LUNGS: Breath sounds equal, clear to auscultation bilaterally, no wheezes, no crackles, no accessory muscle use. HEART: Regular rate and rhythm, S1, S2 without murmur, rub or gallop. ABDOMEN: Soft, nontender, nondistended, normoactive bowel sounds, no guarding, no rebound, no hepatosplenomegaly, no masses. Erythema and induration of lower abdomen. EXTREMITIES: 2+ pulses, warm, well-perfused, no edema. Laboratory Results - last 24 hr 08/21/16 08/21/16 08/21/16 06:00 06:00 06:00 WBC 11.1 H RBC 4.05 Hgb 10.7 D Hct 32.3 L MCV 79.8 L MCHC 33.0 RDW 15.3 Plt Count 299 MPV 9.0 Neutrophils % 80.4 Lymphocytes % 11.5 D Monocytes % 7.1 Eosinophils % 0.2 Basophils % 0.8 Sodium 143 Potassium 4.0 Chloride 107 Carbon Dioxide 27 Anion Gap 9 BUN 4 L D Creatinine 0.5 L Random Glucose 112 H D Lactic Acid 2.551 H* Calcium 8.4 L Total Amylase 21 L D Lipase 115 Active Medications Generic Name Dose Route Start Last Admin Trade Name Freq PRN Reason Stop Dose Admin Acetaminophen 650 mg 08/21/16 05:50 Tylenol - PO Q6H PRN FEVER OR PAIN Heparin Sodium (Porcine) 5,000 unit 08/21/16 10:00 08/21/16 10:47 Heparin - SQ 5,000 unit BID RIKA Administration Sodium Chloride 1,000 mls @ 150 mls/hr 08/20/16 20:45 08/20/16 22:15 Normal Saline - IV 150 mls/hr ASDIR RIKA Administration Piperacillin Sod/Tazobactam Sod 50 mls @ 100 mls/hr 08/21/16 02:00 08/21/16 10: 47 Zosyn 3.375gm Ivpb (Pre-Docked) IVPB 100 mls/hr Q8H-IV RIKA Administration Protocol Morphine Sulfate 2 mg 08/21/16 05:42 Morphine Injection - IVPUSH Q4H PRN PAIN Ondansetron HCl 4 mg 08/21/16 05:43 Zofran Injection IVPUSH Q6H PRN NAUSEA AND/OR VOMITING ASSESSMENT/PLAN: This is a 51-year-old woman with a history of multiple SBOs, multiple abdominal surgeries, colostomy, HTN, diet-controlled DM who was admitted for abdominal wall cellulitis. 1. Abdominal wall cellulitis and possible abscess - Failed outpatient treatment with Levaquin and Flagyl - Had temp 100.0 this AM - Continue Zosyn - Blood cultures pending - Surgery consult 2. Hypertension - BP ok on no medication 3. Type 2 diabetes mellitus, diet-controlled 4. 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
[2016-08-21] MEDS: SODIUM CHLORIDE 1,000 ML IV SCH (23:35)
[2016-08-22] MEDS: PIPERACILLIN/TAZOB 3.375 GM 50 ML IVPB SCH ×3 (02:39→17:01)
[2016-08-22] MEDS: SODIUM CHLORIDE 1,000 ML IV SCH (06:22)
--- NOTE | 2016-08-22 07:55 | PN ---
Physical Exam: SUBJECTIVE: Patient seen and examined at bed side this morning. Minimal lower abdominal pain. No other complaints. Denies chest pain, sob, cough, palpitations , chills, rigors or sweating. Bowel/Bladder habit normal. Sleep/ Appetite normal. OBJECTIVE: Vital Signs Period Temp Pulse Resp BP Sys/Golden Pulse Ox Last 24 Hr 98.8 F-100.4 F 90-103 20-20 103-114/66-76 97-97 GENERAL: The patient is awake, alert, and fully oriented, in no acute distress. HEAD: Normal with no signs of trauma. EYES: EOM intact, no pallor or icterus. ENT: Ears normal, nares patent, oropharynx clear without exudates, moist mucous membranes. NECK: Supple. LUNGS: Breath sounds equal, clear to auscultation bilaterally, no wheezes, no crackles, no accessory muscle use. HEART: Regular rate and rhythm, S1, S2 without murmur, rub or gallop. ABDOMEN: Erythema in the lower abdomen approximately 15 x 14 cm irregular area, Induration +, Soft, tenderness in supra pubic area, colostomy bag in place, no drainage from the surgical site, nondistended, normoactive bowel sounds, no guarding, no rebound, hepatosplenomegaly couldn't be appreciated, no masses. EXTREMITIES: 2+ pulses, warm, well-perfused, no edema. NEUROLOGICAL: Cranial nerves II through XII grossly intact. Normal speech, gait not observed. PSYCH: Normal mood, normal affect. SKIN: Warm, dry, normal turgor, no rashes or lesions noted Active Medications Generic Name Dose Route Start Last Admin Trade Name Eronq PRN Reason Stop Dose Admin Acetaminophen 650 mg 08/21/16 05:50 Tylenol - PO Q6H PRN FEVER OR PAIN Heparin Sodium (Porcine) 5,000 unit 08/21/16 10:00 08/21/16 21:13 Heparin - SQ 5,000 unit BID RIKA Administration Sodium Chloride 1,000 mls @ 150 mls/hr 08/20/16 20:45 08/22/16 06:22 Normal Saline - IV 150 mls/hr ASDIR RIKA Administration Piperacillin Sod/Tazobactam Sod 50 mls @ 100 mls/hr 08/21/16 02:00 08/22/16 02: 39 Zosyn 3.375gm Ivpb (Pre-Docked) IVPB 100 mls/hr Q8H-IV RIKA Administration Protocol Morphine Sulfate 2 mg 08/21/16 05:42 08/21/16 20:15 Morphine Injection - IVPUSH 2 mg Q4H PRN Administration PAIN Ondansetron HCl 4 mg 08/21/16 05:43 Zofran Injection IVPUSH Q6H PRN NAUSEA AND/OR VOMITING ASSESSMENT/PLAN: Patient is a 51 year old female with a PMHx of: multiple SBOs, multiple abdominal sx, HTN, borderline DM (diet controlled only), s/p Colostomy. Admitted for Abdominal Cellulitis, Abdominal Pain for further evaluation of their emergent condition. # Cellulitis of Abdomen Patient presented with redness in the lower abdomen around colostomy site, jocelynn/sutures removed on Monday, still taking Flagyl and Levaquin as directed. - Failed Outpatient Therapy On arrival, No leukocytosis, afebrile In the ED, Vanco/Zosyn given Admitted in Med-Surg - Blood Cultures- pending - Appreciate ID Consult - Per ID continue Zosyn Appreciate Surgical Consult - Monitor CBC - Monitor Vitals # Abdominal wall abscess s/p drainage- POD- 0 CT abdomen pelvis: 2 x 1.8 vm complex collection that could represent an abscess Surgery performed by Dr. Jin today Drained about 50 cc of pus. Large jameel in place continue antibiotics as per ID # Colostomy - Wound Care # Hypertension - Monitor BP # Diabetes Mellitus - BGMs - Insulin sliding scale # FEN - IV NS @100cc/hr - Electrolytes to be repeated tomorrow - NPO # DVT Prophylaxis - OOB - SCDs - Heparin SQ For GI: Not indicated # Code Status: Full Code # Dispo: Admitted in Med-Surg. Duration of stay unknown. Illness, Investigation and plan of care explained to the patient. She verbalized understanding. Case discussed with Dr. Payton. Visit type - Emergency Visit Emergency Visit: Yes ED Registration Date: 08/21/16 Care time: The patient presented to the Emergency Department on the above date and was hospitalized for further evaluation of their emergent condition. - New Patient This patient is new to me today: Yes Date on this admission: 08/22/16 - Critical Care Critical Care patient: No
[2016-08-22 08:27] LABS: BASOPHIL 0.5 % (0-2.0); EOSINOPHIL 0.5 % (0-4.5); MCH 26.1 pg (25.7-33.7); MCHC 32.3 g/dl (32.0-36.0); MEAN CELL VOLUME 80.7 fl (80-96); MEAN PLT VOLUME 8.8 fl (7.5-11.1); NEUTROPHILS 76.7 % (42.8-82.8); PLATELET COUNT 258 K/MM3 (134-434); RDW 15.2 % (11.6-15.6); WHITE BLOOD COUNT 9.1 K/mm3 (4.0-10.0)
[2016-08-22 09:05] LABS: CALCIUM 8.3 mg/dL (8.5-10.1); COCKROFT - GAULT 146.982; CREATININE 0.4 mg/dL (0.55-1.02)
[2016-08-22] MEDS: HEPARIN NA (PORCINE) 5,000 UNITS/ML 1ML VIAL SQ SCH ×2 (10:05→21:08)
--- NOTE | 2016-08-22 10:47 | CONSULT ---
Consult Consult Specialty:: surgery Reason for Consultation:: abd wall abscess - History of Present Illness Chief Complaint: increasing abd pain History of Present Illness: pt is a 51F s/p exlap extensive CARMEN with 2 SBR complicated by postop ECF and frozen abd. She had RLQ pain in office last monday and came to ER because of worsening pain and redness/induration. Patient pain is not cripping. very hungry. no fever. - History Source History Provided By: Family Member, Medical Record Limitations to Obtaining History: Language Barrier (spoke to daughter jenny) - Past Medical History Cardio/Vascular: Yes: HTN Gastrointestinal: Yes: Other (SBO, LYSIS OF ADHESION AND SMALL BOWEL RESECTION VENTRAL HERNIA REPAIR, APPENDECTOMY) ...LMP: 03/08/12 - Past Surgical History Past Surgical History: Yes: Appendectomy - Alcohol/Substance Use Hx Alcohol Use: No - Smoking History Smoking history: Never smoked Have you smoked in the past 12 months: No Aproximately how many cigarettes per day: 0 Home Medications - Allergies Allergies/Adverse Reactions: Allergies Allergy/AdvReac Type Severity Reaction Status Date / Time No Known Allergies Allergy Verified 08/20/16 19:43 - Home Medications Home Medications: Ambulatory Orders Lactobacillus Acidophilus [Bacid -] 1 tab PO BID #60 tab 08/08/16 Levofloxacin [Levaquin] 500 mg PO DAILY #14 tablet 08/08/16 Metronidazole [Flagyl -] 500 mg PO Q8H #42 tablet 08/08/16 Review of Systems - Review of Systems Constitutional: denies: Chills, Fever Eyes: denies: Blind Spots, Blurred Vision HENT: denies: Difficult Swallowing, Ear Discharge Neck: denies: Decreased ROM, Lumps Cardiovascular: denies: Chest Pain, Edema Respiratory: denies: Cough, Exercise Intolerance Gastrointestinal: reports: Abdominal Pain Genitourinary: denies: Burning, Discharge Breasts: denies: Lumps, Pain Musculoskeletal: denies: Back Pain, Crepitus Integumentary: denies: Blister, Bruising Neurological: denies: Change in LOC, Change in Speech Endocrine: denies: Excessive Sweating, Flushing Hematology/Lymphatic: denies: Easily Bruised, Excessive Bleeding Psychiatric: denies: Altered Sleep Pattern, Anxiety Physical Exam Vital Signs: Vital Signs Temperature 99.4 F 08/22/16 05:37 Pulse Rate 98 H 08/22/16 05:37 Respiratory Rate 20 08/22/16 05:37 Blood Pressure 114/68 08/22/16 05:37 O2 Sat by Pulse Oximetry (%) 97 08/21/16 21:00 Constitutional: Yes: No Distress, Calm Eyes: Yes: Conjunctiva Clear, EOM Intact HENT: Yes: Atraumatic, Normocephalic Neck: Yes: Supple, Trachea Midline Cardiovascular: Yes: Regular Rate and Rhythm Respiratory: Yes: Regular Gastrointestinal: Yes: Soft, Tenderness (induration of abd wall with some erythema. fistula open/). No: Distention ...Rectal Exam: Yes: Deferred Renal/: No: CVA Tenderness - Left, CVA Tenderness - Right Breast(s): No: Mass, Nipple Inversion Musculoskeletal: No: Joint Stiffness, Joint Swelling Extremities: No: Calf Tenderness, Erythema Integumentary: Yes: Erythema Wound/Incision: Yes: Draining Neurological: Yes: Alert, Oriented Psychiatric: Yes: Alert, Oriented Labs: CBC, BMP 08/22/16 07:50 08/22/16 07:50 Imaging - Results Cat Scan: Report Reviewed, Image Reviewed Problem List - Problems (1) Enterocutaneous fistula Assessment/Plan: for I&D under sedation. can likely can go home tomorrow am. Code(s): K63.2 - FISTULA OF INTESTINE
[2016-08-22] MEDS ORDERED: ONDANSETRON 4 MG/2 ML VIAL IVPUSH PRN ×3 (10:52→12:22)
[2016-08-22] MEDS ORDERED: PROMETHAZINE HCL 25 MG/1 ML VIAL IVPUSH PRN ×2 (10:52→12:22)
[2016-08-22] MEDS ORDERED: LACTATED RINGERS SOLUTION 1,000 ML IV SCH (11:00)
[2016-08-22] MEDS ORDERED: PROPOFOL 20 ML ONE (11:26)
[2016-08-22] MEDS ORDERED: MIDAZOLAM HCL 2 MG/2 ML SINGLE DOSE VIAL ONE (11:26)
[2016-08-22] MEDS ORDERED: LIDOCAINE HCL/PF 2% SDV 5ML VIAL ONE (11:31)
[2016-08-22] MEDS ORDERED: KETOROLAC TROMETHAMINE 30 MG/1 ML VIAL ONE (11:38)
[2016-08-22] MEDS ORDERED: DEXAMETHASONE SOD PHOSPHATE 4 MG/1 ML VIAL ONE (11:38)
[2016-08-22] MEDS ORDERED: LIDOCAINE HCL 1%, 10 MG/ML (20ML VIAL) IJ ONE (11:50)
--- NOTE | 2016-08-22 12:08 | OP ---
Operative Note - Note: Operative Date: 08/22/16 Pre-Operative Diagnosis: abdominal wall abscess Operation: drainage of abdominal wall abscess Findings: 50 cc pus Implants: large jameel Surgeon: Brown Jin Anesthesia: MAC Estimated Blood Loss (mls): 5 Operative Report Dictated: Yes
--- NOTE | 2016-08-22 12:14 | CONSULT ---
Consult - text type - Consultation Consultation Note: I&D done in OR. jameel placed. can likely go home tomorrow with VNS on oral abx. can f/u with me in 1 week.
[2016-08-22] MEDS ORDERED: ACETAMINOPHEN 325 MG TABLET (FP) PO PRN (12:22)
[2016-08-22] MEDS: morphine CARPU-JECT 4 MG/1 ML DISP.SYRIN IVPUSH PRN ×2 (15:21→21:12)
--- NOTE | 2016-08-22 17:53 | PN ---
Teaching Attending Note Name of Resident: Roberta Levy ATTENDING PHYSICIAN STATEMENT I saw and evaluated the patient. I reviewed the resident's note and discussed the case with the resident. I agree with the resident's findings and plan as documented. SUBJECTIVE: Patient underwent abscess drainage today. No complaints. OBJECTIVE: Vital Signs Period Temp Pulse Resp BP Sys/Golden Pulse Ox Last 24 Hr 98.3 F-100.4 F 72-99 16-20 102-115/60-76 97-99 GENERAL: The patient is awake, alert, and fully oriented, in no acute distress. LUNGS: Breath sounds equal, clear to auscultation bilaterally, no wheezes, no crackles, no accessory muscle use. HEART: Regular rate and rhythm, S1, S2 without murmur, rub or gallop. ABDOMEN: Soft, nontender, nondistended, normoactive bowel sounds, no guarding, no rebound, no hepatosplenomegaly, no masses. Erythema and induration of lower abdomen. EXTREMITIES: 2+ pulses, warm, well-perfused, no edema. ASSESSMENT AND PLAN: This is a 51-year-old woman with a history of multiple SBOs, multiple abdominal surgeries, colostomy, HTN, diet-controlled DM who was admitted for abdominal wall cellulitis. 1. Abdominal wall abscess and cellulitis - Failed outpatient treatment with Levaquin and Flagyl - Had temp 100.4 last night - Continue Zosyn - Blood cultures negative after 24 hours - s/p I&D of abscess today 2. Hypertension - BP ok on no medication 3. Type 2 diabetes mellitus, diet-controlled 4. 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
--- NOTE | 2016-08-22 18:02 | PN ---
Progress Note, Physician History of Present Illness: patients abd feeling much better no issues surgery drained collection - Current Medication List Current Medications: Active Medications Acetaminophen (Tylenol -) 650 mg PO Q6H PRN PRN Reason: FEVER OR PAIN Fentanyl (Sublimaze Injection -) 50 mcg IVPUSH [id number] PRN PRN Reason: PAIN Stop: 08/25/16 10:53 Heparin Sodium (Porcine) (Heparin -) 5,000 unit SQ BID RIKA Piperacillin Sod/Tazobactam Sod (Zosyn 3.375gm Ivpb (Pre-Docked)) 50 mls @ 100 mls/hr IVPB Q8H-IV RIKA PRN Reason: Protocol Last Admin: 08/22/16 17:01 Dose: 100 mls/hr Morphine Sulfate (Morphine Injection -) 2 mg IVPUSH Q4H PRN PRN Reason: PAIN Last Admin: 08/22/16 15:21 Dose: 2 mg Ondansetron HCl (Zofran Injection) 4 mg IVPUSH Q6H PRN PRN Reason: NAUSEA AND/OR VOMITING - Objective Vital Signs: Vital Signs Temperature 98.3 F 08/22/16 15:00 Pulse Rate 80 08/22/16 15:00 Respiratory Rate 20 08/22/16 15:00 Blood Pressure 104/68 08/22/16 15:00 O2 Sat by Pulse Oximetry (%) 97 08/22/16 15:00 Constitutional: Yes: No Distress, Calm Neck: Yes: Supple, Trachea Midline Cardiovascular: Yes: Regular Rate and Rhythm Respiratory: Yes: Regular, CTA Bilaterally Gastrointestinal: Yes: Normal Bowel Sounds, Soft, Other (colostomy site looks good erythema improving) Musculoskeletal: Yes: WNL Extremities: Yes: WNL Neurological: Yes: Alert, Oriented Psychiatric: Yes: Alert Labs: CBC, BMP 08/22/16 07:50 08/22/16 07:50 Assessment/Plan Problem List - Problems (1) Enterocutaneous fistula Code(s): K63.2 - FISTULA OF INTESTINE abd wall cellulites abd wall collection plan patient for surgery doing well erythema looks much better no complaints daughter in room discussed in detail
--- NOTE | 2016-08-22 21:00 | OP ---
DATE OF OPERATION: 08/22/2016 PREOPERATIVE DIAGNOSIS: Abdominal wall abscess. POSTOPERATIVE DIAGNOSIS: Abdominal wall abscess. PROCEDURE: Incision and drainage of abdominal wall abscess. ANESTHESIA: Local and sedation. SURGEON: Brown Jin M.D. FINDINGS: Patient had about a 50 mL abscess. OPERATIVE NOTE: Patient was brought to the operating room after confirming name, date of , and medical record number. She was placed in supine position. SCDs for DVT prophylaxis. She received appropriate perioperative antibiotics. She was then given sedation and then the was then removed, and she was prepped and draped in the usual sterile fashion. A timeout was then performed. There was a small sinus that when you applied pressure around it, yellow thick pus would be coming out, and therefore I could not fit my finger in, and I put a Gisela clamp through this wound and then got into the abscess cavity and gently spread the abdominal wall thus allowing more pus to come out. Once the hole was bigger, I was able to place my finger inside, place inside and suction out all the pus, which was approximately 50 mL. Once I placed my finger inside, I could not tell if I was intraabdominal or below the fascia. Nonetheless, given her history of a frozen abdomen, my suspicion that this was all above the fascia but because the hole was approximately the diameter of my finger and much larger underneath, the decision was made to place a large [place] in the wound, it goes cephalad, and I sutured it with 0 silk suture in 2 places to help secure it. I then irrigated and aspirated out the wound, and there was just sanguinous drainage, and then I placed another ostomy appliance on it. All counts were correct. I injected approximately 10 mL of 1% lidocaine around the wound for analgesia. BROWN JIN M.D. 1 RANDAL/[id number]
[2016-08-23] MEDS: PIPERACILLIN/TAZOB 3.375 GM 50 ML IVPB SCH ×3 (01:00→17:58)
[2016-08-23] MEDS: morphine CARPU-JECT 4 MG/1 ML DISP.SYRIN IVPUSH PRN (10:29)
[2016-08-23] MEDS: HEPARIN NA (PORCINE) 5,000 UNITS/ML 1ML VIAL SQ SCH (10:30)
--- NOTE | 2016-08-23 11:31 | PN ---
Progress Note, Physician Chief Complaint: Pt. pain controlled, no anesthesia complaints. - Current Medication List Current Medications: Active Medications Acetaminophen (Tylenol -) 650 mg PO Q6H PRN PRN Reason: FEVER OR PAIN Fentanyl (Sublimaze Injection -) 50 mcg IVPUSH [id number] PRN PRN Reason: PAIN Stop: 08/25/16 10:53 Heparin Sodium (Porcine) (Heparin -) 5,000 unit SQ BID RIKA Last Admin: 08/23/16 10:30 Dose: 5,000 unit Piperacillin Sod/Tazobactam Sod (Zosyn 3.375gm Ivpb (Pre-Docked)) 50 mls @ 100 mls/hr IVPB Q8H-IV RIKA PRN Reason: Protocol Last Admin: 08/23/16 10:28 Dose: 100 mls/hr Morphine Sulfate (Morphine Injection -) 2 mg IVPUSH Q4H PRN PRN Reason: PAIN Last Admin: 08/23/16 10:29 Dose: 2 mg Ondansetron HCl (Zofran Injection) 4 mg IVPUSH Q6H PRN PRN Reason: NAUSEA AND/OR VOMITING - Objective Vital Signs: Vital Signs Temperature 98.2 F 08/23/16 10:00 Pulse Rate 80 08/23/16 10:00 Respiratory Rate 18 08/23/16 10:00 Blood Pressure 117/60 08/23/16 10:00 O2 Sat by Pulse Oximetry (%) 98 08/22/16 21:00 Constitutional: Yes: Well Nourished, No Distress, Calm Musculoskeletal: Yes: WNL Neurological: Yes: WNL, Alert, Oriented ...Motor Strength: WNL Labs: CBC, BMP 08/22/16 07:50 08/22/16 07:50 Assessment/Plan POD#1 s/p I&D of enterocutaneous fistula under TIVA. Doing well. D/C from anesthesia care.
[2016-08-23] MEDS ORDERED: OXYCODONE/APAP 5/325MG COMBO TABLET PO PRN (14:15)
--- NOTE | 2016-08-23 14:15 | PN ---
Teaching Attending Note Name of Resident: Sandy Roman ATTENDING PHYSICIAN STATEMENT I saw and evaluated the patient. I reviewed the resident's note and discussed the case with the resident. I agree with the resident's findings and plan as documented. SUBJECTIVE:continues to have some abdominal pain which is resolved with pain medications. denies Cp, SOB, fever, chills, N/V/C/D OBJECTIVE: Last Vital Signs Temp Pulse Resp BP Pulse Ox 98.2 F 80 18 117/60 98 08/23/16 10:00 08/23/16 10:08/23/16 10:08/23/16 10:08/22/16 21:00 General NAD CV S1 S2 RRR no murmur/rub/gallop Lungs CTA B/L no wheezing/rales/rhonchi Abdomen slight induration on R side of colostomy bag. no erythema or tenderness around colostomy site. dark fluid drainagage into colostomy bag. ASSESSMENT AND PLAN: 51yo F with PMH SBO with enterocutaneous fistula s/p resection and colostomy, HTN and DM presented to the ER and was admitted for further evaluation of their emergent condition 1. Abdominal wall abscess with surrounding cellulitis- s/p I&D on 08/22. clinically improved. lactic acidosis resolved. on Levaquin/Flagyl. will wait on Cx from wound cx. Cx NGTD. cont pain control 2. HTN- not on medications at home. controlled here 3. DM- diet controlled but on regular diet here? check A1c. not on BGM or ISS at this time. random glucose has been controlled. 4. DVT ppx- hep sq 5. d/c planning once Wcx reported
[2016-08-23] MEDS ORDERED: ACETAMINOPHEN 325 MG TABLET (FP) PO PRN (14:17)
[2016-08-23] MEDS ORDERED: oxyCODONE HCL 5 MG TABLET PO PRN (14:17)
--- NOTE | 2016-08-23 15:07 | PN ---
Progress Note, Physician Chief Complaint: patient with less pain History of Present Illness: arielle diet. less pain. wants to go home. - Current Medication List Current Medications: Active Medications Acetaminophen (Tylenol -) 650 mg PO Q6H PRN PRN Reason: FEVER OR PAIN Acetaminophen (Tylenol -) 325 mg PO Q4H PRN PRN Reason: PAIN LEVEL 6-10 Stop: 08/26/16 14:16 Fentanyl (Sublimaze Injection -) 50 mcg IVPUSH [id number] PRN PRN Reason: PAIN Stop: 08/25/16 10:53 Heparin Sodium (Porcine) (Heparin -) 5,000 unit SQ BID RIKA Last Admin: 08/23/16 10:30 Dose: 5,000 unit Piperacillin Sod/Tazobactam Sod (Zosyn 3.375gm Ivpb (Pre-Docked)) 50 mls @ 100 mls/hr IVPB Q8H-IV RIKA PRN Reason: Protocol Last Admin: 08/23/16 10:28 Dose: 100 mls/hr Ondansetron HCl (Zofran Injection) 4 mg IVPUSH Q6H PRN PRN Reason: NAUSEA AND/OR VOMITING Oxycodone HCl (Roxicodone -) 5 mg PO Q4H PRN PRN Reason: PAIN LEVEL 6-10 - Objective Vital Signs: Vital Signs Temperature 97.9 F 08/23/16 14:23 Pulse Rate 79 08/23/16 14:23 Respiratory Rate 18 08/23/16 10:00 Blood Pressure 100/59 08/23/16 14:23 O2 Sat by Pulse Oximetry (%) 98 08/22/16 21:00 Constitutional: Yes: No Distress, Calm Gastrointestinal: Yes: Soft, Other (drainage is serosanguinous but darker. jameel in place.). No: Distention, Tenderness ...Rectal Exam: Yes: Deferred Labs: CBC, BMP 08/22/16 07:50 08/22/16 07:50 Problem List - Problems (1) Enterocutaneous fistula Assessment/Plan: s/p drainage abd wall abscess -clear for d/c home on oral abx and some percocet -can f/u with me nxt monday case d/w daughter Code(s): K63.2 - FISTULA OF INTESTINE
--- NOTE | 2016-08-23 16:09 | PN ---
Physical Exam: SUBJECTIVE: Patient seen and examined, feeling better, pain well controlled. Afebrile. wbc wnl. Colostomy draining serosangiunous fluid. OBJECTIVE: Vital Signs Period Temp Pulse Resp BP Sys/Golden Pulse Ox Last 24 Hr 97.9 F-98.7 F 74-90 18-18 100-120/59-69 98 GENERAL: The patient is awake, alert, and fully oriented, in no acute distress. HEAD: Normal with no signs of trauma. EYES: PERRL, extraocular movements intact, sclera anicteric, conjunctiva clear. No ptosis. ENT: Ears normal, nares patent, oropharynx clear without exudates, moist mucous membranes. NECK: Trachea midline, full range of motion, supple. LUNGS: Breath sounds equal, clear to auscultation bilaterally, no wheezes, no crackles, no accessory muscle use. HEART: Regular rate and rhythm, S1, S2 without murmur, rub or gallop. ABDOMEN:Soft, nontender, nondistended, normoactive bowel sounds, no guarding, less erythema, induration appreciated on right side around colostomy site colostomy in place, no leakage or drainage. serosanguinious fluid in bag. incision clean dry in tact EXTREMITIES: 2+ pulses, warm, well-perfused, no edema. NEUROLOGICAL: Cranial nerves II through XII grossly intact. Normal speech, gait not observed. PSYCH: Normal mood, normal affect. SKIN: Warm, dry, normal turgor, no rashes or lesions noted Active Medications Generic Name Dose Route Start Last Admin Trade Name Freq PRN Reason Stop Dose Admin Acetaminophen 650 mg 08/22/16 12:22 Tylenol - PO Q6H PRN FEVER OR PAIN Acetaminophen 325 mg 08/23/16 14:17 Tylenol - PO 08/26/16 14:16 Q4H PRN PAIN LEVEL 6-10 Fentanyl 50 mcg 08/22/16 12:22 Sublimaze Injection - IVPUSH 08/25/16 10:53 [id number] PRN PAIN Heparin Sodium (Porcine) 5,000 unit 08/22/16 22:00 08/23/16 10:30 Heparin - SQ 5,000 unit BID RIKA Administration Piperacillin Sod/Tazobactam Sod 50 mls @ 100 mls/hr 08/22/16 18:00 08/23/16 10: 28 Zosyn 3.375gm Ivpb (Pre-Docked) IVPB 100 mls/hr Q8H-IV RIKA Administration Protocol Ondansetron HCl 4 mg 08/22/16 12:22 Zofran Injection IVPUSH Q6H PRN NAUSEA AND/OR VOMITING Oxycodone HCl 5 mg 08/23/16 14:17 Roxicodone - PO Q4H PRN PAIN LEVEL 6-10 CT abdomen pelvis: 2 x 1.8 vm complex collection that could represent an abscess ASSESSMENT/PLAN: Patient is a 51 year old female with a PMHx of: multiple SBOs, multiple abdominal sx, HTN, borderline DM (diet controlled only), s/p Colostomy. Admitted for Abdominal Cellulitis, Abdominal Pain for further evaluation of their emergent condition. # Cellulitis of Abdomen s/p colostomy -s/p drainage 08/22;Drained about 50 cc of pus. -wbc wnl. afebril -Zosyn day #2 -pain controlled -antibiotics as per ID -f/u with Dr. Jin on # Hypertension - Monitor BP # Diabetes Mellitus - BGMs - Insulin sliding scale # FEN - IV NS @100cc/hr - Electrolytes to be repeated tomorrow - regular diet VTE prophylaxis: heparin sq Visit type - Emergency Visit Emergency Visit: Yes ED Registration Date: 08/21/16 Care time: The patient presented to the Emergency Department on the above date and was hospitalized for further evaluation of their emergent condition. - New Patient This patient is new to me today: Yes Date on this admission: 08/23/16 - Critical Care Critical Care patient: No
--- NOTE | 2016-08-23 16:40 | PN ---
Progress Note, Physician History of Present Illness: patient doing well c/o of constipation abd wall looks good - Current Medication List Current Medications: Active Medications Acetaminophen (Tylenol -) 650 mg PO Q6H PRN PRN Reason: FEVER OR PAIN Acetaminophen (Tylenol -) 325 mg PO Q4H PRN PRN Reason: PAIN LEVEL 6-10 Stop: 08/26/16 14:16 Fentanyl (Sublimaze Injection -) 50 mcg IVPUSH [id number] PRN PRN Reason: PAIN Stop: 08/25/16 10:53 Heparin Sodium (Porcine) (Heparin -) 5,000 unit SQ BID RIKA Last Admin: 08/23/16 10:30 Dose: 5,000 unit Piperacillin Sod/Tazobactam Sod (Zosyn 3.375gm Ivpb (Pre-Docked)) 50 mls @ 100 mls/hr IVPB Q8H-IV RIKA PRN Reason: Protocol Last Admin: 08/23/16 10:28 Dose: 100 mls/hr Ondansetron HCl (Zofran Injection) 4 mg IVPUSH Q6H PRN PRN Reason: NAUSEA AND/OR VOMITING Oxycodone HCl (Roxicodone -) 5 mg PO Q4H PRN PRN Reason: PAIN LEVEL 6-10 - Objective Vital Signs: Vital Signs Temperature 97.9 F 08/23/16 14:23 Pulse Rate 79 08/23/16 14:23 Respiratory Rate 18 08/23/16 10:00 Blood Pressure 100/59 08/23/16 14:23 O2 Sat by Pulse Oximetry (%) 98 08/22/16 21:00 Constitutional: Yes: No Distress, Calm Cardiovascular: Yes: Regular Rate and Rhythm Respiratory: Yes: Regular, CTA Bilaterally Gastrointestinal: Yes: Normal Bowel Sounds, Soft, Other (colostomy present erythema nearly resolved) Musculoskeletal: Yes: WNL Extremities: Yes: WNL Integumentary: Yes: Erythema (nearly resolved) Wound/Incision: Yes: Other Neurological: Yes: Alert, Oriented Psychiatric: Yes: Alert, Oriented Labs: CBC, BMP 08/22/16 07:50 08/22/16 07:50 Assessment/Plan Problem List - Problems (1) Enterocutaneous fistula Code(s): K63.2 - FISTULA OF INTESTINE abd wall cellulites abd wall collection plan doing well can switch to oral augmentin for 7 more days 875 mg twice a day
[2016-08-23 18:58] VITALS: BP 101/63; PULSE 76; TEMP 98.4
--- NOTE | 2016-08-23 19:07 | DS ---
Physical Exam: SUBJECTIVE: Patient seen and examined pain controlled, afebrile, white count wnl. Admits to decreased swelling and erythema. OBJECTIVE: Vital Signs Period Temp Pulse Resp BP Sys/Golden Pulse Ox Last 24 Hr 97.9 F-98.7 F 74-90 18-20 100-120/59-66 98 PHYSICAL EXAM GENERAL: The patient is awake, alert, and fully oriented, in no acute distress. HEAD: Normal with no signs of trauma. EYES: PERRL, extraocular movements intact, sclera anicteric, conjunctiva clear. ENT: Ears normal, nares patent, oropharynx clear without exudates, moist mucous membranes. NECK: Trachea midline, full range of motion, supple. LUNGS: Breath sounds equal, clear to auscultation bilaterally, no wheezes, no crackles, no accessory muscle use. HEART: Regular rate and rhythm, S1, S2 without murmur, rub or gallop. ABDOMEN: Soft, nontender, nondistended, normoactive bowel sounds, no guarding, no rebound, no hepatosplenomegaly, no masses. colostomy bag, good seal; draining serosanguinous fluid, skin around colostomy less indurated, still some induration on the right side of bag; no erythema, mild tenderness to palpation EXTREMITIES: 2+ pulses, warm, well-perfused, no edema. NEUROLOGICAL: Cranial nerves II through XII grossly intact. Normal speech, gait not observed. PSYCH: Normal mood, normal affect. SKIN: Warm, dry, normal turgor, no rashes or lesions noted. LABS HOSPITAL COURSE: Date of Admission:08/21/16 Date of Discharge: 08/23/16 Patient is a 51 year old female with a PMHx of: multiple SBOs, multiple abdominal sx, HTN, borderline DM, s/p Colostomy. Admitted for Abdominal Cellulitis, Abdominal Pain for further evaluation of their emergent condition. PMHx: 07/14/16 Patient had laproscopic converted to open exploratory laparoscopy for extensive lysis of adhesions, partial omentectomy, partial appendectomy on , after being admitted for small bowel obstruction. 07/22/2016: Readmission for SBO CT scan of the abdomen and pelvis: Mesenteric edema/inflammation, thickening SBO , 4X6 right lower quadrant fluid collection 07/24/2016: Surgery: Exploratory laparoscopy for drainage of intra-abdominal abscess. 08/08/2016: Discharge on Flagyl and Levaquin # Cellulitis of Abdomen s/p colostomy -s/p drainage 08/22;Drained about 50 cc of pus. -wbc wnl. afebril -antibiotics in hospital IV Zosyn day -pain controlled -sent home on augmentin 875mg po bid x 7days -f/u with Dr. Jin on Minutes to complete discharge: 35 Discharge Summary Reason For Visit: CELLULITIS, INTRA-ABDOMINAL ABSCESS Current Active Problems DVT prophylaxis (Acute) Gram-negative bacteremia (Acute) Intra-abdominal abscess (Acute) Condition: Improved - Instructions Diet, Activity, Other Instructions: Ms Vijay Neves, you have treated for an abdominal wound infection. We would like you to continue to take oral antibiotics as directed, Augmentin 875mg twice a day for 7 days. Please follow up with Dr. Jin on Monday. If you experience any worsening of symptoms, including fever chills, abdominal pain, please return to the emergency room. Referrals: Brown Jin MD [Staff Physician] - Margaux Mandel MD [Primary Care Provider] - Disposition: HOME - Home Medications Comprehensive Discharge Medication List: Ambulatory Orders Lactobacillus Acidophilus [Bacid -] 1 tab PO BID #60 tab 08/08/16 Acetaminophen [Tylenol .Regular Strength -] 325 mg PO Q4H PRN #0 tablet Amoxicillin/Potassium Clav [Augmentin 875-125 Tablet] 1 each PO BID #14 tablet 08/23/16 Oxycodone HCl [Roxicodone -] 5 mg PO Q4H PRN #30 tablet MDD 6 08/23/16 This patient is new to me today: Yes Date on this admission: 08/23/16 Emergency Visit: Yes ED Registration Date: 08/21/16 Care time: The patient presented to the Emergency Department on the above date and was hospitalized for further evaluation of their emergent condition. Critical Care patient: No - Discharge Referral Referred to [facility] Med P.C.: No
== END 2016-08-23 20:29 | disposition home or self-care (01) | DRG 711 ==
LOC: JER 19:36 → JERBED 08-21 03:35 → J6S 08-21 09:36
PROVIDERS: ADMIT Internal Medicine; ATTEND Internal Medicine
PROC: 0W9F0ZZ Drainage of Abdominal Wall, Open Approach (ICD-10-PCS; principal; 2016-08-22 11:00)
DX: T81.4XXA Infection following a procedure, initial encounter (principal); Y83.9 Surgical procedure, unspecified as the cause of abnormal reaction of the patient, or of later complication, without mention of misadventure at the time of the procedure; L03.311 Cellulitis of abdominal wall; K63.2 Fistula of intestine; I10 Essential (primary) hypertension; E11.9 Type 2 diabetes mellitus without complications
CPT/HCPCS: 36415; 71010-TC; 74176-TC; 74177-TC; 80048; 80053; 81003; 82150; 83605; 83690; 85025; 87040; 93005; 93010; 94760; 99284-25; J1644

== ENCOUNTER 2016-10-02 22:57 | Inpatient (IN) | payer OTHER ==
--- NOTE | 2016-10-02 23:28 | PDOC ---
History of Present Illness <StanislavSarahlonnie Rene - Last Filed: 10/02/16 23:49> - General History Source: Patient Exam Limitations: No Limitations - History of Present Illness Initial Comments: 10/03/16 02:05 The patient is a 53-year-old female, with a significant past medical history of cellulitis of abdomen s/p colectomy, who presents to the ED with chills and abdominal pain. Upon examination, slight induration and erythema were noted around her colostomy bag. The patient denies any fever, nausea, vomiting, or diarrhea. The patient denies any shortness of breath or chest pain. <Shanika Holt - Last Filed: 10/03/16 02:05> <Loretta Nguyen - Last Filed: 10/06/16 22:14> - General Chief Complaint: Pain Stated Complaint: ABDOMINAL PAIN Time Seen by Provider: 10/02/16 23:28 Past History - Past Medical History GI Disorders: Yes (SBO) HTN: Yes - Surgical History Abdominal Surgery: Yes (HERNIA REPAIR) Appendectomy: Yes - Immunization History Immunization Up to Date: Yes - Psycho/Social/Smoking Cessation Hx Anxiety: No Suicidal Ideation: No Smoking Status: No Smoking History: Never smoked Have you smoked in the past 12 months: No Number of Cigarettes Smoked Daily: 0 Information on smoking cessation initiated: No Hx Alcohol Use: No Drug/Substance Use Hx: No Substance Use Type: None Hx Substance Use Treatment: No <Sarah Colorado - Last Filed: 10/02/16 23:49> <Shanika Holt - Last Filed: 10/03/16 02:05> <Loretta Nguyen - Last Filed: 10/06/16 22:14> - Past Medical History Allergies/Adverse Reactions: Allergies Allergy/AdvReac Type Severity Reaction Status Date / Time No Known Allergies Allergy Verified 10/02/16 23:12 Home Medications: Ambulatory Orders Ibuprofen [Motrin -] 600 mg PO TID PRN 10/02/16 Review of Systems - Review of Systems Able to Perform ROS?: Yes Comments:: 10/03/16 02:06 Adult Comprehensive CONSTITUTIONAL: Present: chills Absent: fever, no fatigue EYES: Absent: visual changes ENT: Absent: ear pain, no sore throat CARDIOVASCULAR: Absent: chest pain, no palpitations RESPIRATORY: Absent: cough, no SOB GI: Present: abdominal pain Absent: no nausea, no vomiting, no constipation, no diarrhea GENITOURINARY: Absent: dysuria, no frequency, no hematuria MUSKULOSKELETAL: Absent: back pain, no arthralgia, no myalgia SKIN: Absent: rash NEURO: Absent: headache <JonathonShanika - Last Filed: 10/03/16 02:05> *Physical Exam - Vital Signs Last Vital Signs Temp Pulse Resp BP Pulse Ox 99.7 F H 112 H 18 139/93 97 10/02/16 23:04 10/02/16 23:04 10/02/16 23:04 10/02/16 23:04 10/02/16 23:04 <Sarah Colorado - Last Filed: 10/02/16 23:49> - Vital Signs Last Vital Signs Temp Pulse Resp BP Pulse Ox 99.7 F H 112 H 18 139/93 99 10/02/16 23:04 10/02/16 23:04 10/02/16 23:04 10/02/16 23:04 10/02/16 23:29 - Physical Exam Comments: 10/03/16 02:07 GENERAL: Well-appearing, well-nourished. No apparent distress. HEENT: Normocephalic, atraumatic. PERRL, EOM intact. CARDIOVASCULAR: Normal S1, S2. Regular rate and rhythm. PULMONARY: Clear to auscultation bilaterally. ABDOMEN: Soft, non-distended, non-tender. (+)Colostomy bag present with a ring of erythema around it. Tenderness to palpation. EXTREMITIES: Normal ROM in all four extremities. No gross deformities. No pitting edema in lower extremities. SKIN: Warm, dry. No rash NEUROLOGICAL: No focal neurological. <Shanika Holt - Last Filed: 10/03/16 02:05> - Vital Signs Last Vital Signs Temp Pulse Resp BP Pulse Ox 99.7 F H 112 H 18 139/93 99 10/02/16 23:04 10/02/16 23:04 10/02/16 23:04 10/02/16 23:04 10/02/16 23:29 <Loretta Nguyen - Last Filed: 10/06/16 22:14> ED Treatment Course - LABORATORY CBC & Chemistry Diagram: 10/03/16 00:47 10/03/16 00:47 - ADDITIONAL ORDERS Additional order review: Laboratory Results 10/03/16 00:47 Sodium 141 Potassium 4.2 Chloride 105 Carbon Dioxide 27 Anion Gap 9 BUN 10 D Creatinine 0.5 L D Creat Clearance w eGFR > 60 Random Glucose 105 D Calcium 8.7 Total Bilirubin 0.3 AST 17 ALT 24 D Alkaline Phosphatase 103 Total Protein 7.1 Albumin 3.8 10/03/16 00:47 RBC 4.59 MCV 77.5 L MCHC 32.4 RDW 15.0 MPV 9.0 Neutrophils % 74.3 Lymphocytes % 17.5 Monocytes % 6.9 Eosinophils % 0.5 Basophils % 0.8 - Medications Given in the ED: ED Medications Discontinued Medications Generic Name Dose Route Start Last Admin Trade Name Keila PRN Reason Stop Dose Admin Acetaminophen 650 mg 10/02/16 23:37 10/03/16 00:05 Tylenol - PO 10/02/16 23:38 650 mg ONCE ONE Administration Sodium Chloride 1,000 mls @ 1,000 mls/hr 10/02/16 23:29 10/03/16 00:05 Normal Saline - IV 10/03/16 00:28 1,000 mls/hr ASDIR STA Administration Piperacillin Sod/Tazobactam 50 mls @ 100 mls/hr 10/02/16 23:38 10/03/16 00:05 Sod 3.375 gm/ Dextrose IVPB 10/03/16 00:07 100 mls/hr ONCE ONE Administration Protocol <Shanika Holt - Last Filed: 10/03/16 02:05> - LABORATORY CBC & Chemistry Diagram: 10/06/16 06:30 10/06/16 06:30 - ADDITIONAL ORDERS Additional order review: Laboratory Results 10/03/16 10/03/16 01:54 00:47 Sodium 141 Potassium 4.2 Chloride 105 Carbon Dioxide 27 Anion Gap 9 BUN 10 D Creatinine 0.5 L D Creat Clearance w eGFR > 60 Random Glucose 105 D Calcium 8.7 Total Bilirubin 0.3 AST 17 ALT 24 D Alkaline Phosphatase 103 Total Protein 7.1 Albumin 3.8 Urine Color Colorless Urine Appearance Clear Urine pH 7.0 Urine Protein Negative Urine Glucose (UA) Negative Urine Ketones Negative Urine Blood Negative Urine Nitrite Negative Urine Bilirubin Negative Urine Urobilinogen Negative Ur Leukocyte Esterase Trace H Urine RBC <1 Urine WBC 1 10/03/16 00:47 RBC 4.59 MCV 77.5 L MCHC 32.4 RDW 15.0 MPV 9.0 Neutrophils % 74.3 Lymphocytes % 17.5 Monocytes % 6.9 Eosinophils % 0.5 Basophils % 0.8 - Medications Given in the ED: ED Medications Discontinued Medications Generic Name Dose Route Start Last Admin Trade Name Keila PRN Reason Stop Dose Admin Acetaminophen 650 mg 10/02/16 23:37 10/03/16 00:05 Tylenol - PO 10/02/16 23:38 650 mg ONCE ONE Administration Sodium Chloride 1,000 mls @ 1,000 mls/hr 10/02/16 23:29 10/03/16 00:05 Normal Saline - IV 10/03/16 00:28 1,000 mls/hr ASDIR STA Administration Piperacillin Sod/Tazobactam 50 mls @ 100 mls/hr 10/02/16 23:38 10/03/16 00:05 Sod 3.375 gm/ Dextrose IVPB 10/03/16 00:07 100 mls/hr ONCE ONE Administration Protocol <Loretta Nguyen - Last Filed: 10/06/16 22:14> Medical Decision Making - Medical Decision Making 10/02/16 23:49 51-year-old female presents with abdominal pain, complaints of chills today. She has noted some mild induration and erythema surrounding her colostomy bag. PMH:She past medical history of cellulitis in her abdomen, status post colectomy. Dr. Brown Jin and Dr. Saxena are her surgeons. She had a exploratory laparoscopy was converted to normal open exploratory laparoscopy for extensive lysis of adhesions, partial omentectomy, partial appendectomy after being admitted for small bowel obstruction on 07/14/2016. She was readmitted on July 22 of this year for small bowel obstruction. CAT scan of abdomen and pelvis at that time showed a mesenteric edema, inflammation and thickened small bowel obstruction with a 4x 6 cm right lower quadrant fluid collection July 24. She had exploratory laparoscopy for drainage of intra-abdominal abscess and she was discharged on 08/08/2016 on Flagyl and Levaquin. <Sarah Colorado - Last Filed: 10/02/16 23:49> - Medical Decision Making 10/03/16 03:07 Patient Name: Keyla Linares bandar Leach THIS IS A PRELIMINARY REPORT FROM [facility] IMAGES: 486 EXAM DATE AND TIME: 2016-10-03 01:59:53.0 EXAM: CT ABDOMEN AND PELVIS WITH CONTRAST 4.1 cm periumbilical abscess, decreased in size since 08/21/16. Enhancing soft tissue leads from abscess to right lower quadrant small bowel near anastomotic suture line (best seen on coronal images) , suspicious for a sinus tract. This could be further evaluated with fluoroscopy. No evidence of ventral hernia. No bowel obstruction, colitis, free fluid or free air. Appendix not seen. Pericecal surgical changes. Unremarkable pancreas and gallbladder. Subcentimeter cortical hypodensity left kidney. Duplicated IVC. Leiomyomatous uterus. THIS DOCUMENT HAS BEEN ELECTRONICALLY SIGNED 10/06/16 22:13 Pt admitted for intraabdominal infection <Loretta Nguyen - Last Filed: 10/06/16 22:14> *DC/Admit/Observation/Transfer <Sarah Colorado - Last Filed: 10/02/16 23:49> - Attestations Scribe Attestion: 10/03/16 02:08 Documentation prepared by Shanika Holt, acting as biomedical engineering professor for Sarah Colorado MD. <Shanika Holt - Last Filed: 10/03/16 02:05> - Discharge Dispostion Admit: Yes <Loretta Nguyen - Last Filed: 10/06/16 22:14> Diagnosis at time of Disposition: Intra-abdominal abscess, Abdominal wall cellulitis - Referrals
[2016-10-02] MEDS ORDERED: SODIUM CHLORIDE 1,000 ML IV STA (23:29)
[2016-10-02] MEDS ORDERED: ACETAMINOPHEN 325 MG TABLET (FP) PO ONE (23:37)
[2016-10-02] MEDS ORDERED: PIPERACILLIN/TAZOB 3.375 GM 3.375 GM in DEXTROSE 5%-WATER - 50 ML IVPB ONE (23:38)
[2016-10-03] MEDS ORDERED: ACETAMINOPHEN 325 MG TABLET (FP) ONE ×2 (00:23→10:52)
[2016-10-03] MEDS ORDERED: PIPERACILLIN/TAZOB 3.375 GM 50 ML IVPB ONE (00:23)
[2016-10-03 00:55] LABS: BASOPHIL 0.8 % (0-2.0); EOSINOPHIL 0.5 % (0-4.5); MCH 25.2 pg (25.7-33.7); MCHC 32.4 g/dl (32.0-36.0); MEAN CELL VOLUME 77.5 fl (80-96); NEUTROPHILS 74.3 % (42.8-82.8); PLATELET COUNT 249 K/MM3 (134-434); WHITE BLOOD COUNT 10.7 K/mm3 (4.0-10.0)
[2016-10-03 01:17] LABS: ALBUMIN 3.8 g/dl (3.4-5.0); ALK PHOS 103 U/L (45-117); ANION GAP 9 (8-16); BILIRUBIN,TOTAL 0.3 mg/dL (0.2-1.0); CALCIUM 8.7 mg/dL (8.5-10.1); CO2 27 mmol/L (21-32); CREATININE 0.5 mg/dL (0.55-1.02); GLUCOSE,RANDOM 105 mg/dL (74-106); SGOT/AST 17 U/L (15-37); SGPT/ALT 24 U/L (12-78); TOT PROT 7.1 g/dl (6.4-8.2)
[2016-10-03 02:01] LABS: URINE APPEARANCE CLEAR; URINE BILIRUBIN NEGATIVE (NEGATIVE); URINE BLOOD NEGATIVE (NEGATIVE); URINE COLOR COLORLESS; URINE GLUCOSE (UA) NEGATIVE (NEGATIVE); URINE KETONE NEGATIVE (NEGATIVE); URINE LEUK ESTERASE TRACE (NEGATIVE); URINE NITRITE NEGATIVE (NEGATIVE); URINE PROTEIN NEGATIVE (NEGATIVE); URINE UROBILINOGEN NEGATIVE E.U./dl (0.2-1.0)
[2016-10-03 02:10] LABS: URINE RBC <1 /hpf (0-3); URINE WBC 1 /hpf (3-5)
--- NOTE | 2016-10-03 03:25 | PN ---
<Bhavani Sloan - Last Filed: 10/03/16 03:25> Teaching Attending Note Name of Resident: Roman Kim ATTENDING PHYSICIAN STATEMENT I saw and evaluated the patient. I reviewed the resident's note and discussed the case with the resident. I agree with the resident's findings and plan as documented. SUBJECTIVE: OBJECTIVE: ASSESSMENT AND PLAN: <Enedelia Nichole - Last Filed: 10/03/16 04:47> Teaching Attending Note ATTENDING PHYSICIAN STATEMENT I saw and evaluated the patient. I reviewed the resident's note and discussed the case with the resident. I agree with the resident's findings and plan as documented. SUBJECTIVE: The patient is a 53 year old female with a significant past abdominal cellulitis s/p colectomy with recent discharge 08/23 for abdominal cellulitis. Patient had abdominal abscess drained 08/22 and was sent home on abx. Patient developed redness, swelling and pain and change in drainage from yellow to brown around the wound on that has progressively worsened since. She reports chills and subjective fever at home. OBJECTIVE: VS: Last Vital Signs Temp Pulse Resp BP Pulse Ox 99.7 F H 112 H 18 139/93 99 10/02/16 23:04 10/02/16 23:04 10/02/16 23:04 10/02/16 23:04 10/02/16 23:29 Physical Exam: GEN: NAD resting in bed HEENT: NCAT, PERRL CARD: RRR, S1 S2 RESP: CTAB ABD: Soft, BWS x4, open wound below umbilicus with serosanguinous fluid and pus with surrounding erythema and warmth EXT: - CCE Labs: CBCD WBC 10.7 K/mm3 (4.0-10.0) H 10/03/16 00:47 RBC 4.59 M/mm3 (3.60-5.2) 10/03/16 00:47 Hgb 11.6 GM/dL (10.7-15.3) 10/03/16 00:47 Hct 35.6 % (32.4-45.2) 10/03/16 00:47 MCV 77.5 fl (80-96) L 10/03/16 00:47 MCHC 32.4 g/dl (32.0-36.0) 10/03/16 00:47 RDW 15.0 % (11.6-15.6) 10/03/16 00:47 Plt Count 249 K/MM3 (134-434) 10/03/16 00:47 MPV 9.0 fl (7.5-11.1) 10/03/16 00:47 CMP Sodium 141 mmol/L (136-145) 10/03/16 00:47 Potassium 4.2 mmol/L (3.5-5.1) 10/03/16 00:47 Chloride 105 mmol/L (98-107) 10/03/16 00:47 Carbon Dioxide 27 mmol/L (21-32) 10/03/16 00:47 Anion Gap 9 (8-16) 10/03/16 00:47 BUN 10 mg/dL (7-18) D 10/03/16 00:47 Creatinine 0.5 mg/dL (0.55-1.02) L D 10/03/16 00:47 Creat Clearance w eGFR > 60 (>60) 10/03/16 00:47 Calcium 8.7 mg/dL (8.5-10.1) 10/03/16 00:47 Total Bilirubin 0.3 mg/dL (0.2-1.0) 10/03/16 00:47 AST 17 U/L (15-37) 10/03/16 00:47 ALT 24 U/L (12-78) D 10/03/16 00:47 Alkaline Phosphatase 103 U/L (45-117) 10/03/16 00:47 Total Protein 7.1 g/dl (6.4-8.2) 10/03/16 00:47 Albumin 3.8 g/dl (3.4-5.0) 10/03/16 00:47 CT Abdomen: THIS IS A PRELIMINARY REPORT FROM [facility] EXAM DATE AND TIME: 01:59:53.0 EXAM: CT ABDOMEN AND PELVIS WITH CONTRAST 4.1 cm periumbilical abscess, decreased in size since 08/21/16. Enhancing soft tissue leads from abscess to right lower quadrant small bowel near anastomotic suture line (best seen on coronal images), suspicious for a sinus tract. This could be further evaluated with fluoroscopy. No evidence of ventral hernia. No bowel obstruction, colitis, free fluid or free air. Appendix not seen. Pericecal surgical changes. Unremarkable pancreas and gallbladder. Subcentimeter cortical hypodensity left kidney. Duplicated IVC. Leiomyomatous uterus. THIS DOCUMENT HAS BEEN ELECTRONICALLY SIGNED Vivian Tavares M.D. ASSESSMENT AND PLAN: 53 yr F with a pmhx of multiple SBOs, abdominal surgeries, hypertension, and DM who presents with abdominal pain found to have residual abdominal abscess and possible sinus tract. 1. Abdominal pain -Most likely due to abdominal cellulitis/abscess/sinus tract -Prior culture of the peritoneal fluid is positive for Enterobacter cloacae sensitive to Meropenem and resistant to Zosyn -Continue Meropenem -ID consult -Surgical consult -Type in screen -Blood cultures -Coags -NPO -Gentle IVF -Pain medication PRN 2. Hypertension -Not on any meds 3. DM -Diet controlled -Rapid acting insulin -Finger sticks 4.DVT ppx -Scds Place in MedSurg. Documentation prepared by Enedelia Nichole acting as administrative medical director for Bhavani Sloan D.O.
--- NOTE | 2016-10-03 03:32 | HP ---
CHIEF COMPLAINT: Abdominal Pain PCP: Margaux Espinal MD HISTORY OF PRESENT ILLNESS: 51 year old with significant pmh of exploratory laporatomy s/p SBO complicated by subsequent abdominal cellulitis with intra-abdominal abscess drained on 08/22 presented to the ED with complaint of abdominal pain. The pain started on , 12/15, intermittent and pulsating, non radiating, relieved by morphine which patient received in the ED and worsening by walking, palpation. Pt tried ibuprofen at home which did not help. Patient also has drainage bag that usually drain yellow purulent fluid but the fluid has become more sanguineous yesterday but now is back to brown and purulent. Since , the surrounding area of the wound has become more erythemathous and expending. yesterday pt started to have chills and subjective fever. No nausea, vomiting, no diarrhea or constipation, no melena or hematochezia, no hemarturia or dysuria , no dizziness or confusion. ER course was notable for: (1) CT abdomen and pelvis (2)Zosyn, NS 1 liter, Tylenol PO Recent Travel: none PAST MEDICAL HISTORY HTN controlled with diet Diabetes controlled with diet SBO Abdominal Wall cellulitis Intra-abdominal abscess Recent Hospitalizations 07/11/2016: Admitted for SBO Surgeon: Dr. Jin [phone] Patient was seen at [facility] ER for abdominal pain, nausea/ vomiting. CAT scan showed a small bowel obstruction anterior mid abdomen. 07/14/2016: Surgery: Laparoscopic converted to open exploratory laparoscopy for extensive lysis of adhesions, partial omentectomy, partial appendectomy. 07/22/2016: Readmission for SBO CT scan of the abdomen and pelvis: Mesenteric edema/inflammation, thickening SBO , 4X6 right lower quadrant fluid collection 07/24/2016: Surgery: Exploratory laparoscopy for drainage of intra-abdominal abscess. 08/08/2016: Discharge on Flagyl and Levaquin 08/21/16 Admitted for Cellulitis of Abdomen wall s/p Exp Lap for intra-abdominal abscess. Normal wbc, afebrile 08/22/16 IR drainage;Drained about 50 cc of pus. received IV Zosyn during hospital stay and DC on augmentin 875mg po bid x 7days with f/u with Dr Jin Date of Discharge: 04/18/17 PAST SURGICAL HISTORY: Tubal ligation (1984) Abdominal Hernia repair (2003) Laparoscopic converted to open exploratory laparoscopy for extensive lysis of adhesions, partial omentectomy, partial appendectomy (2017) Exploratory laparoscopy for drainage of intra-abdominal abscess (2017) Social History: Smoking: none Alcohol: none Drugs: none Family History: Non contributory Allergies No Known Allergies Allergy (Verified 10/02/16 23:12) HOME MEDICATIONS: Home Medications Medication Instructions Recorded Ibuprofen [Motrin -] 600 mg PO TID PRN 10/02/16 REVIEW OF SYSTEMS CONSTITUTIONAL: fever, chills Absent: diaphoresis, generalized weakness, malaise, loss of appetite, weight change HEENT: Absent: rhinorrhea, nasal congestion, throat pain, throat swelling, difficulty swallowing, mouth swelling, ear pain, eye pain, visual changes CARDIOVASCULAR: Absent: chest pain, syncope, palpitations, irregular heart rate, lightheadedness , peripheral edema RESPIRATORY: Absent: cough, shortness of breath, dyspnea with exertion, orthopnea, wheezing, stridor, hemoptysis GASTROINTESTINAL:abdominal pain Absent: abdominal distension, nausea, vomiting, diarrhea, constipation, melena , hematochezia GENITOURINARY: Absent: dysuria, frequency, urgency, hesitancy, hematuria, flank pain, genital pain MUSCULOSKELETAL: Absent: myalgia, arthralgia, joint swelling, back pain, neck pain SKIN: abdominal wall redness surrounding drain brown purulent fluid Absent: rash, itching, pallor HEMATOLOGIC/IMMUNOLOGIC: Absent: easy bleeding, easy bruising, lymphadenopathy, frequent infections ENDOCRINE: Absent: unexplained weight gain, unexplained weight loss, heat intolerance, cold intolerance NEUROLOGIC: Absent: headache, focal weakness or paresthesias, dizziness, unsteady gait, seizure, mental status changes, bladder or bowel incontinence PSYCHIATRIC: Absent: anxiety, depression, suicidal or homicidal ideation, hallucinations. PHYSICAL EXAMINATION Vital Signs - 24 hr 10/02/16 10/02/16 23:04 23:29 Temperature 99.7 F H Pulse Rate 112 H Respiratory 18 Rate Blood Pressure 139/93 O2 Sat by Pulse 97 99 Oximetry (%) GENERAL: Awake, alert, and fully oriented, in no acute distress. HEAD: Normal with no signs of trauma. EYES: Pupils equal, round and reactive to light, extraocular movements intact, sclera anicteric, conjunctiva clear. No lid lag. EARS, NOSE, THROAT: Ears normal, nares patent, oropharynx clear without exudates. Moist mucous membranes. NECK: Normal range of motion, supple without lymphadenopathy, JVD, or masses. LUNGS: Breath sounds equal, clear to auscultation bilaterally. No wheezes, and no crackles. No accessory muscle use. HEART: Regular rate and rhythm, normal S1 and S2 without murmur, rub or gallop. ABDOMEN: Soft, lower abdominal tenderness more in LLQ than right lower quadrant. increase pain closure to draining site with bag with brown purulent fluid , not distended, normoactive bowel sounds, no guarding, no rebound, no masses. No hepatomegaly or splenomegaly. MUSCULOSKELETAL: Normal range of motion at all joints. No bony deformities or tenderness. No CVA tenderness. UPPER EXTREMITIES: 2+ pulses, warm, well-perfused. No cyanosis. No clubbing. No peripheral edema. LOWER EXTREMITIES: 2+ pulses, warm, well-perfused. No calf tenderness. No peripheral edema. NEUROLOGICAL: Cranial nerves II-XII intact. Normal speech. Normal gait. PSYCHIATRIC: Cooperative. Good eye contact. Appropriate mood and affect. SKIN: Warm, dry, normal turgor, no rashes or lesions noted, normal capillary refill. lower abdominal wall and suprapubic redness, tenderness. Laboratory Results - last 24 hr 10/03/16 10/03/16 10/03/16 00:47 00:47 01:54 WBC 10.7 H RBC 4.59 Hgb 11.6 Hct 35.6 MCV 77.5 L MCHC 32.4 RDW 15.0 Plt Count 249 MPV 9.0 Neutrophils % 74.3 Lymphocytes % 17.5 Monocytes % 6.9 Eosinophils % 0.5 Basophils % 0.8 Sodium 141 Potassium 4.2 Chloride 105 Carbon Dioxide 27 Anion Gap 9 BUN 10 D Creatinine 0.5 L D Creat Clearance w eGFR > 60 Random Glucose 105 D Calcium 8.7 Total Bilirubin 0.3 AST 17 ALT 24 D Alkaline Phosphatase 103 Total Protein 7.1 Albumin 3.8 Urine Color Colorless Urine Appearance Clear Urine pH 7.0 Urine Protein Negative Urine Glucose (UA) Negative Urine Ketones Negative Urine Blood Negative Urine Nitrite Negative Urine Bilirubin Negative Urine Urobilinogen Negative Ur Leukocyte Esterase Trace H Urine RBC <1 Urine WBC 1 CBC, BMP 10/03/16 00:47 10/03/16 00:47 Microbiology 07/27/16 15:00 Body Fluid - Other Gram Stain - Final 07/27/16 15:00 Body Fluid - Other Anaerobic Culture - Final Enterobacter Cloacae NO ANAEROBES WERE ISOLATED 07/22/16 05:16 Blood - Peripheral Venous Blood Culture - Final Escherichia Coli CT ABDOMEN AND PELVIS WITH CONTRAST 10/02/16 4.1 cm periumbilical abscess, decreased in size since 08/21/16. Enhancing soft tissue leads from abscess to right lower quadrant small bowel near anastomotic suture line (best seen on coronal images), suspicious for a sinus tract ASSESSMENT/PLAN: 51 year old with significant pmh of exploratory laporatomy s/p SBO complicated by subsequent abdominal cellulitis with intra-abdominal abscess drained on 08/22 presented to the ED with complaint of abdominal pain. Pt was found to still have a periumbilical abscess 4.1cm with possible sinus tract. Abdominal pain with cellulitis, intra-abdominal abscess and sinus tract/fistula draining purulent brown fluid Draining site with bag with brown purulent fluid lower abdominal wall and suprapubic redness, tenderness Prior culture positive for enterobacter resistant to zosyn and lower generation cephalosporins but sensitive to carbepenems Coags Type and screen blood culture wound culture if draining NPO Received Zosyn in ED Start Merem 1 gm IV q8h Morphine 2mg IV prn q6h Zofran 4mg IV prn q6h NS at 100ml/h ID consult surgery consult HTN not on medication will monitor vitals DM not on medication will check [id number] BGM Novolog sliding scale FEN Fluid: NS at 100ml/h Electrolytes: no abnormalities Nutrition: NPO Disposition: Admit to [facility] pending surgical and ID consult Visit type - Emergency Visit Emergency Visit: Yes ED Registration Date: 10/03/16 Care time: The patient presented to the Emergency Department on the above date and was hospitalized for further evaluation of their emergent condition. - New Patient This patient is new to me today: Yes Date on this admission: 10/03/16 - Critical Care Critical Care patient: No
[2016-10-03] MEDS ORDERED: IBUPROFEN 600 MG TABLET (FP) PO PRN (03:39)
[2016-10-03] MEDS ORDERED: ACETAMINOPHEN 325 MG TABLET (FP) PO PRN (03:40)
[2016-10-03] MEDS ORDERED: MEROPENEM 1 GM in DEXTROSE 5%-WATER - 100 ML IVPB ONE (03:45)
[2016-10-03] MEDS ORDERED: morphine CARPU-JECT 2 MG/1 ML DISP.SYRIN IVPUSH ONE (04:45)
[2016-10-03] MEDS ORDERED: ONDANSETRON 4 MG/2 ML VIAL IVPUSH PRN (04:56)
[2016-10-03] MEDS: SODIUM CHLORIDE 1,000 ML IV SCH ×2 (05:13→13:08)
[2016-10-03 06:21] LABS: MCH 25.8 pg (25.7-33.7); MCHC 32.8 g/dl (32.0-36.0); MEAN CELL VOLUME 78.5 fl (80-96); MEAN PLT VOLUME 9.2 fl (7.5-11.1); PLATELET COUNT 188 K/MM3 (134-434); RDW 15.2 % (11.6-15.6); WHITE BLOOD COUNT 7.6 K/mm3 (4.0-10.0)
[2016-10-03 06:50] LABS: INR 1.05 (0.82-1.09); PROTHROMBIN TIME (PATIENT) 11.6 SEC (9.98-11.88)
[2016-10-03 06:52] LABS: ACTIVATED PTT 29.2 SECONDS (26.9-34.4)
--- NOTE | 2016-10-03 09:50 | HOSP ---
Subjective - Review of Symptoms Events since last encounter: Patient denies having any fever or chills, no shortness of breath. Temperature 98.2 F 10/03/16 06:45 Pulse Rate 84 10/03/16 06:45 Respiratory Rate 17 10/03/16 06:45 Blood Pressure 100/59 10/03/16 06:45 O2 Sat by Pulse Oximetry (%) 97 10/03/16 06:45 GENERAL: Awake, alert, and fully oriented, in no acute distress. HEAD: Normal with no signs of trauma. EYES: Pupils equal, round and reactive to light, extraocular movements intact, sclera anicteric, conjunctiva clear. No lid lag. EARS, NOSE, THROAT: Ears normal, nares patent, oropharynx clear without exudates. Moist mucous membranes. NECK: Normal range of motion, supple without lymphadenopathy, JVD, or masses. LUNGS: Breath sounds equal, clear to auscultation bilaterally. No wheezes, and no crackles. No accessory muscle use. HEART: Regular rate and rhythm, normal S1 and S2 without murmur, rub or gallop. ABDOMEN: Soft, lower abdominal tenderness more in LLQ than right lower quadrant. increase pain closure to draining site with a draining bag with brown purulent fluid , lower abdominal wall and suprapubic redness, tenderness. MUSCULOSKELETAL: Normal range of motion at all joints. No bony deformities or tenderness. No CVA tenderness. EXTREMITIES: 2+ pulses, warm, well-perfused. No cyanosis. No clubbing. No peripheral edema. NEUROLOGICAL: Cranial nerves II-XII intact. Normal speech. Normal gait. PSYCHIATRIC: Cooperative. Good eye contact. Appropriate mood and affect. SKIN: Warm, dry, normal turgor, no rashes or lesions noted, normal capillary refill. CBCD WBC 7.6 K/mm3 (4.0-10.0) 10/03/16 06:05 RBC 4.00 M/mm3 (3.60-5.2) 10/03/16 06:05 Hgb 10.3 GM/dL (10.7-15.3) L D 10/03/16 06:05 Hct 31.4 % (32.4-45.2) L 10/03/16 06:05 MCV 78.5 fl (80-96) L 10/03/16 06:05 MCHC 32.8 g/dl (32.0-36.0) 10/03/16 06:05 RDW 15.2 % (11.6-15.6) 10/03/16 06:05 Plt Count 188 K/MM3 (134-434) D 10/03/16 06:05 MPV 9.2 fl (7.5-11.1) 10/03/16 06:05 CMP Sodium 141 mmol/L (136-145) 10/03/16 00:47 Potassium 4.2 mmol/L (3.5-5.1) 10/03/16 00:47 Chloride 105 mmol/L (98-107) 10/03/16 00:47 Carbon Dioxide 27 mmol/L (21-32) 10/03/16 00:47 Anion Gap 9 (8-16) 10/03/16 00:47 BUN 10 mg/dL (7-18) D 10/03/16 00:47 Creatinine 0.5 mg/dL (0.55-1.02) L D 10/03/16 00:47 Creat Clearance w eGFR > 60 (>60) 10/03/16 00:47 Random Glucose 105 mg/dL (74-106) D 10/03/16 00:47 Calcium 8.7 mg/dL (8.5-10.1) 10/03/16 00:47 Total Bilirubin 0.3 mg/dL (0.2-1.0) 10/03/16 00:47 AST 17 U/L (15-37) 10/03/16 00:47 ALT 24 U/L (12-78) D 10/03/16 00:47 Alkaline Phosphatase 103 U/L (45-117) 10/03/16 00:47 Total Protein 7.1 g/dl (6.4-8.2) 10/03/16 00:47 Albumin 3.8 g/dl (3.4-5.0) 10/03/16 00:47 Current Medications Generic Name Dose Route Start Last Admin Trade Name Freq PRN Reason Stop Dose Admin Acetaminophen 650 mg 10/03/16 03:40 Tylenol - PO Q4H PRN FEVER OR PAIN Sodium Chloride 1,000 mls @ 100 mls/hr 10/03/16 04:45 10/03/16 05:13 Normal Saline - IV 100 mls/hr ASDIR RIKA Administration Morphine Sulfate 2 mg 10/03/16 04:46 Morphine Injection - IVPUSH Q6H PRN PAIN Ondansetron HCl 4 mg 10/03/16 04:56 Zofran Injection IVPUSH Q6H PRN NAUSEA AND/OR VOMITING Home Medications Medication Instructions Recorded Ibuprofen [Motrin -] 600 mg PO TID PRN 10/02/16 Microbiology 07/27/16 15:00 Body Fluid - Other Gram Stain - Final 07/27/16 15:00 Body Fluid - Other Anaerobic Culture - Final Enterobacter Cloacae NO ANAEROBES WERE ISOLATED 07/22/16 05:16 Blood - Peripheral Venous Blood Culture - Final Escherichia Coli CT ABDOMEN AND PELVIS WITH CONTRAST 10/02/16 4.1 cm periumbilical abscess, decreased in size since 08/21/16. Enhancing soft tissue leads from abscess to right lower quadrant small bowel near anastomotic suture line (best seen on coronal images), suspicious for a sinus tract ASSESSMENT/PLAN: 51 year old with significant pmh of exploratory laporatomy due to SBO complicated by abdominal infection with intra-abdominal abscess drained on presented to the ED with complaint of abdominal pain. Pt was found to still have a periumbilical abscess 4.1cm with sinus tract. # Acute Abdominal pain with intra-abdominal abscess and sinus tract/fistula draining purulent brown fluid draining site with a draining bag with brown purulent fluid ,prior culture positive for enterobacter resistant to zosyn and cephalosporins but sensitive to carbepenems received Zosyn in ED ; continue Merem 1 gm IV q8h ;Morphine 2mg IV prn q6h ; Zofran 4mg IV prn q6h ;NS at 100ml/ h; ID consult . surgical consult (who is her surgeon). DvT Px: SCDs Physical Examination Vital Signs: Vital Signs Temperature 98.2 F 10/03/16 06:45 Pulse Rate 84 10/03/16 06:45 Respiratory Rate 17 10/03/16 06:45 Blood Pressure 100/59 10/03/16 06:45 O2 Sat by Pulse Oximetry (%) 97 10/03/16 06:45 Labs: CBC, BMP 10/03/16 06:05
[2016-10-03] MEDS ORDERED: morphine CARPU-JECT 2 MG/1 ML DISP.SYRIN ONE (10:51)
[2016-10-03] MEDS ORDERED: ONDANSETRON 4 MG/2 ML VIAL ONE (10:52)
[2016-10-03] MEDS: morphine CARPU-JECT 2 MG/1 ML DISP.SYRIN IVPUSH PRN ×2 (11:00→17:27)
--- NOTE | 2016-10-03 15:52 | CONSULT ---
Consult Consult Specialty:: infectious diseases Reason for Consultation:: cellulitits of the abd wall,wound infection - History of Present Illness Chief Complaint: abd pain at the site of the wound History of Present Illness: 51 year old with significant pmh of exploratory laporatomy s/p SBO complicated by subsequent abdominal cellulitis with intra-abdominal abscess drained on 08/22 came nahomy again with complaint of abdominal pain. according to the aptient the draiange in the bag which is attached to the wound is generally yellow has changed and pain is constant Also the area has become more erythematous and painful patient is going to be evaluated by surgery and then we bolivar ee what the surgery team has to say - History Source History Provided By: Patient, Medical Record Limitations to Obtaining History: Language Barrier - Past Medical History Cardio/Vascular: Yes: HTN Gastrointestinal: Yes: Other (SBO, LYSIS OF ADHESION AND SMALL BOWEL RESECTION VENTRAL HERNIA REPAIR, APPENDECTOMY) ...LMP: 03/08/12 ...: No - Past Surgical History Past Surgical History: Yes: Appendectomy - Alcohol/Substance Use Hx Alcohol Use: No - Smoking History Smoking history: Never smoked Have you smoked in the past 12 months: No Aproximately how many cigarettes per day: 0 Home Medications - Allergies Allergies/Adverse Reactions: Allergies Allergy/AdvReac Type Severity Reaction Status Date / Time No Known Allergies Allergy Verified 10/02/16 23:12 - Home Medications Home Medications: Ambulatory Orders Ibuprofen [Motrin -] 600 mg PO TID PRN 10/02/16 Review of Systems - Review of Systems Constitutional: reports: Fever, Other HENT: reports: No Symptoms Neck: reports: No Symptoms Cardiovascular: reports: No Symptoms Respiratory: reports: No Symptoms Gastrointestinal: reports: Other (pain at the wound site) Genitourinary: reports: No Symptoms Musculoskeletal: reports: No Symptoms Integumentary: reports: Erythema Neurological: reports: No Symptoms Endocrine: reports: No Symptoms Hematology/Lymphatic: reports: No Symptoms Psychiatric: reports: No Symptoms Physical Exam Vital Signs: Vital Signs Temperature 99.6 F 10/03/16 15:40 Pulse Rate 88 10/03/16 15:40 Respiratory Rate 20 10/03/16 15:40 Blood Pressure 114/64 10/03/16 15:40 O2 Sat by Pulse Oximetry (%) 96 10/03/16 12:17 Constitutional: Yes: Well Nourished, Moderate Distress Eyes: Yes: Conjunctiva Clear HENT: Yes: Atraumatic Neck: Yes: Supple Cardiovascular: Yes: Regular Rate and Rhythm Respiratory: Yes: Regular, CTA Bilaterally Gastrointestinal: Yes: Normal Bowel Sounds, Soft, Tenderness (at the wound and drainage site) Musculoskeletal: Yes: WNL Extremities: Yes: WNL Integumentary: Yes: Erythema (at the abd wound site,extending around) Neurological: Yes: Alert Psychiatric: Yes: Alert, Oriented Labs: CBC, BMP 10/03/16 06:05 Imaging - Results X-ray: Report Reviewed, Image Reviewed Cat Scan: Report Reviewed, Image Reviewed Assessment/Plan - Problems (1) Abdominal wall cellulitis Code(s): L03.311 - CELLULITIS OF ABDOMINAL WALL (2) Intra-abdominal abscess Code(s): K65.1 - PERITONEAL ABSCESS (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
[2016-10-03 16:05] VITALS: BMI 23.3
[2016-10-03] MEDS: ERTAPENEM SODIUM 1 GM in SODIUM CHLORIDE 50 ML IVPB SCH (17:27)
[2016-10-04] MEDS: SODIUM CHLORIDE 1,000 ML IV SCH ×2 (09:51→15:13)
[2016-10-04] MEDS: ERTAPENEM SODIUM 1 GM in SODIUM CHLORIDE 50 ML IVPB SCH (09:51)
--- NOTE | 2016-10-04 13:37 | PN ---
Progress Note, Physician History of Present Illness: stable pain main issue sight looking better - Current Medication List Current Medications: Active Medications Acetaminophen (Tylenol -) 650 mg PO Q4H PRN PRN Reason: FEVER OR PAIN Last Admin: 10/03/16 11:00 Dose: 650 mg Sodium Chloride (Normal Saline -) 1,000 mls @ 100 mls/hr IV ASDIR RIKA Last Admin: 10/04/16 09:51 Dose: Not Given Ertapenem 1 gm/ Sodium (Chloride) 50 mls @ 50 mls/hr IVPB DAILY RIKA PRN Reason: Protocol Last Admin: 10/04/16 09:51 Dose: 50 mls/hr Morphine Sulfate (Morphine Injection -) 2 mg IVPUSH Q6H PRN PRN Reason: PAIN Last Admin: 10/03/16 17:27 Dose: 2 mg Ondansetron HCl (Zofran Injection) 4 mg IVPUSH Q6H PRN PRN Reason: NAUSEA AND/OR VOMITING Last Admin: 10/03/16 11:00 Dose: 4 mg - Objective Vital Signs: Vital Signs Temperature 98.6 F 10/04/16 10:45 Pulse Rate 85 10/04/16 10:45 Respiratory Rate 16 10/04/16 10:45 Blood Pressure 120/66 10/04/16 10:45 O2 Sat by Pulse Oximetry (%) 96 10/03/16 21:00 Constitutional: Yes: Calm, Mild Distress Cardiovascular: Yes: Regular Rate and Rhythm Respiratory: Yes: Regular, CTA Bilaterally Gastrointestinal: Yes: Normal Bowel Sounds, Soft, Other (wound on the abd) Musculoskeletal: Yes: WNL Extremities: Yes: WNL Integumentary: Yes: Erythema (improving) Wound/Incision: Yes: Other Neurological: Yes: Alert, Oriented Psychiatric: Yes: Alert, Oriented Labs: CBC, BMP 10/03/16 06:05 INR, PTT INR 1.05 (0.82-1.09) 10/03/16 06:05 Assessment/Plan - Problems (1) Abdominal wall cellulitis Code(s): L03.311 - CELLULITIS OF ABDOMINAL WALL (2) Intra-abdominal abscess Code(s): K65.1 - PERITONEAL ABSCESS (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
--- NOTE | 2016-10-04 14:20 | EKG ---
Test Reason : Blood Pressure : / mmHG Vent. Rate : 098 BPM Atrial Rate : 098 BPM P-R Int : 130 ms QRS Dur : 082 ms QT Int : 358 ms P-R-T Axes : 024 007 028 degrees QTc Int : 457 ms NORMAL SINUS RHYTHM CANNOT RULE OUT INFERIOR INFARCT (CITED ON OR BEFORE 03-OCT-2016) ABNORMAL ECG WHEN COMPARED WITH ECG OF 21-AUG-2016 03:05, MINIMAL CRITERIA FOR ANTERIOR INFARCT ARE NO LONGER PRESENT Confirmed by BERNADETTE ORLANDO MD ([id number]) on 10/04/2016 2:19:41 PM Referred By: Confirmed By:BERNADETTE ORLANDO MD
--- NOTE | 2016-10-04 15:06 | PN ---
Teaching Attending Note Name of Resident: Jon Aguilera ATTENDING PHYSICIAN STATEMENT I saw and evaluated the patient. I reviewed the resident's note and discussed the case with the resident. I agree with the resident's findings and plan as documented. SUBJECTIVE: OBJECTIVE: Vital Signs Temperature 98.6 F 10/04/16 10:45 Pulse Rate 85 10/04/16 10:45 Respiratory Rate 16 10/04/16 10:45 Blood Pressure 120/66 10/04/16 10:45 O2 Sat by Pulse Oximetry (%) 96 10/03/16 21:00 CBCD WBC 7.6 K/mm3 (4.0-10.0) 10/03/16 06:05 RBC 4.00 M/mm3 (3.60-5.2) 10/03/16 06:05 Hgb 10.3 GM/dL (10.7-15.3) L D 10/03/16 06:05 Hct 31.4 % (32.4-45.2) L 10/03/16 06:05 MCV 78.5 fl (80-96) L 10/03/16 06:05 MCHC 32.8 g/dl (32.0-36.0) 10/03/16 06:05 RDW 15.2 % (11.6-15.6) 10/03/16 06:05 Plt Count 188 K/MM3 (134-434) D 10/03/16 06:05 MPV 9.2 fl (7.5-11.1) 10/03/16 06:05 CMP Sodium 141 mmol/L (136-145) 10/03/16 00:47 Potassium 4.2 mmol/L (3.5-5.1) 10/03/16 00:47 Chloride 105 mmol/L (98-107) 10/03/16 00:47 Carbon Dioxide 27 mmol/L (21-32) 10/03/16 00:47 Anion Gap 9 (8-16) 10/03/16 00:47 BUN 10 mg/dL (7-18) D 10/03/16 00:47 Creatinine 0.5 mg/dL (0.55-1.02) L D 10/03/16 00:47 Creat Clearance w eGFR > 60 (>60) 10/03/16 00:47 Random Glucose 105 mg/dL (74-106) D 10/03/16 00:47 Calcium 8.7 mg/dL (8.5-10.1) 10/03/16 00:47 Total Bilirubin 0.3 mg/dL (0.2-1.0) 10/03/16 00:47 AST 17 U/L (15-37) 10/03/16 00:47 ALT 24 U/L (12-78) D 10/03/16 00:47 Alkaline Phosphatase 103 U/L (45-117) 10/03/16 00:47 Total Protein 7.1 g/dl (6.4-8.2) 10/03/16 00:47 Albumin 3.8 g/dl (3.4-5.0) 10/03/16 00:47 Current Medications Generic Name Dose Route Start Last Admin Trade Name Freq PRN Reason Stop Dose Admin Acetaminophen 650 mg 10/03/16 03:40 10/03/16 11:00 Tylenol - PO 650 mg Q4H PRN Administration FEVER OR PAIN Sodium Chloride 1,000 mls @ 100 mls/hr 10/03/16 04:45 10/04/16 09:51 Normal Saline - IV Not Given ASDIR RIKA Ertapenem 1 gm/ Sodium 50 mls @ 50 mls/hr 10/03/16 17:00 10/04/16 09:51 Chloride IVPB 50 mls/hr DAILY [facility] Administration Protocol Morphine Sulfate 2 mg 10/03/16 04:46 10/03/16 17:27 Morphine Injection - IVPUSH 2 mg Q6H PRN Administration PAIN Ondansetron HCl 4 mg 10/03/16 04:56 10/03/16 11:00 Zofran Injection IVPUSH 4 mg Q6H PRN Administration NAUSEA AND/OR VOMITING Hepatic Panel Total Bilirubin 0.3 mg/dL (0.2-1.0) 10/03/16 00:47 AST 17 U/L (15-37) 10/03/16 00:47 ALT 24 U/L (12-78) D 10/03/16 00:47 Alkaline Phosphatase 103 U/L (45-117) 10/03/16 00:47 Albumin 3.8 g/dl (3.4-5.0) 10/03/16 00:47 Home Medications Medication Instructions Recorded Ibuprofen [Motrin -] 600 mg PO TID PRN 10/02/16 Microbiology 10/03/16 01:54 Urine - Urine Clean Catch Urine Culture - Final NO GROWTH OBTAINED 10/03/16 01:00 Blood - Peripheral Venous Blood Culture - Preliminary NO GROWTH OBTAINED AFTER 24 HOURS, INCUBATION TO CONTINUE FOR 4 DAYS. 10/03/16 01:00 Blood - Peripheral Venous Blood Culture - Preliminary NO GROWTH OBTAINED AFTER 24 HOURS, INCUBATION TO CONTINUE FOR [address] ABDOMEN AND PELVIS WITH CONTRAST 10/02/16 4.1 cm periumbilical abscess, decreased in size since 08/21/16. Enhancing soft tissue leads from abscess to right lower quadrant small bowel near anastomotic suture line (best seen on coronal images), suspicious for a sinus tract ABD: collecting bag (not an actual colostomy though) for fluid drainage at mid abdomen area ASSESSMENT/PLAN: 51 year old with significant pmh of exploratory laporatomy s/p SBO complicated by subsequent abdominal cellulitis with intra-abdominal abscess drained on 08/22 presented to the ED with complaint of abdominal pain. Pt was found to still have a periumbilical abscess 4.1cm with sinus tract. # Acute Abdominal pain with cellulitis and intra-abdominal abscess with sinus tract/fistula draining serisangounous fluid draining ( has a draining bag not a an actual colostomy) lower abdominal wall and suprapubic redness, tenderness Prior culture positive for enterobacter resistant to zosyn and lower generation cephalosporins but sensitive to carbepenems received Zosyn in ED ; continue ERtapenem 1 gm daily ;Morphine 2mg IV prn q6h ; Zofran 4mg IV prn q6h ;NS at 100ml/h; ID consult ,surgery consult will take the patient to OR in am , NPO after midnight DvT Px: SCDs
--- NOTE | 2016-10-04 16:19 | PN ---
Physical Exam: SUBJECTIVE: Patient seen and examined at bedside. No overnight events. Continues to have pain around surgical site. She seems frustrated with her current condition. Denies CP, OROZCO, SOB,palpitations, N/V. OBJECTIVE: Vital Signs Period Temp Pulse Resp BP Sys/Golden Pulse Ox Last 24 Hr 98.6 F-99.8 F 82-96 16-18 113-136/66-77 96 GENERAL: AAOx3, mild distress HEAD: NC/AT. EYES: PERRL, EOMI, sclera anicteric, conjunctiva clear. No ptosis. ENT: moist mucous membranes. NECK:supple , No JVD LUNGS: CTAB, no wheezing or rales. HEART:RRR, S1, S2 no m/g/r ABDOMEN: Soft, colostomy bag draining serosanguinus fluid, surrounding erythema and tenderness. EXTREMITIES: 2+ pulses, warm, well-perfused, no edema. NEUROLOGICAL: Cranial nerves II through XII grossly intact. Normal speech, gait not observed. PSYCH: anxious SKIN: Warm, dry, normal turgor, no rashes or lesions noted Active Medications Generic Name Dose Route Start Last Admin Trade Name Freq PRN Reason Stop Dose Admin Acetaminophen 650 mg 10/03/16 03:40 10/03/16 11:00 Tylenol - PO 650 mg Q4H PRN Administration FEVER OR PAIN Sodium Chloride 1,000 mls @ 100 mls/hr 10/03/16 04:45 10/04/16 15:13 Normal Saline - IV 100 mls/hr ASDIR RIKA Administration Ertapenem 1 gm/ Sodium 50 mls @ 50 mls/hr 10/03/16 17:00 10/04/16 09:51 Chloride IVPB 50 mls/hr DAILY RIKA Administration Protocol Morphine Sulfate 2 mg 10/03/16 04:46 10/03/16 17:27 Morphine Injection - IVPUSH 2 mg Q6H PRN Administration PAIN Ondansetron HCl 4 mg 10/03/16 04:56 10/03/16 11:00 Zofran Injection IVPUSH 4 mg Q6H PRN Administration NAUSEA AND/OR VOMITING ASSESSMENT/PLAN: 51 yo F with PMHx of SBO admitted for recurrent abdominal abcess and cellulitis. Problem List - Problems (1) Abdominal wall cellulitis (2) Intra-abdominal abscess Assessment/Plan: * Based on Prior cultures with resistant organism patient started on Ertapenem * Dr. Myrick consulted for ID * Dr. Jin will see her tomorrow. * Regular diet, NPO after midnight for OR tomorrow. * pain control with Morphine 2gm Q6H * IVF with NS @100ml/hr. Visit type - Emergency Visit Emergency Visit: Yes ED Registration Date: 10/03/16 Care time: The patient presented to the Emergency Department on the above date and was hospitalized for further evaluation of their emergent condition. - New Patient This patient is new to me today: Yes Date on this admission: 10/04/16 - Critical Care Critical Care patient: No - Discharge Referral Referred to [facility].C[facility] No
[2016-10-05] MEDS: SODIUM CHLORIDE 1,000 ML IV SCH ×2 (03:05→09:01)
[2016-10-05 08:53] LABS: BASOPHIL 0.6 % (0-2.0); EOSINOPHIL 1.7 % (0-4.5); MCH 25.7 pg (25.7-33.7); MCHC 32.8 g/dl (32.0-36.0); MEAN CELL VOLUME 78.2 fl (80-96); MEAN PLT VOLUME 8.5 fl (7.5-11.1); NEUTROPHILS 63.2 % (42.8-82.8); PLATELET COUNT 229 K/MM3 (134-434); RDW 14.3 % (11.6-15.6); WHITE BLOOD COUNT 6.5 K/mm3 (4.0-10.0)
[2016-10-05] MEDS: ERTAPENEM SODIUM 1 GM in SODIUM CHLORIDE 50 ML IVPB SCH (09:01)
[2016-10-05 09:14] LABS: CALCIUM 8.8 mg/dL (8.5-10.1); COCKROFT - GAULT 148.4185; CREATININE 0.4 mg/dL (0.55-1.02)
--- NOTE | 2016-10-05 10:59 | CONSULT ---
Consult Consult Specialty:: surgery Reason for Consultation:: abd pain - History of Present Illness Chief Complaint: abd pain min mild History of Present Illness: patient with exlap SBR x 2 in past developde postop findings worrisome for abd wall abscesses/ ECF. presents with recurrent abd wall abscess. drainage from ECF has been minimal. - Past Medical History Cardio/Vascular: Yes: HTN Gastrointestinal: Yes: Other (SBO, LYSIS OF ADHESION AND SMALL BOWEL RESECTION VENTRAL HERNIA REPAIR, APPENDECTOMY) ...LMP: 03/08/12 ...: No - Past Surgical History Past Surgical History: Yes: Appendectomy - Alcohol/Substance Use Hx Alcohol Use: No - Smoking History Smoking history: Never smoked Have you smoked in the past 12 months: No Aproximately how many cigarettes per day: 0 Home Medications - Allergies Allergies/Adverse Reactions: Allergies Allergy/AdvReac Type Severity Reaction Status Date / Time No Known Allergies Allergy Verified 10/02/16 23:12 - Home Medications Home Medications: Ambulatory Orders Ibuprofen [Motrin -] 600 mg PO TID PRN 10/02/16 Review of Systems - Review of Systems Constitutional: denies: Chills, Unintentional Wgt. Loss Eyes: denies: Blind Spots, Blurred Vision HENT: denies: Difficult Swallowing, Ear Discharge Neck: denies: Decreased ROM, Lumps Cardiovascular: denies: Chest Pain, Edema Respiratory: denies: Cough, Exercise Intolerance Gastrointestinal: reports: Abdominal Pain. denies: Melena Genitourinary: denies: Burning, Discharge Musculoskeletal: denies: Back Pain, Crepitus Integumentary: denies: Blister, Bruising Neurological: denies: Change in LOC, Change in Speech Endocrine: denies: Excessive Sweating, Flushing Hematology/Lymphatic: denies: Easily Bruised, Excessive Bleeding Psychiatric: denies: Altered Sleep Pattern, Anxiety Physical Exam Vital Signs: Vital Signs Temperature 98.6 F 10/05/16 09:47 Pulse Rate 75 10/05/16 09:47 Respiratory Rate 18 10/05/16 09:47 Blood Pressure 121/80 10/05/16 09:47 O2 Sat by Pulse Oximetry (%) 96 10/04/16 21:00 Constitutional: Yes: No Distress, Calm Eyes: Yes: Conjunctiva Clear, EOM Intact HENT: Yes: Atraumatic, Normocephalic Neck: Yes: Supple, Trachea Midline Cardiovascular: Yes: Regular Rate and Rhythm Respiratory: Yes: Regular, CTA Bilaterally Gastrointestinal: Yes: Soft, Distention, Tenderness (min mild near opening. drainage is light brown in ostomy bag.) ...Rectal Exam: Yes: Deferred Renal/: No: CVA Tenderness - Left, CVA Tenderness - Right Musculoskeletal: No: Joint Stiffness, Joint Swelling Extremities: No: Calf Tenderness, Erythema Integumentary: No: Erythema, Rash Neurological: Yes: Alert, Oriented Psychiatric: Yes: Alert, Oriented Labs: CBC, BMP 10/05/16 08:15 10/05/16 08:15 Imaging - Results Cat Scan: Report Reviewed, Image Reviewed Problem List - Problems (1) Abdominal wall cellulitis Assessment/Plan: for I&D under sedation in OR will attempt to put in some kind of drain to keep opening patent. 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
[2016-10-05] MEDS ORDERED: MIDAZOLAM HCL 2 MG/2 ML SINGLE DOSE VIAL ONE (12:04)
[2016-10-05] MEDS ORDERED: PROPOFOL 20 ML ONE (12:04)
[2016-10-05] MEDS ORDERED: LIDOCAINE HCL 1%, 10 MG/ML (20ML VIAL) IJ ONE (12:32)
--- NOTE | 2016-10-05 13:23 | OP ---
Operative Note - Note: Operative Date: 10/05/16 Pre-Operative Diagnosis: abd wall abscess Operation: drainage of abd wall abscess Findings: abd wall abscess Surgeon: Brown Jin Anesthesia: Local, MAC Drains & Tubes with Location: left jameel drain
[2016-10-05] MEDS ORDERED: morphine CARPU-JECT 2 MG/1 ML DISP.SYRIN IVPUSH PRN (13:42)
[2016-10-05] MEDS ORDERED: ACETAMINOPHEN 325 MG TABLET (FP) PO PRN (13:42)
[2016-10-05] MEDS ORDERED: ONDANSETRON 4 MG/2 ML VIAL IVPUSH PRN ×2 (13:42→17:16)
--- NOTE | 2016-10-05 15:01 | PN ---
Progress Note, Physician History of Present Illness: doing well patient operated by surgery - Current Medication List Current Medications: Active Medications Acetaminophen (Tylenol -) 650 mg PO Q4H PRN PRN Reason: FEVER OR PAIN Ertapenem 1 gm/ Sodium (Chloride) 50 mls @ 50 mls/hr IVPB DAILY RIKA PRN Reason: Protocol Morphine Sulfate (Morphine Injection -) 2 mg IVPUSH Q6H PRN PRN Reason: PAIN Ondansetron HCl (Zofran Injection) 4 mg IVPUSH Q6H PRN PRN Reason: NAUSEA AND/OR VOMITING - Objective Vital Signs: Vital Signs Temperature 98.6 F 10/05/16 09:47 Pulse Rate 75 10/05/16 09:47 Respiratory Rate 18 10/05/16 09:47 Blood Pressure 121/80 10/05/16 09:47 O2 Sat by Pulse Oximetry (%) 96 10/04/16 21:00 Constitutional: Yes: Calm Cardiovascular: Yes: Regular Rate and Rhythm Respiratory: Yes: Regular Gastrointestinal: Yes: Normal Bowel Sounds, Soft Musculoskeletal: Yes: WNL Extremities: Yes: WNL Neurological: Yes: Alert, Oriented Labs: CBC, BMP 10/05/16 08:15 10/05/16 08:15 INR, PTT INR 1.05 (0.82-1.09) 10/03/16 06:05 Assessment/Plan - Problems (1) Abdominal wall cellulitis Code(s): L03.311 - CELLULITIS OF ABDOMINAL WALL (2) Intra-abdominal abscess Code(s): K65.1 - PERITONEAL ABSCESS (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
--- NOTE | 2016-10-05 16:41 | PN ---
Physical Exam: SUBJECTIVE: Patient seen and examined at bedside. no overnight events. No new complaints. Abdominal pain improved. Denies CP,OROZCO, SOB, palpitations, n/v. OBJECTIVE: Vital Signs Period Temp Pulse Resp BP Sys/Golden Pulse Ox Last 24 Hr 98.2 F-99.3 F 69-85 16-20 110-122/60-81 95-96 GENERAL: AAOx3, mild distress HEAD: NC/AT. EYES: PERRL, EOMI, sclera anicteric, conjunctiva clear. No ptosis. ENT: moist mucous membranes. NECK:supple , No JVD LUNGS: CTAB, no wheezing or rales. HEART:RRR, S1, S2 no m/g/r ABDOMEN: Soft, colostomy bag draining serosanguinus fluid, surrounding erythema and tenderness. EXTREMITIES: 2+ pulses, warm, well-perfused, no edema. Laboratory Results - last 24 hr 10/05/16 10/05/16 08:15 08:15 WBC 6.5 RBC 4.58 Hgb 11.8 D Hct 35.9 MCV 78.2 L MCHC 32.8 RDW 14.3 Plt Count 229 D MPV 8.5 Neutrophils % 63.2 Lymphocytes % 28.1 D Monocytes % 6.4 Eosinophils % 1.7 D Basophils % 0.6 Sodium 145 Potassium 4.3 Chloride 107 Carbon Dioxide 28 Anion Gap 10 BUN 8 Creatinine 0.4 L Random Glucose 93 Calcium 8.8 Active Medications Generic Name Dose Route Start Last Admin Trade Name Freq PRN Reason Stop Dose Admin Acetaminophen 650 mg 10/05/16 13:42 Tylenol - PO Q4H PRN FEVER OR PAIN Ertapenem 1 gm/ Sodium 50 mls @ 50 mls/hr 10/06/16 10:00 Chloride IVPB DAILY RIKA Protocol Morphine Sulfate 2 mg 10/05/16 13:42 Morphine Injection - IVPUSH Q6H PRN PAIN Ondansetron HCl 4 mg 10/05/16 13:42 Zofran Injection IVPUSH Q6H PRN NAUSEA AND/OR VOMITING ASSESSMENT/PLAN: 51 yo F with PMHx of SBO admitted for recurrent abdominal abcess and cellulitis. Problem List - Problems (1) Abdominal wall cellulitis (2) Intra-abdominal abscess Assessment/Plan: * Continue Ertapenem * wound cultures pending * She is going for I&D of abscess today with Dr. Jin * pain control with Morphine 2gm Q6H * IVF with NS @100ml/hr. Visit type - Emergency Visit Emergency Visit: Yes ED Registration Date: 10/03/16 Care time: The patient presented to the Emergency Department on the above date and was hospitalized for further evaluation of their emergent condition. - New Patient This patient is new to me today: No - Critical Care Critical Care patient: No - Discharge Referral Referred to [facility] Med P.C.: No
[2016-10-05] MEDS ORDERED: LACTATED RINGERS SOLUTION 1,000 ML IV SCH (17:30)
--- NOTE | 2016-10-05 18:14 | OP ---
DATE OF OPERATION: 10/05/2016 PREOPERATIVE DIAGNOSIS: Abdominal wall abscess/enterocutaneous fistula. POSTOPERATIVE DIAGNOSIS: Abdominal wall abscess/enterocutaneous fistula. PROCEDURE: Drainage of an abdominal wall abscess. SURGEON: Brown Jin MD ANESTHESIA: MAC. OPERATIVE NOTE IN DETAIL: Patient was brought to the operating room after confirming name, date of , and medical record number. She was in supine position, and she was then prepped and draped in the usual sterile fashion. She was then given anesthesia, and then, a time-out was then performed. I took off her ostomy appliance, and there was actually her old incision, which was approximately 1 inch, and there was actually a smaller hole inferior to the incision. I explored these with my finger, and they appeared to be connecting. There was no purulent drainage. However, I was able to use a Gisela clamp that gently passed from the inferior incision to the larger incision, and I looped a large [place] drain through it to keep the hole open to facilitate drainage. It then secured it with a silk suture. I then copiously irrigated out the abscess cavities, tried to explore gently with my finger, and did not find any collections, and then, I replaced the ostomy appliance. There were some minimal cellulitic changes noted at the skin. All counts were correct. BROWN JIN M.D. RANDAL/[id number]
--- NOTE | 2016-10-05 18:50 | PN ---
Teaching Attending Note Name of Resident: Jon Aguilera ATTENDING PHYSICIAN STATEMENT I saw and evaluated the patient. I reviewed the resident's note and discussed the case with the resident. I agree with the resident's findings and plan as documented. SUBJECTIVE:seen after her I&D minimal pain in abd. no N/V OBJECTIVE: NAD , CV: RRR Lung s: CTAB ext : no edema Abd : soft, ND, Minimal tenderness around wounds . has colostomy bag over wound with a clean dressing ASSESSMENT AND PLAN: 51 y/o lady with h/o recurrent SBOs, s/p Ex lap , which was complicated with abd wall cellulitis and an abscess formation , s/p drainage of abscess in . now back with purulent drainage from abd wall wound , and was found to have abd wall abscess 1- Abd wall abscess: s/p I&D today in OR . wound cx growing group D and G - breonna . previous cx with Enterobacter - cont ertapenem for now - follow identification of bacteria - surgical care of wound - probably can stop IVF tomorrow - regular diet
[2016-10-06 07:56] LABS: MCH 25.8 pg (25.7-33.7); MCHC 33.2 g/dl (32.0-36.0); MEAN CELL VOLUME 77.8 fl (80-96); PLATELET COUNT 261 K/MM3 (134-434); RDW 14.7 % (11.6-15.6); WHITE BLOOD COUNT 5.7 K/mm3 (4.0-10.0)
[2016-10-06 08:28] LABS: CALCIUM 8.9 mg/dL (8.5-10.1); COCKROFT - GAULT 148.4185; CREATININE 0.4 mg/dL (0.55-1.02)
--- NOTE | 2016-10-06 08:32 | PN ---
Teaching Attending Note Name of Resident: Jon Aguilera ATTENDING PHYSICIAN STATEMENT I saw and evaluated the patient. I reviewed the resident's note and discussed the case with the resident. I agree with the resident's findings and plan as documented. SUBJECTIVE:no fever or chils, no abd apin , had BM yesterday , passed gas. NO SOB or CP OBJECTIVE: NAD , CV: RRR Lungs: CTAB ext : no edema Abd : soft, ND,no TTP . Mid line surgical scar and a colostomy bag over wound with some brownish fluid. ASSESSMENT AND PLAN: 51 y/o lady with h/o recurrent SBOs, s/p Ex lap , which was complicated with abd wall cellulitis and an abscess formation , s/p drainage of abscess in . now back with purulent drainage from abd wall wound , and was found to have abd wall abscess 1- Abd wall abscess: s/p I&D in OR 10/05 . wound cx growing group D and G - breonna . previous cx with Enterobacter - cont ertapenem pending further identificationa nd sensitivity - surgical care of wound - eating and drinking, looks euvolemic .. Dc IVF - regular diet - encourage ambulation Dc planning pending micro results and decision on Abx and further surgical treatment
[2016-10-06] MEDS ORDERED: PT OWN MED DRAWER 7, Y5N ONE ×2 (09:19→09:22)
[2016-10-06] MEDS ORDERED: ERTAPENEM SODIUM 1 GM in SODIUM CHLORIDE 50 ML IVPB SCH (10:00)
--- NOTE | 2016-10-06 13:18 | PN ---
Progress Note, Physician History of Present Illness: patient stable doing well wound looked at still ahs some pain drainage tube present - Current Medication List Current Medications: Active Medications Acetaminophen (Tylenol -) 650 mg PO Q4H PRN PRN Reason: FEVER OR PAIN Fentanyl (Sublimaze Injection -) 50 mcg IVPUSH [id number] PRN PRN Reason: PAIN Stop: 10/08/16 17:17 Last Admin: 10/05/16 13:30 Dose: 50 mcg Ertapenem 1 gm/ Sodium (Chloride) 50 mls @ 50 mls/hr IVPB DAILY RIKA PRN Reason: Protocol Last Admin: 10/06/16 09:44 Dose: 50 mls/hr Morphine Sulfate (Morphine Injection -) 2 mg IVPUSH Q6H PRN PRN Reason: PAIN Last Admin: 10/05/16 20:10 Dose: 2 mg Ondansetron HCl (Zofran Injection) 4 mg IVPUSH Q6H PRN PRN Reason: NAUSEA AND/OR VOMITING - Objective Vital Signs: Vital Signs Temperature 98.7 F 10/06/16 09:00 Pulse Rate 78 10/06/16 09:00 Respiratory Rate 20 10/06/16 09:00 Blood Pressure 107/75 10/06/16 09:00 O2 Sat by Pulse Oximetry (%) 95 10/06/16 09:00 Constitutional: Yes: No Distress, Calm Cardiovascular: Yes: Regular Rate and Rhythm Respiratory: Yes: Regular, CTA Bilaterally Gastrointestinal: Yes: Normal Bowel Sounds, Soft, Other (bag draining) Musculoskeletal: Yes: WNL Extremities: Yes: WNL Integumentary: Yes: Other Wound/Incision: Yes: Other Neurological: Yes: Alert, Oriented Labs: CBC, BMP 10/06/16 06:30 10/06/16 06:30 INR, PTT INR 1.05 (0.82-1.09) 10/03/16 06:05 Assessment/Plan - Problems (1) Abdominal wall cellulitis Code(s): L03.311 - CELLULITIS OF ABDOMINAL WALL (2) Intra-abdominal abscess Code(s): K65.1 - PERITONEAL ABSCESS (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
--- NOTE | 2016-10-06 15:50 | PN ---
Physical Exam: SUBJECTIVE: Patient seen and examined at bedside. POD # 1 s/p I&D of abdominal wall abscess. Tolerating diet. Pain is much better. Patient seems in better spirits today. Denies CP,OROZCO, SOB,Abd. pain, N/V. OBJECTIVE: Vital Signs Period Temp Pulse Resp BP Sys/Golden Pulse Ox Last 24 Hr 97.5 F-98.7 F 68-80 16-20 104-128/64-81 95-95 GENERAL: AAOx3, mild distress HEAD: NC/AT. EYES: PERRL, EOMI, sclera anicteric, conjunctiva clear. No ptosis. ENT: moist mucous membranes. NECK:supple , No JVD LUNGS: CTAB, no wheezing or rales. HEART:RRR, S1, S2 no m/g/r ABDOMEN: Soft, colostomy bag draining with pig tail train in place, surrounding erythema and tenderness have improved. EXTREMITIES: 2+ pulses, warm, well-perfused, no edema. Laboratory Results - last 24 hr 10/06/16 10/06/16 06:30 06:30 WBC 5.7 RBC 4.67 Hgb 12.0 Hct 36.3 MCV 77.8 L MCHC 33.2 RDW 14.7 Plt Count 261 MPV 9.0 Sodium 140 Potassium 4.4 Chloride 103 Carbon Dioxide 28 Anion Gap 9 BUN 10 D Creatinine 0.4 L Random Glucose 82 Calcium 8.9 Active Medications Generic Name Dose Route Start Last Admin Trade Name Freq PRN Reason Stop Dose Admin Acetaminophen 650 mg 10/05/16 13:42 Tylenol - PO Q4H PRN FEVER OR PAIN Fentanyl 50 mcg 10/05/16 17:16 10/05/16 13:30 Sublimaze Injection - IVPUSH 10/08/16 17:17 50 mcg [id number] PRN Administration PAIN Ertapenem 1 gm/ Sodium 50 mls @ 50 mls/hr 10/06/16 10:00 10/06/16 09:44 Chloride IVPB 50 mls/hr DAILY RIKA Administration Protocol Morphine Sulfate 2 mg 10/05/16 13:42 10/05/16 20:10 Morphine Injection - IVPUSH 2 mg Q6H PRN Administration PAIN Ondansetron HCl 4 mg 10/05/16 13:42 Zofran Injection IVPUSH Q6H PRN NAUSEA AND/OR VOMITING Microbiology 10/04/16 11:15 Gram Stain - Final Abdomen Wound Culture - Final Enterococcus Faecium Klebsiella Pneumoniae 10/03/16 01:00 Blood Culture - Preliminary Blood - Peripheral Venous NO GROWTH OBTAINED AFTER 72 HOURS, INCUBATION TO CONTINUE FOR 2 DAYS. 10/03/16 01:00 Blood Culture - Preliminary Blood - Peripheral Venous NO GROWTH OBTAINED AFTER 72 HOURS, INCUBATION TO CONTINUE FOR 2 DAYS. ASSESSMENT/PLAN: 51 yo F with PMHx of SBO admitted for recurrent abdominal abcess and cellulitis Problem List - Problems (1) Abdominal wall cellulitis (2) Intra-abdominal abscess Assessment/Plan: * Continue Ertapenem- ID recommends changing to Bactrim DS for 5 days. * wound cultures show Group D strep or Enterococcus and Klebsiella. * POD #1 s/p I&D of abdominal wall abscess. * pain control with Morphine 2gm Q6H * d/c IVF * encourage ambulation. Visit type - Emergency Visit Emergency Visit: Yes ED Registration Date: 10/03/16 Care time: The patient presented to the Emergency Department on the above date and was hospitalized for further evaluation of their emergent condition. - New Patient This patient is new to me today: No - Critical Care Critical Care patient: No - Discharge Referral Referred to [facility] Med [facility].C.: No
[2016-10-07] MEDS ORDERED: PT OWN MED DRAWER 7, Y5N ONE (09:52)
[2016-10-07] MEDS ORDERED: LINEZOLID 600 MG TABLET (RESTRICTED TO ID) PO SCH (10:00)
[2016-10-07] MEDS ORDERED: SULFAMETHOXAZOLE/TRIMETHOPRIM 800MG/160MG D.S. TABLET PO SCH (10:00)
--- NOTE | 2016-10-07 10:08 | PN ---
Progress Note, Physician Chief Complaint: none History of Present Illness: wants to go home. feels alot better - Current Medication List Current Medications: Active Medications Acetaminophen (Tylenol -) 650 mg PO Q4H PRN PRN Reason: FEVER OR PAIN Fentanyl (Sublimaze Injection -) 50 mcg IVPUSH [id number] PRN PRN Reason: PAIN Stop: 10/08/16 17:17 Last Admin: 10/05/16 13:30 Dose: 50 mcg Linezolid (Zyvox (Restricted To Id) -) 600 mg PO BID [facility] Last Admin: 10/07/16 09:49 Dose: 600 mg Morphine Sulfate (Morphine Injection -) 2 mg IVPUSH Q6H PRN PRN Reason: PAIN Last Admin: 10/05/16 20:10 Dose: 2 mg Ondansetron HCl (Zofran Injection) 4 mg IVPUSH Q6H PRN PRN Reason: NAUSEA AND/OR VOMITING Trimethoprim/Sulfamethoxazole (Bactrim Ds -) 1 each PO BID [facility] Last Admin: 10/07/16 09:17 Dose: 1 each - Objective Vital Signs: Vital Signs Temperature 98.4 F 10/07/16 05:00 Pulse Rate 76 10/07/16 05:00 Respiratory Rate 18 10/07/16 05:00 Blood Pressure 109/75 10/07/16 05:00 O2 Sat by Pulse Oximetry (%) 96 10/06/16 21:00 Constitutional: Yes: No Distress, Calm Gastrointestinal: Yes: Soft, Other (drain in place. some scant purulent drainage). No: Distention, Tenderness Labs: CBC, BMP 10/06/16 06:30 10/06/16 06:30 INR, PTT INR 1.05 (0.82-1.09) 10/03/16 06:05 Problem List - Problems (1) Abdominal wall cellulitis Code(s): L03.311 - CELLULITIS OF ABDOMINAL WALL (2) Intra-abdominal abscess Code(s): K65.1 - PERITONEAL ABSCESS (3) Enterocutaneous fistula Assessment/Plan: s/p I&D abd wall abscess from ECF likely clear from surgical standpoint for d/c home Code(s): K63.2 - FISTULA OF INTESTINE
--- NOTE | 2016-10-07 12:19 | PN ---
Progress Note, Physician History of Present Illness: patient doing well' no new issues feels a lot better organisms noted - Current Medication List Current Medications: Active Medications Acetaminophen (Tylenol -) 650 mg PO Q4H PRN PRN Reason: FEVER OR PAIN Fentanyl (Sublimaze Injection -) 50 mcg IVPUSH [id number] PRN PRN Reason: PAIN Stop: 10/08/16 17:17 Last Admin: 10/05/16 13:30 Dose: 50 mcg Linezolid (Zyvox (Restricted To Id) -) 600 mg PO BID [facility] Last Admin: 10/07/16 09:49 Dose: 600 mg Morphine Sulfate (Morphine Injection -) 2 mg IVPUSH Q6H PRN PRN Reason: PAIN Last Admin: 10/05/16 20:10 Dose: 2 mg Ondansetron HCl (Zofran Injection) 4 mg IVPUSH Q6H PRN PRN Reason: NAUSEA AND/OR VOMITING Trimethoprim/Sulfamethoxazole (Bactrim Ds -) 1 each PO BID [facility] Last Admin: 10/07/16 09:17 Dose: 1 each - Objective Vital Signs: Vital Signs Temperature 98.4 F 10/07/16 05:00 Pulse Rate 76 10/07/16 05:00 Respiratory Rate 18 10/07/16 05:00 Blood Pressure 109/75 10/07/16 05:00 O2 Sat by Pulse Oximetry (%) 96 10/06/16 21:00 Constitutional: Yes: No Distress, Calm Cardiovascular: Yes: Regular Rate and Rhythm Respiratory: Yes: Regular, CTA Bilaterally Gastrointestinal: Yes: Normal Bowel Sounds, Soft, Other (draiange bag in place abd celulitis resoved) Musculoskeletal: Yes: WNL Extremities: Yes: WNL Neurological: Yes: Alert, Oriented Psychiatric: Yes: Alert, Oriented Labs: CBC, BMP 10/06/16 06:30 10/06/16 06:30 INR, PTT INR 1.05 (0.82-1.09) 10/03/16 06:05 Assessment/Plan - Problems (1) Abdominal wall cellulitis Code(s): L03.311 - CELLULITIS OF ABDOMINAL WALL (2) Intra-abdominal abscess Code(s): K65.1 - PERITONEAL ABSCESS (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
[2016-10-07 14:56] VITALS: BP 110/85; PULSE 70; TEMP 98.2
--- NOTE | 2016-10-07 16:08 | PN ---
Teaching Attending Note Name of Resident: Jon Aguilera ATTENDING PHYSICIAN STATEMENT I saw and evaluated the patient. I reviewed the resident's note and discussed the case with the resident. I agree with the resident's findings and plan as documented. SUBJECTIVE: no fever or chills, abd pain improved OBJECTIVE: NAD , CV: RRR Lungs: CTAB ext : no edema Abd : soft, ND,no TTP . Mid line surgical scar and a colostomy bag over wound with some brownish fluid. ASSESSMENT AND PLAN: 51 y/o lady with h/o recurrent SBOs, s/p Ex lap , which was complicated with abd wall cellulitis and an abscess formation , s/p drainage of abscess in . now back with purulent drainage from abd wall wound , and was found to have abd wall abscess 1- Abd wall abscess: s/p I&D in OR 10/05 . wound cx growing Klebsiella and enterococcus faecium -change Abx to linezolide and bactrim - f/u with Dr. Myrick and Dr. Jin - wound care - regular diet Dc home today
--- NOTE | 2016-10-07 17:35 | DS ---
Physical Exam: SUBJECTIVE: Patient seen and examined at bedside. POD # 2 s/p I&D of abdominal wall abscess. Tolerating diet. Pain is much better. Denies CP,OROZCO, SOB,Abd. pain , N/V. OBJECTIVE: Vital Signs Period Temp Pulse Resp BP Sys/Golden Pulse Ox Last 24 Hr 98.2 F-98.5 F 70-77 16-18 109-115/68-85 96-97 PHYSICAL EXAM GENERAL: AAOx3, mild distress HEAD: NC/AT. EYES: PERRL, EOMI, sclera anicteric, conjunctiva clear. No ptosis. ENT: moist mucous membranes. NECK:supple , No JVD LUNGS: CTAB, no wheezing or rales. HEART:RRR, S1, S2 no m/g/r ABDOMEN: Soft, colostomy bag draining with pig tail train in place, surrounding erythema and tenderness have improved. EXTREMITIES: 2+ pulses, warm, well-perfused, no edema. LABS Laboratory Last Values WBC 5.7 K/mm3 (4.0-10.0) 10/06/16 06:30 RBC 4.67 M/mm3 (3.60-5.2) 10/06/16 06:30 Hgb 12.0 GM/dL (10.7-15.3) 10/06/16 06:30 Hct 36.3 % (32.4-45.2) 10/06/16 06:30 MCV 77.8 fl (80-96) L 10/06/16 06:30 MCHC 33.2 g/dl (32.0-36.0) 10/06/16 06:30 RDW 14.7 % (11.6-15.6) 10/06/16 06:30 Plt Count 261 K/MM3 (134-434) 10/06/16 06:30 MPV 9.0 fl (7.5-11.1) 10/06/16 06:30 Neutrophils % 63.2 % (42.8-82.8) 10/05/16 08:15 Lymphocytes % 28.1 % (8-40) D 10/05/16 08:15 Monocytes % 6.4 % (3.8-10.2) 10/05/16 08:15 Eosinophils % 1.7 % (0-4.5) D 10/05/16 08:15 Basophils % 0.6 % (0-2.0) 10/05/16 08:15 INR 1.05 (0.82-1.09) 10/03/16 06:05 PTT (Actin FS) 29.2 SECONDS (26.9-34.4) 10/03/16 06:05 Sodium 140 mmol/L (136-145) 10/06/16 06:30 Potassium 4.4 mmol/L (3.5-5.1) 10/06/16 06:30 Chloride 103 mmol/L (98-107) 10/06/16 06:30 Carbon Dioxide 28 mmol/L (21-32) 10/06/16 06:30 Anion Gap 9 (8-16) 10/06/16 06:30 BUN 10 mg/dL (7-18) D 10/06/16 06:30 Creatinine 0.4 mg/dL (0.55-1.02) L 10/06/16 06:30 Creat Clearance w eGFR > 60 (>60) 10/03/16 00:47 Random Glucose 82 mg/dL (74-106) 10/06/16 06:30 Calcium 8.9 mg/dL (8.5-10.1) 10/06/16 06:30 Total Bilirubin 0.3 mg/dL (0.2-1.0) 10/03/16 00:47 AST 17 U/L (15-37) 10/03/16 00:47 ALT 24 U/L (12-78) D 10/03/16 00:47 Alkaline Phosphatase 103 U/L (45-117) 10/03/16 00:47 Total Protein 7.1 g/dl (6.4-8.2) 10/03/16 00:47 Albumin 3.8 g/dl (3.4-5.0) 10/03/16 00:47 Urine Color Colorless 10/03/16 01:54 Urine Appearance Clear 10/03/16 01:54 Urine pH 7.0 (5.0-8.0) 10/03/16 01:54 Ur Specific [place] 1.010 (1.005-1.025) 10/03/16 01:54 Urine Protein Negative (NEGATIVE) 10/03/16 01:54 Urine Glucose (UA) Negative (NEGATIVE) 10/03/16 01:54 Urine Ketones Negative (NEGATIVE) 10/03/16 01:54 Urine Blood Negative (NEGATIVE) 10/03/16 01:54 Urine Nitrite Negative (NEGATIVE) 10/03/16 01:54 Urine Bilirubin Negative (NEGATIVE) 10/03/16 01:54 Urine Urobilinogen Negative E.U./dl (0.2-1.0) 10/03/16 01:54 Ur Leukocyte Esterase Trace (NEGATIVE) H 10/03/16 01:54 Urine RBC <1 /hpf (0-3) 10/03/16 01:54 Urine WBC 1 /hpf (3-5) 10/03/16 01:54 Blood Type O POSITIVE 10/03/16 06:05 Antibody Screen Positive H 10/03/16 06:05 Antibody Identification TNP 10/03/16 06:05 Microbiology 10/03/16 01:00 Blood - Peripheral Venous Blood Culture - Final NO GROWTH AFTER 5 DAYS INCUBATION 10/03/16 01:00 Blood - Peripheral Venous Blood Culture - Final NO GROWTH AFTER 5 DAYS INCUBATION 10/04/16 11:15 Abdomen Gram Stain - Final 10/04/16 11:15 Abdomen Wound Culture - Final Enterococcus Faecium Klebsiella Pneumoniae 10/03/16 01:54 Urine - Urine Clean Catch Urine Culture - Final NO GROWTH OBTAINED HOSPITAL COURSE: 51 year old with significant pmhx of exploratory laporatomy s/p SBO complicated by subsequent abdominal cellulitis with intra-abdominal abscess drained on 08/22 presented to the ED with complaint of abdominal pain. Surgical site appeared erythematous and very tender. It was draining purulent fluid which was sent for analysis. CT abdomen reveled abdominal wall abscess. Patient started on Abx coverage based on prior cultures. ID was consulted. She was subsequently taken back to OR for I&D and placement of pig tail drain.She tolerated procedure well. Tolerated advancement of diet. Abdominal pain and cellulitis improved. Based on cultures and sensitivities abx coverage was switched to appropriate oral coverage to complete 7 day course. Patient was stable for discharge. Instructed to follow up with both infectious disease and surgery in one week. Date of Admission:10/03/16 Date of Discharge: 10/07/16 Minutes to complete discharge: 42 Discharge Summary Reason For Visit: INTRA-ABDOMINAL ABSCESS Current Active Problems Abdominal wall abscess (Acute) Abdominal wall cellulitis (Acute) Hypertension (Chronic) Condition: Stable - Instructions Diet, Activity, Other Instructions: Make an appointment to follow up with Dr. Jin in one week. Also make an appointment to see Dr. Myrick in one week. You will be continuing your antibiotics (Linezolid and Bactrim DS )for one week. Take one tab of each antibiotic twice a day; in morning and at night. If you develop increased pain or fevers please contact Dr. Jin immediately. Regular diet. Increase activity as tolerated. Referrals: Xi Myrick MD [Staff Physician] - Brown Jin MD [Staff Physician] - Margaux Mandel MD [Primary Care Provider] - Disposition: HOME - Home Medications Comprehensive Discharge Medication List: Ambulatory Orders Ibuprofen [Motrin -] 600 mg PO TID PRN 10/02/16 Linezolid [Zyvox (Restricted To Id) -] 600 mg PO BID #14 tablet 10/07/16 Sulfamethoxazole/Trimethoprim [Bactrim DS -] 1 each PO BID #14 tablet 10/07/16 Problem List - Problems (1) Abdominal wall cellulitis This patient is new to me today: No Emergency Visit: Yes ED Registration Date: 10/03/16 Care time: The patient presented to the Emergency Department on the above date and was hospitalized for further evaluation of their emergent condition. Critical Care patient: No - Discharge Referral Referred to [facility] No
== END 2016-10-07 18:49 | disposition home or self-care (01) | DRG 579 ==
LOC: JER 22:57 → JERBED 10-03 03:34 → J8W 10-03 11:46
PROVIDERS: ADMIT Internal Medicine; ATTEND Internal Medicine
PROC: 0W9F0ZZ Drainage of Abdominal Wall, Open Approach (ICD-10-PCS; principal; 2016-10-05 12:00)
DX: L03.311 Cellulitis of abdominal wall (principal); K65.1 Peritoneal abscess; K63.2 Fistula of intestine; I10 Essential (primary) hypertension; E11.9 Type 2 diabetes mellitus without complications
CPT/HCPCS: 36415; 71010-TC; 74177-TC; 80048; 80053; 81003; 81015; 85025; 85027; 85610; 85730; 86850; 86870; 86900; 86901; 86902; 87040; 87070; 87086; 87186; 87205; 93005; 93010; 94760; 99283-25